=== PATIENT | female | born 1960 | race Caucasian/White ===

== ENCOUNTER → 2017-05-09 16:18 | Outpatient (CLI) | payer OTHER, SELFPAY ==
--- NOTE | 2017-05-09 16:22 | HPBI_ITS ---
MAMMOGRAPHY - BILATERAL SCREENING REASON FOR EXAM: Female, 56 years old. Routine annual screening examination. PERTINENT HISTORY: Grandmother with breast cancer. Remote left stereotactic breast biopsy. TECHNIQUE: Digital bilateral breast osmani (3D mammographic acquisition) in the CC and MLO projections. 2-D mediolateral oblique (MLO) and craniocaudad (CC) views of both breasts were obtained. CAD: Full Field Digital Mammography with Computer Added Detection was performed. COMPARISON: Comparison is made with prior study dated March 15, 2016 and March 05, 2015. FINDINGS: Breast Composition: The breasts are heterogeneously dense, which may obscure small masses. There are no dominant masses or suspicious calcifications. Once again, 2 tissue markers are seen in the left breast in keeping with prior left breast biopsy. Stable bilateral benign-appearing axillary lymph nodes. No other significant abnormalities are identified. There has been no significant change since the prior study. HPBI/SCREENING MAMM (CAD), BILAT IMPRESSION: Stable bilateral screening mammogram. Yearly follow-up mammogram recommended. (A) ASSESSMENT CATEGORY: BIRADS Category 2: Benign. A letter regarding these results will be sent to the patient by the facility within 30 days. Approximately 10% of breast cancers are not detected by mammography. A normal mammogram should not delay biopsy of a clinically suspicious abnormality. [id number] Electronically Signed: Anders Brown MD at 9:16 EST Tel [phone], Service support ,
== END ==
PROVIDERS: Family Provider Nurse Practitioner; PCP Nurse Practitioner; Visit Provider Nurse Practitioner
DX: Z12.31 Encounter for screening mammogram for malignant neoplasm of breast (principal)
CPT/HCPCS: 77063; 77067

== ENCOUNTER → 2018-05-15 13:06 | Outpatient (CLI) | payer OTHER, SELFPAY ==
[2018-05-19 16:05] LABS: HPV Reflexed? NOT INDICATED
== END ==
PROVIDERS: Visit Provider Obstetrics & Gynecology
DX: Z12.4 Encounter for screening for malignant neoplasm of cervix (principal)
CPT/HCPCS: 88175; G0145

== ENCOUNTER → 2018-06-20 17:30 | Outpatient (CLI) | payer OTHER, SELFPAY ==
--- NOTE | 2018-06-20 17:08 | BI_ITS ---
MAMMOGRAPHY - BILATERAL SCREENING REASON FOR EXAM: Female, 57 years old. Routine annual screening examination. PERTINENT HISTORY: Grandmother with breast cancer. Remote left stereotactic breast biopsy and left ultrasound-guided breast biopsy. TECHNIQUE: Digital bilateral breast osmani (3D mammographic acquisition) in the CC and MLO projections. 2-D mediolateral oblique (MLO) and craniocaudad (CC) views of both breasts were obtained. CAD: Full Field Digital Mammography with Computer Added Detection was performed. COMPARISON: Comparison is made with prior examination dated May 09, 2017 and March 15, 2016. FINDINGS: Breast Composition: There are scattered areas of fibroglandular density. There are no dominant masses or suspicious calcifications. Once again, soft tissue clip markers are seen in the left breast in keeping with prior biopsies. Stable benign-appearing bilateral axillary lymph nodes. No other significant abnormalities are identified. There has been no significant change since the prior study. BI/SCREENING MAMM (CAD), BILAT IMPRESSION: Stable bilateral screening mammogram. Yearly follow-up mammogram recommended. (A) ASSESSMENT CATEGORY: BIRADS Category 2: Benign. A letter regarding these results will be sent to the patient by the facility within 30 days. Approximately 10% of breast cancers are not detected by mammography. A normal mammogram should not delay biopsy of a clinically suspicious abnormality. [id number] Electronically Signed: Anders Brown, at 9:01 EDT , Service support ,
== END ==
PROVIDERS: Family Provider Obstetrics & Gynecology; PCP Nurse Practitioner; Referring Provider Nurse Practitioner; Visit Provider Obstetrics & Gynecology
DX: Z12.31 Encounter for screening mammogram for malignant neoplasm of breast (principal)
CPT/HCPCS: 77063; 77067

== ENCOUNTER → 2018-12-09 | Outpatient (CLI) | payer OTHER, SELFPAY ==
[2018-12-09 11:28] LABS: Absolute Lymphocyte Count 2.31 X10^3/uL (0.83-4.51); Absolute Neutrophil Count 4.4 X10^3/uL (2.0-7.7); Basophil# 0.04 X10^3/uL; Basophil% 0.5 % (0-1); Eosinophil# 0.21 X10^3/uL; Eosinophils% 2.9 % (0-5); Hematocrit 41.5 % (37-47); Hemoglobin 13.6 g/dL (12.0-15.0); Lymphocyte # 2.31 X10^3/ul (4.0); Lymphocyte % 31.5 % (19-41); Mean Corp Hgb Conc 32.8 g/dL (32-36); Mean Corpuscular Hgb 30.8 pg (27.0-32.0); Mean Corpuscular Volume 93.9 fL (81-99); Mean Platelet Vol. 12.4 fl (6.2-12.0); Monocyte# 0.36 X10^3/uL; Monocyte% 4.9 % (0-10); NRBC Flagged by Analyzer 0 % (0-5); Neutrophil # 4.38 X10^3/uL (2.7-7.7); Neutrophil % 59.8 % (47-70); Platelet Count 221 K/mm3 (150-450); RBC Distribution Width CV 12.9 % (11.6-14.6); Red Blood Count 4.42 M/mm3 (4.2-5.4); White Blood Count 7.3 K/mm3 (4.4-11.0)
[2018-12-09 12:06] LABS: ALB/GLOB Ratio 0.9 RATIO (0.9-2.4); AST(SGOT) 11 U/L (15-37); Alanine Aminotransfer ALT/SGPT 17 U/L (13-56); Albumin, Serum 3.3 g/dL (3.2-5.0); Alkaline Phosphatase 63 U/L (45-117); Anion Gap 3 (5-15); BUN 22 mg/dL (7-18); BUN/Creat Ratio 29.3 RATIO (10-20); Calcium,Total 8.8 mg/dL (8.5-10.1); Chloride 110 mmol/L (98-107); Cholesterol 192 mg/dL (200); Creatinine, Serum 0.75 mg/dL (0.55-1.02); EST Glomerular Filtration Rate 85 mL/min (>60); Est Glom Filt Rate - Afr Amer 102 mL/min (>60); Globulin 3.8 g/dL (2.2-4.2); Glucose 98 mg/dL (74-106); High Density Lipoprotein 59 mg/dL; Potassium 3.8 mmol/L (3.5-5.1); Protein, Total 7.1 g/dL (6.4-8.2); Sodium Level 140 mmol/L (136-145); Triglycerides 204 mg/dL; Very Low Density Lipoprotein 41 mg/dL (5-40)
[2018-12-12 10:23] LABS: Vitamin D,25 Hydroxy 61.9 ng/mL (29.95-100.01)
== END | disposition home or self-care (01) ==
LOC: LAB 10:36
PROVIDERS: Family Provider Nurse Practitioner; PCP Nurse Practitioner; Referring Provider Nurse Practitioner; Visit Provider Nurse Practitioner
DX: E78.00 Pure hypercholesterolemia, unspecified (principal); E55.9 Vitamin D deficiency, unspecified
CPT/HCPCS: 36415; 80053; 80061; 82306; 84443; 85025

== ENCOUNTER → 2019-06-06 14:58 | Outpatient (CLI) | payer OTHER, SELFPAY ==
--- NOTE | 2019-06-06 15:04 | RAD_ITS ---
STUDY: X-RAY CHEST REASON FOR EXAM: Female, 58 years old. COUGH X YEARS, NO CURRENT COLD/FLU SYMPTOMS TECHNIQUE: PA and lateral views of the chest. COMPARISON: September 23, 2014. FINDINGS: The lungs are clear and expanded. There is no demonstrated pleural abnormality. Normal size heart. Normal mediastinum and leatha. Normal visualized pulmonary arteries. Normal visualized aortic arch and descending thoracic aorta. There is mild degenerative change of the thoracic spine. Normal visualized ribs, clavicles, and shoulders. There is gaseous distention of bowel in the left upper abdomen. RAD/Chest PA and Lateral IMPRESSION: No acute cardiopulmonary disease. Stable appearance. Electronically Signed: Justice Caldera MD at 16:07 EST , Service support ,
== END ==
PROVIDERS: PCP Nurse Practitioner; Referring Provider Nurse Practitioner; Visit Provider Nurse Practitioner
DX: R05 Cough (principal)
CPT/HCPCS: 71046

== ENCOUNTER → 2019-06-26 | Outpatient (CLI) | payer OTHER, SELFPAY ==
--- NOTE | 2019-06-26 16:00 | BI_ITS ---
MAMMOGRAPHY - BILATERAL SCREENING REASON FOR EXAM: Female, 58 years old. Routine annual screening examination. PERTINENT HISTORY: Grandmother with breast cancer. Remote left stereotactic breast biopsy and left ultrasound-guided breast biopsy. TECHNIQUE: Digital bilateral breast ilda (3D mammographic acquisition) in the CC and MLO projections. 2-D mediolateral oblique (MLO) and craniocaudad (CC) views of both breasts were obtained. CAD: Full Field Digital Mammography with Computer Added Detection was performed. COMPARISON: Comparison is made with prior examination June 20, 2018 and May 09, 2017. FINDINGS: Breast Composition: There are scattered areas of fibroglandular density. There are no dominant masses or suspicious calcifications. Once again, 2 tissue markers are seen in the slightly upper lateral aspect of the left breast incomplete with history of prior biopsies. Stable small bilateral axillary lymph nodes. No other significant abnormalities are identified. There has been no significant change since the prior study. BI/SCREEN MAMM (CAD) W/ILDA BILAT IMPRESSION: Stable bilateral screening mammogram. Yearly follow-up mammogram recommended. (A) ASSESSMENT CATEGORY: BIRADS Category 2: Benign. A letter regarding these results will be sent to the patient by the facility within 30 days. Approximately 10% of breast cancers are not detected by mammography. A normal mammogram should not delay biopsy of a clinically suspicious abnormality. [id number] Electronically Signed: Anders Brown, at 8:16 EDT , Service support ,
== END | disposition home or self-care (01) ==
PROVIDERS: PCP Nurse Practitioner
DX: Z12.31 Encounter for screening mammogram for malignant neoplasm of breast (principal)
CPT/HCPCS: 77063; 77067

== ENCOUNTER → 2019-08-29 11:19 | Outpatient (CLI) | payer OTHER, SELFPAY ==
--- NOTE | 2019-08-29 11:30 | RAD_ITS ---
STUDY: X-RAY - LEFT ANKLE REASON FOR EXAM: Female, 59 years old. PAIN IN LEFT ANKLE POSTERIORLY FOR ABOUT 2 WEEKS. NO KNOWN INJURY. TECHNIQUE: 3 view(s) of the ankle. COMPARISON: None. FINDINGS: Normal visualized distal tibia and fibula. Normal medial and lateral malleoli. Normal tibiotalar articulation and ankle mortise. Normal visualized talus and calcaneus. Calcific enthesopathy in the posterior calcaneal surface. Tiny posterior plantar calcaneal spur. The visualized subtalar, talonavicular, calcaneocuboid and tarsal articulations are normal. The soft tissue structures are unremarkable. RAD/Ankle min 3 Views IMPRESSION: No acute fracture or dislocation of the left ankle. Electronically Signed: Jordan Yang MD at 11:53 EDT , Service support ,
== END ==
PROVIDERS: PCP Nurse Practitioner; Referring Provider Nurse Practitioner; Visit Provider Nurse Practitioner
DX: M25.572 Pain in left ankle and joints of left foot (principal)
CPT/HCPCS: 73610

== ENCOUNTER → 2020-07-29 16:40 | Outpatient (CLI) | payer OTHER, SELFPAY ==
--- NOTE | 2020-07-29 16:05 | BI_ITS ---
MAMMOGRAPHY - BILATERAL SCREENING REASON FOR EXAM: Female, 59 years old. Routine annual screening examination. PERTINENT HISTORY: Sister with breast cancer. Grandmother with breast cancer. History of prior left stereotactic and left ultrasound-guided breast biopsies. TECHNIQUE: Digital bilateral breast ilda (3D mammographic acquisition) in the CC and MLO projections. 2-D mediolateral oblique (MLO) and craniocaudad (CC) views of both breasts were obtained. CAD: Full Field Digital Mammography with Computer Added Detection was performed. COMPARISON: Comparison is made with prior examination dated 06/26/2019 and 06/20/2018. FINDINGS: Breast Composition: The breasts are heterogeneously dense, which may obscure small masses. There are no dominant masses or suspicious calcifications. No other significant abnormalities are identified. There has been no significant change since the prior study. BI/SCRN MAMM (CAD)W/ILDA BILAT IMPRESSION: Stable bilateral screening mammogram. Yearly follow-up mammogram recommended. (A) ASSESSMENT CATEGORY: BIRADS Category 1: Negative. A letter regarding these results will be sent to the patient by the facility within 30 days. Approximately 10% of breast cancers are not detected by mammography. A normal mammogram should not delay biopsy of a clinically suspicious abnormality. [id number] Electronically Signed: Anders Brown MD at 8:08 EDT , Service support ,
== END ==
PROVIDERS: PCP Nurse Practitioner; Referring Provider Student in an Organized Health Care Education/Training Program; Visit Provider Student in an Organized Health Care Education/Training Program
DX: Z12.31 Encounter for screening mammogram for malignant neoplasm of breast (principal)
CPT/HCPCS: 77063; 77067

== ENCOUNTER 2021-06-23 14:12 | Outpatient (CLI) | payer OTHER, SELFPAY ==
[2021-06-23 16:32] LABS: Follicle Stimulating Hormone 59.6 mIU/mL; Luteinizing Hormone 30.8 mIU/mL
[2021-06-30 13:57] LABS: HPV APTIMA, High Risk Negative (Negative)
== END 2021-06-23 23:59 | disposition home or self-care (01) ==
LOC: WOBLAB 14:13
PROVIDERS: PCP Nurse Practitioner; Visit Provider Student in an Organized Health Care Education/Training Program
DX: Z12.4 Encounter for screening for malignant neoplasm of cervix (principal); Z78.0 Asymptomatic menopausal state
CPT/HCPCS: 36415; 83001; 83002; 87624; 88175; G0145

== ENCOUNTER 2021-07-13 16:29 | Outpatient (CLI) | payer OTHER, SELFPAY ==
--- NOTE | 2021-07-13 15:00 | EMB_PTH ---
PATIENT: CECE SNEED LOC: [facility]#:[id number] AGE/SX: 60/F ROOM: RE07/13/[address]: Dr. Beatriz Booker DO : 1960 BED: DIS: 07/13/2021 SPEC #: [id number] RECD: 07/13/21 17:25 STATUS: JAYCOB SONDRA #: [id number] URI: 07/13/21 15:[address]: Beatriz Booker DEPT: SURGICAL PATHOLOGY RECD BY: Nuvia Villalpando ENTERED: 07/14/21 08:10 SP TYPE: ENDOM BX/C RAMSEY DR: YAQUELIN Bowman Tissues: Endometrium, NOS Procedures: Surgery Specimen Level IV HEADER OPERATION: Endometrial biopsy PRE-OP DIAGNOSIS: N95.0 TISSUE SUBMITTED: Endometrial biopsy MICROSCOPIC DIAGNOSIS Endometrial biopsy: Strips of benign endometrial epithelium and superficial fragments of benign endometrial tissue. Fragments of benign ecto- and endocervical epithelium and mucous. SJ:mavis 07/15/2021 MICROSCOPIC DESCRIPTION Slides are reviewed. GROSS DESCRIPTION Received in fixative is one container labeled with the patient's name and designated endometrial biopsy. The specimen consists of multiple fragments of hemorrhagic mucoid tissue that in aggregate measure 1 x 0.5 x 0.1 cm. The specimen is totally submitted in one cassette. / SHALA:mavis 07/14/2021 TC:4 CPT: 33223
== END 2021-07-13 23:59 | disposition home or self-care (01) ==
LOC: LABSPEC 16:34
PROVIDERS: PCP Nurse Practitioner; Visit Provider Student in an Organized Health Care Education/Training Program
DX: N95.0 Postmenopausal bleeding (principal)
CPT/HCPCS: 88305

== ENCOUNTER 2021-07-21 13:42 | Outpatient (CLI) | payer OTHER, SELFPAY ==
--- NOTE | 2021-07-21 13:45 | BI_ITS ---
MAMMOGRAPHY - BILATERAL SCREENING REASON FOR EXAM: Female, 60 years old. Routine annual screening examination. PERTINENT HISTORY: Sister with breast cancer. Grandmother with breast cancer. History of prior left stereotactic breast biopsy. TECHNIQUE: Digital bilateral breast ilda (3D mammographic acquisition) in the CC and MLO projections. 2-D mediolateral oblique (MLO) and craniocaudad (CC) views of both breasts were obtained. CAD: Full Field Digital Mammography with Computer Added Detection was performed. COMPARISON: Comparison is made with prior study dated 07/29/2020 and 06/26/2019. FINDINGS: Breast Composition: The breasts are heterogeneously dense, which may obscure small masses. There are no dominant masses or suspicious calcifications. 2 tissue markers are seen in the central slightly lateral aspect of the left breast. Stable small benign-appearing bilateral axillary lymph nodes. No other significant abnormalities are identified. There has been no significant change since the prior study. BI/SCRN MAMM (CAD)W/ILDA BILAT IMPRESSION: Stable bilateral screening mammogram. Yearly follow-up mammogram recommended. (A) ASSESSMENT CATEGORY: BIRADS Category 2: Benign. A letter regarding these results will be sent to the patient by the facility within 30 days. Approximately 10% of breast cancers are not detected by mammography. A normal mammogram should not delay biopsy of a clinically suspicious abnormality. [id number] Electronically Signed: Anders Brown MD at 14:37 EDT ,
== END 2021-07-21 23:59 | disposition home or self-care (01) ==
LOC: OPBI 13:43
PROVIDERS: PCP Nurse Practitioner; Visit Provider Student in an Organized Health Care Education/Training Program
DX: Z12.31 Encounter for screening mammogram for malignant neoplasm of breast (principal); Z80.3 Family history of malignant neoplasm of breast
CPT/HCPCS: 77063; 77067

== ENCOUNTER → 2022-07-30 | Outpatient (CLI) | payer OTHER, SELFPAY ==
--- NOTE | 2022-07-30 14:49 | BI_ITS ---
MAMMOGRAPHY - BILATERAL SCREENING REASON FOR EXAM: Female, 61 years old. Routine annual screening examination. PERTINENT HISTORY: Sister with breast cancer. Grandmother with breast cancer. Prior left ultrasound-guided breast biopsy. TECHNIQUE: Digital bilateral breast ilda (3D mammographic acquisition) in the CC and MLO projections. 2-D mediolateral oblique (MLO) and craniocaudad (CC) views of both breasts were obtained. CAD: Full Field Digital Mammography with Computer Added Detection was performed. COMPARISON: Comparison is made with prior study July 21, 2021 and July 29, 2020. FINDINGS: Breast Composition: The breasts are heterogeneously dense, which may obscure small masses. There are no dominant masses or suspicious calcifications. Once again, 2 tissue markers are seen in the central slightly lateral aspect of the left breast stable small benign appearing bilateral axilla. No other significant abnormalities are identified. There has been no significant change since the prior study. BI/SCRN MAMM (CAD)W/ILDA BILAT IMPRESSION: Stable bilateral screening mammogram. Yearly follow-up mammogram recommended. (A) ASSESSMENT CATEGORY: BIRADS Category 2: Benign. A letter regarding these results will be sent to the patient by the facility within 30 days. Approximately 10% of breast cancers are not detected by mammography. A normal mammogram should not delay biopsy of a clinically suspicious abnormality. [id number] Electronically Signed: Anders Brown MD at 15:38 EDT ,
== END | disposition home or self-care (01) ==
LOC: OPBI 14:47
PROVIDERS: PCP Nurse Practitioner; Referring Provider Nurse Practitioner Family; Visit Provider Nurse Practitioner Family
DX: Z12.31 Encounter for screening mammogram for malignant neoplasm of breast (principal); Z80.3 Family history of malignant neoplasm of breast
CPT/HCPCS: 77063; 77067

== ENCOUNTER → 2023-09-13 | Outpatient (CLI) | payer OTHER, SELFPAY ==
--- NOTE | 2023-09-13 10:01 | BI_ITS ---
MAMMOGRAPHY - BILATERAL SCREENING REASON FOR EXAM: Female, 63 years old. Routine annual screening examination. PERTINENT HISTORY: Sister with breast cancer. Grandmother with breast cancer. Prior left stereotactic breast biopsy. TECHNIQUE: Digital bilateral breast ilda (3D mammographic acquisition) in the CC and MLO projections. 2-D mediolateral oblique (MLO) and craniocaudad (CC) views of both breasts were obtained. CAD: Full Field Digital Mammography with Computer Added Detection was performed. COMPARISON: Comparison is made with prior study July 30, 2022 and July 21, 2021. FINDINGS: Breast Composition: The breasts are heterogeneously dense, which may obscure small masses. There are no dominant masses or suspicious calcifications. 2 tissue markers are seen in the slightly central lateral aspect of the left breast. Stable benign appearing bilateral axillary lymph nodes. No other significant abnormalities are identified. There has been no significant change since the prior study. BI/SCRN MAMM (CAD)W/ILDA BILAT IMPRESSION: Stable bilateral screening mammogram. Yearly follow-up mammogram recommended. (A) ASSESSMENT CATEGORY: BIRADS Category 2: Benign. A letter regarding these results will be sent to the patient by the facility within 30 days. Approximately 10% of breast cancers are not detected by mammography. A normal mammogram should not delay biopsy of a clinically suspicious abnormality. [id number] Electronically Signed: nAders Brown MD at 11:17 EDT ,
--- NOTE | 2023-09-13 10:03 | BD_ITS ---
STUDY: DUAL ENERGY X-RAY ABSORPTIOMETRY / DXA REASON FOR EXAM: Female, 63 years old. [id number] TECHNIQUE: Bone Mineral Density (BMD) measurements of lumbar spine and bilateral hips were obtained. COMPARISON: None. FINDINGS: Lumbar Spine (L1-L4): g/cm2 (0.894) / T-score (-1.4) / Z-score (0.1) Findings are suggestive of osteopenia with a low fracture risk. Left Femur Total: g/cm2 (1.073) / T-score (1.1) / Z-score (2.1) Left Femoral Neck: g/cm2 (0.781) / T-score (-0.6) / Z-score (0.7) Right Femur Total: g/cm2 (1.020) / T-score (0.6) / Z-score (1.6) Right Femoral Neck: g/cm2 (0.795) / T-score (-0.5) / Z-score (0.8) BD/Dexa Bone Density Study IMPRESSION: The patient is considered osteopenic as outlined below according to World Alon Organization (WHO) criteria with a low fracture risk. Reference Information: The T-score is the number of standard deviations above or below the standard which is normal for young adults at their peak bone mineral density. The World Health Organization (WHO) interprets the T-scores as follows: Above -1 Normal bone density Between -1 and -2.5 Osteopenia Equal to / or below -2.5 Osteoporosis As a practical clinical guideline, osteopenia may be graded as follows: Mild -1 through -1.5 Moderate -1.6 through -2.0 Severe -2.1 through -2.4 The Z-score is the number of standard deviations above or below age-matched controls. A Z-score of less than -1.5 would be considered abnormal. References: 1. NIH Osteoporosis and Related Bone Diseases www osteo.org 2. International Society for Clinical Densitometry www iscd.org 3. National Osteoporosis Foundation www nof.org Electronically Signed: Anders Brown MD at 10:03 EDT ,
== END | disposition home or self-care (01) ==
LOC: OPBD 09:56
PROVIDERS: PCP Nurse Practitioner; Referring Provider Nurse Practitioner Family; Visit Provider Nurse Practitioner Family
DX: Z12.31 Encounter for screening mammogram for malignant neoplasm of breast (principal); Z78.0 Asymptomatic menopausal state
CPT/HCPCS: 77063; 77067; 77080

== ENCOUNTER → 2024-06-22 | Outpatient (CLI) | payer OTHER, SELFPAY ==
[2024-06-22 12:40] LABS: Absolute Lymphocyte Count 2.28 X10^3/uL (0.83-4.51); Absolute Neutrophil Count 3.7 X10^3/uL (2.0-7.7); Basophil# 0.05 X10^3/uL; Basophil% 0.8 % (0-1); Eosinophil# 0.12 X10^3/uL; Eosinophils% 1.8 % (0-5); Hematocrit 42.7 % (37-47); Hemoglobin 13.8 g/dL (12.0-15.0); Lymphocyte # 2.28 X10^3/ul (0.83-4.51); Lymphocyte % 34.5 % (19-41); Mean Corp Hgb Conc 32.3 g/dL (32-36); Mean Corpuscular Hgb 30.3 pg (27.0-32.0); Mean Corpuscular Volume 93.6 fL (81-99); Mean Platelet Vol. 12.6 fl (6.2-12.0); Monocyte% 6.1 % (0-10); NRBC Flagged by Analyzer 0 % (0-5); Neutrophil # 3.74 X10^3/uL (2.7-7.7); Neutrophil % 56.6 % (47-70); Platelet Count 221 K/mm3 (150-450); RBC Distribution Width CV 13.2 % (11.6-14.6); RBC Distribution Width SD 45.1 fl (35.1-43.9); Red Blood Count 4.56 M/mm3 (4.2-5.4); White Blood Count 6.6 K/mm3 (4.4-11.0)
[2024-06-22 13:51] LABS: ALB/GLOB Ratio 1.5 RATIO (0.9-2.4); AST(SGOT) 18 U/L (<=31); Alanine Aminotransfer ALT/SGPT 20 U/L (<=34); Albumin, Serum 4.3 g/dL (3.4-4.8); Alkaline Phosphatase 76 U/L (35-104); Anion Gap 14 (5-15); BUN 16 mg/dL (4-19); BUN/Creat Ratio 17.2 RATIO (10-20); Calcium,Total 9.9 mg/dL (7.6-11.0); Carbon Dioxide 20.3 mmol/L (21.0-32.0); Chloride 108 mmol/L (98-108); Creatinine, Serum 0.92 mg/dL (0.70-1.20); EST Glomerular Filtration Rate 71 (>60); Globulin 2.9 g/dL (2.2-4.2); Glucose 109 mg/dL (70-99); Protein, Total 7.2 g/dL (5.9-8.4); Sodium Level 142 mmol/L (133-145)
[2024-06-22 14:21] LABS: Cholesterol 140 mg/dL (<=200); High Density Lipoprotein 56 mg/dL; Low Density Lipoprotein Calc. 61 mg/dL; Triglycerides 118 mg/dL; Very Low Density Lipoprotein 24 mg/dL (5-40); cholesterol:hdl ratio screen 2.52
[2024-06-22 14:22] LABS: Vitamin D,25 Hydroxy 50.1 ng/mL (30-100)
[2024-06-22 14:27] LABS: Hemoglobin A1c 5.9 % (<=5.6)
== END | disposition home or self-care (01) ==
LOC: BIMLAB 09:22
PROVIDERS: PCP Internal Medicine; Referring Provider Internal Medicine; Visit Provider Internal Medicine
DX: R73.03 Prediabetes (principal); E78.2 Mixed hyperlipidemia; J45.909 Unspecified asthma, uncomplicated; G43.909 Migraine, unspecified, not intractable, without status migrainosus
CPT/HCPCS: 36415; 80053; 80061; 82306; 83036; 85025

== ENCOUNTER 2025-04-10 00:08 | Emergency (ER) | payer MEDICAID, SELFPAY ==
[2025-04-10 00:08] VITALS: BP 131/52; PULSE 64; RESP 16; TEMP 36.4; O2SAT 100; BMI 35.8
--- NOTE | 2025-04-10 00:20 | RAD_ITS ---
PROCEDURE: ELBOW MIN 3 VIEWS 04/10/2025 REASON FOR EXAM: PAIN, FALL TECHNIQUE: Procedure Code: RADEL Modality: DX Procedure: ELBOW MIN 3 VIEWS Laterality: Right. COMPARISON: None. FINDINGS: Acute nondisplaced fracture of the radial head/neck. Elbow joint effusion. Soft tissue edema and swelling. Normal radiocapitellar articulation. Normal ulnotrochlear articulation. Normal distal humerus and epicondyles. Normal proximal ulna and olecranon process. RAD/Elbow min 3 Views IMPRESSION: Acute nondisplaced fracture of the radial head/neck. Elbow joint effusion. Soft tissue edema and swelling. [facility]
--- NOTE | 2025-04-10 00:21 | EDS_ITS ---
HPI History of Present Illness Chief Complaint: Upper Extremity Injury Narrative Narrative: Patient is a 64-year-old female presenting to the emergency department after a fall. Patient states that she was outside and slipped on ice causing her to fall onto her right arm. She denies hitting her head or any loss of consciousness. She is not on any oral anticoagulation. States that her drivers Ed student helped her up. Denies any neck or back pain. Denies any hip pain. Denies any headache. Denies any chest pain, shortness of breath, abdominal pain, palpitations, lightheadedness or dizziness that caused her to fall. States it was purely slipping on the ice that caused her to fall. She took Advil around 8 PM this evening. The fall happened around 5 PM. [facility] Medical History JESUS (obstructive sleep apnea) Depression Chronic headaches Asthma Home Medications ?Medication ?Instructions ?Recorded ?Last Taken ?Type galcanezumab-gnlm 120 mg/mL 120 mg subcut QMONTH 01/19 Unknown History subcutaneous syringe (Emgality) ipratropium bromide 21 mcg (0.03 2 spray intranasal BI D 01/20/24 Unknown History %) nasal spray propranolol 20 mg tablet 20 mg PO BID 01/20/24 Unknow n History rosuvastatin 5 mg tablet (Crestor) 5 mg PO .every othe r day 01/20/24 Unknown Hi story zolmitriptan 5 mg tablet mg PO .prn 01/20/24 Unknown History ascorbate calcium (vitamin C) 500 500 mg PO QDAY 03/27 Unknown History mg tablet calcium , magnesium, zinc PO 03/27/24 Unknown History cholecalciferol (vitamin D3) 50 50 mcg PO QDAY 4 Unknown History mcg (2,000 unit) capsule cranberry 500 mg capsule 500 mg PO ONCE 03/27/24 Unkn own History multivitamin PO 03/27/24 Unknown History vitamin B complex 1 tab PO QDAY 03/27/24 Unkno wn History topiramate 100 mg tablet 100 mg PO BID #180 tabs 10/10 05/05 Unknown Rx budesonide-formoterol HFA 80 2 puff PO BID #30.6 ea Unknown Rx mcg-4.5 mcg/actuation aerosol inhaler escitalopram oxalate 20 mg tablet 20 mg PO DAILY #90 t abs 03/11/25 Unknown Rx famotidine 20 mg tablet (Pepcid) 20 mg PO QDAY PRN hea rtburn #90 03/11/25 Unknown Rx tabs Allergy/AdvReac Type Severity Reaction Status Date / Time No Known Allergies Allergy Verified 04/10/25 00:10 Family History Grandmother Cancer, Onset Age: 80 breast cancer Mother Cancer, Onset Age: 50 ovarian cancer Sister Cancer, Onset Age: 60 breast Sister Colon cancer, Onset Age: 20 Grandfather Cancer skin Father Cancer skin Aunt Cancer breast? type unknown Surgical History H/O breast biopsy Social History household members: none housing: house current occupational status: employed current occupation: [employer] Smoking Status: Never smoker alcohol intake: never substance use type: does not use what type of physical activity do you participate in: none seatbelt use: always do you feel safe at home: Yes ROS ROS ED ROS Narrative see HPI EXAM Physical Exam Narrative Exam Narrative: Vital signs: Reviewed General: Alert and orientedx3. No acute distress. Well-appearing, nontoxic HEENT: Head is normocephalic and atraumatic. No cephalhematoma, lacerations or abrasions to the head or face. Sinuses nontender, pupils equal round and reactive. Extraocular movements intact. Nares are patent. No septal hematoma. Oropharynx and throat exams normal. No oropharyngeal trauma. Neck: Supple without lymphadenopathy nontender. No midline cervical spinal tenderness to palpation. No step-offs or deformities. Cardiovascular: Regular rate and rhythm, no murmurs. No rubs or gallops. Normal S1 and S2 Respiratory: Clear to auscultation bilaterally. No wheezes, rales, rhonchi Chest: Chest wall is atraumatic and nontender to palpation with no crepitus, erythema or ecchymosis. Abdominal: Soft and nontender. Normal bowel sounds. No guarding or rebound. Nonsurgical abdomen Extremities: There is some very mild tenderness to palpation of the radial proximal portion of the forearm. There is no tenderness to palpation of the right clavicle, proximal, midshaft or distal humerus. There is no obvious deformity of the elbow. There is no erythema or ecchymosis of the elbow. There is no tenderness to palpation of the mid or distal forearm, wrist or hand. Radial pulses palpable and 2+. Sensation intact in the radial, median, ulnar and axillary distributions. Patient able to wiggle her fingers and range fully at the wrist. She is able to partially range at the shoulder however it causes pain in the elbow when ranging the shoulder and is therefore limited. Atraumatic left upper extremity and bilateral lower extremities. No midline thoracic or lumbar spinal tenderness to palpation. No step-offs or deformities. Skin: No rash or redness. Neurological: Cranial nerves II through XII are grossly intact. Normal strength and sensation. Normal cerebellar function The rest of the physical exam is unremarkable Const Vital Signs: 04/10/25 00:08 Temperature 97.6 F L Temperature Source Oral Pulse Rate 64 Respiratory Rate 16 Blood Pressure 131/52 H Blood Pressure Mean 78 Pulse Ox 100 Oxygen Delivery Method Room Air MDM MDM MDM Narrative Medical decision making narrative: Patient is a 64-year-old female presenting to the emergency department for right arm pain after a fall. Patient was seen and examined. Vitals are stable. Patient resting in bed comfortably in no acute distress. She was offered analgesic but declines. X-ray imaging of the elbow and humerus were obtained. X-rays were reviewed by myself and there is evidence of a nondisplaced radial head fracture. No other fracture noted on my review. Radiology read in agreement. On reexamination again she does not have tenderness to palpation of the wrist I am not concerned about a Beatriz Harinder Lesion. She will be placed in a sling. She was encouraged to have early range of motion after 2 to 5 days and given orthopedic follow-up for as soon as possible. She was educated on RICE therapy. Patient discharged from the Emergency Department. I do not feel that the patient's evaluation reveals any acute reason for admission at this time. I instructed them to either follow-up with their primary care physician or promptly return to the Emergency Department for reevaluation should symptoms worsen or new symptoms develop. I explained what symptoms would indicate the need to return to the emergency department. Shared decision making was used. The patient voiced understanding of the treatment plan and is agreeable with it. Clinical impression: Mechanical fall Closed fracture radial head History & Record Review Discussion w/independent historian: Patient Radiography X-Ray: Read by ED Physician and Fracture (Radial head fracture) Discharge Plan Triage Chief Complaint: Upper Extremity Injury ED Provider: Deb Miranda Dx/Rx/DC Orders Clinical Impression: Closed fracture of radial head, Fall Instructions: ED Radial Head Fracture, ED Fall Prevention, ED RICE Prescriptions: No Action vitamin B complex Tablet 1 tab PO QDAY ascorbate calcium (vitamin C) 500 mg tablet 500 mg PO QDAY Rx Instructions: unknown mg calcium , magnesium, zinc PO Rx Instructions: 600mg po qd cholecalciferol (vitamin D3) 50 mcg (2,000 unit) capsule 50 mcg PO QDAY cranberry 500 mg capsule 500 mg PO ONCE Rx Instructions: administer with meals multivitamin PO Rx Instructions: 50 plus Emgality Syringe 120 mg/mL syringe 120 mg subcut QMONTH rosuvastatin [Crestor] 5 mg tablet 5 mg PO .every other day ipratropium bromide 21 mcg (0.03 %) spray,non-aerosol 2 spray intranasal BID Rx Instructions: administer into each nostril propranolol 20 mg tablet 20 mg PO BID zolmitriptan 5 mg tablet PO .prn Rx Instructions: 1/2 tab topiramate 100 mg tablet 100 mg PO BID Qty: 180 0RF budesonide-formoterol 80-4.5 mcg/actuation HFA aerosol inhaler 2 puff PO BID Qty: 30.6 0RF escitalopram oxalate 20 mg tablet 20 mg PO DAILY Qty: 90 0RF famotidine [Pepcid] 20 mg tablet 20 mg PO QDAY PRN (Reason: heartburn) Qty: 90 0RF Primary Care Provider: Madina Green Referrals: Madina Green MD [Primary Care Provider, Internal Medicine] Jose M Rizvi DO [Med Staff - Active Staff, [facility]] - 1 Week Activity Restrictions/Additional Instructions: Wear the sling for at least 2-5 days and then work on early range of motion of your arm. Follow the RICE instructions for pain and swelling control. Call the orthopedic office below as soon as possible for follow-up. Your evaluation in the Emergency Department did not reveal any acute reason for admission. However, I want to emphasize that you may be early in the course of a disease process or illness even if it is not present. For this reason you should follow-up within 24 hours for reevaluation with either your primary care physician or if necessary back here in the Emergency Department. You should return to the Emergency Department immediately if your symptoms worsen or new symptoms develop. Print Language: Albanian Disposition Disposition: Home, Self Care
--- NOTE | 2025-04-10 00:30 | RAD_ITS ---
PROCEDURE: HUMERUS MIN 2 VIEWS 04/10/2025 REASON FOR EXAM: PAIN, FALL TECHNIQUE: Procedure Code: RADHUM Modality: DX Procedure: HUMERUS MIN 2 VIEWS COMPARISON: None. FINDINGS: Normal visualized humerus. There is no demonstrated fracture or osseous destructive process. There is no demonstrated soft tissue abnormality. RAD/Humerus min 2 Views IMPRESSION: No evidence for acute abnormality. Reading [facility]
--- OUTSIDE RECORDS SUMMARY | 2025-04-10 00:36 | XMS RPT_ITS | CCD ---
Author Organization [facility] ion Partnership [facility] Care Team Providers Care Bottom Turning Lathe Turner Name Role Phone Taylor Tenorio Attending Unavailable Fast, Karen A Referring Unavailable Taylor Tenorio Consulting Unavailable Taylor Tenorio Unavailable Karan Peralta Unavailable Gabriela Peralta Unavailable Simin Rossi Unavailable [phone] Quan Ritter Unavailable Fast, Karen A Unavailable LakiaAnnie Malinen Unavailable Jose Alfredo Cummings P Unavailable Zulay Borden Unavailable Unavailable Slarb, Jacque Unavailable Unavailable Unavailable Unavailable Lakiaalejandra Stovall Iesha Unavailable Shan Briceño Unavailable Unavailable Jonathan Manning Unavailable Maria Eugenia Kendrick Unavailable Unavailable Quan Carson Unavailable Robby Armando Unavailable Gabbie Begum Unavailable Unavailable Shan Briceño Unavailable Unavailable Ofe Seth Unavailable Unavailable Gabriela Peralta Unavailable Shan Pan Unavailable Unavailable Taylor Tenorio CNP Unavailable Karan Peralta Unavailable Gabriela Peralta DO Unavailable Simin Rossi Unavailable Dr. Jonathan Manning Unavailable Quan Carson Unavailable Riya LOJA, Quan Arias Unavailable Fast DO, Karen A Unavailable Iesha Saul Unavailable Zoila LOJA, Jose Alfredo Reno Unavailable Dr. Robby Armando Unavailable Maxim COMMERCIAL REAL ESTATE APPRAISER, Shan Unavailable Unavailable Carolyn COMMERCIAL REAL ESTATE APPRAISER, Jacque Unavailable Unavailable Rolo COMMERCIAL REAL ESTATE APPRAISER, Ofe Unavailable Unavailable Unavailable Unavailable Enrique HOUSE PRINCIPAL, Anne Marie Unavailable Enrique HOUSE PRINCIPAL, Anne Marie Unavailable Taylor Tenorio Unavailable Aria Yun MA Unavailable Unavailable Norma LOJA, Dr. Painter Attending Provider Norma LOJA, Dr. Painter Primary Care Provider Norma LOJA, Dr. Painter Referring Provider Madina Green Primary Care Unavailable Madina Green Attending Unavailable Madina Green Referring Unavailable Madina Green Primary Care Unavailable Madina Green Attending Unavailable Madina Green Referring Unavailable Coby RN NEUROSURGICAL, Taylor Primary Care Unavailable Anne Marie Nunez Attending Unavailable Anne Marie Nunez Referring Unavailable Madina Green Attending Unavailable Verónica Donnelly Attending Unavailable Medications Current Medications Medication Drug Class(es) Dates Sig (Normalized) Sig (Original) Budesonide-Formoter ol (2 sources) Corticosteroid, beta2-Adrenergic Agonist Start: 04-20-2024 Budesonide-Formote rol (Symbicort) 80-4.5 mcg/actuation HFA aerosol inhaler Active 2 NMA INHALATION TWICE A DAY 10.2 April 20, 2024 3:48pm Start: 03-27-2024 End: 04-20-2024 Budesonide-Formoterol (Symbi nieves) 80-4.5 mcg/actuation HFA aerosol inhaler Discontinued 2 NMA INHALATION TWICE A DAY 10.2 March 27, 2024 1:00am April 20, 2024 3:48pm calcium , magnesium, zinc (1 source) Start: 03-27-2024 take 600 mg by mouth once daily calcium , magnesium, zinc Active PO March 27, 2024 1:00am 600mg po qd calcium ascorbate 500 mg oral tablet (1 source) Start: 03-27-2024 take 1 tablet by mouth once daily cholecalciferol 0.05 mg oral capsule (20 sources) Vitamin D Start: 03-27-2024 take 1 capsule by mouth once daily Cholecalciferol (Vitamin D3) 50 mcg (2,000 unit) capsule Active 50 ug PO daily March 27, 2024 1:00am Start: 08-23-2016 take 1 capsule by mo [facility] once daily Vitamin D3 High Potency 1000 UNIT Oral Capsule 1 (one) Capsule daily for 0 days Quantity: 30 {Capsule} Refills: 0 Ordered: 23-Aug-2016 YvonneTaylor millan Start : 23-Aug-2016 Active Start: 02-23-2016 End: 08-23-2016 take 1 capsule by mouth once daily Vitamin D3 5000 UNIT Oral Capsule 1 (one) Capsule daily for 0 days Quantity: 30 {Capsule} Refills: 0 Ordered: 23-Aug-2016 Jacque Leon LPN Start : 23-Feb-2016 End : 23-Aug-2016 Discontinued Start: 10-09-2013 End: 04-01-2017 take 1 capsule by mouth three times daily Vitamin D3 1000 UNIT Oral Capsule 1 Capsule Capsule tid for 0 days Quantity: 30 {Capsule} Refills: 3 Ordered: 01-Apr-2017 Jacque Leon LPN Start : 09-Oct-2013 End : 01-Apr-2017 Inactive Cranberry (20 sources) Non-Standardized Food Allergenic Extract, Non-Standardized Plant Allergenic Extract Start: 03-27-2024 take 1 capsule by mouth once at mealtime Cranberry 500 mg capsule Active 500 mg PO ONCE March 27, 2024 1:00am administer with meals Cranberry 200 MG Oral Capsule (200 MG) Active escitalopram 20 mg oral tablet (20 sources) Serotonin Reuptake Inhibitor Start: 01-20-2024 Escitalopram Oxalate 20 mg tablet Active mg PO January 20, 2024 12:00am Start: 11-15-2022 Lexapro 20 mg oral tablet 1 tab Tablet qd for 90 days Quantity: 90 {Tablet} Refills: 3 Ordered: 15-Nov-2022 Anne Marie Nunez CNP Start : 15-Nov-2022 Active Comments: Mail order. Start: 01-25-2022 Lexapro 20 MG Oral Tablet 1 tab Tablet qd for 90 days Quantity: 90 {Tablet} Refills: 3 Ordered: 25-Jan-2022 Anne Marie Nunez CNP Start : 25-Jan-2022 Active Comments: Mail order. Start: 02-06-2021 Lexapro 20 MG Oral Tablet 1 tab Tablet qd for 90 days Quantity: 90 {Tablet} Refills: 3 Ordered: 06-Feb-2021 Taylor Tenorio Start : 06-Feb-2021 Active Comments: Mail order. Start: 03-03-2020 Lexapro 20 MG Oral Tablet 1 tab Tablet qd for 90 days Quantity: 90 {Tablet} Refills: 3 Ordered: 03-Mar-2020 Coby MADERA, Taylor Duarte CNP Start : 03-Mar-2020 Active Comments: Mail order. Start: 02-23-2020 Lexapro 20 MG Oral Tablet 1 tab Tablet qd for 90 days Quantity: 90 {Tablet} Refills: 3 Ordered: 23-Feb-2020 Coby MADERA, Taylor Duarte CNP Start : 23-Feb-2020 Active Comments: Mail order. Start: 12-21-2018 Lexapro 20 MG Oral Tablet 1 tab Tablet qd for 90 days Quantity: 90 {Tablet} Refills: 3 Ordered: 21-Dec-2018 Coby MADERA, Taylor Duarte CNP Start : 21-Dec-2018 Active Comments: Mail order. Start: 10-08-2017 Lexapro 20 MG Oral Tablet 1 tab Tablet qd for 90 days Quantity: 90 {Tablet} Refills: 3 Ordered: 04-Dec-2018 Coby MADERA, Taylor Duarte CNP Start : 04-Dec-2018 Active Comments: Mail order. Comment on above: Mail order. famotidine 20 mg oral tablet (15 sources) Histamine-2 Receptor Antagonist Start: 01-20-2024 take 1 tablet by mouth once daily Famotidine (Pepcid) 20 mg tablet Active 20 mg PO daily January 20, 2024 12:00am Start: 12-10-2022 take 1 tablet by bharti th twice daily as needed famotidine 20 mg oral tablet 1 (one) Tablet one tab bid prn indigestion for 0 days Quantity: 60 {Tablet} Refills: 3 Ordered: 10-Dec-2022 Amber Samuel MD Start : 10-Dec-2022 Active Start: 08-10-2022 take 1 tablet by bharti th twice daily as needed famotidine 20 mg oral tablet 1 (one) Tablet one tab bid prn indigestion for 0 days Quantity: 60 {Tablet} Refills: 3 Ordered: 10-Aug-2022 Enrique CASSY Anne Marie Start : 10-Aug-2022 Active Start: 04-09-2022 take 1 tablet by bharti th twice daily as needed famotidine 20 mg oral tablet 1 (one) Tablet one tab bid prn indigestion for 0 days Quantity: 60 {Tablet} Refills: 3 Ordered: 09-Apr-2022 Enrique Anne Marie MADERA Start : 09-Apr-2022 Active Start: 02-12-2022 take 1 tablet by bharti th twice daily as needed famotidine 20 mg oral tablet 1 (one) Tablet one tab bid prn indigestion for 0 days Quantity: 60 {Tablet} Refills: 0 Ordered: 10-Mar-2022 Enrique Anne Marie MADERA Start : 10-Mar-2022 Active Start: 12-21-2021 take 1 tablet by bharti th twice daily as needed Famotidine 20 MG Oral Tablet 1 (one) Tablet one tab bid prn indigestion for 0 days Quantity: 60 {Tablet} Refills: 0 Ordered: 21-Dec-2021 Minda Sharma DO Start : 21-Dec-2021 Active 1 ml galcanezumab-gnlm 120 m g/ml prefilled syringe (20 sources) Start: 01-20-2024 Galcanezumab-G nlm (Emgality Syringe) 120 mg/mL syringe Active 120 mg SC EVERY MONTH January 20, 2024 12:00am inject 1 mg by subcu taneous injection every month Emgality 120 MG/ML Subcutaneous Solution Auto-injector monthly (120 MG/ML) Active Comments: Rx by dr babcock Comment on above: Rx by dr babcock ipratropium bromide 0.021 mg/actuat metered dose nasal spray (1 source) Anticholinergic Start: 01-20-20 Ipratropium [place] 21 mcg (0.03 %) spray,non-aerosol Active 2 NMA INTRANASAL TWICE A DAY January 20, 2024 12:00am administer into each nostril Multivitamin preparation (1 source) Start: 03-27-20 multivitamin Active PO March 27, 2024 1:00am 50 plus pantoprazole 20 mg delayed release oral tablet (2 sources) Proton Pump Inhibitor Start: 01-20-20 take 1 tablet by mouth twice daily Pantoprazole (Protonix) 20 mg tablet,delayed release (DR/EC) Active 20 mg PO TWICE A DAY January 20, 2024 8:31am Start: 01-20-2024 End: 01-20-2024 take 1 tablet by mouth once daily Pantoprazole (Protonix) 20 mg tablet,delayed release (DR/EC) Discontinued 20 mg PO daily January 20, 2024 12:00am January 20, 2024 8:32am propranolol hydrochloride 20 mg oral tablet (20 sources) beta-Adrenergic Bettie Start: 01-20-2024 take 1 tablet by mouth twice daily Propranolol 20 mg tablet Active 20 mg PO TWICE A DAY January 20, 2024 12:00am Start: 03-12-2013 End: 06-06-2019 take 1 capsule by mouth every twenty-four hours, then take 1 capsule by mouth once daily Inderal LA 60 MG Oral Capsule Extended Release 24 Hour 1 Capsule ER 24HR Capsule ER 24HR qd for 0 days Quantity: 30 {Capsule_ER_24HR} Refills: 0 Ordered: 06-Jun-2019 Taylor Tenorio Start : 12-Mar-2013 End : 06-Jun-2019 Inactive rosuvastatin calcium 5 mg oral tablet (20 sources) HMG-CoA Reductase Inhibitor Start: 01-20-2024 take 1 tablet by mouth every other day Rosuvastatin (Crestor) 5 mg tablet Active 5 mg PO .every other day January 20, 2024 12:00am Start: 10-27-2022 rosuvastatin 5 mg oral tablet 1 (one) Tablet every other night for 0 days Quantity: 30 {Tablet} Refills: 7 Ordered: 27-Oct-2022 Anne Marie Nunez CNP Start : 27-Oct-2022 Active Start: 02-16-2022 Rosuvastatin C alcium 5 MG Oral Tablet 1 (one) Tablet every other night for 0 days Quantity: 30 {Tablet} Refills: 3 Ordered: 16-Feb-2022 Anne Marie Nunez CNP Start : 16-Feb-2022 Active Start: 06-07-2021 Rosuvastatin C alcium 5 MG Oral Tablet 1 (one) Tablet every other night for 0 days Quantity: 30 {Tablet} Refills: 3 Ordered: 07-Jun-2021 SlaJacque garcia LPN Start : 07-Jun-2021 Active Start: 01-02-2021 Rosuvastatin C alcium 5 MG Oral Tablet 1 (one) Tablet every other night for 0 days Quantity: 30 {Tablet} Refills: 3 Ordered: 02-Jan-2021 Coby CASSY Taylor Tenorio CASSY, Taylor Cedeño Start : 02-Jan-2021 Active topiramate 100 mg oral tablet (1 source) Start: 01-20-2024 Topiramate 100 mg tablet Active mg PO January 20, 2024 12:00am Vitamin B Complex tablet (1 source) Start: 03-27-2024 Vitamin B Comp golden tablet Active 1 {tbl} PO daily March 27, 2024 1:00am ZOLMitriptan 5 mg oral tablet (20 sources) Serotonin-1b and Serotonin-1d Receptor Agonist Start: 01-20-2024 End: 01-20-2024 Zolmitriptan 5 mg tablet Active mg PO .prn January 20, 2024 8:32am 1/2 tab Start: 10-28-2021 End: 11-27-2021 Zomig 5 MG Oral Tablet 1 Tab let prn for 30 days Quantity: 10 {Tablet} Refills: 0 Ordered: 28-Oct-2021 Anne Marie Nunez CNP Start : 28-Oct-2021 End : 27-Nov-2021 Inactive Start: 12-06-2018 End: 01-05-2019 Zomig 5 MG Oral Tablet 1 Tab let prn for 30 days Quantity: 10 {Tablet} Refills: 0 Ordered: 06-Dec-2018 Minda Sharma DO Start : 06-Dec-2018 End : 05-Jan-2019 Inactive Start: 03-12-2013 End: 04-11-2013 ZOMIG, 2.5MG (Oral Tablet) 1 Tablet prn for 30 days Quantity: 10 {Tablet} Refills: 0 Ordered: 12-Mar-2013 Gabbie Begum LPN Start : 12-Mar-2013 End : 11-Apr-2013 Inactive Completed/Discontinued Medications Medication Drug Class(es) Dates Sig (Normalized) Sig (Original) ascorbic acid 1000 mg oral tablet (20 sources) Vitamin C Vitamin C 1000 M G Oral Tablet (1000 MG) Active Beclomethasone Dipropionate (1 source) Corticosteroid Start: 01-20-2024 End: 03-27-2024 Beclomethasone Dipropionate 40 mcg/actuation HFA aerosol breath activated Discontinued 1 NMA INHALATION Q12H 10.6 January 20, 2024 12:00am March 27, 2024 11:48am administer with spacer Beclomethasone Dipropionate 40 mcg/actuation aerosol (2 sources) Start: 01-20-2024 End: 03-27-2024 Beclomethasone Dipropionate 40 mcg/actuation aerosol Discontinued ug INHALATION TWICE A DAY January 20, 2024 8:30am March 27, 2024 11:48am Start: 01-20-2024 End: 01-20-2024 Beclomethasone Dipropionate 40 mcg/actuation aerosol Discontinued ug INHALATION January 20, 2024 12:00am January 20, 2024 8:32am benzonatate 100 mg oral capsule (20 sources) Non-narcotic Antitussive Start: 08-05-2014 End: 09-23-2014 take 1 capsule by mouth three times daily as needed for cough TESSALON PERLES, 100MG (Oral Capsule) 1 (one) Capsule tid prn for cough for 0 days Quantity: 30 {Capsule} Refills: 0 Ordered: 23-Sep-2014 Saida Serrano Start : 05-Aug-2014 End : 23-Sep-2014 Discontinued bifidobacterium infantis 4 mg oral capsule (20 sources) Start: 07-02-2015 End: 02-23-2016 take 1 capsule by mouth once daily Align 4 MG Oral Capsule 1 (one) Capsule Capsule daily for 0 days Quantity: 30 {Capsule} Refills: 0 Ordered: 23-Feb-2016 Jacque Leon LPN Start : 02-Jul-2015 End : 23-Feb-2016 Discontinued Calcium Magnesium 500-100-500 Oral Liquid (20 sources) Calcium Magnesiu m 500-100-500 Oral Liquid (500-100-500) Inactive Calcium Magnesiu m 500-100-500 Oral Liquid (500-100-500) Active ciprofloxacin 500 mg oral tablet (20 sources) Quinolone Antimicrobial Start: 07-02-2015 End: 07-09-2015 take 1 tablet by mouth twice daily CIPROFLOXACIN HCL, 500MG (Oral Tablet) 1 (one) Tablet bid for 7 days Quantity: 14 {Tablet} Refills: 0 Ordered: 02-Jul-2015 Taylor Tenorio Start : 02-Jul-2015 End : 09-Jul-2015 Inactive citalopram 40 mg oral tablet (20 sources) Serotonin Reuptake Inhibitor End: 07-04-2006 take 1 tablet by mouth once daily CELEXA, 40MG (Oral Tablet) 1 qd for 0 days Refills: 0 Ordered: 04-Jul-2006 Saida Serrano End : 04-Jul-2006 Discontinued Daridorexant (Quviviq) 25 mg tablet (1 source) Start: 03-27-2024 End: 03-27-2024 take 1 tablet by mouth twice daily at bedtime Daridorexant (Quviviq) 25 mg tablet Discontinued 25 mg PO AT BEDTIME March 27, 2024 1:00am March 27, 2024 12:31pm 40 bid. docosahexaenoic acid 120 mg / eicosapentaenoic acid 180 mg oral capsule (20 sources) Fish Oil 1000 MG Oral Capsule (1000 MG) Inactive doxycycline hyclate 100 mg oral capsule (20 sources) Tetracycline-class Drug Start: 08-05-2014 End: 08-15-2014 take 1 capsule by mouth twice daily DOXYCYCLINE HYCLATE, 100MG (Oral Capsule) 1 (one) Capsule bid for 10 days Quantity: 20 {Capsule} Refills: 0 Ordered: 05-Aug-2014 Taylor Tenorio Start : 05-Aug-2014 End : 15-Aug-2014 Inactive Emgality 120 MG/ML Subcutaneous Solution Auto-injector (12 sources) inject 1 mg by subcutaneous injection every month Emgality 120 MG/ML Subcutaneous Solution Auto-injector monthly (120 MG/ML) Active Comments: Rx by dr babcock Comment on above: Rx by dr babcock fenofibrate 130 mg oral capsule (20 sources) Peroxisome Proliferator Receptor alpha Agonist Start: 10-10-2017 End: 12-04-2018 take 1 capsule by mouth once daily at mealtime Fenofibrate Micronized 130 MG Oral Capsule 1 Capsule daily with a meal for 90 days Quantity: 90 {Capsule} Refills: 3 Ordered: 04-Dec-2018 Taylor Tenorio Start : 10-Oct-2017 End : 04-Dec-2018 Inactive Comments: Mail order. Comment on above: Mail order. Fish Oils (9 sources) Fish Oil 1000 MG Oral Capsule (1000 MG) Inactive fluconazole 150 mg oral tablet (20 sources) Azole Antifungal Start: 04-03-2013 End: 04-06-2013 take 1 tablet by mouth once daily DIFLUCAN, 150MG (Oral Tablet) 1 Tablet qd for 3 days Quantity: 3 {Tablet} Refills: 0 Ordered: 22-Jun-2013 Karen Curry DO Start : 03-Apr-2013 End : 06-Apr-2013 Inactive 30 actuat fluticasone furoate 0.1 mg/actuat dry powder inhaler (20 sources) Corticosteroid take 100 ug by inhalation once daily in the morning Arnuity Ellipta 100 MCG/ACT Inhalation Aerosol Powder Breath Activated qAM (100 MCG/ACT) Active take 100 ug by inhal ation once daily in the morning Arnuity Ellipta 100 MCG/ACT Inhalation Aerosol Powder Breath Activated qAM (100 MCG/ACT) Active gabapentin 100 mg oral capsule (14 sources) Anti-epileptic Agent Start: 02-01-2022 take 1 capsule by mouth once daily in the evening Gabapentin 100 MG Oral Capsule 1 (one) Capsule one tab daily in the evening for 0 days Quantity: 30 {Capsule} Refills: 1 Ordered: 01-Feb-2022 Anne Marie Nunez CNP Start : 01-Feb-2022 Active Comments: ANETTE chavarria: KIRSTIN Start: 12-17-2021 take 1 capsule by [facility] once daily in the evening Gabapentin 100 MG Oral Capsule 1 (one) Capsule one tab daily in the evening for 0 days Quantity: 30 {Capsule} Refills: 0 Ordered: 17-Dec-2021 Anne Marie Nunez CNP Start : 17-Dec-2021 Active Comments: ANETTE chavarria: KIRSTIN Comment on above: ANETTE chavarria: RLS Magnesium (3 sources) magnesium Active meloxicam 7.5 mg oral tablet (20 sources) Nonsteroidal Anti-inflammatory Drug Start: 6 End: 6 take 1 tablet by mouth once daily at mealtime Meloxicam 7.5 MG Oral Tablet 1 (one) Tablet daily for 0 days Quantity: 30 {Tablet} Refills: 0 Ordered: 23-Feb-2016 Jacque Leon LPN Start : 24-Nov-2015 End : 23-Feb-2016 Discontinued Comments: with food Comment on above: with food MVI (20 sources) MVI Active omega-3 acid ethyl esters (fdc) 1000 mg oral capsule (9 sources) Fish Oil 1000 MG Oral Capsule (1000 MG) Inactive omeprazole 20 mg delayed release oral tablet (20 sources) Proton Pump Inhibitor Start: 2 take 1 tablet by mouth before mealtime Omeprazole 20 MG Oral Tablet Delayed Release 1 (one) Tablet before a meal for 0 days Quantity: 30 {Tablet} Refills: 3 Ordered: 28-Oct-2021 Anne Marie Nunez CNP Start : 28-Oct-2021 Active Start: 10-24-2019 End: 11-26-2019 take 1 tablet by mouth before mealtime Omeprazole 20 MG Oral Tablet Delayed Release 1 (one) Tablet before a meal for 0 days Quantity: 30 {Tablet} Refills: 3 Ordered: 26-Nov-2019 Taylor Tenorio CNP, CNP Rola Start : 24-Oct-2019 End : 26-Nov-2019 Inactive predniSONE 10 mg oral tablet (20 sources) Start: 08-05-2014 End: 09-23-2014 PREDNISONE, 10MG (Oral Tablet) 1 (one) Tablet 1bid x 3 days for 0 days Quantity: 6 {Tablet} Refills: 0 Ordered: 23-Sep-2014 Saida Serrano Start : 05-Aug-2014 End : 23-Sep-2014 Discontinued Comments: with food Comment on above: with food simethicone 125 mg chewable tablet (14 sources) Start: 12-22-2021 take 1 tablet by mouth three times daily as needed Simethicone 125 MG Oral Tablet Chewable 1 (one) Tablet one tab tid prn for 0 days Quantity: 90 {Tablet} Refills: 0 Ordered: 22-Dec-2021 Anne Marie Nunez CNP Start : 22-Dec-2021 Active verapamil hydrochloride 120 mg oral tablet (20 sources) Calcium Channel Bettie End: 01-02-2007 take 1 tablet by mouth once daily VERAPAMIL HCL, 120MG (Oral Tablet) 1 tab qd for 0 days Refills: 0 Ordered: 02-Jan-2007 Patricio DO, Karen A End : 02-Jan-2007 Inactive Vitamin B Complex Oral Tablet (20 sources) Vitamin B Comple x Oral Tablet Active Problems Active Problems Problem Classification Problem Date Documented Date Episodic/Chronic Administrative/social admission (20 sources) Stress at work; Translations: [Stress at work] 10-28-2021 Episodic Comment on above: losing her job, very tearful. accusations. she is in the process of everything. Anxiety disorders (1 source) Mixed anxiety and depressive disorder; Translations: [Anxiety disorder, unspecified] 03-27-2024 Chronic Asthma (2 sources) Asthma; Translations: [Unspecified asthma, uncomplicated] 01-20-2024 Chronic Chronic obstructive pulmonary disease and bronchiectasis (20 sources) Bronchitis; Translations: [Bronchitis] Resolved: 5 09-23-2014 Episodic Diabetes mellitus without complication (20 sources) Impaired fasting glycemia; Translations: [Impaired fasting glucose] Onset: 5 09-15-2020 Episodic Comment on above: Getting a1c in Nov Disorders of lipid metabolism (20 sources) Hypertriglyceridemia; Translations: [Hypercholesterolemia] 05-26-2018 Chronic Comment on above: was on fenofibrate i n past Repeat Nov 2020 Esophageal disorders (20 sources) Gastroesophageal reflux disease; Translations: [Acid reflux] 08-29-2019 Chronic Comment on above: uses rolaids Hand ou t given Headache; including migraine (20 sources) Migraine; Translations: [Migraine] 05-26-2018 Chronic Comment on above: controlled on topama x and inderal daily migrain will s ee Dr. Catalino Vega Headache; including migraine (20 sources) Headache; Translations: [Headache] Resolved: 9 05-26-2018 Episodic Comment on above: was getting botox, n ow not needing stable with headaches Immunizations and screening for infectious disease (20 sources) Tuberculosis screening status; Translations: [Screening examination for pulmonary tuberculosis] 06-02-2020 Episodic Influenza (13 sources) Influenza Malaise and fatigue (20 sources) Fatigue; Translations: [Fatigue] Resolved: 5 09-23-2014 Episodic Mood disorders (20 sources) Depression; Translations: [Depressive disorder] 05-26-2018 Chronic Comment on above: chronic stable-thom nue present regimen on lexapro chronic stable-thom nue present regimen, continue on lexapro -she is already in c ounseling.on lexapro, does not feel like she is more depressed but she is quite emotional regarding her employment termination and spouse and her are . Declines med adjustment. Denies anxiety. Mood disorders (20 sources) Mood disorders Mycoses (20 sources) Candidiasis of vulva and vagina; Translations: [Yeast infection involving the vagina and surrounding area] Resolved: 4 03-25-2014 Episodic Nutritional deficiencies (20 sources) Vitamin D deficiency; Translations: [Vitamin D deficiency] 05-26-2018 Chronic Comment on above: continue on 1000mg d aily we will check tsh an d vit d levels for the fatiguebeen very tired lately but lots of stress 1000mg daily Other and unspecified benign neoplasm (20 sources) Lipoma (clinical); Translations: [Lipoma] Resolved: 9 05-26-2018 Episodic Other circulatory disease (20 sources) Elevated blood-pressure reading without diagnosis of hypertension; Translations: [Elevated blood pressure (not hypertension)] Resolved: 9 05-26-2018 Episodic Comment on above: improved Other connective tissue disease (20 sources) Impingement syndrome of shoulder region; Translations: [Impingement syndrome of shoulder region, unspecified laterality] Resolved: 1 02-28-2015 Episodic Comment on above: improved- encourage keep do exercises Other connective tissue disease (20 sources) Supraspinatus tear; Translations: [Supraspinatus tendon tear] Resolved: 9 05-26-2018 Episodic Other eye disorders (20 sources) Excessive tear production; Translations: [Excessive tear production of both lacrimal glands] 05-26-2018 Episodic Comment on above: try saline drops and if not better see eye doctor and check tear ducts Other gastrointestinal disorders (20 sources) Abdominal bloating; Translations: [Postprandial abdominal bloating] 11-25-2021 Episodic Comment on above: try prn OTC simethic one and prn pepcidworse after eating, not necessarily certain food groups but tries to limit dairy. Not hungry a lot, high stress in her life. Other hereditary and degenerative nervous system conditions (20 sources) Restless legs; Translations: [RLS (restless legs syndrome)] 10-28-2021 Chronic Comment on above: -check for anemia, f asting ferritin-encouraged regular exercise, abstinence from caffeine and alcohol, try leg massage-compression stockings-good sleep hygiene - zolpidem? ?gabapentin?-has tried magnesium-been on topamax for migraines for years, has been controlled-been on lexapro for years as well. -check for anemia, f asting ferritin-encouraged regular exercise, abstinence from caffeine and alcohol, try leg massage-compression stockings-good sleep hygiene - zolpidem? ?gabapentin? have her f/u within 3 months and go from there, can call to get in sooner if does not improve with conservative measures.high stress, losing job, symptoms exacerbated-has tried magnesium-been on topamax for migraines for years, has been controlled-been on lexapro for years as well. 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 now rls. Other non-traumatic joint disorders (20 sources) Shoulder joint pain; Translations: [Pain in joint involving shoulder region] Resolved: 7 08-23-2016 Episodic Comment on above: over use left should er vs arthritis vs other Other non-traumatic joint disorders (20 sources) Ankle pain; Translations: [Ankle pain, left] Resolved: 1 10-02-2019 Episodic Comment on above: ? tendonitis rest ic e elevate ? tendonitis rest ic e elevate, has inserts and arch support, bace with walking Other nutritional; endocrine; and metabolic disorders (20 sources) Body mass index 30+ - obesity; Translations: [BMI 32.0-32.9,adult] Resolved: 2 04-01-2017 Chronic Other skin disorders (20 sources) Other skin changes; Translations: [Disorder of skin] Resolved: 9 05-26-2018 Episodic Other skin disorders (20 sources) Mass of neck; Translations: [Lump in neck] Resolved: 9 05-26-2018 Episodic Comment on above: ? lipoma vs other wi ll watch Residual codes; unclassified (3 sources) Obstructive sleep apnea syndrome; Translations: [Obstructive sleep apnea (adult) (pediatric)] Chronic Residual codes; unclassified (20 sources) Sleep disorder; Translations: [Sleep disorder] 05-26-2018 Episodic Comment on above: chronic stable-thom nue present regimen chronic stable-thom nue present regimen, Sleep study pending by Yamileth in Nov chronic stable-thom nue present regimen, Had Sleep study on Cpap without headaches Residual codes; unclassified (20 sources) Family history of malignant neoplasm of gastrointestinal tract; Translations: [FAMILY HISTORY OF MALIGNANT NEOPLASM OF GASTROINTESTINAL TRACT (Renamed from Family history of cancer of digestive system)] 05-26-2018 Episodic Comment on above: had colosnocopy 2012 - in 2017- Dr Peralta Residual codes; unclassified (20 sources) Non-smoker; Translations: [Nonsmoker] 09-15-2020 Episodic Residual codes; unclassified (1 source) Medication refused; Translations: [Immunization not carried out because of patient refusal] 03-27-2024 Episodic Syncope (20 sources) Syncope and collapse; Translations: [Vasovagal symptom] Resolved: 9 05-26-2018 Episodic Tuberculosis (19 sources) Tuberculosis Unclassified (20 sources) Hyperglyceridemia Unclassified (20 sources) fatigue- likely secondary to to meds - but will check labs Resolved: 5 09-23-2014 Unclassified (20 sources) Unclassified (20 sources) Screening status; Translations: [Encounter for screening for malignant neoplasm of colon (Renamed from Special screening for malignant neoplasms, colon)] 04-12-2017 Comment on above: will check for date and provider that last did colonospcy was done in 2017 Unclassified (20 sources) Patient encounter status; Translations: [Encounter for screening mammogram for breast cancer (Renamed from Encounter for screening mammogram for malignant neoplasm of breast)] 05-26-2018 Unclassified (20 sources) Shoulder Impingment Syndrome (726.2) Unclassified (20 sources) Elevated Blood Pressure(796.2) Unclassified (20 sources) Non-smoker; Translations: [Nonsmoker] 05-26-2018 Unclassified (20 sources) Abnormal mammogram (793.80) Unclassified (20 sources) screening Resolved: 03-25-2015 Unclassified (20 sources) Hypertriglycerides (272.1) Unclassified (20 sources) BMI 33.0-33.9,adult Unclassified (20 sources) Hypercholesteremia Unclassified (20 sources) BMI 34.0-34.9,adult Unclassified (20 sources) Elevated blood pressure (not hypertension) Unclassified (20 sources) Screening for colon cancer Unclassified (20 sources) Excessive tear production of both lacrimal glands Unclassified (20 sources) Pain in joint involving shoulder region Unclassified (20 sources) BMI 31.0-31.9,adult Unclassified (20 sources) BMI 35.0-35.9,adult Unclassified (20 sources) Ankle pain, left Unclassified (19 sources) BMI 37.0-37.9, adult Unclassified (16 sources) BMI 32.0-32.9,adult Unclassified (20 sources) BMI 36.0-36.9,adult Unclassified (14 sources) Acid reflux Unclassified (1 source) G47.33 - Obstructive sleep apnea (adult) (pediatric) Urinary tract infections (20 sources) Urinary tract infectious disease; Translations: [UTI (urinary tract infection)] 05-26-2018 Episodic Past or Other Problems Problem Classification Problem Date Documented Da te Episodic/Chronic Headache; including migraine (20 sources) Headache; including migraine Other gastrointestinal disorders (20 sources) Diarrhea; Translations: [Diarrhea] Resolved: 09-14-2010 09-14-2010 Episodic Other screening for suspected conditions (not mental disorders or infectious disease) (20 sources) Mammography abnormal; Translations: [Serum TSH level abnormal] Onset: 12-05-2023 Resolved: 09-23-2014 09-23-2014 Episodic Comment on above: will check for date and provider that last did colonospcy was done in [place] due 2018 Residual codes; unclassified (20 sources) Past history of procedure; Translations: [Colonoscopy] Resolved: 12-04-2018 06-06-2019 Episodic Comment on above: Nl 11-03-07, repeat 5 yrs. Unclassified (20 sources) Pregnancies (); Translations: [Pregnancies ()] 05-26-2018 Comment on above: 0. Unclassified (20 sources) Unspecified Diagnosis 05-26-2018 Unclassified (20 sources) Yeast infection involving the vagina and surrounding area (112.1) Unclassified (20 sources) Wheeze Unclassified (20 sources) Supraspinatus tendon tear Unclassified (20 sources) Lump in neck Unclassified (20 sources) Vasovagal symptom Unclassified (12 sources) Tuberculosis screening status; Translations: [Screening examination for pulmonary tuberculosis] 08-29-2019 Unclassified (19 sources) Abnormal serum thyroid stimulating hormone (TSH) level Unclassified (3 sources) RLS (restless legs syndrome) Results Test Name Value Interpretation Reference Range Facility Internal Medicine Office Vis ito 07-23-2024 Internal Medicine Office Visit [facility] [address] [place] [address] OFFICE VISIT Date of Service: 07/24/24 MR#: [id number] Acct: [id number] Name: CECE SNEED Rep #: [id number] : 1960 Provider: Dr. Madina ballard MD Age/Sex: 63/F Location: [facility] Status: Signed Intake Vital Signs 03/27/24 10:55 07/24/24 15:09 Height 5 ft 6 in 5 ft 6 in Weight: 228 lb BMI 36.8 BP 112/74 Blood Pressure Location Lt brachial Position Sitting Respiration 16 Pulse 60 Pulse Source Monitor Temp 97.3 F L Temp Source Temporal Pulse Oximetry (%) 97 Oxygen Delivery Method room air Intake Visit Reasons: 4 M FU Director Account Management Required: No Is patient in pain?: No Allergies No Known Allergies Allergy (Unverified 07/24/24 14:57) Medications ???Medication ???Instructions ???Recorded ???Confirmed ???Type escitalopram oxalate 20 mg tablet mg PO 01/20/24 07/24/24 History famotidine 20 mg tablet (Pepcid) 20 mg PO QDAY 01/20/24 07/24/24 Hi story galcanezumab-gnlm 120 mg/mL 120 mg subcut QMONTH 01/20/2407/10 History subcutaneous syringe (Emgality) ipratropium bromide 21 mcg (0.03 2 spray intranasal BID 01/20/24 History %) nasal spray propranolol 20 mg tablet 20 mg PO BID 01/20/24 07/24/24 His tory rosuvastatin 5 mg tablet (Crestor) 5 mg PO .every other day 4 07/24/24 History zolmitriptan 5 mg tablet mg PO .prn 01/20/24 07/24/24 Histo ry ascorbate calcium (vitamin C) 500 500 mg PO QDAY 03/27/24 07/24/24 History mg tablet calcium , magnesium, zinc PO 03/27/24 07/24/24 History cholecalciferol (vitamin D3) 50 50 mcg PO QDAY 03/27/24 07/24/24 H istory mcg (2,000 unit) capsule cranberry 500 mg capsule 500 mg PO ONCE 03/27/24 07/24/24 H istory multivitamin PO 03/27/24 07/24/24 History vitamin B complex 1 tab PO QDAY 03/27/24 07/24/24 Hi story budesonide-formoterol HFA 80 2 puff inhalation BID #10.2 grams 04/20/24 07/24/24 Rx mcg-4.5 mcg/actuation aerosol inhaler (Symbicort) topiramate 100 mg tablet 100 mg PO BID #180 tabs 07/24/24 0 07/24/24 Rx Nurse's Note: Needs topomax refilled. Wants to switch to breztri instead of symbicort because she can get it for free. [facility] History JESUS (obstructive sleep apnea) Depression Chronic headaches Asthma Surgical History H/O breast biopsy Family History Grandmother Cancer, Onset Age: 80 breast cancer Mother Cancer, Onset Age: 50 ovarian cancer Sister Cancer, Onset Age: 60 breast Sister Colon cancer, Onset Age: 20 Grandfather Cancer skin Father Cancer skin Aunt Cancer breast? type unknown Social History household members: none housing: house current occupational status: employed current occupation: [email or web address] Smoking Status: Never smoker alcohol intake: never substance use type: does not use what type of physical activity do you participate in: none seatbelt use: always do you feel safe at home: Yes Questionnaire PQH-9 BMS Over the last 2 weeks, how often have you been bothered by any of the following problems? 1. Little interest or pleasure in doing things: not at all 2. Feeling down, depressed, or hopeless: not at all 3. Trouble falling or staying asleep, or sleeping too much: several days 4. Feeling tired or having little energy: more than half the days 5. Poor appetite or overeating: not at all 6. Feeling bad about yourself - or that you are a failure or have let yourself and your family down: not at all 7. Trouble concentrating on things, such as reading the newspaper or watching television: not at all 8. Moving or speaking so slowly that other people could have noticed? - Or the opposite - being so fidgety or restless that you have been moving around a lot more than usual: not at all 9. Thoughts that you would be better off or of hurting yourself in some way: not at all Total score: 3 If you checked off any problems, how difficult have these problems made it for you to do your work, take care of things at home, or get along with other people?: not difficult at all Source: Developed by Drs. Quan Perry, ePg Segura, Melchor Lester and colleagues, with an educational kat from [employer]. KAREN-7 BMS KAREN-7 Feeling nervous, anxious, or on edge: 0 = Not at all Not being able to stop or control worryin = Not at all Worrying too much about different things: 0 = Not at all Trouble relaxin = Not at all Being so restless that it is hard to sit still: 0 = Not at all Becoming easily annoye (more content not included)... Normal [facility] Absolute neutrophil countOrd ered By: Madina Green on 06-22-2024 Neutrophils (Bld) [#/Vol] 3.7 10*3/uL 2.0-7.7 [facility] Anion gap in Serum or Plasma Ordered By: Madina Green on 06-22-2024 Anion gap [Moles/Vol] 14 mmol/L 5- [facility] BUN/creatinine ratioOrdered By: Madina Green on 06-22-2024 Urea nitrogen/Creatinine [Mass ratio] 17.2 mg/mg 10- [facility] Basophil percentageOrdered B y: Madina Green on 06-22-2024 Basophils/100 WBC (Bld) 0.8 % 0-1 [facility] Bilirubin, totalOrdered By: Madina Green on 06-22-2024 Bilirubin [Mass/Vol] 0.30 mg/dL 0.00-1.30 [facility] CBC W/Diff, Automatedon 06-09 Absolute Lymph 2.28 X10 3/uL Normal 0.83-4.51 [facility] Comment on above: Performed By: #### L 501.9985, L506.1001, L500.4050, L100.0100, L500.4100 #### [facility] [address] [place], [address] Absolute Neut 3.7 X10 3/uL Normal 2.0-7.7 [facility] Comment on above: Performed By: #### L 501.9985, L506.1001, L500.4050, L100.0100, L500.4100 #### [facility] [address] [place], [address] Basophils/100 WBC (Bld) 0.8 % Normal 0-1 [facility] Comment on above: Performed By: #### L 501.9985, L506.1001, L500.4050, L100.0100, L500.4100 #### [facility] [address] [place], [address] Eosinophils/100 WBC (Bld) 1.8 % Normal 0-5 [facility] Comment on above: Performed By: #### L 501.9985, L506.1001, L500.4050, L100.0100, L500.4100 #### [facility] [address] [place], [address] Erythrocyte distribution width (RBC) [Ratio] 13.2 % Normal 11.6-14.6 [facility] Comment on above: Performed By: #### L 501.9985, L506.1001, L500.4050, L100.0100, L500.4100 #### [facility] [address] [place], [address] Hematocrit (Bld) [Volume fraction] 42.7 % Normal 37-47 [facility] Comment on above: Performed By: #### L 501.9985, L506.1001, L500.4050, L100.0100, L500.4100 #### [facility] [address] [place], [address] Hemoglobin (Bld) [Mass/Vol] 13.8 g/dL Normal 12.0-15.0 [facility] Comment on above: Performed By: #### L 501.9985, L506.1001, L500.4050, L100.0100, L500.4100 #### [facility] [address] [place], [address] IG% 0.200 Normal 0.0-0.9 [facility] Comment on above: Result Comment: IG% - Immature Granulocytes (promyelocytes, myelocytes and metamyelocytes) > 1% indicates that a LEFT SHIFT is Present. Performed By: #### L 501.9985, L506.1001, L500.4050, L100.0100, L500.4100 #### [facility] [address] [place], [address] Lymphocytes/100 WBC (Bld) 34.5 % Normal 19-41 [facility] Comment on above: Performed By: #### L 501.9985, L506.1001, L500.4050, L100.0100, L500.4100 #### [facility] [address] [place], [address] MCH (RBC) [Entitic mass] 30.3 pg Normal 27.0-32.0 [facility] Comment on above: Performed By: #### L 501.9985, L506.1001, L500.4050, L100.0100, L500.4100 #### [facility] [address], [address] MCHC (RBC) [Mass/Vol] 32.3 g/dL Normal 32-36 [facility] Comment on above: Performed By: #### L 501.9985, L506.1001, L500.4050, L100.0100, L500.4100 #### [facility] [address] [place], [address] MCV (RBC) [Entitic vol] 93.6 fL Normal 81-99 [facility] Comment on above: Performed By: #### L 501.9985, L506.1001, L500.4050, L100.0100, L500.4100 #### [facility] [address] [place], [address] Monocytes/100 WBC (Bld) 6.1 % Normal 0-10 [facility] Comment on above: Performed By: #### L 501.9985, L506.1001, L500.4050, L100.0100, L500.4100 #### [facility] [address] [place], [address] Neutrophils/100 WBC (Bld) 56.6 % Normal 47-70 [facility] Comment on above: Performed By: #### L 501.9985, L506.1001, L500.4050, L100.0100, L500.4100 #### [facility] [address] [place], [address] Nucleated RBC (Bld) [#/Vol] 0 10*3/uL Normal 0-5 [facility] Comment on above: Performed By: #### L 501.9985, L506.1001, L500.4050, L100.0100, L500.4100 #### [facility] [address] [place], [address] Platelet mean volume (Bld) [Entitic vol] 12.6 fL High 6.2-12.0 [facility] Comment on above: Performed By: #### L 501.9985, L506.1001, L500.4050, L100.0100, L500.4100 #### [facility] [address] [place], [address] Platelets (Bld) [#/Vol] 221 10*3/uL Normal 150-450 [facility] Comment on above: Performed By: #### L 501.9985, L506.1001, L500.4050, L100.0100, L500.4100 #### [facility] [address] [place], [address] RBC (Bld) [#/Vol] 4.56 10*6/uL Normal 4.2-5.4 [facility] Comment on above: Performed By: #### L 501.9985, L506.1001, L500.4050, L100.0100, L500.4100 #### [facility] [address] [place], [address] RDW SD 45.1 fl High 35.1-43.9 [facility] Comment on above: Performed By: #### L 501.9985, L506.1001, L500.4050, L100.0100, L500.4100 #### [facility] [address] [place], [address] WBC (Bld) [#/Vol] 6.6 10*3/uL Normal 4.4-11.0 [facility] Comment on above: Performed By: #### L 501.9985, L506.1001, L500.4050, L100.0100, L500.4100 #### [facility] [address] [place], [address] Calculated very low density lipoprotein (VLDL) cholesterol measurementOrdered By: Madina Green on 06-22-2024 VLDL Cholesterol 24 mg/dL 5-40 [facility] Carbon dioxide, total [Moles /volume] in Central venous bloodOrdered By: Madina Green on 06-22-2024 CO2 [Moles/Vol] 20.3 mmol/L Low 21.0-32.0 [facility] Chloride assayOrdered By: Al ycmich Green on 06-22-2024 Chloride [Moles/Vol] 108 mmol/L 98-108 [facility] Comprehensive Metabolic Prof ilon 06-22-2024 Albumin [Mass/Vol] 4.3 g/dL Normal 3.4-4.8 [facility] Comment on above: Performed By: #### L 501.9985, L506.1001, L500.4050, L100.0100, L500.4100 #### [facility] [address] [place], [address] Albumin/Globulin [Mass ratio] 1.5 {ratio} Normal 0.9-2.4 [facility] Comment on above: Performed By: #### L 501.9985, L506.1001, L500.4050, L100.0100, L500.4100 #### [facility] [address] [place], [address] ALK PHOS 76 U/L Normal 35-104 [facility] Comment on above: Performed By: #### L 501.9985, L506.1001, L500.4050, L100.0100, L500.4100 #### [facility] [address] [place], [address] ALT [Catalytic activity/Vol] 20 U/L Normal <=34 [facility] Comment on above: Performed By: #### L 501.9985, L506.1001, L500.4050, L100.0100, L500.4100 #### [facility] [address] [place], [address] AST [Catalytic activity/Vol] 18 U/L Normal <=31 [facility] Comment on above: Performed By: #### L 501.9985, L506.1001, L500.4050, L100.0100, L500.4100 #### [facility] [address] [place], [address] Bilirubin [Mass/Vol] 0.30 mg/dL Normal 0.00-1.30 [facility] Comment on above: Performed By: #### L 501.9985, L506.1001, L500.4050, L100.0100, L500.4100 #### [facility] [address] [place], [address] BUN/CRE 17.2 RATIO Normal 10-20 [facility] Comment on above: Performed By: #### L 501.9985, L506.1001, L500.4050, L100.0100, L500.4100 #### [facility] [address] [place], [address] Calcium [Mass/Vol] 9.9 mg/dL Normal 7.6-11.0 [facility] Comment on above: Performed By: #### L 501.9985, L506.1001, L500.4050, L100.0100, L500.4100 #### [facility] [address] [place], [address] Chloride [Moles/Vol] 108 mmol/L Normal 98-108 [facility] Comment on above: Performed By: #### L 501.9985, L506.1001, L500.4050, L100.0100, L500.4100 #### [facility] [address] [place], [address] CO2 [Moles/Vol] 20.3 mmol/L Low 21.0-32.0 [facility] Comment on above: Performed By: #### L 501.9985, L506.1001, L500.4050, L100.0100, L500.4100 #### [facility] [address] [place], [address] Creatinine [Mass/Vol] 0.92 mg/dL Normal 0.70-1.20 [facility] Comment on above: Performed By: #### L 501.9985, L506.1001, L500.4050, L100.0100, L500.4100 #### [facility] [address] [place], [address] GAP 14 Normal 5-15 [facility] Comment on above: Performed By: #### L 501.9985, L506.1001, L500.4050, L100.0100, L500.4100 #### [facility] [address] [place], [address] GFR/1.73 sq M.predicted among non-blacks MDRD (S/P/Bld) [Vol rate/Area] 71 mL/min/{1.73_m2} Normal >60 [facility] Comment on above: Result Comment: mL/m in/1.73m2 CKD-EPI Creatinine Equation (2020) Performed By: #### L 501.9985, L506.1001, L500.4050, L100.0100, L500.4100 #### [facility] [address] [place], [address] Globulin (S) [Mass/Vol] 2.9 g/dL Normal 2.2-4.2 [facility] Comment on above: Performed By: #### L 501.9985, L506.1001, L500.4050, L100.0100, L500.4100 #### [facility] [address] [place], [address] Glucose [Mass/Vol] 109 mg/dL High 70-99 [facility] Comment on above: Performed By: #### L 501.9985, L506.1001, L500.4050, L100.0100, L500.4100 #### [facility] [address] [place], [address] Potassium [Moles/Vol] 4.0 mmol/L Normal 3.3-5.1 [facility] Comment on above: Performed By: #### L 501.9985, L506.1001, L500.4050, L100.0100, L500.4100 #### [facility] [address] [place], [address] Sodium [Moles/Vol] 142 mmol/L Normal 133-145 [facility] Comment on above: Performed By: #### L 501.9985, L506.1001, L500.4050, L100.0100, L500.4100 #### [facility] [address] [place], [address] T PROT 7.2 g/dL Normal 5.9-8.4 [facility] Comment on above: Performed By: #### L 501.9985, L506.1001, L500.4050, L100.0100, L500.4100 #### [facility] [address] [place], [address] Urea nitrogen [Mass/Vol] 16 mg/dL Normal 4-19 [facility] Comment on above: Performed By: #### L 501.9985, L506.1001, L500.4050, L100.0100, L500.4100 #### [facility] [address] [place], [address] Eosinophil percentageOrdered By: Madina Green on 06-22-2024 Eosinophils/100 WBC (Bld) 1.8 % 0-5 [facility] Erythrocyte distribution wid th ratioOrdered By: Madina Green on 06-22-2024 Erythrocyte distribution width (RBC) [Ratio] 13.2 % 11.6-14.6 [facility] Erythrocyte distribution wid th standard deviationOrdered By: Madina Green on 06-22-2024 Erythrocyte distribution width (RBC) [Entitic vol] 45.1 fL High 35.1-43.9 [facility] GFR/1.73 sq M.predicted baldomero g non-blacks MDRD (S/P/Bld) [Vol rate/Area]Ordered By: Madina Green on 06-22-2024 Estimated GFR (MDRD) Non-Af Amer 71 >60 [facility] Comment on above: mL/min/1.73m2 CKD-EP I Creatinine Equation (2020) Hematocrit Auto (Bld) [Volum e fraction]Ordered By: Madina Green on 06-22-2024 Hematocrit (Bld) [Volume fraction] 42.7 % 37-47 [facility] Hemoglobin A1con 06-22-2024 HbA1c (Bld) [Mass fraction] 5.9 % Normal <=5.6 [facility] Comment on above: Performed By: #### L 501.9985, L506.1001, L500.4050, L100.0100, L500.4100 #### [facility] [address] [place], [address] Hemoglobin A1c percentageOrd ered By: Madina Green on 06-22-2024 HbA1c (Bld) [Mass fraction] 5.9 % >5.7 [facility] Hemoglobin measurementOrdere d By: Madina Green on 06-22-2024 Hemoglobin (Bld) [Mass/Vol] 13.8 g/dL 12.0-15.0 [facility] Immature granulocytes/100 WB C Auto (Bld)Ordered By: Madina Green on 06-22-2024 Immature granulocytes/100 WBC (Bld) 0.200 % 0.0-0.9 [facility] Comment on above: IG% - Immature Granu locytes (promyelocytes, myelocytes and metamyelocytes) > 1% indicates that a LEFT SHIFT is Present. L506.1001on 06-22-2024 Vitamin D 25-OH 50.1 ng/mL Normal 30-100 [facility] Comment on above: Result Comment: Marielos min D Status Deficiency: <20 ng/mL (50nmol/L) Insufficiency: 20-30 ng/mL (50-75 nmol/L) Sufficiency: 30-100 ng/mL (75-250 nmol/L) Toxicity: >100 ng/mL (>250 nmol/L) Performed By: #### L 501.9985, L506.1001, L500.4050, L100.0100, L500.4100 #### [facility] [address] [place], [address] LDL calc ser/plasOrdered By: Madina Green on 06-22-2024 LDL Cholesterol, Calculated 61 mg/dL [facility] Comment on above: Rkflwejsud=194-848 m g/dL & Higher Oshu=739 mg/dL or greater Laboratory - Chemistry and C hemistry - challengeOrdered By: Madina Green on 06-22-2024 AST [Catalytic activity/Vol] 18 U/L <32 [facility] Lipid Profileon 06-22-2024 CHOL:HDL 2.52 Normal [facility] Comment on above: Performed By: #### L 501.9985, L506.1001, L500.4050, L100.0100, L500.4100 #### [facility] [address] [place], [address] Cholesterol [Mass/Vol] 140 mg/dL Normal <=200 [facility] Comment on above: Result Comment: Chol esterol level, Desirable <200 mg/dL Borderline high cholesterol 200-239 mg/dL High cholesterol >=240 mg/dL Recommendations of the NCEP Adult Treatment Panel for the following risk-cutoff thresholds for the [place] population. Performed By: #### L 501.9985, L506.1001, L500.4050, L100.0100, L500.4100 #### [facility] [address] [place], [address] Cholesterol in HDL [Mass/Vol] 56 mg/dL Normal [facility] Comment on above: Result Comment: [place] onal Cholesterol Education Program (NCEP) guidelines: <40 mg/dL: Low HDL-cholesterol (major risk factor for CHD) >= 60 mg/dL: High HDL-cholesterol (negative risk factor for CHD) HDL-cholesterol is affected by a number of factors, e.g. smoking, exercise, hormones, sex and age. Performed By: #### L 501.9985, L506.1001, L500.4050, L100.0100, L500.4100 #### [facility] [address] [place], [address] Cholesterol in LDL [Mass/Vol] 61 mg/dL Normal [facility] Comment on above: Result Comment: Bord weaqwm=102-869 mg/dL Higher Wwni=889 mg/dL or greater Performed By: #### L 501.9985, L506.1001, L500.4050, L100.0100, L500.4100 #### [facility] [address] [place], [address] Cholesterol in VLDL [Mass/Vol] 24 mg/dL Normal 5-40 [facility] Comment on above: Performed By: #### L 501.9985, L506.1001, L500.4050, L100.0100, L500.4100 #### [facility] [address] [place], [place], [address] Triglyceride [Mass/Vol] 118 mg/dL Normal [facility] Comment on above: Result Comment: The drugs N-Acetylcysteine and Metamizole may falsely depress this assay. Normal range: <150 mg/dL Borderline High: 150-199 mg/dL High: 200-499 mg/dL Very High: >500 mg/dL Performed By: #### L 501.9985, L506.1001, L500.4050, L100.0100, L500.4100 #### [facility] [address] [place], [place], [address] Lymphocytes Auto (Unsp spec) [#/Vol]Ordered By: Madina Green on 06-22-2024 Lymphocytes (Bld) [#/Vol] 2.28 10*3/uL 0.83-4.51 [facility] Lymphocytes/100 WBC Auto (Un sp spec)Ordered By: Madina Green on 06-22-2024 Lymphocytes/100 WBC (Bld) 34.5 % 19-41 [facility] MCV (mean corpuscular volume ) determinationOrdered By: Madina Green on 06-22-2024 MCV (RBC) [Entitic vol] 93.6 fL 81-99 [facility] Mean corpuscular hemoglobin (MCH) determinationOrdered By: Madina Green on 06-22-2024 MCH (RBC) [Entitic mass] 30.3 pg 27.0-32.0 [facility] Mean corpuscular hemoglobin concentration (MCHC) determinationOrdered By: Madina Green on 06-22-2024 MCHC (RBC) [Mass/Vol] 32.3 g/dL 32-36 [facility] Mean platelet volume determi nationOrdered By: Madina Green on 06-22-2024 Platelet mean volume (Bld) [Entitic vol] 12.6 fL High 6.2-12.0 [facility] Monocyte percentageOrdered B y: Madina Green on 06-22-2024 Monocytes/100 WBC (Bld) 6.1 % 0-10 [facility] Neutrophil percentageOrdered By: Madina Green on 06-22-2024 Neutrophils/100 WBC (Bld) 56.6 % 47-70 [facility] Nucleated red blood cell per centageOrdered By: Madina Green on 06-22-2024 Nucleated RBC/100 WBC (Bld) [Ratio] 0 % 0-5 [facility] Platelet countOrdered By: Blake Green on 06-22-2024 Platelets (Bld) [#/Vol] 221 10*3/uL 150-450 [facility] Potassium (Unsp spec) [Mass/ Vol]Ordered By: Madina Green on 06-22-2024 Potassium [Moles/Vol] 4.0 mmol/L 3.3-5.1 [facility] RBC Auto (Bld) [#/Vol]Ordere d By: Madina Green on 06-22-2024 RBC (Bld) [#/Vol] 4.56 10*6/uL 4.2-5.4 [facility] Screening total cholesterol/ high density lipoprotein (HDL) cholesterol ratioOrdered By: Madina Green on 06-22-2024 Cholesterol.total/Tiana sterol in HDL [Mass ratio] 2.52 {ratio} [facility] Serum creatinine measurement (mass/volume)Ordered By: Madian Green on 06-22-2024 Creatinine [Mass/Vol] 0.92 mg/dL 0.70-1.20 [facility] Serum globulin measurementOr dered By: Madina Green on 06-22-2024 Globulin (S) [Mass/Vol] 2.9 g/dL 2.2-4.2 [facility] Serum glucose measurement (m ass/volume)Ordered By: Madina Green on 06-22-2024 Glucose [Mass/Vol] 109 mg/dL High 70-99 [facility] Serum or plasma alanine ma otransferase (ALT) measurementOrdered By: Madina Green on 06-22-2024 ALT [Catalytic activity/Vol] 20 U/L <35 [facility] Serum or plasma albumin lena urement (mass/volume)Ordered By: Madina Green on 06-22-2024 Albumin [Mass/Vol] 4.3 g/dL 3.4-4.8 [facility] Serum or plasma albumin/glob ulin mass ratioOrdered By: Madina Green on 06-22-2024 Albumin/Globulin [Mass ratio] 1.5 {ratio} 0.9-2.4 [facility] Serum or plasma alkaline katya sphatase measurementOrdered By: Madina Green on 06-22-2024 ALP [Catalytic activity/Vol] 76 U/L 35-104 [facility] Serum or plasma calcium lena urement (mass/volume)Ordered By: Madina Green on 06-22-2024 Calcium [Mass/Vol] 9.9 mg/dL 7.6-11.0 [facility] Serum or plasma cholesterol in HDL measurement (mass/volume)Ordered By: Madina Green on 06-22-2024 Cholesterol in HDL [Mass/Vol] 56 mg/dL >40 [facility] Comment on above: National Cholesterol Education Program (NCEP) guidelines:<40 mg/dL: Low HDL-cholesterol (major risk factor for CHD)>= 60 mg/dL: High HDL-cholesterol (negative risk factor for CHD)HDL-cholesterol is affected by a number of factors, e.g. smoking, exercise, hormones, sex and age. Serum or plasma cholesterol measurement (mass/volume)Ordered By: Madina Green on 06-22-2024 Cholesterol [Mass/Vol] 140 mg/dL <201 [facility] Comment on above: Cholesterol level, D esirable <200 mg/dLBorderline high cholesterol 200-239 mg/dLHigh cholesterol >=240 mg/dLRecommendations of the NCEP Adult Treatment Panel for the following risk-cutoff thresholds for the [place] population. Serum or plasma urea nitroge n measurement (mass/volume)Ordered By: Madina Green on 06-22-2024 Urea nitrogen [Mass/Vol] 16 mg/dL 4-19 [facility] Sodium levelOrdered By: Kenia Green on 06-22-2024 Sodium [Moles/Vol] 142 mmol/L 133-145 [facility] Total proteinOrdered By: Lukas Green on 06-22-2024 Protein [Mass/Vol] 7.2 g/dL 5.9-8.4 [facility] Triglycerides measurementOrd ered By: Madina Green on 06-22-2024 Triglyceride [Mass/Vol] 118 mg/dL <199 [facility] Comment on above: The drugs N-Acetylcy steine and Metamizole may falsely depress this assay. Normal range: <150 mg/dLBorderline High: 150-199 mg/dLHigh: 200-499 mg/dLVery High: >500 mg/dL Vitamin D, 25-hydroxyOrdered By: Madina Green on 06-22-2024 Vitamin D 25-Hydroxy 50.1 ng/mL 30-100 [facility] Comment on above: Vitamin D StatusDefi ciency: <20 ng/mL (50nmol/L)Insufficiency: 20-30 ng/mL (50-75 nmol/L)Sufficiency: 30-100 ng/mL (75-250 nmol/L)Toxicity: >100 ng/mL (>250 nmol/L) White blood cell (WBC) count Ordered By: Madina Green on 06-22-2024 WBC (Bld) [#/Vol] 6.6 10*3/uL 4.4-11.0 [facility] Internal Medicine Office Vis bernard 03-26-2024 Internal Medicine Office Visit [facility] [address] [place] [address] [place] [address] OFFICE VISIT Date of Service: 03/27/24 MR#: [id number] Acct: [id number] Name: CECE SNEED Rep #: [id number] : 1960 Provider: Dr. Madina ballard MD Age/Sex: 63/F Location: [facility] Status: Signed Intake Vital Signs 01/20/24 08:36 03/27/24 10:55 Height 5 ft 4 in 5 ft 6 in Weight: 226 lb 4 oz BMI 36.5 BP 124/70 H Blood Pressure Location Lt brachial Position Sitting Respiration 16 Pulse 57 L Pulse Source Monitor Temp 97.1 F L Temp Source Temporal Pulse Oximetry (%) 99 Oxygen Delivery Method room air Intake Visit Reasons: EST NEW PT - PPWK SENT Chief Complaint: est care Director Account Management Required: No Accompanied by: Self Is patient in pain?: No Allergies No Known Allergies Allergy (Unverified 03/27/24 10:42) Medications ???Medication ???Instructions ???Recorded ???Confirmed ???Type escitalopram oxalate 20 mg tablet mg PO 01/20/24 03/27/24 History famotidine 20 mg tablet (Pepcid) 20 mg PO QDAY 01/20/24 03/27/24 History galcanezumab-gnlm 120 mg/mL 120 mg subcut QMONTH 01/20/24 03/27/24 History subcutaneous syringe (Emgality) ipratropium bromide 21 mcg (0.03 2 spray intranasal BID 01/20/24 03/27/24 History %) nasal spray pantoprazole 20 mg tablet,delayed 20 mg PO BID 01/20/24 03/27/24 History release (Protonix) propranolol 20 mg tablet 20 mg PO BID 01/20/24 03/27/24 History rosuvastatin 5 mg tablet (Crestor) 5 mg PO .every other day 01/20/24 03/27/24 History topiramate 100 mg tablet mg PO 01/20/24 03/27/24 History zolmitriptan 5 mg tablet mg PO .prn 01/20/24 03/27/24 History ascorbate calcium (vitamin C) 500 500 mg PO QDAY 03/27/24 03/27/24 History mg tablet budesonide-formoterol HFA 80 2 puff inhalation BID #10.2 grams 03/27/24 03/27/24 Rx mcg-4.5 mcg/actuation aerosol inhaler (Symbicort) calcium , magnesium, zinc PO 03/27/24 History cholecalciferol (vitamin D3) 50 50 mcg PO QDAY 03/27/24 03/27/24 History mcg (2,000 unit) capsule cranberry 500 mg capsule 500 mg PO ONCE 03/27/24 03/27/24 History multivitamin PO 03/27/24 History vitamin B complex 1 tab PO QDAY 03/27/24 03/27/24 History PFSH Medical History JESUS (obstructive sleep apnea) Depression Chronic headaches Asthma Surgical History H/O breast biopsy Family History Grandmother Cancer, Onset Age: 80 breast cancer Mother Cancer, Onset Age: 50 ovarian cancer Sister Cancer, Onset Age: 60 breast Sister Colon cancer, Onset Age: 20 Grandfather Cancer skin Father Cancer skin Aunt Cancer breast? type unknown Social History (Updated 03/27/24 @ 11:[address] Madina Green MD) household members: none housing: house current occupational status: employed current occupation: [email or web address] Smoking Status: Never smoker alcohol intake: never substance use type: does not use what type of physical activity do you participate in: none seatbelt use: always do you feel safe at home: Yes HPI HPI Chief Complaint: est care Details: ECCE SNEED, is a 63 F who presents to the office today to establish care. She was seeing Anne Marie Nunez NP, and last saw them about a year ago. She is due for some routine blood work. She is up to date on her screening. She doesn't want any immunizations. She doesn't smoke and doesn't need any refills. She reports she is eating healthy but isn't staying active. The patient has a history of asthma. She was diagnosed a couple of years ago. She was following with Dr. Carson but lost her insurance. She saw him within the year. She takes her inhaler as prescribed and rinses her mouth out after use. She reports that she doesn't do well with the powder as it is causing her a sore throat and thrush. She inquired about alternative treatment options. Prior to the Qvar, she used arnuity and had the same problem. She questions whether an aerosolized inhaler would have less side effects for her. She denies any recent flare ups. The patient has a history of JESUS. She wears her CPAP every night and benefits from its use, however, she is interested in seeing about an inspire device instead. She has a history of migraines. She is taking her medication as prescribed and reports that they are pretty well controlled. She reports she doesn't get migraines very often at all. She follows with neurology and sees them once a month. Her GERD symptoms are overall controlled. She takes both pepcid and protonix daily. She has never done an EGD before. She has a history of depression and anxiety. She reports that she does well with it. She denies a (more content not included)... Normal [facility] Internal Medicine Office Vis bernard 01-20-2024 Internal Medicine Office Visit [facility] [address] [place] [address] [place] [address] OFFICE VISIT Date of Service: 01/20/24 MR#: [id number] Acct: [id number] Name: CECE SNEED Rep #: [id number] : 1960 Provider: YAQUELIN chavez Age/Sex: 63/F Location: [facility] Status: Signed Intake Vital Signs 01/20/24 08:36 Height 5 ft 4 in Weight: 223 lb BMI 38.2 BP 124/80 H Blood Pressure Location Lt brachial Position Sitting Respiration 16 Pulse 57 L Pulse Source Monitor Temp 97.5 F L Temp Source Temporal Pulse Oximetry (%) 99 Oxygen Delivery Method room air Intake Visit Reasons: ACUTE - NEEDS INHALER Chief Complaint: inhaler needed Director Account Management Required: No Accompanied by: Self Is patient in pain?: No Allergies No Known Allergies Allergy (Unverified 01/20/24 08:24) Medications ???Medication ???Instructions ???Recorded ???Confirmed ???Type beclomethasone dipropionate 40 1 inh inhalation Q12H #10.6 grams 01/20/24 01/20/24 Rx mcg/actuation HFA breath activated aerosol beclomethasone dipropionate 40 mcg inhalation BID 01/20/24 01/20/24 History mcg/actuation aerosol inhaler escitalopram oxalate 20 mg tablet mg PO 01/20/24 01/20/24 History famotidine 20 mg tablet (Pepcid) 20 mg PO QDAY 01/20/24 01/20/24 History galcanezumab-gnlm 120 mg/mL 120 mg subcut QMONTH 01/20/24 01/20/24 History subcutaneous syringe (Emgality) ipratropium bromide 21 mcg (0.03 2 spray intranasal BID 01/20/24 01/20/24 History %) nasal spray pantoprazole 20 mg tablet,delayed 20 mg PO BID 01/20/24 01/20/24 History release (Protonix) propranolol 20 mg tablet 20 mg PO BID 01/20/24 01/20/24 History rosuvastatin 5 mg tablet (Crestor) 5 mg PO .every other day 01/20/24 01/20/24 History topiramate 100 mg tablet mg PO 01/20/24 01/20/24 History zolmitriptan 5 mg tablet mg PO .prn 01/20/24 01/20/24 History PFSH Medical History (Updated 01/20/24 @ 09:12 by YAQUELIN Wong) Chronic headaches Asthma Family History (Updated 01/20/24 @ 08:35 by Lisseth Benson MA) Grandmother Cancer, Onset Age: 80 breast cancer Mother Cancer, Onset Age: 50 ovarian cancer Sister Cancer, Onset Age: 60 breast Sister Colon cancer, Onset Age: 20 Grandfather Cancer skin Father Cancer skin Aunt Cancer type unknown Social History (Updated 01/20/24 @ 08:36 by Lisseth Benson MA) household members: none housing: house current occupational status: employed current occupation: selling insurance Smoking Status: Never smoker alcohol intake: never substance use type: does not use what type of physical activity do you participate in: walking frequency: 1-2 times per week seatbelt use: always do you feel safe at home: Yes HPI HPI Chief Complaint: inhaler needed Details: CECE SNEED, is a 63 F who presents to the office today for an acute visit as a new patient for a refill of QVAR inhaler. Patient reports her insurance changed and she is seeking a new provider. She has an appt to establish with Dr. Green in Mar 2024. She declines influenza vaccine today. She reports a history of asthma, diagnosed a few years ago. She previously followed with nuisance wildlife specialist Dr. Carson. She reports her asthma symptoms include a hoarse cough. She additionally has a history of obstructive sleep apnea treated with a CPAP. She reports 100% compliance with CPAP. She does not know her CPAP settings. She states her sleep study was performed a few years ago. She denies any problems with her current CPAP settings. Regarding asthma, patient denies any previous hospitalizations or ER visits due to asthma exacerbations. She states she has completed a PFT in the past. She additionally has a history of allergies and GERD. She reports her cough is worse after eating, she manages GERD symptoms with Protonix 20 mg twice daily and Pepcid. She reports GERD symptoms are well-controlled otherwise. She utilizes cxot-alo-eeggrfk corticosteroid nasal spray and ipratropium nasal spray for allergies. She reports recently her maintenance inhaler was changed to Qvar from a previous inhaler that was causing recurrent oral thrush. She states since changing to Qvar she has not experienced thrush and her symptoms are managed well. Qvar dosing is 40 mcg, 1 inhalation twice a day. She states it manages her cough and asthma symptoms. She denies nighttime awakenings, shortness of breath, wheezing, or chest tightness. She does not utilize a rescue inhaler and declines prescription today. She denies additional needs or refills today. ROS Const Constitutional: No body ache, chills, excessive sweating, fatigue, fever(s), frequent falls, headache(s), snoring, weakness or change in appetite Eyes Eyes: No blurry vision, change in vision, eye pain or Light sensitivity ENT ENT: No ab (more content not included)... Normal [facility] Dexa Bone Density Studyon Dexa Bone Density Study [facility] Imaging Services [address] [place] [address] [id number] Dexa Bone Density Study MR#: [id number] Acct: [id number] Name: CECE SNEED Rep #: [id number] : 1960 F 63 From: Anders boss MD PCP: YAQUELIN Bowman Status: REG [facility] Study: Dexa Bone Density Study Date of Exam: 09/13/23 Exam# [id number] Ordering Dr: Anne Marie NunezC [id number] STUDY: DUAL ENERGY X-RAY ABSORPTIOMETRY / DXA REASON FOR EXAM: Female, 63 years old. [id number] TECHNIQUE: Bone Mineral Density (BMD) measurements of lumbar spine and bilateral hips were obtained. COMPARISON: None. FINDINGS: Lumbar Spine (L1-L4): g/cm2 (0.894) / T-score (-1.4) / Z-score (0.1) Findings are suggestive of osteopenia with a low fracture risk. Left Femur Total: g/cm2 (1.073) / T-score (1.1) / Z-score (2.1) Left Femoral Neck: g/cm2 (0.781) / T-score (-0.6) / Z-score (0.7) Right Femur Total: g/cm2 (1.020) / T-score (0.6) / Z-score (1.6) Right Femoral Neck: g/cm2 (0.795) / T-score (-0.5) / Z-score (0.8) BD/Dexa Bone Density Study IMPRESSION: The patient is considered osteopenic as outlined below according to World Alon Organization (WHO) criteria with a low fracture risk. Reference Information: The T-score is the number of standard deviations above or below the standard which is normal for young adults at their peak bone mineral density. The World Health Organization (WHO) interprets the T-scores as follows: Above -1 Normal bone density Between -1 and -2.5 Osteopenia Equal to / or below -2.5 Osteoporosis As a practical clinical guideline, osteopenia may be graded as follows: Mild -1 through -1.5 Moderate -1.6 through -2.0 Severe -2.1 through -2.4 The Z-score is the number of standard deviations above or below age-matched controls. A Z-score of less than -1.5 would be considered abnormal. References: 1. NIH Osteoporosis and Related Bone Diseases www osteo.org 2. International Society for Clinical Densitometry www iscd.org 3. National Osteoporosis Foundation www nof.org Electronically Signed: Anders Brown MD at 10:03 EDT , CC: YAQUELIN Nunez; YAQUELIN Tenorio Advice Line Rn: Signed Normal [facility] SCRN MAMM (CAD)W/ILDA BILATo n 09-13-2023 SCRN MAMM (CAD)W/ILDA BILAT [facility] Imaging Services [address] [place] [address] SCRN MAMM (CAD)W/ILDA BILAT MR#: [id number] Acct: [id number] Name: CECE SNEED Rep #: [id number] : 1960 F 63 From: Anders boss MD PCP: YAQUELIN Bowman Status: REG CLI Study: SCRN MAMM (CAD)W/ILDA BILAT Date of Exam: 08/02 Exam# [id number] Ordering Dr: Anne Marie Nunez [id number] MAMMOGRAPHY - BILATERAL SCREENING REASON FOR EXAM: Female, 63 years old. Routine annual screening examination. PERTINENT HISTORY: Sister with breast cancer. Grandmother with breast cancer. Prior left stereotactic breast biopsy. TECHNIQUE: Digital bilateral breast ilda (3D mammographic acquisition) in the CC and MLO projections. 2-D mediolateral oblique (MLO) and craniocaudad (CC) views of both breasts were obtained. CAD: Full Field Digital Mammography with Computer Added Detection was performed. COMPARISON: Comparison is made with prior study July 30, 2022 and July 21, 2021. FINDINGS: Breast Composition: The breasts are heterogeneously dense, which may obscure small masses. There are no dominant masses or suspicious calcifications. 2 tissue markers are seen in the slightly central lateral aspect of the left breast. Stable benign appearing bilateral axillary lymph nodes. No other significant abnormalities are identified. There has been no significant change since the prior study. BI/SCRN MAMM (CAD)W/ILDA BILAT IMPRESSION: Stable bilateral screening mammogram. Yearly follow-up mammogram recommended. (A) ASSESSMENT CATEGORY: BIRADS Category 2: Benign. A letter regarding these results will be sent to the patient by the facility within 30 days. Approximately 10% of breast cancers are not detected by mammography. A normal mammogram should not delay biopsy of a clinically suspicious abnormality. [id number] Electronically Signed: Anders Brown MD at 11:17 EDT Reading Location ID and State: [address] [place] [address] , Service support , CC: YAQUELIN Nunez; YAQUELIN Tenorio Advice Line Rn: Signed Normal [facility] CALCIFEDIOL ([id number])Ordered B y: Qa Lead on 10-28-2021 25-hydroxyvitamin D [Mass/Vol] 62.9 ng/mL Normal 30.0-100.0 [facility]; [facility] Work Phone: Comment on above: Vitamin D deficiency has been defined by the [place] of[place] and an Endocrine Society practice guideline as alevel of serum 25-OH vitamin D less than 20 ng/mL (1,2).The Endocrine Society went on to further define vitamin Dinsufficiency as a level between 21 and 29 ng/mL (2).1. IOM ([place] [employer]). 2010. Dietary reference intakes for calcium and D. [place]: The National Academies Press.2. Diana MF, Simone [place], Rylee BARRAZA, et al. Evaluation, treatment, and prevention of vitamin D deficiency: an Endocrine Society clinical practice guideline. JCEM. 2010; 96(7):1911-30. PATIENT WAS FASTINGP ERFORMED BY: [facility] [facility] [id number] CBC with auto diff ([id number])Or dered By: Qa Lead on 10-28-2021 Basophils (Bld) [#/Vol] 0.0 10*3/uL Normal 0.0-0.2 [facility]; [facility] Work Phone: Comment on above: PATIENT WAS FASTINGP ERFORMED BY: [facility] [id number] [address]uin [place] [id number] Basophils/100 WBC (Bld) 0 % Normal [facility]; [facility] Work Phone: Comment on above: PATIENT WAS FASTINGP ERFORMED BY: [facility] [id number] [facility] [id number] Eosinophils (Bld) [#/Vol] 0.1 10*3/uL Normal 0.0-0.4 [facility]; [facility] Work Phone: Comment on above: PATIENT WAS FASTINGP ERFORMED BY: [facility] [id number] [facility] [id number] Eosinophils/100 WBC (Bld) 2 % Normal [facility]; [facility] Work Phone: Comment on above: PATIENT WAS FASTINGP ERFORMED BY: [facility] [id number] [facility] [id number] Erythrocyte distribution width (RBC) [Ratio] 13.3 % Normal 11.7-15.4 [facility]; [facility] Work Phone: Comment on above: PATIENT WAS FASTINGP ERFORMED BY: [facility] [id number] [facility] [id number] Hematocrit (Bld) [Volume fraction] 43.3 % Normal 34.0-46.6 [facility]; [facility] Work Phone: Comment on above: PATIENT WAS FASTINGP ERFORMED BY: [facility] [id number] [facility] [id number] Hemoglobin (Bld) [Mass/Vol] 14.2 g/dL Normal 11.1-15.9 [facility]; [facility] Work Phone: Comment on above: PATIENT WAS FASTINGP ERFORMED BY: [facility] Ckjytm7703 [address] RoadDublin [place] [id number] Immature granulocytes (Bld) [#/Vol] 0.0 10*3/uL Normal 0.0-0.1 [facility]; [facility] Work Phone: Comment on above: PATIENT WAS FASTINGP ERFORMED BY: [facility] Wiauhz6758 [address] Roadblin [place] [id number] Immature granulocytes/100 WBC (Bld) 0 % Normal [facility]; [facility] Work Phone: Comment on above: PATIENT WAS FASTINGP ERFORMED BY: [facility]coSaint Michael's Medical CenterHrnlnd7987 [address] [facility] [id number] Lymphocytes (Bld) [#/Vol] 2.4 10*3/uL Normal 0.7-3.1 [facility]; [facility] Work Phone: Comment on above: PATIENT WAS FASTINGP ERFORMED BY: [facility] [facility] [id number] Lymphocytes/100 WBC (Bld) 35 % Normal [facility]; [facility] Work Phone: Comment on above: PATIENT WAS FASTINGP ERFORMED BY: LabCox Walnut LawnOrlqhq3457 [address] [facility] [id number] MCH (RBC) [Entitic mass] 30.1 pg Normal 26.6-33.0 [facility]; [facility] Work Phone: Comment on above: PATIENT WAS FASTINGP ERFORMED BY: [facility] Aibtsq[address] [facility]in [place] [id number] MCHC (RBC) [Mass/Vol] 32.8 g/dL Normal 31.5-35.7 [facility] prehensive Internal Medicine; [facility] Work Phone: Comment on above: PATIENT WAS FASTINGP ERFORMED BY: [facility] Iqmtyu3472 [address] RoadDublin [place] [id number] MCV (RBC) [Entitic vol] 92 fL Normal 79-97 C omprehensive [facility]; [facility] Work Phone: Comment on above: PATIENT WAS FASTINGP ERFORMED BY: CB [facility] Xklbtf4185 [address] RoadDublin [place] [id number] Monocytes (Bld) [#/Vol] 0.4 10*3/uL Normal 0.1-0.9 [facility]; [facility] Work Phone: Comment on above: PATIENT WAS FASTINGP ERFORMED BY: CB [facility] Ijgdao44[address] RoadDublin [place] [id number] Monocytes/100 WBC (Bld) 5 % Normal C [facility]; [facility] Work Phone: Comment on above: PATIENT WAS FASTINGP ERFORMED BY: CB [facility] Czxizh5298 [address] RoadDublin [place] [id number] Neutrophils (Bld) [#/Vol] 3.9 10*3/uL Normal 1.4-7.0 [facility]; [facility] Work Phone: Comment on above: PATIENT WAS FASTINGP ERFORMED BY: JOHN [facility] Yyfsdn0653 [address] RoadDublin [place] [id number] Neutrophils/100 WBC (Bld) 58 % Normal [facility]; [facility] Work Phone: Comment on above: PATIENT WAS FASTINGP ERFORMED BY: JOHN [facility] Ovzyqp0310 [address] RoadDublin [place] [id number] Platelets (Bld) [#/Vol] 193 10*3/uL Normal 150-450 [facility]; [facility] Work Phone: Comment on above: PATIENT WAS FASTINGP ERFORMED BY: CB [facility] Lcxmdv1164 [address] RoadDublin [place] [id number] RBC (Bld) [#/Vol] 4.72 10*6/uL Normal 3.77-5.28 [facility] ehensive Internal Medicine; [facility] Work Phone: Comment on above: PATIENT WAS FASTINGP ERFORMED BY: CB [facility] Jxfklx7035 [address] RoadDublin [place] [id number] WBC (Bld) [#/Vol] 6.8 10*3/uL Normal 3.4-10.8 [facility]; [facility] Work Phone: Comment on above: PATIENT WAS FASTINGP ERFORMED BY: CB [facility] Koodhz7383 [address] RoadDublin [place] [id number] FERRITIN ([id number])Ordered By: Qa Lead on 10-28-2021 Ferritin [Mass/Vol] 102 ng/mL Normal 15-150 [facility]; [facility] Work Phone: Comment on above: fasting; PATIENT WAS FASTINGPERFORMED BY: CB [facility] Mlvtop5187 [address] RoadDublin [place] [id number] IRON & TOTAL IRON BINDING CA PACITY ([id number])Ordered By: Qa Lead on 10-28-2021 Iron [Mass/Vol] 89 ug/dL Normal 27-159 [facility] Internal Medicine; [facility] Work Phone: Comment on above: PATIENT WAS FASTINGP ERFORMED BY: CB [facility] Jhevbc1891 [address] RoadDublin [place] [id number] Iron binding capacity [Mass/Vol] 349 ug/dL Normal 250-450 [facility]; [facility] Work Phone: Comment on above: PATIENT WAS FASTINGP ERFORMED BY: CB [facility] Lfsmdy3837 [address] RoadDublin [place] [id number] Iron binding capacity.unsaturated [Mass/Vol] 260 ug/dL Normal 131-425 [facility]; [facility] Work Phone: Comment on above: PATIENT WAS FASTINGP ERFORMED BY: CB [facility] Rbujtu0046 [address] RoadDublin [place] [id number] Iron saturation [Mass fraction] 26 % Normal 15-55 [facility]; [facility] Work Phone: Comment on above: PATIENT WAS FASTINGP ERFORMED BY: CB [facility] Qhbtne9754 [address] RoadDublin [place] [id number] LIPID PANEL ([id number])Ordered B y: Qa Lead on 10-28-2021 Cholesterol [Mass/Vol] 171 mg/dL Normal 100-199 Co mprehensive [facility]; [facility] Work Phone: Comment on above: fasting; PATIENT WAS FASTINGPERFORMED BY: JOHN [facility] Igvoog[address] [facility]in [place] [id number] Cholesterol in HDL [Mass/Vol] 55 mg/dL Normal [facility]; [facility] Work Phone: Comment on above: fasting; PATIENT WAS FASTINGPERFORMED BY: CB [facility] Rtiqul[address] [facility] [id number] Triglyceride [Mass/Vol] 146 mg/dL Normal 0-149 C [facility]ensive [facility]; [facility] Work Phone: Comment on above: fasting; PATIENT WAS FASTINGPERFORMED BY: JOHN [facility] Cvmmti[address] [facility] [id number] LIPID PANEL (08089) 25 mg/dL Normal 5-40 [facility]erens[facility]; [facility] Work Phone: Comment on above: fasting; PATIENT WAS FASTINGPERFORMED BY: CB [facility] Hnqoze3936 [address] RoadFormerly [facility] Centerin [place] [id number] LIPID PANEL (25682) 91 mg/dL Normal 0-99 [facility] Centerensive [facility]; [facility] Work Phone: Comment on above: fasting; PATIENT WAS FASTINGPERFORMED BY: CB [facility] Cxoypg[address] [facility]in [place] [id number] LIPID PANEL (61875) 1.7 {ratio} Normal 0.0-3.2 [facility]; [facility] Work Phone: Comment on above: LDL/HDL Ratio Men Wo men 1/2 Avg.Risk 1.0 1.5 Avg.Risk 3.6 3.2 2X Avg.Risk 6.2 5.0 3X Avg.Risk 8.0 6.1 fasting; PATIENT WAS FASTINGPERFORMED BY: CB [facility] Jfgpdh[address] [facility]in [place] [id number] Cervical or vagninal specime n microscopic examination by cytology stain (reported ason 06-23-2021 Cytology report Cyto stain Doc (Cvx/Vag) Comment [facility] Work Phone: Comment on above: The Pap smear is a s creening test designed to aid in thedetection of premalignant and malignant conditions of theuterine cervix. It is not a diagnostic procedure andshould not be used as the sole means of detecting cervicalcancer. Both false-positive and false-negative reports dooccur. Detection in cervical specim en of any of human papilloma virus (HPV) 16, 18, 31, 33,on 06-23-2021 HPV 16+18+31+33+35+39+45+51 +52+56+58+59+66+68 DNA Probe+sig amp Ql (Cvx) Negative Negative [facility] Work Phone: Comment on above: This nucleic acid am plification test detects fourteen high-risk HPV types (16,18,31,33,35,39,45,51,52,56,58,59,66,68)without differentiation.Performed at: - [facility] [id number] Director: Lilia Chiang MD, Phone: [phone] at: = - [facility] [id number] Director: Lilia Chiang MD, Phone: [phone] Laboratory - Cytologyon 06-09 Candle Molder Machine Cyto stain Nom (Cvx/Vag) [ID] Comment [facility] Work Phone: Comment on above: Marysol Martin rvisory Social Security Assessor (ASCP) Laboratory - Miscellaneous t estson 06-23-2021 Service comment (Unsp spec) [Interp] Comment [facility] Work Phone: Comment on above: This liquid based Th inPrep(R) pap test was screened withthe use of an image guided system. Service comment (Unsp spec) [Interp] . [facility] Work Phone: No Panel Informationon 06-23 Follicle Stimulating Hormone 59.6 mIU/mL [facility] Work Phone: Comment on above: NORMAL REFERENCE RAN GES FEMALE FOLLICULAR 2.3 - 12.6 mIU/mL MID-CYCLE PEAK 5.2 - 17.5 mIU/mL LUTEAL 1.7 - 12.9 mIU/mL POST-MENOPAUSAL ON MHT 5.9 - 72.8 mIU/mL NOT ON MHT 12.7 - 132.2 mlU/mL MALE 0.7 - 10.8 mIU/mL Luteinizing Hormone 30.8 mIU/mL [facility] Work Phone: Comment on above: NORMAL REFERENCE RAN GES FEMALE FOLLICULAR 1.9 - 26.2 mIU/mL MID-CYCLE PEAK 22.8 - 76.1 mIU/mL LUTEAL 0.6 - 16.6 mIU/mL POST-MENOPAUSAL ON MHT 1.1 - 52.4 mIU/mL NOT ON MHT 8.6 - 61.8 mIU/mL MALE 1.2 - 10.6 mIU/mL Pathology report final diagnosis Narrative Comment [facility] Work Phone: Comment on above: NEGATIVE FOR INTRAEP ITHELIAL LESION OR MALIGNANCY. HGB A1C ([id number])Ordered By: S ystem Computer Assembler on 03-09-2021 HbA1c (Bld) [Mass fraction] 6.0 % Abnormal 4.8-5.6 [facility]; [facility] Work Phone: Comment on above: . Prediabetes: 5.7 - 6.4 Diabetes: >6.4 Glycemic control for adults with diabetes: <7.0 Mar 09 2021; PATIENT WAS FASTINGPERFORMED BY: JOHN [employer]6370 KlickExAdventHealth Manchester [id number] LIPID PANEL ([id number])Ordered B y: Qa Lead on 03-09-2021 Cholesterol [Mass/Vol] 194 mg/dL Normal 100-199 Co mprehensive [facility]; [facility] Work Phone: Comment on above: Mar 09 2021; PATIENT WAS FASTINGPERFORMED BY: zPerfectGift6370 [employer] [place] [id number] Cholesterol in HDL [Mass/Vol] 54 mg/dL Normal [facility]; [facility] Work Phone: Comment on above: Mar 09 2021; PATIENT WAS FASTINGPERFORMED BY: JOHN [facility] Sywebe5566 [address] RoadDublin [place] [id number] Triglyceride [Mass/Vol] 185 mg/dL Abnormal 0-149 C [facility]ensive [facility]; [facility] Work Phone: Comment on above: Mar 09 2021; PATIENT WAS FASTINGPERFORMED BY: CB [facility] Trbupf0581 [address] RoadDublin [place] [id number] LIPID PANEL (97137) 32 mg/dL Normal 5-40 [facility]erensive [facility]; [facility] Work Phone: Comment on above: Mar 09 2021; PATIENT WAS FASTINGPERFORMED BY: CB [facility] Lzjuot0708 [address] Roadblin [place] [id number] LIPID PANEL ([id number]) 108 mg/dL Abnormal 0-99 [facility] Internal Medicine; [facility] Work Phone: Comment on above: Mar 09 2021; PATIENT WAS FASTINGPERFORMED BY: JOHN [facility] Yepysl[address] [facility] [id number] LIPID PANEL (90695) 2.0 {ratio} Normal 0.0-3.2 [facility]ensive [facility]; [facility] Work Phone: Comment on above: LDL/HDL Ratio Men Wo men 1/2 Avg.Risk 1.0 1.5 Avg.Risk 3.6 3.2 2X Avg.Risk 6.2 5.0 3X Avg.Risk 8.0 6.1 Mar 09 2021; PATIENT WAS FASTINGPERFORMED BY: JOHN [facility] Jtdcpy5[address] [facility] [id number] Metabolic Panel, Comprehensi ve (02446)Ordered By: Qa Lead on 03-09-2021 Albumin [Mass/Vol] 4.4 g/dL Normal 3.8-4.9 [facility] Internal Medicine; [facility] Work Phone: Comment on above: Mar 09 2021; PATIENT WAS FASTINGPERFORMED BY: CB [facility] Hgsaei[address] [facility] CenterDuin [place] [id number] Albumin/Globulin [Mass ratio] 2.0 {ratio} Normal 1.2-2.2 [facility]; [facility] Work Phone: Comment on above: Mar 09 2021; PATIENT WAS FASTINGPERFORMED BY: CB [facility] Fbwpvf5254 [address] RoadDublin [place] [id number] ALP [Catalytic activity/Vol] 75 U/L Normal 44-121 [facility]; [facility] Work Phone: Comment on above: Please note refere nce interval change Mar 09 2021; PATIENT WAS FASTINGPERFORMED BY: CB [facility] Iytqtz0770 [address] RoadDublin [place] [id number] ALT [Catalytic activity/Vol] 20 U/L Normal 0-32 [facility]; [facility] Work Phone: Comment on above: Mar 09 2021; PATIENT WAS FASTINGPERFORMED BY: CB [facility] Xenosw4099 [address] RoadDublin [place] [id number] AST [Catalytic activity/Vol] 18 U/L Normal 0-40 [facility]; [facility] Work Phone: Comment on above: Mar 09 2021; PATIENT WAS FASTINGPERFORMED BY: [facility] Ezvxxi5747 [address] RoadDublin [place] [id number] Bilirubin [Mass/Vol] 0.4 mg/dL Normal 0.0-1.2 Comp rehensive Internal Medicine; [facility] Work Phone: Comment on above: Mar 09 2021; PATIENT WAS FASTINGPERFORMED BY: [facility] Acwiox2376 [address] RoadDublin [place] [id number] Calcium [Mass/Vol] 9.6 mg/dL Normal 8.7-10.2 [facility] Internal [facility]; [facility] Work Phone: Comment on above: Mar 09 2021; PATIENT WAS FASTINGPERFORMED BY: CB [facility] Vekios8179 [address] RoadDublin [place] [id number] Chloride [Moles/Vol] 108 mmol/L Abnormal 96-106 Comp rehensive Internal Medicine; [facility] Work Phone: Comment on above: Mar 09 2021; PATIENT WAS FASTINGPERFORMED BY: CB [facility] Xbvocu29[address] [place] [id number] CO2 [Moles/Vol] 20 mmol/L Normal 20-29 [facility] Internal Medicine; [facility] Work Phone: Comment on above: Mar 09 2021; PATIENT WAS FASTINGPERFORMED BY: JOHN Recinos6370 [address] LakeAffinity Health Partners [id number] Creatinine [Mass/Vol] 0.83 mg/dL Normal 0.57-1.00 Com prehensive Internal Medicine; [facility] Work Phone: Comment on above: Mar 09 2021; PATIENT WAS FASTINGPERFORMED BY: JOHN Recinos6370 [facility]rellSt[facility] [id number] GFR/1.73 sq M.predicted among blacks CKD-EPI (S/P/Bld) [Vol rate/Area] 90 mL/min/1.73 Normal [facility]; [facility] Work Phone: Comment on above: In accordance with recommendations from the NKF-ASN Task force, [facility] is [facility] its eGFR calculation to the 2020 CKD-EPI creatinine equation that estimates kidney function without a race variable. Mar 09 2021; PATIENT WAS FASTINGPERFORMED BY: JOHN Recinos6370 [facility]rellSt. [facility] [id number] GFR/1.73 sq M.predicted among non-blacks CKD-EPI (S/P/Bld) [Vol rate/Area] 78 mL/min/1.73 Normal [facility]; [facility] Work Phone: Comment on above: Mar 09 2021; PATIENT WAS FASTINGPERFORMED BY: JOHN Anguiano Ohcwzb14[address] [facility]in [place] [id number] Globulin (S) [Mass/Vol] 2.2 g/dL Normal 1.5-4.5 C omprehensive Internal Medicine; [facility] Work Phone: Comment on above: Mar 09 2021; PATIENT WAS FASTINGPERFORMED BY: Elena Tylin6370 [facility] [id number] Glucose [Mass/Vol] 99 mg/dL Normal 65-99 [facility] Internal Medicine; [facility] Work Phone: Comment on above: Mar 09 2021; PATIENT WAS FASTINGPERFORMED BY: JOHN [facility] Soizwr[address] [facility] [id number] Potassium [Moles/Vol] 4.1 mmol/L Normal 3.5-5.2 [facility] Internal Medicine; [facility] Work Phone: Comment on above: Mar 09 2021; PATIENT WAS FASTINGPERFORMED BY: CB [facility] Tnujag7[address] [facility] [id number] Protein [Mass/Vol] 6.6 g/dL Normal 6.0-8.5 [facility] Internal Medicine; [facility] Work Phone: Comment on above: Mar 09 2021; PATIENT WAS FASTINGPERFORMED BY: [facility] Mxxekw23[address] [facility] [id number] Sodium [Moles/Vol] 142 mmol/L Normal 134-144 [facility] Internal Medicine; [facility] Work Phone: Comment on above: Mar 09 2021; PATIENT WAS FASTINGPERFORMED BY: [facility] Uphyjb8293 [facility] [id number] Urea nitrogen [Mass/Vol] 17 mg/dL Normal 6-24 [facility]; [facility] Work Phone: Comment on above: Mar 09 2021; PATIENT WAS FASTINGPERFORMED BY: CB [facility] Rzyosl8774 [facility] [id number] Urea nitrogen/Creatinine [Mass ratio] 20 mg/mg Normal 9-23 [facility]; [facility] Work Phone: Comment on above: Mar 09 2021; PATIENT WAS FASTINGPERFORMED BY: CB [facility] Tsgmom5752 [facility] [id number] HGB A1C ([id number])Ordered By: S ystem Computer Assembler on 11-10-2020 HbA1c (Bld) [Mass fraction] 5.9 % Abnormal 4.8-5.6 [facility]; [facility] Work Phone: Comment on above: . Prediabetes: 5.7 - 6.4 Diabetes: >6.4 Glycemic control for adults with diabetes: <7.0 PATIENT WAS FASTINGP ERFORMED BY: JOHN LabColuke Plnzlg8895 [address] RoadDublin [place] [id number] LIPID PANEL ([id number])Ordered B y: Qa Lead on 11-10-2020 Cholesterol [Mass/Vol] 254 mg/dL Abnormal 100-199 [address] [facility]ensive [facility]; [facility] Work Phone: Comment on above: PATIENT WAS FASTINGP ERFORMED BY: JOHN [facility] Shrfhn4202 [address] RoadDublin [place] [id number] Cholesterol in HDL [Mass/Vol] 55 mg/dL Normal [facility]; [facility] Work Phone: Comment on above: PATIENT WAS FASTINGP ERFORMED BY: JOHN [facility] Vkhjld1790 [address] RoadDublin [place] [id number] Triglyceride [Mass/Vol] 226 mg/dL Abnormal 0-149 C ompkettering health hamiltonensive Internal Medicine; [facility] Work Phone: Comment on above: PATIENT WAS FASTINGP ERFORMED BY: JOHN [facility] Jpcfvi8120 [address] RoadDublin [place] [id number] LIPID PANEL ([id number]) 41 mg/dL Abnormal 5-40 Compr ensive Internal Medicine; [facility] Work Phone: Comment on above: PATIENT WAS FASTINGP ERFORMED BY: CB [facility] Vbiekt3717 [address] RoadDublin [place] [id number] LIPID PANEL (84340) 158 mg/dL Abnormal 0-99 Compr ensive Internal Medicine; [facility] Work Phone: Comment on above: PATIENT WAS FASTINGP ERFORMED BY: JOHN [facility] Ntabxk3120 [address] RoadDublin [place] [id number] LIPID PANEL (58419) 2.9 {ratio} Normal 0.0-3.2 Comp [facility]ensive [facility]; [facility] Work Phone: Comment on above: LDL/HDL Ratio Men Wo men 1/2 Avg.Risk 1.0 1.5 Avg.Risk 3.6 3.2 2X Avg.Risk 6.2 5.0 3X Avg.Risk 8.0 6.1 PATIENT WAS FASTINGP ERFORMED BY: LisaAscension Borgess Hospital6370 [facility] [id number] CBC & PLATELETS (AUTO) ([id number])Ordered By: Qa Lead on 09-11-2020 Erythrocyte distribution width (RBC) [Ratio] 13.0 % Normal 11.7-15.4 [facility]; [facility] Work Phone: Comment on above: PATIENT WAS FASTINGP ERFORMED BY: [place] 4990870 [facility] [id number] Hematocrit (Bld) [Volume fraction] 36.9 % Normal 34.0-46.6 [facility]; [facility] Work Phone: Comment on above: PATIENT WAS FASTINGP ERFORMED BY: [address] [id number] Hemoglobin (Bld) [Mass/Vol] 12.5 g/dL Normal 11.1-15.9 [facility] Internal Medicine; [facility] Work Phone: Comment on above: PATIENT WAS FASTINGP ERFORMED BY: [facility]6370 [facility] [id number] MCH (RBC) [Entitic mass] 30.7 pg Normal 26.6-33.0 [facility] Internal Medicine; [facility] Work Phone: Comment on above: PATIENT WAS FASTINGP ERFORMED BY: [place] 4990870 [facility] [id number] MCHC (RBC) [Mass/Vol] 33.9 g/dL Normal 31.5-35.7 [facility] Internal [facility]; [facility] Work Phone: Comment on above: PATIENT WAS FASTINGP ERFORMED BY: [place] 4990870 [facility] [id number] MCV (RBC) [Entitic vol] 91 fL Normal 79-97 C omprehensive Internal Medicine; [facility] Work Phone: Comment on above: PATIENT WAS FASTINGP ERFORMED BY: JOHN [facility] Kknici6084 [address] RoadDublin [place] [id number] Platelets (Bld) [#/Vol] 247 10*3/uL Normal 150-450 [facility]; [facility] Work Phone: Comment on above: PATIENT WAS FASTINGP ERFORMED BY: CB [facility] Oztygq1535 [address] RoadDublin [place] [id number] RBC (Bld) [#/Vol] 4.07 10*6/uL Normal 3.77-5.28 Compr ensive Internal Medicine; [facility] Work Phone: Comment on above: PATIENT WAS FASTINGP ERFORMED BY: JOHN LabColuke TyRwmxec6203 [address] RoadDublin [place] [id number] WBC (Bld) [#/Vol] 5.9 10*3/uL Normal 3.4-10.8 Compre [facility] Internal Medicine; [facility] Work Phone: Comment on above: PATIENT WAS FASTINGP ERFORMED BY: JOHN [facility] Hdpyno5751 [address] RoadDublin [place] [id number] LIPID PANEL ([id number])Ordered B y: Qa Lead on 09-11-2020 Cholesterol [Mass/Vol] 245 mg/dL Abnormal 100-199 [address] [facility]ensive [facility]; [facility] Work Phone: Comment on above: PATIENT WAS FASTINGP ERFORMED BY: JOHN [facility] Xdblea6327 [address] RoadDublin [place] [id number] Cholesterol in HDL [Mass/Vol] 51 mg/dL Normal [facility]; [facility] Work Phone: Comment on above: PATIENT WAS FASTINGP ERFORMED BY: JOHN [facility] Pzfiqr9045 [address] RoadDublin [place] [id number] Triglyceride [Mass/Vol] 258 mg/dL Abnormal 0-149 C omprehensive Internal Medicine; [facility] Work Phone: Comment on above: PATIENT WAS FASTINGP ERFORMED BY: JOHN [facility] Cjlzlz6656 [address] RoadDublin [place] [id number] LIPID PANEL ([id number]) 47 mg/dL Abnormal 5-40 [facility]erens[facility]; [facility] Work Phone: Comment on above: PATIENT WAS FASTINGP ERFORMED BY: JOHN LabColuke TyEekzxh[address] [facility] [id number] LIPID PANEL ([id number]) 147 mg/dL Abnormal 0-99 [facility]erens[facility]; [facility] Work Phone: Comment on above: PATIENT WAS FASTINGP ERFORMED BY: JOHN [facility] Tnlasx[address] [facility] [id number] LIPID PANEL (19825) 2.9 {ratio} Normal 0.0-3.2 [facility]; [facility] Work Phone: Comment on above: LDL/HDL Ratio Men Wo men 1/2 Avg.Risk 1.0 1.5 Avg.Risk 3.6 3.2 2X Avg.Risk 6.2 5.0 3X Avg.Risk 8.0 6.1 PATIENT WAS FASTINGP ERFORMED BY: JOHN [facility] Krycrl4186 [facility] [id number] Metabolic Panel, Comprehensi ve ([id number])Ordered By: Qa Lead on 09-11-2020 Albumin [Mass/Vol] 4.0 g/dL Normal 3.8-4.9 [facility] Internal Medicine; [facility] Work Phone: Comment on above: PATIENT WAS FASTINGP ERFORMED BY: JOHN [facility] Lxracc3334 [facility] [id number] Albumin/Globulin [Mass ratio] 1.5 {ratio} Normal 1.2-2.2 [facility]; [facility] Work Phone: Comment on above: PATIENT WAS FASTINGP ERFORMED BY: JOHN [facility] Efkles[address] [facility] [id number] ALP [Catalytic activity/Vol] 76 U/L Normal 48-121 [facility]; [facility] Work Phone: Comment on above: PATIENT WAS FASTINGP ERFORMED BY: JOHN [facility] Ooqawq47[address] RoadDublin [place] [id number] ALT [Catalytic activity/Vol] 13 U/L Normal 0-32 [facility]; [facility] Work Phone: Comment on above: PATIENT WAS FASTINGP ERFORMED BY: JOHN LabColuke Awdeiv8598 [address] RoadDublin [place] [id number] AST [Catalytic activity/Vol] 14 U/L Normal 0-40 [facility]; [facility] Work Phone: Comment on above: PATIENT WAS FASTINGP ERFORMED BY: CB [facility] Bspdyf1856 [address] RoadDublin [place] [id number] Bilirubin [Mass/Vol] mg/dL Normal 0.0-1.2 Comp rehensive Internal Medicine; [facility] Work Phone: Comment on above: PATIENT WAS FASTINGP ERFORMED BY: [facility] Hcjrgy7[address] RoadDublin [place] [id number] Calcium [Mass/Vol] 9.1 mg/dL Normal 8.7-10.2 [facility] Internal Medicine; [facility] Work Phone: Comment on above: PATIENT WAS FASTINGP ERFORMED BY: [facility] Zxzhyb20[address] RoadDublin [place] [id number] Chloride [Moles/Vol] 108 mmol/L Abnormal 96-106 Comp rehensive Internal Medicine; [facility] Work Phone: Comment on above: PATIENT WAS FASTINGP ERFORMED BY: [facility] Azvayy1532 [address] RoadDublin [place] [id number] CO2 [Moles/Vol] 20 mmol/L Normal 20-29 [facility] Internal Medicine; [facility] Work Phone: Comment on above: PATIENT WAS FASTINGP ERFORMED BY: [facility] Cfsdzl7795 [address] RoadDublin [place] [id number] Creatinine [Mass/Vol] 0.79 mg/dL Normal 0.57-1.00 [facility]; [facility] Work Phone: Comment on above: PATIENT WAS FASTINGP ERFORMED BY: [facility] Beufvg232[address] RoadDublin [place] [id number] GFR/1.73 sq M.predicted among blacks CKD-EPI (S/P/Bld) [Vol rate/Area] 95 mL/min/1.73 Normal [facility]; [facility] Work Phone: Comment on above: [facility] currently reports eGFR in compliance with the current recommendations of the National Kidney Foundation. [facility] will update reporting as new guidelines are published from the NKF-ASN Task force. PATIENT WAS FASTINGP ERFORMED BY: [facility] [facility] [id number] GFR/1.73 sq M.predicted among non-blacks CKD-EPI (S/P/Bld) [Vol rate/Area] 83 mL/min/1.73 Normal [facility]; [facility] Work Phone: Comment on above: PATIENT WAS FASTINGP ERFORMED BY: [facility] [facility] [id number] Globulin (S) [Mass/Vol] 2.6 g/dL Normal 1.5-4.5 C omprehensive Internal Medicine; [facility] Work Phone: Comment on above: PATIENT WAS FASTINGP ERFORMED BY: [facility] [facility] [id number] Glucose [Mass/Vol] 103 mg/dL Abnormal 65-99 [facility] hens[facility]; [facility] Work Phone: Comment on above: PATIENT WAS FASTINGP ERFORMED BY: [facility] [facility] [id number] Potassium [Moles/Vol] 4.2 mmol/L Normal 3.5-5.2 [facility] prehensive Internal Medicine; [facility] Work Phone: Comment on above: PATIENT WAS FASTINGP ERFORMED BY: [facility] [facility] [id number] Protein [Mass/Vol] 6.6 g/dL Normal 6.0-8.5 [facility]; [facility] Work Phone: Comment on above: PATIENT WAS FASTINGP ERFORMED BY: CB [facility] Dnrufn4320 [address] RoadDublin [place] [id number] Sodium [Moles/Vol] 142 mmol/L Normal 134-144 [facility] Internal Medicine; [facility] Internal Medicine Work Phone: Comment on above: PATIENT WAS FASTINGP ERFORMED BY: CB [facility] Dlnbfm8718 [address] RoadDublin [place] [id number] Urea nitrogen [Mass/Vol] 21 mg/dL Normal 6-24 [facility] Internal Medicine; [facility] Internal Medicine Work Phone: Comment on above: PATIENT WAS FASTINGP ERFORMED BY: CB [facility] Dhvdzg7854 [address] RoadDublin [place] [id number] Urea nitrogen/Creatinine [Mass ratio] 27 mg/mg Abnormal 9- [facility]; [facility] Internal Medicine Work Phone: Comment on above: PATIENT WAS FASTINGP ERFORMED BY: [facility] Djvgwj6538 [address] RoadDublin [place] [id number] TSH ([id number])Ordered By: [employer] m Computer Assembler on 09-11-2020 TSH Qn 0.788 {uIU/mL} Normal 0.450-4.500 [facility] Internal Medicine; [facility] Internal Medicine Work Phone: Comment on above: PATIENT WAS FASTINGP ERFORMED BY: [facility] Mqpsnf7925 [address] RoadDublin [place] [id number] T3, FREE (TRIDOTHYRONINE) (8 2293)Ordered By: Qa Lead on 10-02-2019 Free T3 [Mass/Vol] 2.5 pg/mL Normal 2.0-4.4 [facility] Internal Medicine Work Phone: Comment on above: PATIENT NOT FASTINGP ERFORMED BY: CB [facility] Qceghj3989 [address] RoadDublin [place] [id number] T4, FREE (THYROXINE) ([id number]) Ordered By: Qa Lead on 10-02-2019 Free T4 [Mass/Vol] 1.03 ng/dL Normal 0.82-1.77 [facility] Internal Medicine Work Phone: Comment on above: PATIENT NOT FASTINGP ERFORMED BY: JOHN [facility] Yqmeat6[address] RoadDublin [place] [id number] TSH ([id number])Ordered By: [employer] m Computer Assembler on 10-02-2019 TSH Qn 1.010 {uIU/mL} Normal 0.450-4.500 Comprehen sive Internal Medicine Work Phone: Comment on above: PATIENT NOT FASTINGP ERFORMED BY: CB [facility] Myspjl0460 [address] RoadDublin [place] [id number] URIC ACID BLOOD (90661)Order ed By: Qa Lead on 09-18-2019 Urate [Mass/Vol] 4.5 mg/dL Normal 2.5-7.1 Comprehe [facility] Internal Medicine Work Phone: Comment on above: Therapeutic target f or gout patients: <6.0 PATIENT NOT FASTINGP ERFORMED BY: CB [facility] Gifxvy4[address] RoadDublin [place] [id number] CBC & PLATELETS (AUTO) ([id number] 7)Ordered By: Qa Lead on 08-29-2019 Erythrocyte distribution width (RBC) [Ratio] 13.1 % Normal 11.7-15.4 [facility] Work Phone: Comment on above: PATIENT NOT FASTINGP ERFORMED BY: CB [facility] Ijqily20[address] RoadDublin [place] [id number] Hematocrit (Bld) [Volume fraction] 40.0 % Normal 34.0-46.6 [facility] Work Phone: Comment on above: PATIENT NOT FASTINGP ERFORMED BY: CB [facility] Henqwv7343 [address] RoadDublin [place] [id number] Hemoglobin (Bld) [Mass/Vol] 13.0 g/dL Normal 11.1-15.9 [facility] Work Phone: Comment on above: PATIENT NOT FASTINGP ERFORMED BY: CB [facility] Mwbppx8585 [address] RoadDublin [place] [id number] MCH (RBC) [Entitic mass] 30.0 pg Normal 26.6-33.0 [facility] Work Phone: Comment on above: PATIENT NOT FASTINGP ERFORMED BY: CB [facility] Vdinck3307 [address] RoadDublin [place] [id number] MCHC (RBC) [Mass/Vol] 32.5 g/dL Normal 31.5-35.7 [facility] Work Phone: Comment on above: PATIENT NOT FASTINGP ERFORMED BY: CB [facility] Kmtcfj2312 [address] RoadDublin [place] [id number] MCV (RBC) [Entitic vol] 92 fL Normal 79-97 [facility]ensive [facility] Work Phone: Comment on above: PATIENT NOT FASTINGP ERFORMED BY: CB [facility] Hdznxy54[address] RoadDublin [place] [id number] Platelets (Bld) [#/Vol] 222 {x10E3/uL} Normal 150-450 [facility] Work Phone: Comment on above: PATIENT NOT FASTINGP ERFORMED BY: CB [facility] Yaglmt0785 [address] RoadDublin [place] [id number] Platelets (Bld) [#/Vol] 222 10*3/uL Normal 150-450 [facility]; [facility] Work Phone: Comment on above: PATIENT NOT FASTINGP ERFORMED BY: CB [facility] Ftnuaj01[address] RoadDublin [place] [id number] RBC (Bld) [#/Vol] 4.33 {x10E6/uL} Normal 3.77-5.28 [facility] Work Phone: Comment on above: PATIENT NOT FASTINGP ERFORMED BY: CB [facility] Lnlwtu1371 [address] RoadDublin [place] [id number] RBC (Bld) [#/Vol] 4.33 10*6/uL Normal 3.77-5.28 [facility] Internal Medicine; [facility] Work Phone: Comment on above: PATIENT NOT FASTINGP ERFORMED BY: CB [facility] Enaabn[address] RoadDublin [place] [id number] WBC (Bld) [#/Vol] 5.7 {x10E3/uL} Normal 3.4-10.8 [facility] Internal Medicine Work Phone: Comment on above: PATIENT NOT FASTINGP ERFORMED BY: CB [facility] Fbwaqn7[address] RoadDublin [place] [id number] WBC (Bld) [#/Vol] 5.7 10*3/uL Normal 3.4-10.8 [facility] Internal Medicine; [facility] Internal Medicine Work Phone: Comment on above: PATIENT NOT FASTINGP ERFORMED BY: CB [facility] Wambdm99[address] RoadDublin [place] [id number] HGB A1C (57445)Ordered By: S ystem Computer Assembler on 08-29-2019 HbA1c (Bld) [Mass fraction] 5.5 % Normal 4.8-5.6 [facility] Internal Medicine Work Phone: Comment on above: . Prediabetes: 5.7 - 6.4 Diabetes: >6.4 Glycemic control for adults with diabetes: <7.0 PATIENT NOT FASTINGP ERFORMED BY: CB [facility] Iczmin61[address]Dublin [place] [id number] METABOLIC PANEL, COMPREHENSI VE (65800)Ordered By: Qa Lead on 08-29-2019 Albumin [Mass/Vol] 4.5 g/dL Normal 3.8-4.9 [facility] Internal Medicine Work Phone: Comment on above: PATIENT NOT FASTINGP ERFORMED BY: CB [facility] Nfbkid6136 [address]Dublin [place] [id number] Albumin/Globulin [Mass ratio] 1.8 {ratio} Normal 1.2-2.2 [facility] Internal Medicine Work Phone: Comment on above: PATIENT NOT FASTINGP ERFORMED BY: CB [facility] Qymzdz6100 [address] RoadDublin [place] [id number] ALP [Catalytic activity/Vol] 60 [iU]/L Normal 39-117 [facility] Work Phone: Comment on above: PATIENT NOT FASTINGP ERFORMED BY: CB [facility] Zictbj5390 [address] RoadDublin [place] [id number] ALP [Catalytic activity/Vol] 60 U/L Normal 39-117 [facility]; [facility] Work Phone: Comment on above: PATIENT NOT FASTINGP ERFORMED BY: JOHN LabBrianne Voyxby6[address] RoadDublin [place] [id number] ALT [Catalytic activity/Vol] 22 [iU]/L Normal 0-32 [facility] Work Phone: Comment on above: PATIENT NOT FASTINGP ERFORMED BY: CB [facility] Aiwpeu[address]Dublin [place] [id number] ALT [Catalytic activity/Vol] 22 U/L Normal 0-32 [facility]; [facility] Work Phone: Comment on above: PATIENT NOT FASTINGP ERFORMED BY: JOHN LabBrianne TyGmfewc4722 [address] RoadDublin [place] [id number] AST [Catalytic activity/Vol] 21 [iU]/L Normal 0-40 [facility] Work Phone: Comment on above: PATIENT NOT FASTINGP ERFORMED BY: JOHN LabBrianne TyHsiwrc2818 [address] RoadDublin [place] [id number] AST [Catalytic activity/Vol] 21 U/L Normal 0-40 [facility]; [facility] Work Phone: Comment on above: PATIENT NOT FASTINGP ERFORMED BY: JOHN Tylin6[address] RoadDublin [place] [id number] Bilirubin [Mass/Vol] 0.4 mg/dL Normal 0.0-1.2 Comp rehensive Internal Medicine Work Phone: Comment on above: PATIENT NOT FASTINGP ERFORMED BY: JOHN [facility] Eyufio58[address] RoadDublin [place] [id number] Calcium [Mass/Vol] 9.5 mg/dL Normal 8.7-10.2 [facility] Internal Medicine Work Phone: Comment on above: PATIENT NOT FASTINGP ERFORMED BY: JOHN [facility] Jiooom2207 [address] RoadDublin [place] [id number] Chloride [Moles/Vol] 108 mmol/L Abnormal 96-106 Comp [facility]ensive [facility] Work Phone: Comment on above: PATIENT NOT FASTINGP ERFORMED BY: CB [facility] Izsoix4556 [address] RoadDublin [place] [id number] CO2 [Moles/Vol] 20 mmol/L Normal 20-29 Comprehen [facility] Internal Medicine Work Phone: Comment on above: PATIENT NOT FASTINGP ERFORMED BY: CB [facility] Ogyqee4045 [address] RoadDublin [place] [id number] Creatinine [Mass/Vol] 0.85 mg/dL Normal 0.57-1.00 [facility] Work Phone: Comment on above: PATIENT NOT FASTINGP ERFORMED BY: CB [facility] Cuujll15[address] RoadDublin [place] [id number] GFR/1.73 sq M predicted among blacks CKD-EPI (S/P/Bld) [Vol rate/Area] 88 mL/min/1.73 Normal [facility] Work Phone: Comment on above: PATIENT NOT FASTINGP ERFORMED BY: CB [facility] Kvxcmf4118 [address] RoadDublin [place] [id number] GFR/1.73 sq M predicted among non-blacks CKD-EPI (S/P/Bld) [Vol rate/Area] 76 mL/min/1.73 Normal [facility] Work Phone: Comment on above: PATIENT NOT FASTINGP ERFORMED BY: CB [facility] Cnwdfz5231 [address] RoadDublin [place] [id number] Globulin (S) [Mass/Vol] 2.5 g/dL Normal 1.5-4.5 [facility] Work Phone: Comment on above: PATIENT NOT FASTINGP ERFORMED BY: CB [facility] Kkhbdg5592 [address] RoadDublin [place] [id number] Glucose [Mass/Vol] 91 mg/dL Normal 65-99 [facility] Internal Medicine Work Phone: Comment on above: PATIENT NOT FASTINGP ERFORMED BY: CB [facility] Uuiiue9560 [address] RoadDublin [place] [id number] Potassium [Moles/Vol] 4.3 mmol/L Normal 3.5-5.2 [facility] Internal Medicine Work Phone: Comment on above: PATIENT NOT FASTINGP ERFORMED BY: JOHN LabBrianne Odlksn0785 [address] RoadDublin [place] [id number] Protein [Mass/Vol] 7.0 g/dL Normal 6.0-8.5 [facility] Internal Medicine Work Phone: Comment on above: PATIENT NOT FASTINGP ERFORMED BY: CB [facility] Eoxpvl4667 [address] RoadDublin [place] [id number] Sodium [Moles/Vol] 145 mmol/L Abnormal 134-144 [facility] Internal Medicine Work Phone: Comment on above: PATIENT NOT FASTINGP ERFORMED BY: JOHN [facility] Gwxqqw2577 [address] RoadDublin [place] [id number] Urea nitrogen [Mass/Vol] 25 mg/dL Abnormal 6-24 [facility] Internal Medicine Work Phone: Comment on above: PATIENT NOT FASTINGP ERFORMED BY: JOHN [facility] Hfetee7235 [address] RoadDublin [place] [id number] Urea nitrogen/Creatinine [Mass ratio] 29 mg/mg Abnormal 9- [facility] Work Phone: Comment on above: PATIENT NOT FASTINGP ERFORMED BY: JOHN LabRjluke Ddsdoh0544 [address]Dublin [place] [id number] TSH (THYROID STIMULATING HOR RADHA) (28822)Ordered By: Qa Lead on 08-29-2019 TSH Qn 0.745 {uIU/mL} Normal 0.450-4.500 [facility] Internal Medicine Work Phone: Comment on above: PATIENT NOT FASTINGP ERFORMED BY: CB [facility] Bjclrd2637 [address] RoadDublin [place] [id number] VITAMIN B-12 (CYANOCOBALAMIN ) (37875)Ordered By: Qa Lead on 08-29-2019 Cobalamin (Vitamin B12) [Mass/Vol] 466 pg/mL Normal 232-1245 [facility] Internal Medicine Work Phone: Comment on above: PATIENT NOT FASTINGP ERFORMED BY: CB [facility] Qkldhh6747 [address] RoadDublin [place] [id number] Lipid Panel (63949)Ordered B y: Qa Lead on 10-04-2017 Cholesterol in HDL mass conc 61 mg/dL Normal [facility] Work Phone: Comment on above: PATIENT WAS FASTINGP ERFORMED BY: CB [facility] Yushln5096 [address] RoadDublin [place] [id number]; OV 7/2 Cholesterol in LDL mass conc 100 mg/dL Abnormal 0-99 [facility] Work Phone: Comment on above: PATIENT WAS FASTINGP ERFORMED BY: CB [facility] Jqdpwa7979 [address] RoadDublin [place] [id number]; OV 7/2 Cholesterol in LDL/Cholesterol in HDL mass ratio 1.6 {ratio} Normal 0.0-3.2 [facility] Work Phone: Comment on above: LDL/HDL Ratio Men Wo men 1/2 Avg.Risk 1.0 1.5 Avg.Risk 3.6 3.2 2X Avg.Risk 6.2 5.0 3X Avg.Risk 8.0 6.1 PATIENT WAS FASTINGP ERFORMED BY: CB [facility] Noipgu8603 [address] RoadDublin [place] [id number]; OV 7/2 Cholesterol in VLDL mass conc 32 mg/dL Normal 5-40 [facility] Work Phone: Comment on above: PATIENT WAS FASTINGP ERFORMED BY: CB [facility] Czvpcz7830 [address] RoadDublin [place] [id number]; OV 7/2 Cholesterol mass conc 193 mg/dL Normal 100-199 Com prehensive Internal Medicine Work Phone: Comment on above: PATIENT WAS FASTINGP ERFORMED BY: CB [facility] Jdlino7960 [address] RoadDublin [place] [id number]; OV 7/2 Triglyceride mass conc 162 mg/dL Abnormal 0-149 Co [facility] springsehensive Internal Medicine Work Phone: Comment on above: PATIENT WAS FASTINGP ERFORMED BY: CB [facility] Upbnsy[address]Dublin [place] [id number]; OV 7/2 Metabolic Panel, Comprehensi ve (35206)Ordered By: Qa Lead on 10-04-2017 Albumin mass conc 4.5 g/dL Normal 3.5-5.5 Compreh [facility] Internal Medicine Work Phone: Comment on above: PATIENT WAS FASTINGP ERFORMED BY: [facility] Uxyphb7403 [address] RoadDublin [place] [id number] Information: [id number] Albumin/Globulin mass ratio 1.9 {ratio} Normal 1.2-2.2 [facility] Work Phone: Comment on above: PATIENT WAS FASTINGP ERFORMED BY: CB [facility] Pyosnj0440 [address] RoadDublin [place] [id number] Information: [id number] ALP [Catalytic activity/Vol] 43 U/L Normal 39-117 [facility]; [facility] Work Phone: Comment on above: PATIENT WAS FASTINGP ERFORMED BY: [facility] Jypdtj9336 [address] RoadDublin [place] [id number] Information: [id number] ALP enzyme act/vol 43 [iU]/L Normal 39-117 [facility] Internal Medicine Work Phone: Comment on above: PATIENT WAS FASTINGP ERFORMED BY: [facility] Nowdmo1193 [address] Roadblin [place] [id number] Information: [id number] ALT [Catalytic activity/Vol] 10 U/L Normal 0-32 [facility]; [facility] Work Phone: Comment on above: PATIENT WAS FASTINGP ERFORMED BY: CB [facility] Fklfvz2752 [address] RoadDublin [place] [id number] Information: [id number],G08640 ALT enzyme act/vol 10 [iU]/L Normal 0-32 [facility] Internal Medicine Work Phone: Comment on above: PATIENT WAS FASTINGP ERFORMED BY: [facility] Idvngs6715 [address] RoadDublin [place] [id number] Information: 577486,[id number] AST [Catalytic activity/Vol] 15 U/L Normal 0-40 [facility]; [facility] Work Phone: Comment on above: PATIENT WAS FASTINGP ERFORMED BY: JOHN LabColuke RecinosFyqfhn0653 [facility] [id number] Information: [id number] AST enzyme act/vol 15 [iU]/L Normal 0-40 Compre [facility] Internal Medicine Work Phone: Comment on above: PATIENT WAS FASTINGP ERFORMED BY: JOHN [facility] Avzwin9556 [facility] [id number] Information: [id number] Bilirubin mass conc 0.4 mg/dL Normal 0.0-1.2 Compr ensive Internal Medicine Work Phone: Comment on above: PATIENT WAS FASTINGP ERFORMED BY: LabCoSaint [facility]'s Medical CenterCunpfn8225 [facility] [id number] Information: [id number],[id number] Calcium mass conc 9.9 mg/dL Normal 8.7-10.2 Compreh page hospitalive Internal Medicine Work Phone: Comment on above: PATIENT WAS FASTINGP ERFORMED BY: JOHN [facility] Diuhzr2802 [facility] [id number] Information: 618137,[id number] Chloride molar conc 106 mmol/L Normal 96-106 Compr ensive Internal Medicine Work Phone: Comment on above: PATIENT WAS FASTINGP ERFORMED BY: [facility] Ljfesl3729 [facility] [id number] Information: 618783,[id number] CO2 molar conc 20 mmol/L Normal 20-29 Comprehens jose Internal Medicine Work Phone: Comment on above: Please note refere nce interval change PATIENT WAS FASTINGP ERFORMED BY: JOHN [facility] Vsftib0090 [facility] [id number] Information: [id number],[id number] Creatinine mass conc 1.02 mg/dL Abnormal 0.57-1.00 Comp [facility] Work Phone: Comment on above: PATIENT WAS FASTINGP ERFORMED BY: [facility] Nubkuh[address] [facility]bl[place] [id number] Information: [id number] GFR/1.73 sq M predicted among blacks CKD-EPI vol rate/area (S/P/Bld) 72 mL/min/1.73 Normal Comprehe [facility] Internal Medicine Work Phone: Comment on above: PATIENT WAS FASTINGP ERFORMED BY: [facility] Lcvlyc[address] [facility] [id number] Information: [id number] GFR/1.73 sq M predicted among non-blacks CKD-EPI vol rate/area (S/P/Bld) 62 mL/min/1.73 Normal [facility] Work Phone: Comment on above: PATIENT WAS FASTINGP ERFORMED BY: [facility] Fvevkz6750 [facility] [id number] Information: [id number],K02655 Globulin mass conc (S) 2.4 g/dL Normal 1.5-4.5 [facility] Internal [facility] Work Phone: Comment on above: PATIENT WAS FASTINGP ERFORMED BY: [facility] Hzrdzv0975 [facility] [id number] Information: [id number],[id number] Glucose mass conc 91 mg/dL Normal 65-99 Compreh ensive Internal Medicine Work Phone: Comment on above: PATIENT WAS FASTINGP ERFORMED BY: [facility] Blnfdy[address] [facility]in [place] [id number] Information: [id number] Potassium molar conc 3.9 mmol/L Normal 3.5-5.2 Comp [facility] Work Phone: Comment on above: PATIENT WAS FASTINGP ERFORMED BY: [facility] Bwknfb4003 [facility] [id number] Information: [id number],[id number] Protein mass conc 6.9 g/dL Normal 6.0-8.5 Compreh ensive Internal Medicine Work Phone: Comment on above: PATIENT WAS FASTINGP ERFORMED BY: JOHN [facility] Hminmy8795 [address] Roadblin [place] [id number] Information: [id number] Sodium molar conc 140 mmol/L Normal 134-144 Compreh ensive Internal Medicine Work Phone: Comment on above: PATIENT WAS FASTINGP ERFORMED BY: CB [facility] Zrbpby8948 [address] Roadblin [place] [id number] Information: [id number],[id number] Urea nitrogen mass conc 18 mg/dL Normal 6-24 C omprehensive Internal Medicine Work Phone: Comment on above: PATIENT WAS FASTINGP ERFORMED BY: JOHN [facility] Cbwlvs9437 [address] RoadDublin [place] [id number] Information: [id number],[id number] Urea nitrogen/Creatinine mass ratio 18 mg/mg Normal 9-23 [facility] Work Phone: Comment on above: PATIENT WAS FASTINGP ERFORMED BY: CB [facility] Uckzuw3[address] RoadFormerly [facility]ance[facility] Centerin [place] [id number] Information: 355121,[id number] CALCIFEDIOL (86523)Ordered B y: Qa Lead on 04-01-2017 25-Hydroxyvitamin D2+25-Hydroxyvitamin D3 mass conc 48.8 ng/mL Normal 30.0-100.0 [facility] Work Phone: Comment on above: Vitamin D deficiency has been defined by the [place] of[place]icine and an Endocrine Society practice guideline as alevel of serum 25-OH vitamin D less than 20 ng/mL (1,2).The Endocrine Society went on to further define vitamin Dinsufficiency as a level between 21 and 29 ng/mL (2).1. IOM ([place] of [employer]). 2010. Dietary reference intakes for calcium and D. [place]: The National Academies Press.2. Diana MF, Simone [place], Rylee BARRAZA, et al. Evaluation, treatment, and prevention of vitamin D deficiency: an Endocrine Society clinical practice guideline. JCEM. 2011 Oct; 96(7):1911-30. PATIENT WAS FASTINGP ERFORMED BY: JOHN [facility] Zijhcx[address] [facility]bl[facility] [place] [id number] CBC, Platelets & Auto Diff ( [id number])Ordered By: Qa Lead on 04-01-2017 Basophils #/vol (Bld) 0.0 {x10E3/uL} Normal 0.0-0.2 [facility] Work Phone: Comment on above: PATIENT WAS FASTINGP ERFORMED BY: LabCo Bxusbo0165 [address] [facility] [id number] Basophils (Bld) [#/Vol] 0.0 10*3/uL Normal 0.0-0.2 [facility]; [facility] Work Phone: Comment on above: PATIENT WAS FASTINGP ERFORMED BY: [facility] Yzphcs0756 [facility] [id number] Basophils/100 WBC (Bld) 0 % Normal C omprehensive Internal Medicine Work Phone: Comment on above: PATIENT WAS FASTINGP ERFORMED BY: LabAsc[facility] Borgess Hospital6370 [address] [facility] [id number] Eosinophils #/vol (Bld) 0.2 {x10E3/uL} Normal 0.0-0.4 [facility] Work Phone: Comment on above: PATIENT WAS FASTINGP ERFORMED BY: LabAsc[facility] Borgess Hospital6[address] [facility] [id number] Eosinophils (Bld) [#/Vol] 0.2 10*3/uL Normal 0.0-0.4 [facility]; [facility] Work Phone: Comment on above: PATIENT WAS FASTINGP ERFORMED BY: LabCoSaint Michael's Medical CenterIzvrlx6700 [address] [facility] [id number] Eosinophils/100 WBC (Bld) 3 % Normal [facility] Work Phone: Comment on above: PATIENT WAS FASTINGP ERFORMED BY: [facility]Harry [facility]. [facility] Etdbvh9142 [address] [facility] [id number] Erythrocyte distribution width Ratio (RBC) 13.3 % Normal 12.3-15.4 [facility] Work Phone: Comment on above: PATIENT WAS FASTINGP ERFORMED BY: JOHN Recinos6370 [facility] [id number] Hematocrit Volume Fraction (Bld) 42.3 % Normal 34.0-46.6 [facility] Work Phone: Comment on above: PATIENT WAS FASTINGP ERFORMED BY: LabCo Ajtcjd8264 [facility] [id number] Hemoglobin mass conc (Bld) 13.9 g/dL Normal 11.1-15.9 [facility] Work Phone: Comment on above: PATIENT WAS FASTINGP ERFORMED BY: LisaHarry S. [facility] Puwxnn0456 [facility] [id number] Immature granulocytes #/vol (Bld) 0.0 {x10E3/uL} Normal 0.0-0.1 [facility] Work Phone: Comment on above: PATIENT WAS FASTINGP ERFORMED BY: LabHarry [facility]. [facility] Knffgu4259 [facility] [id number] Immature granulocytes (Bld) [#/Vol] 0.0 10*3/uL Normal 0.0-0.1 [facility]; [facility] Work Phone: Comment on above: PATIENT WAS FASTINGP ERFORMED BY: LabHarry [facility]. [facility] Bqnlpd3360 [facility] [id number] Immature granulocytes/100 WBC (Bld) 0 % Normal [facility] Work Phone: Comment on above: PATIENT WAS FASTINGP ERFORMED BY: [facility] Xtrqzb4296 [address] [facility]in [place] [id number] Lymphocytes #/vol (Bld) 2.4 {x10E3/uL} Normal 0.7-3.1 [facility] Work Phone: Comment on above: PATIENT WAS FASTINGP ERFORMED BY: [facility] Tobuyw5597 [address] [facility] [id number] Lymphocytes (Bld) [#/Vol] 2.4 10*3/uL Normal 0.7-3.1 [facility]; [facility] Work Phone: Comment on above: PATIENT WAS FASTINGP ERFORMED BY: JOHN [facility] Ylltci2850 [address] [facility]in [place] [id number] Lymphocytes/100 WBC (Bld) 31 % Normal [facility] Work Phone: Comment on above: PATIENT WAS FASTINGP ERFORMED BY: JOHN [facility] Srkprg3168 [address] [facility] [id number] MCH Entitic mass (RBC) 31.4 pg Normal 26.6-33.0 [facility] Work Phone: Comment on above: PATIENT WAS FASTINGP ERFORMED BY: JOHN [facility] Gumrlc3592 [address] [facility] [id number] MCHC mass conc (RBC) 32.9 g/dL Normal 31.5-35.7 [facility] Internal Medicine Work Phone: Comment on above: PATIENT WAS FASTINGP ERFORMED BY: JOHN [facility] Eyijqg7850 [facility] [id number] MCV Entitic volume (RBC) 96 fL Normal 79-97 [facility] Work Phone: Comment on above: PATIENT WAS FASTINGP ERFORMED BY: JOHN [facility] Pnhdhw2898 [facility] [id number] Monocytes #/vol (Bld) 0.5 {x10E3/uL} Normal 0.1-0.9 [facility] Work Phone: Comment on above: PATIENT WAS FASTINGP ERFORMED BY: [facility] Uiqjge9699 [address] [facility]in [place] [id number] Monocytes (Bld) [#/Vol] 0.5 10*3/uL Normal 0.1-0.9 [facility]; [facility] Work Phone: Comment on above: PATIENT WAS FASTINGP ERFORMED BY: [facility] Ztxxrg8768 [address] [facility] [id number] Monocytes/100 WBC (Bld) 6 % Normal C ompkettering health hamiltonensive Internal Medicine Work Phone: Comment on above: PATIENT WAS FASTINGP ERFORMED BY: CB [facility] Iwotsx5805 [address] RoadDublin [place] [id number] Neutrophils #/vol (Bld) 4.6 {x10E3/uL} Normal 1.4-7.0 [facility] Work Phone: Comment on above: PATIENT WAS FASTINGP ERFORMED BY: CB [facility] Zndpfx2254 [address] RoadDublin [place] [id number] Neutrophils (Bld) [#/Vol] 4.6 10*3/uL Normal 1.4-7.0 [facility]; [facility] Work Phone: Comment on above: PATIENT WAS FASTINGP ERFORMED BY: JOHN [facility] Efcmxj6429 [address] RoadDublin [place] [id number] Neutrophils/100 WBC (Bld) 60 % Normal [facility] Work Phone: Comment on above: PATIENT WAS FASTINGP ERFORMED BY: CB [facility] Eucfvy4778 [address] RoadDublin [place] [id number] Platelets #/vol (Bld) 244 {x10E3/uL} Normal 150-379 [facility] Work Phone: Comment on above: PATIENT WAS FASTINGP ERFORMED BY: CB [facility] Pfkbnk1850 [address] RoadDublin [place] [id number] Platelets (Bld) [#/Vol] 244 10*3/uL Normal 150-379 [facility]; [facility] Work Phone: Comment on above: PATIENT WAS FASTINGP ERFORMED BY: CB [facility] Grdysm6548 [address] RoadDublin [place] [id number] RBC #/vol (Bld) 4.43 {x10E6/uL} Normal 3.77-5.28 [facility] Internal Medicine Work Phone: Comment on above: PATIENT WAS FASTINGP ERFORMED BY: CB [facility] Bljnzo2446 [address] RoadDublin [place] [id number] RBC (Bld) [#/Vol] 4.43 10*6/uL Normal 3.77-5.28 [facility]erens[facility]; [facility] Work Phone: Comment on above: PATIENT WAS FASTINGP ERFORMED BY: JOHN [facility] Swpsqu0778 [address] RoadDublin [place] [id number] WBC #/vol (Bld) 7.8 {x10E3/uL} Normal 3.4-10.8 [facility] Internal Medicine Work Phone: Comment on above: PATIENT WAS FASTINGP ERFORMED BY: CB [facility] Zafjgj1611 [address] RoadDublin [place] [id number] WBC (Bld) [#/Vol] 7.8 10*3/uL Normal 3.4-10.8 Comprpemiscot memorial [facility] systems [facility]; [facility] Work Phone: Comment on above: PATIENT WAS FASTINGP ERFORMED BY: JOHN [facility] Hpthfw6965 [address] [facility] CenterD[facility] [place] [id number] LIPID PANEL ([id number])Ordered B y: Qa Lead on 04-01-2017 Cholesterol in HDL mass conc 54 mg/dL Normal [facility] Work Phone: Comment on above: PATIENT WAS FASTINGP ERFORMED BY: JOHN [facility] Xdwdqi3040 [address] [facility]bl[facility] [place] [id number] Cholesterol in LDL mass conc 116 mg/dL Abnormal 0-99 [facility] Work Phone: Comment on above: PATIENT WAS FASTINGP ERFORMED BY: JOHN [facility] Xjmzsj5091 [address] [facility]in [place] [id number] Cholesterol in LDL/Cholesterol in HDL mass ratio 2.1 {ratio_units} Normal 0.0-3.2 [facility] Work Phone: Comment on above: LDL/HDL Ratio Men Wo men 1/2 Avg.Risk 1.0 1.5 Avg.Risk 3.6 3.2 2X Avg.Risk 6.2 5.0 3X Avg.Risk 8.0 6.1 PATIENT WAS FASTINGP ERFORMED BY: JOHN [facility] Bcrmya9402 [address] [facility] CenterD[facility] [place] [id number] Cholesterol in VLDL mass conc 54 mg/dL Abnormal 5-40 [facility] Work Phone: Comment on above: PATIENT WAS FASTINGP ERFORMED BY: JOHN LabColuke TyNuqdre7715 [address] RoadDublin [place] [id number] Cholesterol mass conc 224 mg/dL Abnormal 100-199 Com prehensive Internal Medicine Work Phone: Comment on above: PATIENT WAS FASTINGP ERFORMED BY: JOHN [facility] Dhrayh4461 [address] RoadDublin [place] [id number] Triglyceride mass conc 270 mg/dL Abnormal 0-149 Co mprehensive Internal Medicine Work Phone: Comment on above: PATIENT WAS FASTINGP ERFORMED BY: JOHN LabColuke TyTikpvn7202 [address] RoadDublin [place] [id number] Metabolic Panel, Comprehensi ve ([id number])Ordered By: Qa Lead on 04-01-2017 Albumin mass conc 4.2 g/dL Normal 3.5-5.5 Compreh ensive Internal Medicine Work Phone: Comment on above: PATIENT WAS FASTINGP ERFORMED BY: JOHN LabColuke TyCamvyf9800 [address] RoadDublin [place] [id number] Albumin/Globulin mass ratio 1.5 {ratio} Normal 1.2-2.2 [facility] Work Phone: Comment on above: PATIENT WAS FASTINGP ERFORMED BY: JOHN [facility] Ywemcf6436 [address] RoadDublin [place] [id number] ALP [Catalytic activity/Vol] 60 U/L Normal 39-117 [facility]; [facility] Work Phone: Comment on above: PATIENT WAS FASTINGP ERFORMED BY: JOHN [facility] Hcjowr2657 [address] RoadDublin [place] [id number] ALP enzyme act/vol 60 [iU]/L Normal 39-117 Compre [facility] Internal [facility] Work Phone: Comment on above: PATIENT WAS FASTINGP ERFORMED BY: JOHN [facility] Xblnnn1030 [address] RoadDublin [place] [id number] ALT [Catalytic activity/Vol] 15 U/L Normal 0-32 [facility]; [facility] Work Phone: Comment on above: PATIENT WAS FASTINGP ERFORMED BY: JOHN [facility] Xdlglw5272 [address] RoadDublin [place] [id number] ALT enzyme act/vol 15 [iU]/L Normal 0-32 [facility] Internal Medicine Work Phone: Comment on above: PATIENT WAS FASTINGP ERFORMED BY: CB [facility] Ibrndf5384 [address] RoadDublin [place] [id number] AST [Catalytic activity/Vol] 14 U/L Normal 0-40 [facility]; [facility] Internal Medicine Work Phone: Comment on above: PATIENT WAS FASTINGP ERFORMED BY: JOHN [facility] Vmwsnb4327 [address] RoadDublin [place] [id number] AST enzyme act/vol 14 [iU]/L Normal 0-40 [facility] Internal Medicine Work Phone: Comment on above: PATIENT WAS FASTINGP ERFORMED BY: JOHN [facility] Kuzwdr9864 [address] RoadDublin [place] [id number] Bilirubin mass conc 0.3 mg/dL Normal 0.0-1.2 Compr [facility] Internal Medicine Work Phone: Comment on above: PATIENT WAS FASTINGP ERFORMED BY: JOHN [facility] Qjihku0092 [address] RoadDublin [place] [id number] Calcium mass conc 9.3 mg/dL Normal 8.7-10.2 Compreh page hospitalive Internal Medicine Work Phone: Comment on above: PATIENT WAS FASTINGP ERFORMED BY: CB [facility] Owbglu0619 [address] RoadDublin [place] [id number] Chloride molar conc 104 mmol/L Normal 96-106 Compr ensive Internal Medicine Work Phone: Comment on above: PATIENT WAS FASTINGP ERFORMED BY: CB [facility] Bdjxob0567 [address] RoadDublin [place] [id number] CO2 molar conc 21 mmol/L Normal 18-29 Comprehens jose Internal Medicine Work Phone: Comment on above: PATIENT WAS FASTINGP ERFORMED BY: CB [facility] Inignl0165 [address] RoadDublin [place] [id number] Creatinine mass conc 0.84 mg/dL Normal 0.57-1.00 Comp rehensive Internal Medicine Work Phone: Comment on above: PATIENT WAS FASTINGP ERFORMED BY: JOHN LisaBrianne TyPouxhm4828 [facility] [id number] GFR/1.73 sq M predicted among blacks CKD-EPI vol rate/area (S/P/Bld) 91 mL/min/1.73 Normal Comprehe nsive Internal Medicine Work Phone: Comment on above: PATIENT WAS FASTINGP ERFORMED BY: JOHN Tylin6370 [facility] [id number] GFR/1.73 sq M predicted among non-blacks CKD-EPI vol rate/area (S/P/Bld) 79 mL/min/1.73 Normal [facility] Work Phone: Comment on above: PATIENT WAS FASTINGP ERFORMED BY: JOHN Tylin6370 [facility] [id number] Globulin mass conc (S) 2.8 g/dL Normal 1.5-4.5 Co mprehensive [facility] Medicine Work Phone: Comment on above: PATIENT WAS FASTINGP ERFORMED BY: JOHN Tylin6370 [facility] [id number] Glucose mass conc 92 mg/dL Normal 65-99 Compreh ensive Internal Medicine Work Phone: Comment on above: PATIENT WAS FASTINGP ERFORMED BY: OJHN Tylin6370 [facility] [id number] Potassium molar conc 4.2 mmol/L Normal 3.5-5.2 Comp rehensive Internal Medicine Work Phone: Comment on above: PATIENT WAS FASTINGP ERFORMED BY: JOHN LabBrianne TyZrxdru2673 [facility] [id number] Protein mass conc 7.0 g/dL Normal 6.0-8.5 Compreh ensive Internal Medicine Work Phone: Comment on above: PATIENT WAS FASTINGP ERFORMED BY: JOHN LisaBrianne TyCpokni0766 [facility] [id number] Sodium molar conc 142 mmol/L Normal 134-144 Compreh ensive Internal Medicine Work Phone: Comment on above: PATIENT WAS FASTINGP ERFORMED BY: JOHN LisaBrianne TyCybgrv7077 [facility] [id number] Urea nitrogen mass conc 15 mg/dL Normal 6-24 C omprehensive Internal Medicine Work Phone: Comment on above: PATIENT WAS FASTINGP ERFORMED BY: JOHN [facility] Xutuyj1923 [facility] [id number] Urea nitrogen/Creatinine mass ratio 18 mg/mg Normal 9-23 [facility] Work Phone: Comment on above: PATIENT WAS FASTINGP ERFORMED BY: JOHN [facility]alluke Kylwqd2488 [facility] [id number] TSH ([id number])Ordered By: Maricruz m Computer Assembler on 04-01-2017 Thyrotropin Qn 1.350 {uIU/mL} Normal 0.450-4.500 Compr ensive Internal Medicine Work Phone: Comment on above: PATIENT WAS FASTINGP ERFORMED BY: JOHN [facility] CenterBrianne TyPbiecu5054 [facility] [id number] LIPID PANEL ([id number])Ordered B y: Qa Lead on 10-20-2016 Cholesterol in HDL mass conc 56 mg/dL Normal [facility] Work Phone: Comment on above: Week of October 25; PAT IENT WAS FASTINGPERFORMED BY: JOHN LabBrianne TyFesloq1121 [facility] [id number] Cholesterol in LDL mass conc 73 mg/dL Normal 0-99 [facility] Work Phone: Comment on above: Week of October 25; PAT IENT WAS FASTINGPERFORMED BY: JOHN [facility] Aihpip0541 [facility] [id number] Cholesterol in LDL/Cholesterol in HDL mass ratio 1.3 {ratio_units} Normal 0.0-3.2 [facility] Work Phone: Comment on above: LDL/HDL Ratio Men Wo men 1/2 Avg.Risk 1.0 1.5 Avg.Risk 3.6 3.2 2X Avg.Risk 6.2 5.0 3X Avg.Risk 8.0 6.1 Week of October 25; PAT IENT WAS FASTINGPERFORMED BY: CB [facility] Lzevur2023 [address]Dublin [place] [id number] Cholesterol in VLDL mass conc 39 mg/dL Normal 5-40 [facility] Work Phone: Comment on above: October 25; PAT IENT WAS FASTINGPERFORMED BY: CB [facility] Yxshgm1819 [address] RoadDublin [place] [id number] Cholesterol mass conc 168 mg/dL Normal 100-199 Com prehensive Internal Medicine Work Phone: Comment on above: October 25; PAT IENT WAS FASTINGPERFORMED BY: CB [facility] Srfbvi1317 [address] RoadDublin [place] [id number] Triglyceride mass conc 193 mg/dL Abnormal 0-149 Co [facility] springsehensive Internal Medicine Work Phone: Comment on above: October 25; PAT IENT WAS FASTINGPERFORMED BY: CB [facility] Ngzlwg4447 [address]Dublin [place] [id number] LIPID PANEL ([id number])Ordered B y: Qa Lead on 08-23-2016 Cholesterol in HDL mass conc 54 mg/dL Normal [facility] Work Phone: Comment on above: today; PATIENT WAS F ASTINGPERFORMED BY: CB [facility] Lwyzwh8469 [address] RoadDublin [place] [id number] Cholesterol in LDL mass conc 122 mg/dL Abnormal 0-99 [facility] Work Phone: Comment on above: today; PATIENT WAS F ASTINGPERFORMED BY: CB [facility] Vdycea5135 [address] RoadDublin [place] [id number] Cholesterol in LDL/Cholesterol in HDL mass ratio 2.3 {ratio_units} Normal 0.0-3.2 [facility] Work Phone: Comment on above: LDL/HDL Ratio Men Wo men 1/2 Avg.Risk 1.0 1.5 Avg.Risk 3.6 3.2 2X Avg.Risk 6.2 5.0 3X Avg.Risk 8.0 6.1 today; PATIENT WAS F ASTINGPERFORMED BY: JOHN LabColuke TyHyxgob6799 [facility] [id number] Cholesterol in VLDL mass conc 54 mg/dL Abnormal 5-40 [facility] Work Phone: Comment on above: today; PATIENT WAS F ASTINGPERFORMED BY: JOHN [facility] Viktph7694 [facility] [id number] Cholesterol mass conc 230 mg/dL Abnormal 100-199 Com prehensive Internal Medicine Work Phone: Comment on above: today; PATIENT WAS F ASTINGPERFORMED BY: JOHN [facility] Ujpijj5029 [facility] [id number] Triglyceride mass conc 268 mg/dL Abnormal 0-149 Co mprehensive Internal Medicine Work Phone: Comment on above: today; PATIENT WAS F ASTINGPERFORMED BY: JOHN LabHarry [facility]. [facility] Wdljir7087 [facility] [id number] CBC W/AUTO DIFF WBC ([id number])O rdered By: Qa Lead on 02-12-2016 Basophils #/vol (Bld) 0.0 {x10E3/uL} Normal 0.0-0.2 [facility] Work Phone: Comment on above: PATIENT WAS FASTINGP ERFORMED BY: JOHN LabCoSaint Michael's Medical CenterHgpvfs5038 [facility] [id number] Basophils (Bld) [#/Vol] 0.0 10*3/uL Normal 0.0-0.2 [facility]; [facility] Work Phone: Comment on above: PATIENT WAS FASTINGP ERFORMED BY: JOHN [facility] Qscmby0607 [facility] [id number] Basophils/100 WBC (Bld) 0 % Normal C omprehensive Internal Medicine Work Phone: Comment on above: PATIENT WAS FASTINGP ERFORMED BY: JOHN [facility] Seovfz4930 [address] [facility] [id number] Eosinophils #/vol (Bld) 0.2 {x10E3/uL} Normal 0.0-0.4 [facility] Work Phone: Comment on above: PATIENT WAS FASTINGP ERFORMED BY: [facility] Urxkxj1566 [address]Dublin [place] [id number] Eosinophils (Bld) [#/Vol] 0.2 10*3/uL Normal 0.0-0.4 [facility]; [facility] Work Phone: Comment on above: PATIENT WAS FASTINGP ERFORMED BY: [facility] Aeloji0429 [address] Roadblin [place] [id number] Eosinophils/100 WBC (Bld) 3 % Normal [facility] Work Phone: Comment on above: PATIENT WAS FASTINGP ERFORMED BY: [facility] Eyospx9554 [address] [facility]in [place] [id number] Erythrocyte distribution width Ratio (RBC) 13.3 % Normal 12.3-15.4 [facility] Work Phone: Comment on above: PATIENT WAS FASTINGP ERFORMED BY: [facility] Onuuxv9017 [address] [facility]in [place] [id number] Hematocrit Volume Fraction (Bld) 42.0 % Normal 34.0-46.6 [facility] Work Phone: Comment on above: PATIENT WAS FASTINGP ERFORMED BY: [facility] Qwnemd9471 [address] [facility]in [place] [id number] Hemoglobin mass conc (Bld) 14.0 g/dL Normal 11.1-15.9 [facility] Work Phone: Comment on above: PATIENT WAS FASTINGP ERFORMED BY: [facility] Eindcp2861 [address]bl[address] [place] [id number] Immature granulocytes #/vol (Bld) 0.0 {x10E3/uL} Normal 0.0-0.1 [facility] Work Phone: Comment on above: PATIENT WAS FASTINGP ERFORMED BY: [facility] Obdenh6830 [address] RoadDublin [place] [id number] Immature granulocytes (Bld) [#/Vol] 0.0 10*3/uL Normal 0.0-0.1 [facility]; [facility] Work Phone: Comment on above: PATIENT WAS FASTINGP ERFORMED BY: JOHN [facility] Cskeav8184 [facility] [id number] Immature granulocytes/100 WBC (Bld) 0 % Normal [facility] Work Phone: Comment on above: PATIENT WAS FASTINGP ERFORMED BY: LabCoSaint Michael's Medical CenterWxjkgj2244 [address] [facility] [id number] Lymphocytes #/vol (Bld) 2.1 {x10E3/uL} Normal 0.7-3.1 [facility] Work Phone: Comment on above: PATIENT WAS FASTINGP ERFORMED BY: LabAscension Borgess Hospital6370 [facility] [id number] Lymphocytes (Bld) [#/Vol] 2.1 10*3/uL Normal 0.7-3.1 [facility]; [facility] Internal Medicine Work Phone: Comment on above: PATIENT WAS FASTINGP ERFORMED BY: LabAscension Borgess Hospital6370 [facility] [id number] Lymphocytes/100 WBC (Bld) 32 % Normal [facility] Work Phone: Comment on above: PATIENT WAS FASTINGP ERFORMED BY: LabAscension Borgess Hospital6370 [facility] [id number] MCH Entitic mass (RBC) 31.6 pg Normal 26.6-33.0 [facility] Work Phone: Comment on above: PATIENT WAS FASTINGP ERFORMED BY: LabAscension Borgess Hospital6370 [facility] [id number] MCHC mass conc (RBC) 33.3 g/dL Normal 31.5-35.7 [facility] Internal Medicine Work Phone: Comment on above: PATIENT WAS FASTINGP ERFORMED BY: LabAscension Borgess Hospital6370 [facility] [id number] MCV Entitic volume (RBC) 95 fL Normal 79-97 [facility] Work Phone: Comment on above: PATIENT WAS FASTINGP ERFORMED BY: CB [facility] Wnxzhf4023 [address]Dublin [place] [id number] Monocytes #/vol (Bld) 0.4 {x10E3/uL} Normal 0.1-0.9 [facility] Work Phone: Comment on above: PATIENT WAS FASTINGP ERFORMED BY: CB [facility] Ngfxzp1556 [address]Dublin [place] [id number] Monocytes (Bld) [#/Vol] 0.4 10*3/uL Normal 0.1-0.9 [facility]; [facility] Work Phone: Comment on above: PATIENT WAS FASTINGP ERFORMED BY: JOHN [facility] Uqoaot2131 [address]Dublin [place] [id number] Monocytes/100 WBC (Bld) 6 % Normal C omprehensive Internal Medicine Work Phone: Comment on above: PATIENT WAS FASTINGP ERFORMED BY: CB [facility] Sfvcbe7913 [address]Dublin [place] [id number] Neutrophils #/vol (Bld) 3.9 {x10E3/uL} Normal 1.4-7.0 [facility] Work Phone: Comment on above: PATIENT WAS FASTINGP ERFORMED BY: CB [facility] Syytax1866 [address] [place] [id number] Neutrophils (Bld) [#/Vol] 3.9 10*3/uL Normal 1.4-7.0 [facility]; [facility] Work Phone: Comment on above: PATIENT WAS FASTINGP ERFORMED BY: CB [facility] Kjuvmj9892 [address]Dublin [place] [id number] Neutrophils/100 WBC (Bld) 59 % Normal [facility] Work Phone: Comment on above: PATIENT WAS FASTINGP ERFORMED BY: CB [facility] Hsssbp7244 [address]Dublin [place] [id number] Platelets #/vol (Bld) 219 {x10E3/uL} Normal 150-379 [facility] Work Phone: Comment on above: PATIENT WAS FASTINGP ERFORMED BY: JOHN LabColuke RecinosYyttai3823 [address] [facility] [place] [id number] Platelets (Bld) [#/Vol] 219 10*3/uL Normal 150-379 [facility]; [facility] Work Phone: Comment on above: PATIENT WAS FASTINGP ERFORMED BY: CB [facility] Hkvnug1702 [address] [facility]bl[facility] [place] [id number] RBC #/vol (Bld) 4.43 {x10E6/uL} Normal 3.77-5.28 Comp [facility] Internal Medicine Work Phone: Comment on above: PATIENT WAS FASTINGP ERFORMED BY: JOHN Recinos6370 [address] [facility]bl[facility] [place] [id number] RBC (Bld) [#/Vol] 4.43 10*6/uL Normal 3.77-5.28 Compr [facility] Internal Medicine; [facility] Work Phone: Comment on above: PATIENT WAS FASTINGP ERFORMED BY: JOHN [facility] Fswvvh1432 [address] [facility] CenterD[facility] [place] [id number] WBC #/vol (Bld) 6.7 {x10E3/uL} Normal 3.4-10.8 Compr [facility] Internal Medicine Work Phone: Comment on above: PATIENT WAS FASTINGP ERFORMED BY: CB [facility] Rfusbs9973 [address] [facility] [place] [id number] WBC (Bld) [#/Vol] 6.7 10*3/uL Normal 3.4-10.8 [facility]; [facility] Work Phone: Comment on above: PATIENT WAS FASTINGP ERFORMED BY: CB [facility] Aimnwd8261 [address] [facility] CenterDublin [place] [id number] LIPID PANEL ([id number])Ordered B y: Qa Lead on 02-12-2016 Cholesterol in HDL mass conc 38 mg/dL Abnormal [facility] Work Phone: Comment on above: According to ATP-III Guidelines, HDL-C >59 mg/dL is considered anegative risk factor for CHD. PATIENT WAS FASTINGP ERFORMED BY: JOHN LabBrianne TyRvumxy3694 [address] DaegisFormerly [facility] Centerin [place] [id number] Cholesterol in LDL mass conc 77 mg/dL Normal 0-99 [facility] Work Phone: Comment on above: PATIENT WAS FASTINGP ERFORMED BY: JOHN LabBrianne TyCdtifa3164 [address] [facility]isDorothea Dix [facility] [id number] Cholesterol in LDL/Cholesterol in HDL mass ratio 2.0 {ratio_units} Normal 0.0-3.2 [facility] Work Phone: Comment on above: LDL/HDL Ratio Men Wo men 1/2 Avg.Risk 1.0 1.5 Avg.Risk 3.6 3.2 2X Avg.Risk 6.2 5.0 3X Avg.Risk 8.0 6.1 PATIENT WAS FASTINGP ERFORMED BY: JOHN Tylin6370 [address] [facility] [id number] Cholesterol in VLDL mass conc 72 mg/dL Abnormal 5-40 [facility] Work Phone: Comment on above: PATIENT WAS FASTINGP ERFORMED BY: JOHN Tylin6[address] [facility] [id number] Cholesterol mass conc 187 mg/dL Normal 100-199 Com prehensive Internal Medicine Work Phone: Comment on above: PATIENT WAS FASTINGP ERFORMED BY: JOHN Tylin6370 [facility] [id number] Triglyceride mass conc 361 mg/dL Abnormal 0-149 [facility] Internal Medicine Work Phone: Comment on above: PATIENT WAS FASTINGP ERFORMED BY: JOHN LabColuke Dprdkk9096 [address] [facility]in [place] [id number] METABOLIC PANEL, COMPREHENSI VE (64203)Ordered By: Qa Lead on 02-12-2016 Albumin mass conc 4.1 g/dL Normal 3.5-5.5 Compreh ensive Internal Medicine Work Phone: Comment on above: PATIENT WAS FASTINGP ERFORMED BY: JOHN LabBrianne TyPoeifn9669 [facility] [id number] Albumin/Globulin mass ratio 1.9 {ratio} Normal 1.1-2.5 [facility] Internal Medicine Work Phone: Comment on above: PATIENT WAS FASTINGP ERFORMED BY: CB [facility] Dppybf2654 Murrell RoadDublin [place] [id number] ALP [Catalytic activity/Vol] 49 U/L Normal 39-117 [facility] Internal Medicine; [facility] Internal Medicine Work Phone: Comment on above: PATIENT WAS FASTINGP ERFORMED BY: CB [facility] Ckweir7905 [address]rell RoadDublin [place] [id number] ALP enzyme act/vol 49 [iU]/L Normal 39-117 [facility] Internal Medicine Work Phone: Comment on above: PATIENT WAS FASTINGP ERFORMED BY: [facility] Tjquch7403 [address] RoadDublin [place] [id number] ALT [Catalytic activity/Vol] 8 U/L Normal 0-32 [facility] Internal Medicine; [facility] Internal Medicine Work Phone: Comment on above: PATIENT WAS FASTINGP ERFORMED BY: [facility] Fdscwk5222 [address] RoadDublin [place] [id number] ALT enzyme act/vol 8 [iU]/L Normal 0-32 [facility] Internal Medicine Work Phone: Comment on above: PATIENT WAS FASTINGP ERFORMED BY: [facility] Wqucsk5993 [address] RoadDublin [place] [id number] AST [Catalytic activity/Vol] 11 U/L Normal 0-40 [facility] Internal Medicine; [facility] Internal Medicine Work Phone: Comment on above: PATIENT WAS FASTINGP ERFORMED BY: [facility] Dlaaus3501 [address] RoadDublin [place] [id number] AST enzyme act/vol 11 [iU]/L Normal 0-40 [facility] Internal Medicine Work Phone: Comment on above: PATIENT WAS FASTINGP ERFORMED BY: [facility] Usyspi0892 [address] RoadDublin [place] [id number] Bilirubin mass conc 0.3 mg/dL Normal 0.0-1.2 Compr ehensive Internal Medicine Work Phone: Comment on above: PATIENT WAS FASTINGP ERFORMED BY: JOHN [facility] Pupbsj1283 [address] RoadDublin [place] [id number] Calcium mass conc 9.0 mg/dL Normal 8.7-10.2 Compreh ensive Internal Medicine Work Phone: Comment on above: PATIENT WAS FASTINGP ERFORMED BY: CB [facility] Anijwr5714 [address] RoadDublin [place] [id number] Chloride molar conc 105 mmol/L Normal 97-106 Compr ensive Internal Medicine Work Phone: Comment on above: PATIENT WAS FASTINGP ERFORMED BY: JOHN [facility] Laerto2818 [address] RoadDublin [place] [id number] CO2 molar conc 21 mmol/L Normal 18-29 Comprehens jose Internal Medicine Work Phone: Comment on above: PATIENT WAS FASTINGP ERFORMED BY: JOHN [facility] Crqppi4373 [address] RoadFormerly [facility] Centerin [place] [id number] Creatinine mass conc 0.79 mg/dL Normal 0.57-1.00 Comp [facility]ensive [facility] Work Phone: Comment on above: PATIENT WAS FASTINGP ERFORMED BY: CB [facility] Lcraqk2182 [address] RoadFormerly [facility] Centerin [place] [id number] GFR/1.73 sq M predicted among blacks CKD-EPI vol rate/area (S/P/Bld) 99 mL/min/1.73 Normal Comprehe nsive Internal Medicine Work Phone: Comment on above: PATIENT WAS FASTINGP ERFORMED BY: CB [facility] Yqrlwk5726 [address] RoadFormerly [facility] Centerin [place] [id number] GFR/1.73 sq M predicted among non-blacks CKD-EPI vol rate/area (S/P/Bld) 86 mL/min/1.73 Normal [facility] Work Phone: Comment on above: PATIENT WAS FASTINGP ERFORMED BY: CB [facility] Pnbbtv2526 [address] RoadDublin [place] [id number] Globulin mass conc (S) 2.2 g/dL Normal 1.5-4.5 Co mprehensive Internal Medicine Work Phone: Comment on above: PATIENT WAS FASTINGP ERFORMED BY: JOHN Tylin[address] [employer] [id number] Glucose mass conc 92 mg/dL Normal 65-99 Compreh ensive Internal Medicine Work Phone: Comment on above: PATIENT WAS FASTINGP ERFORMED BY: JOHN Tylin6370 [address] Roadblin [place] [id number] Potassium molar conc 4.2 mmol/L Normal 3.5-5.2 Comp rehensive Internal Medicine Work Phone: Comment on above: PATIENT WAS FASTINGP ERFORMED BY: JOHN Tylin6370 [address] Daegisbl[place] [id number] Protein mass conc 6.3 g/dL Normal 6.0-8.5 Compreh ensive Internal Medicine Work Phone: Comment on above: PATIENT WAS FASTINGP ERFORMED BY: JOHN Tylin6370 [address] DaegisFormerly [facility] Centerin [place] [id number] Sodium molar conc 142 mmol/L Normal 136-144 Compreh ensive Internal Medicine Work Phone: Comment on above: PATIENT WAS FASTINGP ERFORMED BY: JOHN LabBrianne TyRuiold1298 [address] DaegisDublin [place] [id number] Urea nitrogen mass conc 19 mg/dL Normal 6-24 C omprehensive Internal Medicine Work Phone: Comment on above: PATIENT WAS FASTINGP ERFORMED BY: JOHN LabBrianne TySczcsj1287 [address] DaegisDublin [place] [id number] Urea nitrogen/Creatinine mass ratio 24 mg/mg Abnormal 9-23 [facility] Medicine Work Phone: Comment on above: PATIENT WAS FASTINGP ERFORMED BY: JOHN LabBrianne TyKxidft1482 [address] [facility]bl[facility] [place] [id number] Vitamin D Hydroxy (68167)Ord ered By: Qa Lead on 02-12-2016 25-Hydroxyvitamin D2+25-Hydroxyvitamin D3 mass conc 37.2 ng/mL Normal 30.0-100.0 [facility] Medicine Work Phone: Comment on above: Vitamin D deficiency has been defined by the [place] of[place]icine and an Endocrine Society practice guideline as alevel of serum 25-OH vitamin D less than 20 ng/mL (1,2).The Endocrine Society went on to further define vitamin Dinsufficiency as a level between 21 and 29 ng/mL (2).1. IOM ([place] of Medicine). 2010. Dietary reference intakes for calcium and D. [place]: The National Academies Press.2. Diana MF, Simone KURTZ, Rylee BARRAZA, et al. Evaluation, treatment, and prevention of vitamin D deficiency: an Endocrine Society clinical practice guideline. JCEM. 2010; 96(7):1911-30. PATIENT WAS FASTINGP ERFORMED BY: Askem70 [address] RoadHosted Systemsblin [place] [id number] URINE FIDE CULTURE-IDENTIFICA TN (14359)Ordered By: Qa Lead on 07-02-2015 Bacteria identified Cx Nom (U) Final report Abnormal [facility] Medicine Work Phone: Comment on above: PATIENT NOT FASTINGP ERFORMED BY: [employer] [facility] Uotorr5027 [address] RoadDublin [place] [id number] Information: [id number] Bacteria identified Cx Nom (U) Escherichia coli Abnormal [facility] Work Phone: Comment on above: Greater than 100,000 colony forming units per mL PATIENT NOT FASTINGP ERFORMED BY: Personallyrp Vtzurx2984 [address] DaegisDublin [place] [id number] Information: [id number] Other Antibiotic [facility] prehensive Internal Medicine Work Phone: Comment on above: S = Susceptible; I = Intermediate; R = Resistant P = Positive; N = Negative MICS are expressed in micrograms per mL Antibiotic RSLT#1 RSLT#2 RSLT#3 RSLT#4Amoxicillin/Clavulanic Acid SAmpicillin SCefepime SCeftriaxone SCefuroxime SCephalothin ICiprofloxacin SErtapenem SGentamicin SImipenem SLevofloxacin SNitrofurantoin SPiperacillin STetracycline STobramycin STrimethoprim/Sulfa S PATIENT NOT FASTINGP ERFORMED BY: CB [facility] Vndsds8146 MurrellSt. [facility] [id number] Information: [id number] Urinalysis, Office (13988)Or dered By: Rosetta Vázquez on 07-02-2015 Bilirubin Ql (U) Negative Normal Comprehe nsive Internal Medicine Work Phone: Bilirubin Ql (U) Negative Normal Comprehe nsive Internal Medicine; [facility] Work Phone: Glucose Test strip (U) [Mass/Vol] Negative Normal [facility]; [facility] Work Phone: Glucose Test strip mass conc (U) Negative Normal [facility] Work Phone: Hemoglobin Ql (U) Hemolyzed Trace Normal Co mprehensive Internal Medicine Work Phone: Ketones Ql (U) Negative Normal Comprehens jose Internal Medicine Work Phone: Ketones Ql (U) Negative Normal Comprehens jose Internal Medicine; [facility] Work Phone: Leukocyte esterase Test strip Ql (U) Moderate Normal [facility] Work Phone: Nitrite Ql (U) Negative Normal Comprehens jose Internal Medicine Work Phone: Nitrite Ql (U) Negative Normal Comprehens jose Internal Medicine; [facility] Work Phone: pH (U) 7 [pH] Normal [facility] Work Phone: Protein Ql (U) Negative Normal Comprehens jose Internal Medicine Work Phone: Protein Ql (U) Negative Normal Comprehens jose Internal Medicine; [facility] Work Phone: Specific gravity Relative Density (U) 1.020 1 Normal Comprehensi ve Internal Medicine Work Phone: Urobilinogen mass/time (24H U) Normal Normal [facility] Work Phone: PAP I-G w/rfx hrHPVOrdered B y: Qa Lead on 04-28-2015 PAP I-G w/rfx hrHPV Comment Normal Compr ehensive Internal Medicine Work Phone: Comment on above: NEGATIVE FOR INTRAEP ITHELIAL LESION AND MALIGNANCY. CYTOLOGY INFORMATION :- CLINICAL INFORMATION:- DATE LMP/MENOPAUSE: 04/22/14 LMP- COLLECTION VIAL: Thin Prep Vial- TILER SOURCE: CERVICAL/ENDOCERVICAL- COLLECTION TECHNIQUE: BRUSH/SPATULASpecimen Comment: [id number] Comment: No. of containers..01 CYTYC Thin Prep VialLabCorp (refer to report for specific site)refer to report for address and phone number Satisfactory for patricio luation. Endocervical and/or squamous metaplasticcells (endocervical component) are present. This liquid based Th inPrep(R) pap test was screened withthe use of an image guided system. The Pap smear is a s creening test designed to aid in thedetection of premalignant and malignant conditions of theuterine cervix. It is not a diagnostic procedure andshould not be used as the sole means of detecting cervicalcancer. Both false-positive and false-negative reports dooccur. The HPV DNA reflex c khadijah were not met with this specimenresult therefore, no HPV testing was performed.Performed at: [address] [id number] Director: Lilia Chiang MD, Phone: [phone] Dianna Black, Cyto technologist (ASCP) PAP I-G w/rfx hrHPV . Normal Compr [facility] Internal Medicine Work Phone: Comment on above: CYTOLOGY INFORMATION :- CLINICAL INFORMATION:- DATE LMP/MENOPAUSE: 04/22/14 LMP- COLLECTION VIAL: Thin Prep Vial- TILER SOURCE: CERVICAL/ENDOCERVICAL- COLLECTION TECHNIQUE: BRUSH/SPATULASpecimen Comment: [id number] Comment: No. of containers..01 CYTYC Thin Prep VialLabCorp (refer to report for specific site)refer to report for address and phone number CBC W/AUTO DIFF WBC (13139)O rdered By: Qa Lead on 04-07-2015 Basophils #/vol (Bld) 0.0 {x10E3/uL} Normal 0.0-0.2 [facility] Work Phone: Comment on above: PATIENT WAS FASTINGP ERFORMED BY: JOHN GonzalezAscension Borgess Hospital6370 [facility] [id number] Information: [id number] Basophils (Bld) [#/Vol] 0.0 10*3/uL Normal 0.0-0.2 [facility]; [facility] Work Phone: Comment on above: PATIENT WAS FASTINGP ERFORMED BY: [address] [id number] Information: [id number] Basophils/100 WBC (Bld) 0 % Normal C omprehensive Internal Medicine Work Phone: Comment on above: PATIENT WAS FASTINGP ERFORMED BY: JOHN Anguiano Witsve[address] [id number] Information: [id number] Eosinophils #/vol (Bld) 0.1 {x10E3/uL} Normal 0.0-0.4 [facility] Work Phone: Comment on above: PATIENT WAS FASTINGP ERFORMED BY: Lisa[address] [id number] Information: [id number] Eosinophils (Bld) [#/Vol] 0.1 10*3/uL Normal 0.0-0.4 [facility]; [facility] Work Phone: Comment on above: PATIENT WAS FASTINGP ERFORMED BY: [address] [id number] Information: [id number] Eosinophils/100 WBC (Bld) 2 % Normal [facility] Work Phone: Comment on above: PATIENT WAS FASTINGP ERFORMED BY: Lisa[address] [id number] Information: [id number] Erythrocyte distribution width Ratio (RBC) 12.9 % Normal 12.3-15.4 [facility] Medicine Work Phone: Comment on above: PATIENT WAS FASTINGP ERFORMED BY: [facility]6370 [facility] [id number] Information: [id number] Hematocrit Volume Fraction (Bld) 39.1 % Normal 34.0-46.6 [facility] Medicine Work Phone: Comment on above: PATIENT WAS FASTINGP ERFORMED BY: [address] [id number] Information: [id number] Hemoglobin mass conc (Bld) 13.6 g/dL Normal 11.1-15.9 [facility] Work Phone: Comment on above: PATIENT WAS FASTINGP ERFORMED BY: [address] [id number] Information: [id number] Immature granulocytes #/vol (Bld) 0.0 {x10E3/uL} Normal 0.0-0.1 [facility] Work Phone: Comment on above: PATIENT WAS FASTINGP ERFORMED BY: [address] [id number] Information: [id number] Immature granulocytes (Bld) [#/Vol] 0.0 10*3/uL Normal 0.0-0.1 [facility]; [facility] Work Phone: Comment on above: PATIENT WAS FASTINGP ERFORMED BY: [address] [id number] Information: [id number] Immature granulocytes/100 WBC (Bld) 0 % Normal [facility] Work Phone: Comment on above: PATIENT WAS FASTINGP ERFORMED BY: [address] [id number] Information: [id number] Lymphocytes #/vol (Bld) 2.4 {x10E3/uL} Normal 0.7-3.1 [facility] Work Phone: Comment on above: PATIENT WAS FASTINGP ERFORMED BY: JOHN [facility]6370 [facility] [id number] Information: [id number] Lymphocytes (Bld) [#/Vol] 2.4 10*3/uL Normal 0.7-3.1 [facility] Internal Medicine; [facility] Internal Medicine Work Phone: Comment on above: PATIENT WAS FASTINGP ERFORMED BY: JOHN [address] [id number] Information: [id number] Lymphocytes/100 WBC (Bld) 33 % Normal [facility] Internal Medicine Work Phone: Comment on above: PATIENT WAS FASTINGP ERFORMED BY: JOHN Ty[address] [id number] Information: [id number] MCH Entitic mass (RBC) 32.0 pg Normal 26.6-33.0 [facility] Internal Medicine Work Phone: Comment on above: PATIENT WAS FASTINGP ERFORMED BY: JOHN GonzalezHarry S. [facility] Lticub58[address] [id number] Information: [id number] MCHC mass conc (RBC) 34.8 g/dL Normal 31.5-35.7 [facility] Internal Medicine Work Phone: Comment on above: PATIENT WAS FASTINGP ERFORMED BY: JOHN GonzalezHarry S. [facility] Wbdqap0977 [facility] [id number] Information: [id number] MCV Entitic volume (RBC) 92 fL Normal 79-97 [facility] Internal Medicine Work Phone: Comment on above: PATIENT WAS FASTINGP ERFORMED BY: JOHN [address] [id number] Information: [id number] Monocytes #/vol (Bld) 0.5 {x10E3/uL} Normal 0.1-0.9 [facility] Internal Medicine Work Phone: Comment on above: PATIENT WAS FASTINGP ERFORMED BY: JOHN [facility] Rmebew5575 [facility] [id number] Information: [id number] Monocytes (Bld) [#/Vol] 0.5 10*3/uL Normal 0.1-0.9 [facility]; [facility] Work Phone: Comment on above: PATIENT WAS FASTINGP ERFORMED BY: JOHN LisaBrianne TyKrygdl9015 [facility] [id number] Information: [id number] Monocytes/100 WBC (Bld) 6 % Normal C omprehensive Internal Medicine Work Phone: Comment on above: PATIENT WAS FASTINGP ERFORMED BY: JOHN LisaBrianne TyIvnnfe9[address] [id number] Information: [id number] Neutrophils #/vol (Bld) 4.4 {x10E3/uL} Normal 1.4-7.0 [facility] Work Phone: Comment on above: PATIENT WAS FASTINGP ERFORMED BY: JOHN Tylin6370 [facility] [id number] Information: [id number] Neutrophils (Bld) [#/Vol] 4.4 10*3/uL Normal 1.4-7.0 [facility]; [facility] Work Phone: Comment on above: PATIENT WAS FASTINGP ERFORMED BY: JOHN Tylin6370 [facility] [id number] Information: [id number] Neutrophils/100 WBC (Bld) 59 % Normal [facility] Work Phone: Comment on above: PATIENT WAS FASTINGP ERFORMED BY: JOHN Luisaluke TyLeodmf3348 [facility] [id number] Information: [id number] Platelets #/vol (Bld) 256 {x10E3/uL} Normal 150-379 [facility] Work Phone: Comment on above: PATIENT WAS FASTINGP ERFORMED BY: JOHN Anguiano Vqkegt9422 [facility] [id number] Information: [id number] Platelets (Bld) [#/Vol] 256 10*3/uL Normal 150-379 [facility]; [facility] Work Phone: Comment on above: PATIENT WAS FASTINGP ERFORMED BY: JOHN Anguiano Uvjona0752 [facility] [id number] Information: [id number] RBC #/vol (Bld) 4.25 {x10E6/uL} Normal 3.77-5.28 Comp [facility] Work Phone: Comment on above: PATIENT WAS FASTINGP ERFORMED BY: JOHN Elena Recinos6370 [facility] [id number] Information: [id number] RBC (Bld) [#/Vol] 4.25 10*6/uL Normal 3.77-5.28 Compr ensive Internal Medicine; [facility] Work Phone: Comment on above: PATIENT WAS FASTINGP ERFORMED BY: JOHN LisaHarry S. [facility] Mutjaj9021 [facility] [id number] Information: [id number] WBC #/vol (Bld) 7.5 {x10E3/uL} Normal 3.4-10.8 [facility] Internal Medicine Work Phone: Comment on above: PATIENT WAS FASTINGP ERFORMED BY: [facility] Azzyxq7036 [facility] [id number] Information: [id number] WBC (Bld) [#/Vol] 7.5 10*3/uL Normal 3.4-10.8 Compre [facility] Internal Medicine; [facility] Work Phone: Comment on above: PATIENT WAS FASTINGP ERFORMED BY: JOHN GonzalezHarry S. [facility] Suomea3467 [facility] [id number] Information: [id number] LIPID PANEL (00709)Ordered B y: Qa Lead on 04-07-2015 Cholesterol in HDL mass conc 64 mg/dL Normal [facility] Work Phone: Comment on above: According to ATP-III Guidelines, HDL-C >59 mg/dL is considered anegative risk factor for CHD. PATIENT WAS FASTINGP ERFORMED BY: JOHN eRelyx Fghfav0508 [address] DaegisDorothea Dix Hospital [id number] Cholesterol in LDL mass conc 122 mg/dL Abnormal 0-99 [facility] Work Phone: Comment on above: PATIENT WAS FASTINGP ERFORMED BY: JOHN Algal ScientificAscension Borgess Hospital6370 [facility] [id number] Cholesterol in LDL/Cholesterol in HDL mass ratio 1.9 {ratio_units} Normal 0.0-3.2 [facility] Work Phone: Comment on above: LDL/HDL Ratio Men Wo men 1/2 Avg.Risk 1.0 1.5 Avg.Risk 3.6 3.2 2X Avg.Risk 6.2 5.0 3X Avg.Risk 8.0 6.1 PATIENT WAS FASTINGP ERFORMED BY: JOHN eRelyxSaint Michael's Medical CenterSgwunx6782 [facility] [id number] Cholesterol in VLDL mass conc 25 mg/dL Normal 5-40 [facility] Work Phone: Comment on above: PATIENT WAS FASTINGP ERFORMED BY: JOHN Algal ScientificHarry S. Truman [facility]' Hospital Wxqlao7252 [facility] [id number] Cholesterol mass conc 211 mg/dL Abnormal 100-199 Com prehensive Internal Medicine Work Phone: Comment on above: PATIENT WAS FASTINGP ERFORMED BY: eRelyxSaint Michael's Medical CenterKefmdc0020 [facility] [id number] Triglyceride mass conc 127 mg/dL Normal 0-149 Co mprehensive Internal Medicine Work Phone: Comment on above: PATIENT WAS FASTINGP ERFORMED BY: LabAscension Borgess Hospital6370 [facility] [id number] METABOLIC PANEL, COMPREHENSI VE (70814)Ordered By: Qa Lead on 04-07-2015 Albumin mass conc 4.3 g/dL Normal 3.5-5.5 Compreh ensive Internal Medicine Work Phone: Comment on above: PATIENT WAS FASTINGP ERFORMED BY: JOHN Tylin6[address] Roadbl[address] [place] [id number] Albumin/Globulin mass ratio 1.8 {ratio} Normal 1.1-2.5 [facility] Work Phone: Comment on above: PATIENT WAS FASTINGP ERFORMED BY: JOHN yTlin6370 [address] Roadblin [place] [id number] ALP [Catalytic activity/Vol] 53 U/L Normal 39-117 [facility]; [facility] Internal Medicine Work Phone: Comment on above: PATIENT WAS FASTINGP ERFORMED BY: JOHN Tylin6[address] Roadblin [place] [id number] ALP enzyme act/vol 53 [iU]/L Normal 39-117 [facility] Internal Medicine Work Phone: Comment on above: PATIENT WAS FASTINGP ERFORMED BY: JOHN Tylin[address] [facility] [id number] ALT [Catalytic activity/Vol] 12 U/L Normal 0-32 [facility]; [facility] Internal Medicine Work Phone: Comment on above: PATIENT WAS FASTINGP ERFORMED BY: JOHN Tylin[address] [facility]in [place] [id number] ALT enzyme act/vol 12 [iU]/L Normal 0-32 [facility] Internal Medicine Work Phone: Comment on above: PATIENT WAS FASTINGP ERFORMED BY: JOHN Tylin[address] [facility]in [place] [id number] AST [Catalytic activity/Vol] 14 U/L Normal 0-40 [facility]; [facility] Internal Medicine Work Phone: Comment on above: PATIENT WAS FASTINGP ERFORMED BY: JOHN LisaBrianne TyXwfdwt[address] [facility] [place] [id number] AST enzyme act/vol 14 [iU]/L Normal 0-40 [facility] Internal Medicine Work Phone: Comment on above: PATIENT WAS FASTINGP ERFORMED BY: CB [facility] Kejroo[address]Dublin [place] [id number] Bilirubin mass conc 0.5 mg/dL Normal 0.0-1.2 Compr ehensive Internal Medicine Work Phone: Comment on above: PATIENT WAS FASTINGP ERFORMED BY: JOHN [facility] Fwange6864 [address] RoadDublin [place] [id number] Calcium mass conc 9.7 mg/dL Normal 8.7-10.2 Compreh ensive Internal Medicine Work Phone: Comment on above: PATIENT WAS FASTINGP ERFORMED BY: JOHN [facility] Tndmnb4475 [address] RoadDublin [place] [id number] Chloride molar conc 103 mmol/L Normal 97-108 Compr ehensive Internal Medicine Work Phone: Comment on above: PATIENT WAS FASTINGP ERFORMED BY: JOHN [facility] Njxmyt5658 [address] RoadDublin [place] [id number] CO2 molar conc 20 mmol/L Normal 18-29 Comprehens jose Internal Medicine Work Phone: Comment on above: PATIENT WAS FASTINGP ERFORMED BY: JOHN [facility] Igimzz9899 [address] RoadDublin [place] [id number] Creatinine mass conc 0.75 mg/dL Normal 0.57-1.00 Comp rehensive Internal Medicine Work Phone: Comment on above: PATIENT WAS FASTINGP ERFORMED BY: JOHN [facility] Irwafr6[address] RoadDublin [place] [id number] GFR/1.73 sq M predicted among blacks CKD-EPI vol rate/area (S/P/Bld) 106 mL/min/1.73 Normal Comprehe nsive Internal Medicine Work Phone: Comment on above: PATIENT WAS FASTINGP ERFORMED BY: JOHN [facility] Exbpfk09[address]Dublin [place] [id number] GFR/1.73 sq M predicted among non-blacks CKD-EPI vol rate/area (S/P/Bld) 92 mL/min/1.73 Normal [facility] Work Phone: Comment on above: PATIENT WAS FASTINGP ERFORMED BY: JOHN [facility] Dnhyhb3062 [address] RoadDublin [place] [id number] Globulin mass conc (S) 2.4 g/dL Normal 1.5-4.5 [facility] Work Phone: Comment on above: PATIENT WAS FASTINGP ERFORMED BY: JOHN [facility] Yjzqja3363 [address] RoadDublin [place] [id number] Glucose mass conc 80 mg/dL Normal 65-99 Compreh ensive Internal Medicine Work Phone: Comment on above: PATIENT WAS FASTINGP ERFORMED BY: JOHN [facility] Varfvh9457 [address] RoadDublin [place] [id number] Potassium molar conc 4.0 mmol/L Normal 3.5-5.2 Comp rehensive Internal Medicine Work Phone: Comment on above: PATIENT WAS FASTINGP ERFORMED BY: JOHN [facility] Kqtmkh7818 [address] RoadDublin [place] [id number] Protein mass conc 6.7 g/dL Normal 6.0-8.5 Compreh ensive Internal Medicine Work Phone: Comment on above: PATIENT WAS FASTINGP ERFORMED BY: JOHN [facility] Wdbqik7426 [address] RoadDublin [place] [id number] Sodium molar conc 139 mmol/L Normal 134-144 Compreh ensive Internal Medicine Work Phone: Comment on above: PATIENT WAS FASTINGP ERFORMED BY: JOHN [facility] Syaeah77[address]Dublin [place] [id number] Urea nitrogen mass conc 17 mg/dL Normal 6-24 C omprehensive Internal Medicine Work Phone: Comment on above: PATIENT WAS FASTINGP ERFORMED BY: CB [facility] Zmwyti35[address]Dublin [place] [id number] Urea nitrogen/Creatinine mass ratio 23 mg/mg Normal 9-23 [facility] Work Phone: Comment on above: PATIENT WAS FASTINGP ERFORMED BY: JOHN [facility] Vbmfna7864 [address] RoadDublin [place] [id number] VITAMIN B-12 (CYANOCOBALAMIN ) (79648)Ordered By: Qa Lead on 04-07-2015 Cobalamin (Vitamin B12) mass conc 572 pg/mL Normal 211-946 [facility] Work Phone: Comment on above: PATIENT WAS FASTINGP ERFORMED BY: JOHN Algal ScientificColuke RecinosAkkgqa5615 [facility] [id number] Vitamin D Hydroxy (14633)Ord ered By: Qa Lead on 04-07-2015 25-Hydroxyvitamin D2+25-Hydroxyvitamin D3 mass conc 33.5 ng/mL Normal 30.0-100.0 [facility] Work Phone: Comment on above: Vitamin D deficiency has been defined by the [place] of[place]icine and an Endocrine Society practice guideline as alevel of serum 25-OH vitamin D less than 20 ng/mL (1,2).The Endocrine Society went on to further define vitamin Dinsufficiency as a level between 21 and 29 ng/mL (2).1. IOM ([place] of Medicine). 2010. Dietary reference intakes for calcium and D. [place]: The National Academies Press.2. Diana MF, Simone KURTZ, Rylee BARRAZA, et al. Evaluation, treatment, and prevention of vitamin D deficiency: an Endocrine Society clinical practice guideline. JCEM. 2010; 96(7):1911-30. PATIENT WAS FASTINGP ERFORMED BY: JOHN eRelyx Pghzji1111 [facility] [id number] LIPID PANEL (08585)Ordered B y: Qa Lead on 04-09-2014 Cholesterol in HDL mass conc 61 mg/dL Normal [facility] Medicine Work Phone: Comment on above: According to ATP-III Guidelines, HDL-C >59 mg/dL is considered anegative risk factor for CHD. PATIENT WAS FASTINGP ERFORMED BY: JOHN [facility] Vrpxll1114 [facility] [id number] Information: [id number] Cholesterol in LDL mass conc 104 mg/dL Abnormal 0-99 [facility] Work Phone: Comment on above: PATIENT WAS FASTINGP ERFORMED BY: JOHN [facility] Wlqczi1688 [facility] [id number] Information: [id number] Cholesterol in LDL/Cholesterol in HDL mass ratio 1.7 {ratio_units} Normal 0.0-3.2 [facility] Work Phone: Comment on above: LDL/HDL Ratio Men Wo men 1/2 Avg.Risk 1.0 1.5 Avg.Risk 3.6 3.2 2X Avg.Risk 6.2 5.0 3X Avg.Risk 8.0 6.1 PATIENT WAS FASTINGP ERFORMED BY: CB [facility] Cewqgy7498 [address] RoadDublin [place] [id number] Information: [id number] Cholesterol in VLDL mass conc 23 mg/dL Normal 5-40 [facility] Medicine Work Phone: Comment on above: PATIENT WAS FASTINGP ERFORMED BY: CB [facility] Loglgo5325 [address] RoadDublin [place] [id number] Information: [id number] Cholesterol mass conc 188 mg/dL Normal 100-199 [facility] prehensive Internal Medicine Work Phone: Comment on above: PATIENT WAS FASTINGP ERFORMED BY: CB [facility] Vbdqum7598 [address] RoadDublin [place] [id number] Information: [id number] Triglyceride mass conc 115 mg/dL Normal 0-149 Co [facility] Internal Medicine Work Phone: Comment on above: PATIENT WAS FASTINGP ERFORMED BY: CB [facility] Hxcnrv9966 [address] RoadDublin [place] [id number] Information: [id number] Vitamin D Hydroxy (98391)Ord ered By: Qa Lead on 04-09-2014 25-Hydroxyvitamin D2+25-Hydroxyvitamin D3 mass conc 43.7 ng/mL Normal 30.0-100.0 [facility] Internal Medicine Work Phone: Comment on above: Vitamin D deficiency has been defined by the [place] of[place]icine and an Endocrine Society practice guideline as alevel of serum 25-OH vitamin D less than 20 ng/mL (1,2).The Endocrine Society went on to further define vitamin Dinsufficiency as a level between 21 and 29 ng/mL (2).1. IOM ([place]). 2010. Dietary reference intakes for calcium and D. [place]: The National Academies Press.2. Diana LARA, Simone KURTZ, Rylee BARRAZA, et al. Evaluation, treatment, and prevention of vitamin D deficiency: an Endocrine Society clinical practice guideline. JCEM. 2010; 96(7):1911-30. PATIENT WAS FASTINGP ERFORMED BY: SimplistAffinity Health Partners [id number] Vitamin D Hydroxy (42544)Ord ered By: Qa Lead on 10-04-2013 25-Hydroxyvitamin D2+25-Hydroxyvitamin D3 mass conc 18.1 ng/mL Abnormal 30.0-100.0 [facility] Work Phone: Comment on above: Vitamin D deficiency has been defined by the [place] of[place] and an Endocrine Society practice guideline as alevel of serum 25-OH vitamin D less than 20 ng/mL (1,2).The Endocrine Society went on to further define vitamin Dinsufficiency as a level between 21 and 29 ng/mL (2).1. IOM ([place]). 2010. Dietary reference intakes for calcium and D. [place]: The National Academies Press.2. Diana LARA, Simone KURTZ, Rylee BARRAZA, et al. Evaluation, treatment, and prevention of vitamin D deficiency: an Endocrine Society clinical practice guideline. JCEM. 2010; 96(7):1911-30. PATIENT NOT FASTINGP ERFORMED BY: SimplistAffinity Health Partners [id number] Information: [id number] CBC WITH MANUAL DIFF (68004) Ordered By: Qa Lead on 04-02-2013 Basophils #/vol (Bld) 0.0 {x10E3/uL} Normal 0.0-0.2 [facility] Work Phone: Comment on above: PATIENT WAS FASTINGP ERFORMED BY: Askem70 AscletisAffinity Health Partners [id number] Information: [id number] Basophils (Bld) [#/Vol] 0.0 10*3/uL Normal 0.0-0.2 [facility]; [facility] Work Phone: Comment on above: PATIENT WAS FASTINGP ERFORMED BY: JOHN Tylin6370 [facility] [id number] Information: [id number] Basophils/100 WBC (Bld) 0 % Normal 0-3 C omprehensive Internal Medicine Work Phone: Comment on above: PATIENT WAS FASTINGP ERFORMED BY: JOHN Anguiano Uahmuc9[address] [id number] Information: [id number] Eosinophils #/vol (Bld) 0.1 {x10E3/uL} Normal 0.0-0.4 [facility] Work Phone: Comment on above: PATIENT WAS FASTINGP ERFORMED BY: [address] [id number] Information: [id number] Eosinophils (Bld) [#/Vol] 0.1 10*3/uL Normal 0.0-0.4 [facility]; [facility] Work Phone: Comment on above: PATIENT WAS FASTINGP ERFORMED BY: JOHN [address] [id number] Information: [id number] Eosinophils/100 WBC (Bld) 1 % Normal 0-5 [facility] Work Phone: Comment on above: PATIENT WAS FASTINGP ERFORMED BY: [address] [id number] Information: [id number] Erythrocyte distribution width Ratio (RBC) 13.5 % Normal 12.3-15.4 [facility] Work Phone: Comment on above: PATIENT WAS FASTINGP ERFORMED BY: [place] 4990870 [facility] [id number] Information: [id number] Hematocrit Volume Fraction (Bld) 40.1 % Normal 34.0-46.6 [facility] Work Phone: Comment on above: PATIENT WAS FASTINGP ERFORMED BY: [place] 4990870 [facility] [id number] Information: 548471,[id number] Hemoglobin mass conc (Bld) 13.1 g/dL Normal 11.1-15.9 [facility] Work Phone: Comment on above: PATIENT WAS FASTINGP ERFORMED BY: [address] [id number] Information: [id number] Immature granulocytes #/vol (Bld) 0.0 {x10E3/uL} Normal 0.0-0.1 [facility] Work Phone: Comment on above: PATIENT WAS FASTINGP ERFORMED BY: [address] [id number] Information: [id number] Immature granulocytes (Bld) [#/Vol] 0.0 10*3/uL Normal 0.0-0.1 [facility]; [facility] Work Phone: Comment on above: PATIENT WAS FASTINGP ERFORMED BY: [address] [id number] Information: [id number] Immature granulocytes/100 WBC (Bld) 0 % Normal 0-2 [facility] Work Phone: Comment on above: PATIENT WAS FASTINGP ERFORMED BY: [address] [id number] Information: 506656,[id number] Lymphocytes #/vol (Bld) 2.4 {x10E3/uL} Normal 0.7-3.1 [facility] Work Phone: Comment on above: PATIENT WAS FASTINGP ERFORMED BY: [address] [id number] Information: [id number] Lymphocytes (Bld) [#/Vol] 2.4 10*3/uL Normal 0.7-3.1 [facility]; [facility] Internal Medicine Work Phone: Comment on above: PATIENT WAS FASTINGP ERFORMED BY: [address] [id number] Information: [id number],[id number] Lymphocytes/100 WBC (Bld) 33 % Normal 14-46 [facility] Internal Medicine Work Phone: Comment on above: PATIENT WAS FASTINGP ERFORMED BY: [address] [id number] Information: [id number],[id number] MCH Entitic mass (RBC) 30.3 pg Normal 26.6-33.0 [facility] Internal Medicine Work Phone: Comment on above: PATIENT WAS FASTINGP ERFORMED BY: [address] [id number] Information: [id number] MCHC mass conc (RBC) 32.7 g/dL Normal 31.5-35.7 [facility] Internal Medicine Work Phone: Comment on above: PATIENT WAS FASTINGP ERFORMED BY: [address] [id number] Information: [id number] MCV Entitic volume (RBC) 93 fL Normal 79-97 [facility] Internal Medicine Work Phone: Comment on above: PATIENT WAS FASTINGP ERFORMED BY: [address] [id number] Information: [id number] Monocytes #/vol (Bld) 0.5 {x10E3/uL} Normal 0.1-0.9 [facility] Internal Medicine Work Phone: Comment on above: PATIENT WAS FASTINGP ERFORMED BY: [address] [id number] Information: [id number] Monocytes (Bld) [#/Vol] 0.5 10*3/uL Normal 0.1-0.9 [facility]; [facility] Work Phone: Comment on above: PATIENT WAS FASTINGP ERFORMED BY: JOHN Chopra [facility] [id number] Information: [id number],[id number] Monocytes/100 WBC (Bld) 6 % Normal 4-12 C omprehensive Internal Medicine Work Phone: Comment on above: PATIENT WAS FASTINGP ERFORMED BY: JOHN Recinos6370 [facility] [id number] Information: [id number] Neutrophils #/vol (Bld) 4.3 {x10E3/uL} Normal 1.4-7.0 [facility] Work Phone: Comment on above: PATIENT WAS FASTINGP ERFORMED BY: JOHN Ty[address] [id number] Information: [id number] Neutrophils (Bld) [#/Vol] 4.3 10*3/uL Normal 1.4-7.0 [facility]; [facility] Work Phone: Comment on above: PATIENT WAS FASTINGP ERFORMED BY: JOHN Recinos6370 [facility] [id number] Information: 232476,[id number] Neutrophils/100 WBC (Bld) 60 % Normal 40-74 [facility] Work Phone: Comment on above: PATIENT WAS FASTINGP ERFORMED BY: JOHN Anguiano Rvqocc5549 [facility] [id number] Information: [id number],[id number] Platelets #/vol (Bld) 262 {x10E3/uL} Normal 155-379 [facility] Work Phone: Comment on above: PATIENT WAS FASTINGP ERFORMED BY: JOHN Anguiano Nzxtku6914 [facility] [id number] Information: [id number] Platelets (Bld) [#/Vol] 262 10*3/uL Normal 155-379 [facility]; [facility] Work Phone: Comment on above: PATIENT WAS FASTINGP ERFORMED BY: JOHN Chopra [facility] [id number] Information: [id number] RBC #/vol (Bld) 4.33 {x10E6/uL} Normal 3.77-5.28 Comp [facility] Work Phone: Comment on above: PATIENT WAS FASTINGP ERFORMED BY: [address] [id number] Information: [id number] RBC (Bld) [#/Vol] 4.33 10*6/uL Normal 3.77-5.28 Compr ensive Internal Medicine; [facility] Work Phone: Comment on above: PATIENT WAS FASTINGP ERFORMED BY: LisaHarry [facility]. [facility] Chwzpe6609 [facility] [id number] Information: [id number] WBC #/vol (Bld) 7.3 {x10E3/uL} Normal 3.4-10.8 [facility] Internal Medicine Work Phone: Comment on above: PATIENT WAS FASTINGP ERFORMED BY: JOHN Anguiano Awpqna7170 [facility] [id number] Information: [id number] WBC (Bld) [#/Vol] 7.3 10*3/uL Normal 3.4-10.8 Compre [facility] Internal Medicine; [facility] Work Phone: Comment on above: PATIENT WAS FASTINGP ERFORMED BY: [facility]6370 [facility] [id number] Information: 204992,[id number] LIPID PANEL (71824)Ordered B y: Qa Lead on 04-02-2013 Cholesterol in HDL mass conc 61 mg/dL Normal [facility] Work Phone: Comment on above: According to ATP-III Guidelines, HDL-C >59 mg/dL is considered anegative risk factor for CHD. PATIENT WAS FASTINGP ERFORMED BY: JOHN LabBrianne TyGyqczk8166 [address] RoadDublin [place] [id number] Cholesterol in LDL mass conc 128 mg/dL Abnormal 0-99 [facility] Work Phone: Comment on above: PATIENT WAS FASTINGP ERFORMED BY: JOHN Tylin6[address]Dublin [place] [id number] Cholesterol in LDL/Cholesterol in HDL mass ratio 2.1 {ratio_units} Normal 0.0-3.2 [facility] Work Phone: Comment on above: PATIENT WAS FASTINGP ERFORMED BY: JOHN Tylin6[address]Dublin [place] [id number] Cholesterol in VLDL mass conc 27 mg/dL Normal 5-40 [facility] Work Phone: Comment on above: PATIENT WAS FASTINGP ERFORMED BY: JOHN Tylin[address] [facility]in [place] [id number] Cholesterol mass conc 216 mg/dL Abnormal 100-199 [facility] prehensive Internal Medicine Work Phone: Comment on above: PATIENT WAS FASTINGP ERFORMED BY: JOHN Tylin6[address]Dublin [place] [id number] Triglyceride mass conc 133 mg/dL Normal 0-149 [facility] Internal [facility] Work Phone: Comment on above: PATIENT WAS FASTINGP ERFORMED BY: JOHN Tylin[address] [facility]in [place] [id number] METABOLIC PANEL, COMPREHENSI VE (44039)Ordered By: Qa Lead on 04-02-2013 Albumin mass conc 4.1 g/dL Normal 3.5-5.5 Compreh ensive Internal Medicine Work Phone: Comment on above: PATIENT WAS FASTINGP ERFORMED BY: JOHN Tylin[address] [facility] [place] [id number] Albumin/Globulin mass ratio 1.7 {ratio} Normal 1.1-2.5 [facility] Work Phone: Comment on above: PATIENT WAS FASTINGP ERFORMED BY: CB [facility] Swzgnj2897 [address] RoadDublin [place] [id number] ALP [Catalytic activity/Vol] 61 U/L Normal 39-117 [facility]; [facility] Internal Medicine Work Phone: Comment on above: PATIENT WAS FASTINGP ERFORMED BY: CB [facility] Npfcrf5293 [address] RoadDublin [place] [id number] ALP enzyme act/vol 61 [iU]/L Normal 39-117 [facility] Internal Medicine Work Phone: Comment on above: PATIENT WAS FASTINGP ERFORMED BY: CB [facility] Cwquuo1611 [address]Dublin [place] [id number] ALT [Catalytic activity/Vol] 16 U/L Normal 0-32 [facility] Internal Medicine; [facility] Internal Medicine Work Phone: Comment on above: PATIENT WAS FASTINGP ERFORMED BY: [facility] Xafjuh2568 [address] RoadDublin [place] [id number] ALT enzyme act/vol 16 [iU]/L Normal 0-32 [facility] Internal Medicine Work Phone: Comment on above: PATIENT WAS FASTINGP ERFORMED BY: [facility] Ggelya1139 [address] RoadDublin [place] [id number] AST [Catalytic activity/Vol] 18 U/L Normal 0-40 [facility] Internal Medicine; [facility] Internal Medicine Work Phone: Comment on above: PATIENT WAS FASTINGP ERFORMED BY: [facility] Etxorq2857 [address] RoadDublin [place] [id number] AST enzyme act/vol 18 [iU]/L Normal 0-40 [facility] Internal Medicine Work Phone: Comment on above: PATIENT WAS FASTINGP ERFORMED BY: CB [facility] Imsnuw3910 [address]Dublin [place] [id number] Bilirubin mass conc 0.4 mg/dL Normal 0.0-1.2 [facility] Internal Medicine Work Phone: Comment on above: PATIENT WAS FASTINGP ERFORMED BY: CB [facility] Eydrej9524 [address] RoadDublin [place] [id number] Calcium mass conc 8.9 mg/dL Normal 8.7-10.2 Compreh ensive Internal Medicine Work Phone: Comment on above: PATIENT WAS FASTINGP ERFORMED BY: JOHN [facility] Cpfofu2815 [address] RoadDublin [place] [id number] Chloride molar conc 108 mmol/L Normal 97-108 Compr ehensive Internal Medicine Work Phone: Comment on above: PATIENT WAS FASTINGP ERFORMED BY: JOHN [facility] Serpxb0014 [address] RoadDublin [place] [id number] CO2 molar conc 19 mmol/L Normal 19-28 Comprehens jose Internal Medicine Work Phone: Comment on above: PATIENT WAS FASTINGP ERFORMED BY: JONH [facility] Wlwqsp9377 [address] Roadblin [place] [id number] Creatinine mass conc 0.76 mg/dL Normal 0.57-1.00 Comp rehensive Internal Medicine Work Phone: Comment on above: PATIENT WAS FASTINGP ERFORMED BY: JOHN [facility] Vloiiz44[address] RoadFormerly [facility] Centerin [place] [id number] GFR/1.73 sq M predicted among blacks CKD-EPI vol rate/area (S/P/Bld) 106 mL/min/1.73 Normal Comprehe nsive Internal Medicine Work Phone: Comment on above: PATIENT WAS FASTINGP ERFORMED BY: JOHN [facility] Agdfrh6174 [address] Roadblin [place] [id number] GFR/1.73 sq M predicted among non-blacks CKD-EPI vol rate/area (S/P/Bld) 92 mL/min/1.73 Normal [facility] Work Phone: Comment on above: PATIENT WAS FASTINGP ERFORMED BY: CB [facility] Laphnc8046 [address] RoadDublin [place] [id number] Globulin mass conc (S) 2.4 g/dL Normal 1.5-4.5 Co mprehensive Internal Medicine Work Phone: Comment on above: PATIENT WAS FASTINGP ERFORMED BY: CB [facility] Bwparc5481 [address] Roadblin [place] [id number] Glucose mass conc 90 mg/dL Normal 65-99 Compreh ensive Internal Medicine Work Phone: Comment on above: PATIENT WAS FASTINGP ERFORMED BY: JOHN Recinos6370 [facility] [id number] Potassium molar conc 4.0 mmol/L Normal 3.5-5.2 Comp rehensive Internal Medicine Work Phone: Comment on above: PATIENT WAS FASTINGP ERFORMED BY: JOHN Anguiano Bmpgzt0631 [facility] [id number] Protein mass conc 6.5 g/dL Normal 6.0-8.5 Compreh ensive Internal Medicine Work Phone: Comment on above: PATIENT WAS FASTINGP ERFORMED BY: JOHN Elena Tylin6370 [facility] [id number] Sodium molar conc 142 mmol/L Normal 134-144 Compreh ensive Internal Medicine Work Phone: Comment on above: PATIENT WAS FASTINGP ERFORMED BY: JOHN Luisa Ngnxas4915 [facility] [id number] Urea nitrogen mass conc 13 mg/dL Normal 6-24 C omprehensive Internal Medicine Work Phone: Comment on above: PATIENT WAS FASTINGP ERFORMED BY: JOHN Elena Tylin6370 [facility] [id number] Urea nitrogen/Creatinine mass ratio 17 mg/mg Normal 9-23 [facility] Work Phone: Comment on above: PATIENT WAS FASTINGP ERFORMED BY: JOHN Luisa Wavena4444 [facility] [id number] Microscopic ExaminationOrder ed By: Qa Lead on 04-02-2013 Bacteria LM.HPF #/area (Urine sed) Few Normal [facility] Work Phone: Comment on above: PATIENT WAS FASTINGP ERFORMED BY: JOHN LuisaHelen V[place] 9376370 [facility] [id number] Epithelial cells LM.HPF #/area (Urine sed) /[HPF] Abnormal 0 - 10 [facility] Work Phone: Comment on above: PATIENT WAS FASTINGP ERFORMED BY: JOHN [facility] Gtcrnn2285 [address] RoadDublin [place] [id number] Mucus Ql (Urine sed) Present Normal Comp rehensive Internal Medicine Work Phone: Comment on above: PATIENT WAS FASTINGP ERFORMED BY: JOHN [facility] Wurnbf3724 [address] RoadDublin [place] [id number] RBC LM.HPF #/area (Urine sed) 0-3 Normal 0 - 3 [facility] Work Phone: Comment on above: PATIENT WAS FASTINGP ERFORMED BY: JOHN [facility] Upajid8220 [address] RoadDublin [place] [id number] WBC LM.HPF #/area (Urine sed) 0-5 Normal 0 - 5 [facility] Work Phone: Comment on above: PATIENT WAS FASTINGP ERFORMED BY: JOHN [facility] Rvgyrm6312 [address] RoadDublin [place] [id number] Yeast LM.HPF #/area (Urine sed) Present Abnormal [facility] Work Phone: Comment on above: PATIENT WAS FASTINGP ERFORMED BY: [facility] Ykwiyz8410 [address] RoadDublin [place] [id number] TSH ([id number])Ordered By: Syste m Computer Assembler on 04-02-2013 Thyrotropin Qn 1.150 {uIU/mL} Normal 0.450-4.500 Compr ehensive Internal Medicine Work Phone: Comment on above: PATIENT WAS FASTINGP ERFORMED BY: [facility] Szlehs8810 [address]Dublin [place] [id number] URINALYSIS, W/ MICRO ([id number]) Ordered By: Qa Lead on 04-02-2013 Appearance Nom (U) Clear Normal Compre hensive Internal Medicine Work Phone: Comment on above: PATIENT WAS FASTINGP ERFORMED BY: CB [facility] [id number] [address] RoadDublin [place] [id number] Bilirubin Ql (U) Negative Normal Comprehe nsive Internal Medicine Work Phone: Comment on above: PATIENT WAS FASTINGP ERFORMED BY: [facility] [id number] [address] RoadDublin [place] [id number] Bilirubin Ql (U) Negative Normal Comprehe nsive [facility] Medicine; [facility] Work Phone: Comment on above: PATIENT WAS FASTINGP ERFORMED BY: JOHN Tylin6[address]Dublin [place] [id number] Color Nom (U) Yellow Normal Comprehensi ve Internal Medicine Work Phone: Comment on above: PATIENT WAS FASTINGP ERFORMED BY: JOHN Tylin6[address]Dublin [place] [id number] Glucose Ql (U) Negative Normal Comprehens jose Internal Medicine Work Phone: Comment on above: PATIENT WAS FASTINGP ERFORMED BY: JOHN Recinos[address]Dublin [place] [id number] Glucose Ql (U) Negative Normal Comprehens jose [facility] Medicine; [facility] Work Phone: Comment on above: PATIENT WAS FASTINGP ERFORMED BY: JOHN Tylin6[address]Duin [place] [id number] Hemoglobin Ql (U) Negative Normal Compreh ensive Internal Medicine Work Phone: Comment on above: PATIENT WAS FASTINGP ERFORMED BY: JOHN Recinos[address]Dublin [place] [id number] Hemoglobin Ql (U) Negative Normal Compreh ensive Internal Medicine; [facility] Work Phone: Comment on above: PATIENT WAS FASTINGP ERFORMED BY: JOHN Recinos[address] [place] [id number] Ketones Ql (U) Negative Normal Comprehens jose [facility] Medicine Work Phone: Comment on above: PATIENT WAS FASTINGP ERFORMED BY: JOHN Tylin[address]Dublin [place] [id number] Ketones Ql (U) Negative Normal Comprehens jose [facility] Medicine; [facility] Work Phone: Comment on above: PATIENT WAS FASTINGP ERFORMED BY: JOHN Tylin[address]Dublin [place] [id number] Leukocyte esterase Test strip Ql (U) Negative Normal [facility] Work Phone: Comment on above: PATIENT WAS FASTINGP ERFORMED BY: JOHN Recinos[address] [place] [id number] Leukocyte esterase Test strip Ql (U) Negative Normal [facility]; [facility] Work Phone: Comment on above: PATIENT WAS FASTINGP ERFORMED BY: JOHN Dudley[address] [facility] [place] [id number] Microscopic observation LM Nom (Urine sed) MICRON Normal [facility] Work Phone: Comment on above: Microscopic follows if indicated. PATIENT WAS FASTINGP ERFORMED BY: JOHN Recinos[address] [facility] [id number] Microscopic observation LM Nom (Urine sed) See below: Normal [facility] Work Phone: Comment on above: PATIENT WAS FASTINGP ERFORMED BY: JOHN Recinos[address] [facility] [id number] Nitrite Ql (U) Negative Normal Comprehens jose Internal Medicine Work Phone: Comment on above: PATIENT WAS FASTINGP ERFORMED BY: JOHN Recinos[address] [facility] [id number] Nitrite Ql (U) Negative Normal Comprehens jose Internal Medicine; [facility] Work Phone: Comment on above: PATIENT WAS FASTINGP ERFORMED BY: JOHN Recinos6[address] [facility] [id number] pH (U) 6.0 [pH] Normal 5.0-7.5 [facility] Work Phone: Comment on above: PATIENT WAS FASTINGP ERFORMED BY: JOHN Recinos[address] [facility] [place] [id number] Protein Ql (U) Trace Normal Comprehens jose Internal Medicine Work Phone: Comment on above: PATIENT WAS FASTINGP ERFORMED BY: JOHN Recinos[address] [facility] [id number] Specific gravity Relative Density (U) 1.019 1 Normal 1.005-1.030 Comprehensi Internal Medicine Work Phone: Comment on above: PATIENT WAS FASTINGP ERFORMED BY: [facility] [id number] [address]Dublin [place] [id number] Urobilinogen (U) [Mass/Vol] 0.2 mg/dL Normal 0.0-1.9 [facility]; [facility] Work Phone: Comment on above: PATIENT WAS FASTINGP ERFORMED BY: CB [facility] [id number] [address] RoadDublin [place] [id number] Urobilinogen Test strip mass conc (U) 0.2 mg/dL Normal 0.0-1.9 [facility] Internal Medicine Work Phone: Comment on above: PATIENT WAS FASTINGP ERFORMED BY: CB [facility] [id number] RoadDublin [place] [id number] VITAMIN B-12 (CYANOCOBALAMIN ) ([id number])Ordered By: Qa Lead on 04-02-2013 Cobalamin (Vitamin B12) mass conc 552 pg/mL Normal 211-946 [facility] Internal Medicine Work Phone: Comment on above: PATIENT WAS FASTINGP ERFORMED BY: CB [facility] [id number] [address] RoadDublin [place] [id number] Vitamin D Hydroxy (01257)Ord ered By: Qa Lead on 04-02-2013 25-Hydroxyvitamin D2+25-Hydroxyvitamin D3 mass conc 14.5 ng/mL Abnormal 30.0-100.0 [facility] Internal Medicine Work Phone: Comment on above: Vitamin D deficiency has been defined by the [place] of[place] and an Endocrine Society practice guideline as alevel of serum 25-OH vitamin D less than 20 ng/mL (1,2).The Endocrine Society went on to further define vitamin Dinsufficiency as a level between 21 and 29 ng/mL (2).1. IOM ([place] of [employer]). 2010. Dietary reference intakes for calcium and D. [place]: The National Academies Press.2. Diana MF, Simone KURTZ, Rylee BARRAZA, et al. Evaluation, treatment, and prevention of vitamin D deficiency: an Endocrine Society clinical practice guideline. JCEM. 2010; 96(7):1911-30. PATIENT WAS FASTINGP ERFORMED BY: [facility] [address]sh[address] [place] [id number] BREAST UNILATERALOrdered By: Qa Lead on 03-31-2011 BREAST UNILATERAL See Note Normal Compreh ensive Internal Medicine Work Phone: Comment on above: PROCEDURE: ULTRASOUN D BREAST(S) - LEFT REASON FOR EXAM: Female, 50 years old. TECHNIQUE: Axial and longitudinal images of the LEFT breast wereperformed with a high resolution ultrasound transducer. COMPARISON: Comparison mammogram studies are 03/31/2011 and 03/01/2011nd 02/25/2010FINDINGS: LEFT BREAST:There is a solid hypoechoic mass in the left breast at the 3 o'clock, 2cmfrom the nipple position measuring 9 x 10 x 8 mm. This appears tocorrespond to one of the masslike densities seen on the mammogram. Posterior Enhancement: No.Posterior Shadowing: None.Margins: Indistinct but smooth.Echogenicity: Hypoechoic. The other density was not seen during real-time sonography or on thegrayscale images submitted for review. This area therefore presumably issolid. It probably represents a ridge of glandular tissue however shortterm 6 month follow up mammogram should be performed to documentstability. IMPRESSION:The solid mass in left breast should be biopsied in order to completelyexclude a malignancy. A radiopaque marker should then be deployed at thepost biopsy site and a repeat mammogram should be performed to documentthat this does correlate with a mass seen on the mammogram. ASSESSMENT CATEGORY:BIRADS Category 4: Suspicious Abnormality - Biopsy Should Be Considered. N.B. : The above information has been verbally conveyed by Usha Echavarria D.O. to Joselo Sharma, covering physician, on 04/01/2011 13:53:05 (ET). To consult with a radiologist regarding this report, please call our [id number] line @ Dictated on 03/31/11 1323 by Seb Echavarria DOcribed on 04/01/11 1359 by ITS IMPORTSign by Usha Echavarria DO on 04/01/11 1400 Sign by: Usha Echavarria DO MAMMOGRAPHY - UNILAT ERAL DIAGNOSTIC: LEFT BREAST REASON FOR EXAM: Female, 50 years old. Abnormal screening mammogram.Masslike density left breast and focal density left breast. PERTINENT HISTORY: Non-contributory. TECHNIQUE: Digital examination. Spot compression Mediolateral oblique(MLO) and spot compression craniocaudad (CC) views of the breast wereobtained. Mediolateral view of the left breast was also performed. CAD:CAD was not performed on this study. COMPARISON: Comparison mammogram studies are dated 03/09/2011 and02/25/2010. FINDINGS:The densities seen on the mammogram study date 03/09 do persist ontheML view and do not disperse on the spot compression view. Further workupwith ultrasound is indicated. IMPRESSION:Further ultrasonographic evaluation recommended, as described above. (I) ASSESSMENT CATEGORY:BIRADS Category 0: Need additional imaging evaluation and/or priormammograms for comparison. A letter regarding these results will be sentto the patient by the facility within 30 days. Approximately 10% of breast cancers are not detected by mammography. Anormal mammogram should not delay biopsy of a clinically suspiciousabnormality. To consult with a radiologist regarding this report, please call our [id number] line @ Dictated on 03/31/11 1314 by Analisa Echavarria DOnscribed on 04/01/11 1148 by ITS IMPORTSign by Usha Echavarria DO on 04/01/11 1149 Sign by: Usha Echavarria DO CBCD,SMEAR DIFFOrdered By: Socorro ystem Computer Assembler on 09-18-2010 Band form neutrophils/100 WBC (Bld) 4 % Normal 0-5 [facility] Work Phone: Basophils/100 WBC (Bld) 1 % Normal 0-1 C omprehensive Internal Medicine Work Phone: Eosinophils/100 WBC (Bld) 4 % Normal 0-5 [facility] Work Phone: Erythrocyte distribution width Ratio (RBC) 12.5 % Normal 11.6-14.6 [facility] Internal Medicine Work Phone: Hematocrit Volume Fraction (Bld) 39.1 % Normal 37-47 [facility] Internal Medicine Work Phone: Hemoglobin mass conc (Bld) 13.0 g/dL Normal 12.0-16.0 [facility] Internal Medicine Work Phone: Lymphocytes/100 WBC (Bld) 36 % Normal 19-41 [facility] Internal Medicine Work Phone: MCH Entitic mass (RBC) 31.7 pg Normal 27.0-32.0 [facility] Work Phone: MCHC mass conc (RBC) 33.2 g/dL Normal 32-36 [facility] Internal Medicine Work Phone: MCV Entitic volume (RBC) 95.5 fL Normal 81-99 [facility] Internal Medicine Work Phone: Monocytes/100 WBC (Bld) 3 % Normal 0-10 C o[facility]rehensive Internal Medicine Work Phone: Neutrophils #/vol (Bld) 3.7 3/uL Normal 2.0-7.7 [facility] Work Phone: Platelets #/vol (Bld) 204 10*3/uL Normal 150-450 [facility] Internal Medicine Work Phone: Platelets #/vol (Bld) SeeNote Normal Com prehensive Internal Medicine Work Phone: Comment on above: Result: ADEQUATE RBC #/vol (Bld) 4.10 {M/mm3} Abnormal 4.2-5.4 Compreh ensive Internal Medicine Work Phone: WBC #/vol (Bld) 6.4 10*3/uL Normal 4.4-11.0 Comprehe nsive Internal Medicine Work Phone: CBCD,SMEAR DIFF SeeNote Normal Comprehen [facility] Internal Medicine Work Phone: Comment on above: Result: NORM C+C CBCD,SMEAR DIFF GIANT Normal Comprehen [facility] Internal Medicine Work Phone: Comment on above: rare CBCD,SMEAR DIFF 52 % Normal 47-70 [facility] Internal Medicine Work Phone: CBCD,SMEAR DIFF 100 1 Normal [facility] Internal Medicine Work Phone: COMP METABOLICOrdered By: Garrett stem Computer Assembler on 09-18-2010 Albumin mass conc 4.0 g/dL Normal 3.4-5.0 [facility] Internal Medicine Work Phone: Albumin/Globulin mass ratio 1.4 {RATIO} Normal 0.9-2.4 [facility] Internal Medicine Work Phone: ALP enzyme act/vol 50 U/L Normal 50-136 [facility] Internal Medicine Work Phone: ALT enzyme act/vol 23 U/L Normal 12-78 [facility] Internal Medicine Work Phone: Anion gap molar conc 11 mmol/L Normal 5-15 [facility] Internal Medicine Work Phone: AST enzyme act/vol 10 U/L Abnormal 15-37 [facility] Internal Medicine Work Phone: Bilirubin mass conc 0.50 mg/dL Normal 0.00-1.00 [facility] Internal Medicine Work Phone: Calcium mass conc 9.3 mg/dL Normal 8.5-10.1 [facility] Internal Medicine Work Phone: Chloride molar conc 108 mmol/L Abnormal 98-107 [facility] Internal Medicine Work Phone: CO2 molar conc 23.0 mmol/L Normal 21.0-32.0 [facility] Internal Medicine Work Phone: Creatinine mass conc 0.9 mg/dL Normal 0.6-1.0 [facility] Internal Medicine Work Phone: GFR/1.73 sq M predicted among blacks MDRD vol rate/area (S/P/Bld) 86 mL/min/{1.73_m2} [facility] Work Phone: GFR/1.73 sq M.predicted MDRD vol rate/area 71 mL/min/{1.73_m2} Normal Comprehen sive Internal Medicine Work Phone: Globulin mass conc (S) 2.9 g/dL Normal 2.7-4.2 Co mprehensive Internal Medicine Work Phone: Glucose mass conc 90 mg/dL Normal 70-110 Compreh ensive Internal Medicine Work Phone: Potassium molar conc 3.8 mmol/L Normal 3.5-5.1 Comp rehensive Internal Medicine Work Phone: Protein mass conc 6.9 g/dL Normal 6.4-8.2 Compreh ensive Internal Medicine Work Phone: Sodium molar conc 142 mmol/L Normal 136-145 Compreh ensive Internal Medicine Work Phone: Urea nitrogen mass conc 12 mg/dL Normal 7-18 [facility] Work Phone: Urea nitrogen/Creatinine mass ratio 13.3 {RATIO} Normal 10-20 [facility] Work Phone: LIPIDOrdered By: System Rea yvonne on 09-18-2010 Cholesterol in HDL mass conc 60 mg/dL Normal [facility] Work Phone: Comment on above: Reference Range HDL <40 mg/dL Low HDL Cholesterol HDL >or= 60 mg/dL High HDL Cholesterol Cholesterol in LDL mass conc 105 mg/dL Normal 0-130 [facility] Work Phone: Cholesterol in VLDL mass conc 33 mg/dL Normal 5-40 [facility] Work Phone: Cholesterol mass conc 198 mg/dL Normal Com prehensive Internal Medicine Work Phone: Comment on above: <200 mg/dL Desirable 200-240 mg/dL Borderline >240 mg/dL High Risk Triglyceride mass conc 166 mg/dL Normal Co mprehensive Internal Medicine Work Phone: Comment on above: Serum Triglycerides Reference Interval Normal <150 mg/dL Borderline high 150 - 199 mg/dL High 200 - 499 mg/dL Very High > or = 500 mg/dL TSHOrdered By: System [employer] r on 09-18-2010 Thyrotropin Qn 0.86 {uIU/mL} Normal 0.358-3.74 Compreh ensive Internal Medicine Work Phone: CBCD,SMEAR DIFFOrdered By: Socorro woodruffte Computer Assembler on 04-08-2009 Band form neutrophils/100 WBC (Bld) 2 % Normal 0-5 [facility] Work Phone: Eosinophils/100 WBC (Bld) 2 % Normal 0-5 [facility] Work Phone: Erythrocyte distribution width Ratio (RBC) 12.4 % Normal 11.6-14.6 [facility] Work Phone: Hematocrit Volume Fraction (Bld) 38.4 % Normal 37-47 [facility] Work Phone: Hemoglobin mass conc (Bld) 13.0 g/dL Normal 12.0-16.0 [facility] Work Phone: Lymphocytes/100 WBC (Bld) 30 % Normal 19-41 [facility] Work Phone: MCH Entitic mass (RBC) 31.3 pg Normal 27.0-32.0 Co mprehensive Internal Medicine Work Phone: MCHC mass conc (RBC) 33.9 g/dL Normal 32-36 Comp rehensive Internal Medicine Work Phone: MCV Entitic volume (RBC) 92.4 fL Normal 81-99 [facility] Work Phone: Monocytes/100 WBC (Bld) 2 % Normal 0-10 [facility] Work Phone: Platelets #/vol (Bld) 196 10*3/uL Normal 150-450 Co mprehensive Internal Medicine Work Phone: Platelets #/vol (Bld) SeeNote Normal Com prehensive Internal Medicine Work Phone: Comment on above: Result: ADEQUATE RBC #/vol (Bld) 4.16 {M/mm3} Abnormal 4.2-5.4 Compreh ensive Internal Medicine Work Phone: WBC #/vol (Bld) 6.1 10*3/uL Normal 4.4-11.0 Comprehe nsive Internal Medicine Work Phone: CBCD,SMEAR DIFF 100 1 Normal [facility] Internal Medicine Work Phone: CBCD,SMEAR DIFF 64 % Normal 47-70 [facility] Internal Medicine Work Phone: COMP METABOLICOrdered By: Garrett stem Computer Assembler on 04-08-2009 Albumin mass conc 3.7 g/dL Normal 3.4-5.0 [facility] Internal Medicine Work Phone: Albumin/Globulin mass ratio 1.1 {RATIO} Normal 0.9-2.4 [facility] Internal Medicine Work Phone: ALP enzyme act/vol 53 U/L Normal 50-136 [facility] Internal Medicine Work Phone: ALT enzyme act/vol 16 U/L Normal 12-78 [facility] Internal Medicine Work Phone: Anion gap molar conc 7 mmol/L Normal 5-15 [facility] Internal Medicine Work Phone: AST enzyme act/vol 7 U/L Abnormal 15-37 [facility] Internal Medicine Work Phone: Bilirubin mass conc 0.60 mg/dL Normal 0.00-1.00 [facility] Internal Medicine Work Phone: Calcium mass conc 8.8 mg/dL Normal 8.5-10.1 [facility] Internal Medicine Work Phone: Chloride molar conc 111 mmol/L Abnormal 98-107 [facility] Internal Medicine Work Phone: CO2 molar conc 23.0 mmol/L Normal 21.0-32.0 [facility] Internal Medicine Work Phone: Creatinine mass conc 0.7 mg/dL Normal 0.6-1.0 [facility] Internal Medicine Work Phone: GFR/1.73 sq M predicted among blacks MDRD vol rate/area (S/P/Bld) 116 mL/min/{1.73_m2} Normal Compreh [facility] Internal Medicine Work Phone: GFR/1.73 sq M.predicted MDRD vol rate/area 96 mL/min/{1.73_m2} Normal Comprehen sive Internal Medicine Work Phone: Globulin mass conc (S) 3.4 g/dL Normal 2.7-4.2 Co m[facility] Internal Medicine Work Phone: Glucose mass conc 92 mg/dL Normal 70-110 Compreh ensive Internal Medicine Work Phone: Potassium molar conc 3.5 mmol/L Normal 3.5-5.1 Comp rehensive Internal Medicine Work Phone: Protein mass conc 7.1 g/dL Normal 6.4-8.2 Compreh ensive Internal Medicine Work Phone: Sodium molar conc 141 mmol/L Normal 136-145 Compreh ensive Internal Medicine Work Phone: Urea nitrogen mass conc 19 mg/dL Abnormal 7-18 [facility] Work Phone: Urea nitrogen/Creatinine mass ratio 27.1 {RATIO} Abnormal 10-20 [facility] Work Phone: COMPLETE UAOrdered By: Maricruz mcgill Computer Assembler on 04-08-2009 Bacteria LM.HPF #/area (Urine sed) 0 SEEN Normal [facility] Work Phone: Clarity Nom (U) CLEAR Normal Comprehen sive Internal Medicine Work Phone: Color Nom (U) YELLOW Normal Comprehensi ve Internal Medicine Work Phone: Glucose mass conc SeeNote Normal Compreh ensive Internal Medicine Work Phone: Comment on above: Result: NEGATIVE Protein mass conc SeeNote Normal Compreh ensive Internal Medicine Work Phone: Comment on above: Result: NEGATIVE RBC #/vol (U) SeeNote Normal 0-5 Comprehensi ve Internal Medicine Work Phone: Comment on above: Result: 0-5 SEEN WBC #/vol (Bld) 0 SEEN Normal 0-5 Comprehen sive Internal Medicine Work Phone: COMPLETE UA 0 SEEN Normal [facility] Work Phone: COMPLETE UA SeeNote Normal [facility] Work Phone: Comment on above: Result: NEGATIVE Result: NORM C+C Result: 0-5 SEEN COMPLETE UA RARE Normal [facility] Work Phone: COMPLETE UA 1.025 1 Normal 1.002-1.030 Comprehensiv e Internal Medicine Work Phone: COMPLETE UA 0.2 EU/dl Normal 0.2 - 1.0 [facility] Work Phone: COMPLETE UA 6.0 1 Normal 5.0-8.0 [facility] Work Phone: LIPIDOrdered By: System Rea yvonne on 04-08-2009 Cholesterol in HDL mass conc 52 mg/dL Normal [facility] Work Phone: Comment on above: Reference RangeHDL < 40 mg/dL Low HDL CholesterolHDL >or= 60 mg/dL High HDL Cholesterol Cholesterol in LDL mass conc 76 mg/dL Normal 0-130 [facility] Work Phone: Cholesterol in VLDL mass conc 29 mg/dL Normal 5-40 [facility] Work Phone: Cholesterol mass conc 157 mg/dL Normal Com prehensive Internal Medicine Work Phone: Comment on above: <200 mg/dL Desirable 200-240 mg/dL Borderline>240 mg/dL High Risk Triglyceride mass conc 144 mg/dL Normal Co [facility] Internal Medicine Work Phone: Comment on above: Serum Triglycerides Reference IntervalNormal <150 mg/dLBorderline high 150 - 199 mg/dLHigh 200 - 499 mg/dLVery High > or = 500 mg/dL TSHOrdered By: System Manage r on 04-08-2009 Thyrotropin Qn 0.82 {uIU/mL} Normal 0.358-3.74 Compreh ensive Internal Medicine Work Phone: ANDROSTEN [id number] By: Sy stem Computer Assembler on 10-10-2006 ANDROSTEN 4705 110 ng/dL Normal 47-268 Comprehens jose Internal Medicine Work Phone: DHEA SULF [id number] By: [employer] stem Computer Assembler on 10-10-2006 DHEA SULF 4697 165 ug/dL Normal 32-240 Comprehens jose Internal Medicine Work Phone: Comment on above: Performed At: [address]Dublin, [place] [id number] At: [address] [id number] FSH 4309Ordered By: Casey mtz on 10-10-2006 FSH 4309 6.3 m[iU]/mL Normal Comprehensiv e Internal Medicine Work Phone: Comment on above: . Male Female 5th da y <0.2 - 4.6 <0.2 - 4.6 2 mo- 3 yrs. 0.2 - 2.7 1.4 - 9.2 4- 6 yrs. 0.2 - 2.7 0.4 - 6.6 7- 9 yrs. 0.2 - 2.7 0.4 - 5.0 10-11 yrs. 0.4 - 5.0 Not Estab 12-13 yrs. 0.4 - 6.6 Not Estab 14-15 yrs. 0.7 - 13.2 Not Estab >15 yrs. 1.4 - 18.1 See Below Female Follicular 2.5 - 10.2 Midcycle 3.4 - 33.4 Luteal 1.5 - 9.1 <0.2 Postmenopausal 23.0 - 116.3 KOrdered By: Qa Lead on 10-10-2006 Potassium molar conc 3.9 mmol/L Normal 3.5-5.1 Comp rehensive Internal Medicine Work Phone: LUTEIN HOR [id number] By: Socorro woodrufftem Computer Assembler on 10-10-2006 LUTEIN HOR 4283 7.8 m[iU]/mL Normal 0.0-76.3 Compreh ensive Internal Medicine Work Phone: Comment on above: Male Female 0- 1 yr. 0.5 - 1.9 0.0 - 0.5 2- 5 yrs. 0.0 - 0.5 0.0 - 0.5 6- 10 yrs. 0.0 - 0.5 0.0 - 0.5 11- 19 yrs. 0.5 - 5.3 0.5 - 9.0 20- 69 yrs. 1.5 - 9.3 0.0 - 76.3 70-100 yrs. 3.1 - 34.6 5.0 - 52.3 Female Follicular 1.9 - 12.5 Midcycle 8.7 - 76.3 Luteal 0.5 - 16.9 0.0 - 1.5 Postmenopausal 15.9 - 54.0 Contraceptives 0.7 - 5.6 TESTOST [id number] By: Socorro [employer] Computer Assembler on 10-10-2006 TESTOST [id number] 46 ng/dL Normal 14-76 [facility] Internal Medicine Work Phone: TESTOST [id number] 1.14 ng/dL Abnormal 0.10-0.85 [facility] Internal Medicine Work Phone: TESTOST [id number] 2.47 % Normal 0.50-2.80 [facility] Internal Medicine Work Phone: CBCD,SMEAR DIFFOrdered By: Socorro [employer] Computer Assembler on 07-05-2006 Eosinophils/100 WBC (Bld) 2 % Normal 0-5 [facility] Internal Medicine Work Phone: Erythrocyte distribution width Ratio (RBC) 13.0 % Normal 11.6-14.6 [facility] Internal Medicine Work Phone: Hematocrit Volume Fraction (Bld) 39.2 % Normal 37-47 [facility] Internal Medicine Work Phone: Hemoglobin mass conc (Bld) 13.5 g/dL Normal 12.0-16.0 [facility] Internal Medicine Work Phone: Lymphocytes/100 WBC (Bld) 41 % Normal 19-41 [facility] Internal Medicine Work Phone: MCH Entitic mass (RBC) 31.4 pg Normal 27.0-32.0 [facility] Internal Medicine Work Phone: MCHC mass conc (RBC) 34.3 g/dL Normal 32-36 Comp rehensive Internal Medicine Work Phone: MCV Entitic volume (RBC) 91.5 fL Normal 81-99 [facility] Work Phone: Monocytes/100 WBC (Bld) 6 % Normal 0-10 [facility] Internal Medicine Work Phone: Platelets #/vol (Bld) SeeNote Normal Com prehensive Internal Medicine Work Phone: Comment on above: Result: ADEQUATE Platelets #/vol (Bld) 240 10*3/uL Normal 150-450 [facility] Internal Medicine Work Phone: RBC #/vol (Bld) 4.29 {M/mm3} Normal 4.2-5.[address] [facility] Internal Medicine Work Phone: WBC #/vol (Bld) 5.2 10*3/uL Normal 4.4-11.0 Comprehe [facility] Internal Medicine Work Phone: CBCD,SMEAR DIFF 100 1 [facility] Work Phone: CBCD,SMEAR DIFF 51 % Normal 47-70 [facility] Work Phone: COMP METABOLICOrdered By: Garrett stem Computer Assembler on 07-05-2006 Albumin mass conc 3.7 g/dL Normal 3.4-5.[address] [facility] [facility] Internal Medicine Work Phone: Albumin/Globulin mass ratio 1.1 {RATIO} Normal 0.9-2.4 [facility] Internal Medicine Work Phone: ALP enzyme act/vol 58 U/L Normal 50-136 [facility] Internal Medicine Work Phone: ALT enzyme act/vol 29 [iU]/L Abnormal 30-65 [facility] Internal Medicine Work Phone: Anion gap molar conc 11 mmol/L Normal 5-15 [facility] Internal Medicine Work Phone: AST enzyme act/vol 11 U/L Abnormal 15-37 [facility] Work Phone: Bilirubin mass conc 0.61 mg/dL Normal 0.00-1.00 Compr [facility] Internal Medicine Work Phone: Calcium mass conc 8.5 mg/dL Normal 8.5-10.[address] [facility] Internal Medicine Work Phone: Chloride molar conc 107 mmol/L Normal 98-107 [facility] Internal Medicine Work Phone: CO2 molar conc 23.2 mmol/L Normal 22.0-29.0 [facility] Work Phone: Creatinine mass conc 0.8 mg/dL Normal 0.6-1.0 Comp rehensive Internal Medicine Work Phone: Globulin mass conc (S) 3.3 g/dL Normal 2.3-3.5 [facility] Internal Medicine Work Phone: Glucose mass conc 91 mg/dL Normal 70-110 Compre[facility] ensive Internal Medicine Work Phone: Potassium molar conc 3.4 mmol/L Abnormal 3.5-5.1 Comp rehensive Internal Medicine Work Phone: Protein mass conc 7.0 g/dL Normal 6.4-8.2 Compreh ensive Internal Medicine Work Phone: Sodium molar conc 141 mmol/L Normal 136-145 Compre[facility] ensive Internal Medicine Work Phone: Urea nitrogen mass conc 14 mg/dL Normal 7-18 [facility] Internal Medicine Work Phone: Urea nitrogen/Creatinine mass ratio 17.5 {RATIO} Normal 10-20 [facility] Work Phone: LIPIDOrdered By: System Rea russell on 07-05-2006 Cholesterol in HDL mass conc 47 mg/dL Normal [facility] Work Phone: Comment on above: Reference Range HDL <40 mg/dL Low HDL Cholesterol HDL >or= 60 mg/dL High HDL Cholesterol Cholesterol in LDL mass conc 108 mg/dL Normal 0-130 [facility] Work Phone: Cholesterol in VLDL mass conc 15 mg/dL Normal 5-40 [facility] Work Phone: Cholesterol mass conc 170 mg/dL Normal Com prehensive Internal Medicine Work Phone: Comment on above: <200 mg/dL Desirable 200-240 mg/dL Borderline >240 mg/dL High Risk Triglyceride mass conc 74 mg/dL Normal [facility] Internal Medicine Work Phone: Comment on above: Serum Triglycerides Reference Interval Normal <150 mg/dL Borderline high 150 - 199 mg/dL High 200 - 499 mg/dL Very High > or = 500 mg/dL ROUTINE UAOrdered By: Qa Lead on 07-05-2006 Clarity Nom (U) CLEAR Normal Comprehen sive Internal Medicine Work Phone: Color Nom (U) YELLOW Normal Comprehensi ve Internal Medicine Work Phone: Glucose mass conc SeeNote Normal Compreh ensive Internal Medicine Work Phone: Comment on above: Result: NEGATIVE Protein mass conc SeeNote Normal Compreh ensive Internal Medicine Work Phone: Comment on above: Result: NEGATIVE ROUTINE UA 0.2 EU/dl Normal 0.2 - 1.0 [facility] Work Phone: ROUTINE UA SeeNote Normal [facility] Work Phone: Comment on above: Result: NEGATIVE Result: NORM C&C ROUTINE UA 1+ Abnormal [facility] Work Phone: ROUTINE UA 5.5 1 Normal 5.0-8.0 [facility] Work Phone: ROUTINE UA <=1.005 Normal 1.002-1.030 [facility] Work Phone: TSHOrdered By: System Manage r on 07-05-2006 Thyrotropin Qn 0.52 {uIU/mL} Normal 0.34-4.82 Compreh ensive Internal Medicine Work Phone: Vital Signs Date Time Vital Sign Value Performing Clinician Facility 03-27-2024 10:55-0500 Body height 167.[address] Madina Green MD Work Phone: [facility] 03-27-2024 10:55-0500 Body mass index (BMI) [Ratio] 36.5 kg/m2 Dr. Madina Green MD Work Phone: [facility] 03-27-2024 10:55-0500 Body temperature 97.1 [degF] Dr. Madina Green MD Work Phone: [facility] 03-27-2024 10:55-0500 Body weight 102.[address] Madina Green MD Work Phone: [facility] 03-27-2024 10:55-0500 Diastolic blood pressure 70 mm[Hg] Dr. Madina Green MD Work Phone: [facility] 03-27-2024 10:55-0500 Heart rate 57 /min Dr. Madina Green MD Work Phone: [facility] 03-27-2024 10:55-0500 Respiratory rate 16 /min Dr. Madina Green MD Work Phone: [facility] 03-27-2024 10:55-0500 SaO2% (BldA) [Mass fraction] 99 % Dr. Madina Green MD Work Phone: [facility] 03-27-2024 10:55-0500 Systolic blood pressure 124 mm[Hg] Dr. Madina Green MD Work Phone: [facility] 11-25-2021 08:28-0400 Body height 161.93 cm Aria Yun MA [facility]; [facility] Work Phone: 11-25-2021 08:28-0400 Body mass index (BMI) [Ratio] 36.33 kg/m2 Aria Yun MA [facility]; [facility] Work Phone: 11-25-2021 08:28-0400 Body surface area Derived from formula 1.99 m2 Aria Yun MA [facility]; [facility] Work Phone: 11-25-2021 08:28-0400 Body temperature 91.9 [degF] Aria Yun MA [facility]; [facility] Work Phone: 11-25-2021 08:28-0400 Body weight 95.26 kg Aria Yun MA [facility]; [facility] Work Phone: 11-25-2021 08:28-0400 Diastolic blood pressure 80 mm[Hg] Aria Yun MA [facility]; [facility] Work Phone: Comment on above: Patient Position: Sitting; Cuff Location : Left Arm; Cuff Size: Standard 11-25-2021 08:28-0400 Heart rate 56 /min Aria Court MA [facility]; [facility] Work Phone: Comment on above: Pattern: Regular 11-25-2021 08:28-0400 SaO2% (BldA) [Mass fraction] 96 % Aria Yun MA [facility]; [facility] Work Phone: Comment on above: Room air 11-25-2021 08:28-0400 Systolic blood pressure 102 mm[Hg] Aria Yun MA [facility]; [facility] Work Phone: Comment on above: Patient Position: Sitting; Cuff Location : Left Arm; Cuff Size: Standard 10-28-2021 11:01-0400 Body height 161.93 cm Jacque Slarb ALONDRA [facility]; [facility] Work Phone: 10-28-2021 11:01-0400 Body mass index (BMI) [Ratio] 36.33 kg/m2 Jacque Vijayrb [employer] [facility]; [facility] Work Phone: 10-28-2021 11:01-0400 Body surface area Derived from formula 1.99 m2 Jacque Slarb [employer] [facility]; [facility] Work Phone: 10-28-2021 11:01-0400 Body weight 95.26 kg Jacque Vijayrb [employer] [facility]; [facility] Work Phone: 10-28-2021 11:01-0400 Diastolic blood pressure 82 mm[Hg] Jacque Linaresrb [employer] [facility]; [facility] Work Phone: Comment on above: Patient Position: Sitting; Cuff Location : Left Arm; Cuff Size: Standard 10-28-2021 11:01-0400 Heart rate 57 /min Jacque Slarb [employer] [facility]; [facility] Work Phone: Comment on above: Pattern: Regular 10-28-2021 11:01-0400 Respiratory rate 16 /min Jacque Slarb [employer] [facility]; [facility] Work Phone: Comment on above: Pattern: Unlabored 10-28-2021 11:01-0400 SaO2% (BldA) [Mass fraction] 95 % Jacque Leon [employer] [facility]; [facility] Work Phone: Comment on above: Room air 10-28-2021 11:01-0400 Systolic blood pressure 118 mm[Hg] Jacque Leon [employer] [facility]; [facility] Work Phone: Comment on above: Patient Position: Sitting; Cuff Location : Left Arm; Cuff Size: Standard 12-08-2020 11:53-0400 Body height 161.93 cm Jacque Leon [employer] [facility]; [facility] Work Phone: Comment on above: pt did not report 12-08-2020 11:53-0400 Body mass index (BMI) [Ratio] 36.16 kg/m2 Jacque Linaresrb [employer] [facility]; [facility] Work Phone: Comment on above: pt did not report 12-08-2020 11:53-0400 Body surface area Derived from formula 1.99 m2 Jacque Linaresrb [employer] [facility]; [facility] Work Phone: Comment on above: pt did not report 12-08-2020 11:53-0400 Body weight 94.83 kg Jacque Linaresrb [employer] [facility]; [facility] Work Phone: Comment on above: pt did not report 09-15-2020 09:04-0400 Body height 161.93 cm Shan Pan [facility]; [facility] Work Phone: 09-15-2020 09:04-0400 Body mass index (BMI) [Ratio] 36.68 kg/m2 Shan Pan [facility]; [facility] Work Phone: 09-15-2020 09:04-0400 Body mass index (BMI) [Ratio] 36.16 kg/m2 Shan Pan [facility]; [facility] Work Phone: 09-15-2020 09:04-0400 Body surface area Derived from formula 2 m2 Shan Pan [facility]; [facility] Work Phone: 09-15-2020 09:04-0400 Body surface area Derived from formula 1.99 m2 Shan Pan LPN [facility]; [facility] Work Phone: 09-15-2020 09:04-0400 Body temperature 97.9 [degF] Shan Pan LPN [facility]; [facility] Work Phone: Comment on above: Method: Infrared 09-15-2020 09:04-0400 Body weight 96.19 kg Shan Pan LPN [facility]; [facility] Work Phone: 09-15-2020 09:04-0400 Body weight 94.83 kg Shan Pan LPN [facility]; [facility] Work Phone: 09-15-2020 09:04-0400 Diastolic blood pressure 78 mm[Hg] Shan Pan LPN [facility]; [facility] Work Phone: Comment on above: Patient Position: Sitting; Cuff Location : Left Arm; Cuff Size: Standard 09-15-2020 09:04-0400 Heart rate 92 /min Shan Pan LPN [facility]; [facility] Work Phone: Comment on above: Pattern: Regular 09-15-2020 09:04-0400 Respiratory rate 16 /min Shan Pan LPN [facility]; [facility] Work Phone: Comment on above: Pattern: Unlabored 09-15-2020 09:04-0400 SaO2% (BldA) [Mass fraction] 97 % Shan Pan LPN [facility]; [facility] Work Phone: Comment on above: Room air 09-15-2020 09:04-0400 Systolic blood pressure 126 mm[Hg] Shan Pan LPN [facility]; [facility] Work Phone: Comment on above: Patient Position: Sitting; Cuff Location : Left Arm; Cuff Size: Standard 06-02-2020 14:06-0500 BMI (Body Mass Index) 36.68 kg/m2 Shan Pan LPN [facility] Medicine; [facility] Work Phone: 06-02-2020 14:06-0500 Body Temperature 97.3 [degF] Shan Pan LPN [facility]; [facility] Work Phone: Comment on above: Method: Infrared 06-02-2020 14:06-0500 Body weight 96.19 kg Shan Pan LPN [facility]; [facility] Work Phone: 06-02-2020 14:06-0500 BP Diastolic 70 mm[Hg] Shan Pan LPN [facility]; [facility] Work Phone: Comment on above: Patient Position: Sitting; Cuff Location : Left Arm; Cuff Size: Standard 06-02-2020 14:06-0500 BP Systolic 126 mm[Hg] Shan Pan LPN [facility]; [facility] Work Phone: Comment on above: Patient Position: Sitting; Cuff Location : Left Arm; Cuff Size: Standard 06-02-2020 14:06-0500 BSA (Body Surface Area) 2 m2 Shan Pan LPN [facility]; [facility] Work Phone: 06-02-2020 14:06-0500 Height 161.93 cm Shan Pan LPN [facility]; [facility] Work Phone: 06-02-2020 14:06-0500 Pulse (Heart Rate) 82 /min Shan Pan LPN [facility]; [facility] Work Phone: Comment on above: Pattern: Regular 06-02-2020 14:06-0500 Pulse Oximetry 98 % Taylor Tenorio [facility]; [facility] Work Phone: Comment on above: Room air 06-02-2020 14:06-0500 Respiratory Rate 16 /min Shan Pan LPN [facility]; [facility] Work Phone: Comment on above: Pattern: Unlabored 06-02-2020 14:06-0500 SaO2% (BldA) [Mass fraction] 98 % Shan Pan LPN [facility]; [facility] Work Phone: Comment on above: Room air 11-26-2019 10:39-0400 BMI (Body Mass Index) 35.55 kg/m2 Taylor Tenorio Comprehens jose Internal Medicine Work Phone: 11-26-2019 10:39-0400 BMI (Body Mass Index) 32.52 kg/m2 Shan Pan LPN Comprehen sive Internal Medicine Work Phone: 11-26-2019 10:39-0400 Body Temperature 97.2 [degF] Shan Pan LPN [facility] Work Phone: Comment on above: Method: Infrared 11-26-2019 10:39-0400 Body weight 93.21 kg Taylor Tenorio [facility] Internal Medicine Work Phone: 11-26-2019 10:39-0400 Body weight 85.28 kg Shan Pan LPN [facility] Internal Medicine Work Phone: 11-26-2019 10:39-0400 BP Diastolic 68 mm[Hg] Shan Pan LPN [facility] Work Phone: Comment on above: Patient Position: Sitting; Cuff Location : Left Arm; Cuff Size: Standard 11-26-2019 10:39-0400 BP Systolic 102 mm[Hg] Shan Pan LPN [facility] Work Phone: Comment on above: Patient Position: Sitting; Cuff Location : Left Arm; Cuff Size: Standard 11-26-2019 10:39-0400 BSA (Body Surface Area) 1.97 m2 Taylor Tenorio [facility] Internal Medicine Work Phone: 11-26-2019 10:39-0400 BSA (Body Surface Area) 1.9 m2 Shan Pan LPN [facility] Work Phone: 11-26-2019 10:39-0400 Height 161.93 cm Shan Pan LPN [facility] Work Phone: 11-26-2019 10:39-0400 Pulse (Heart Rate) 62 /min Shan Pan LPN [facility] Work Phone: Comment on above: Pattern: Regular 11-26-2019 10:39-0400 Pulse Oximetry 97 % [facility] Work Phone: Comment on above: Room air 11-26-2019 10:39-0400 Respiratory Rate 16 /min Shan Pan ALONDRA [facility] Work Phone: Comment on above: Pattern: Unlabored 11-26-2019 10:39-0400 SaO2% (BldA) [Mass fraction] 97 % Shan Pan ALONDRA [facility]; [facility] Work Phone: Comment on above: Room air 08-29-2019 10:23-0400 BMI (Body Mass Index) 35.55 kg/m2 Karime Miranda ALONDRA Comprehe nsive Internal Medicine Work Phone: 08-29-2019 10:23-0400 Body Temperature 97.9 [degF] Karime Miranda ALONDRA [facility] Work Phone: Comment on above: Method: Temporal 08-29-2019 10:23-0400 Body weight 93.21 kg Karime Miranda ALONDRA [facility] Work Phone: 08-29-2019 10:23-0400 BP Diastolic 72 mm[Hg] Karimeericka Miranda ALONDRA [facility] Work Phone: Comment on above: Patient Position: Sitting; Cuff Location : Left Arm; Cuff Size: Standard 08-29-2019 10:23-0400 BP Systolic 102 mm[Hg] Karime Miranda [employer] [facility] Work Phone: Comment on above: Patient Position: Sitting; Cuff Location : Left Arm; Cuff Size: Standard 08-29-2019 10:23-0400 BSA (Body Surface Area) 1.97 m2 Karime Miranda ALONDRA [facility] Work Phone: 08-29-2019 10:23-0400 Height 161.93 cm Karime Miranda ALONDRA [facility] Work Phone: 08-29-2019 10:23-0400 Pulse (Heart Rate) 64 /min Karimeericka Miranda [employer] Comprehensi Internal Medicine Work Phone: Comment on above: Pattern: Regular 08-29-2019 10:23-0400 Pulse Oximetry 99 % Taylor Tenorio [facility] Work Phone: Comment on above: Room air 08-29-2019 10:23-0400 Respiratory Rate 16 /min Karime Ruth CANTU [facility] Work Phone: Comment on above: Pattern: Unlabored 08-29-2019 10:23-0400 SaO2% (BldA) [Mass fraction] 99 % Karime Ruth CANTU [facility]; [facility] Work Phone: Comment on above: Room air 06-06-2019 13:35-0500 BMI (Body Mass Index) 37.02 kg/m2 Shan Pan LPN Comprehen sive Internal Medicine Work Phone: 06-06-2019 13:35-0500 Body Temperature 97.4 [degF] Shan Pan LPN [facility] Internal Medicine Work Phone: Comment on above: Method: Temporal 06-06-2019 13:35-0500 Body weight 97.08 kg Shan Pan LPN [facility] Work Phone: 06-06-2019 13:35-0500 BP Diastolic 70 mm[Hg] Shan Pan LPN [facility] Internal Medicine Work Phone: Comment on above: Patient Position: Sitting; Cuff Location : Left Arm; Cuff Size: Standard 06-06-2019 13:35-0500 BP Systolic 120 mm[Hg] Shan Pan LPN [facility] Internal Medicine Work Phone: Comment on above: Patient Position: Sitting; Cuff Location : Left Arm; Cuff Size: Standard 06-06-2019 13:35-0500 BSA (Body Surface Area) 2.01 m2 Shan Pan LPN [facility] Work Phone: 06-06-2019 13:35-0500 Height 161.93 cm Shan Pan LPN [facility] Work Phone: 06-06-2019 13:35-0500 Pulse (Heart Rate) 107 /min Shan Pan LPN [facility] Work Phone: Comment on above: Pattern: Regular 06-06-2019 13:35-0500 Pulse Oximetry 98 % Taylor Tenorio [facility] Internal Medicine Work Phone: Comment on above: Room air 06-06-2019 13:35-0500 Respiratory Rate 16 /min Shan Pan LPN [facility] Work Phone: Comment on above: Pattern: Unlabored 06-06-2019 13:35-0500 SaO2% (BldA) [Mass fraction] 98 % Sahn Pan LPN [facility]; [facility] Work Phone: Comment on above: Room air 12-04-2018 08:24-0400 BMI (Body Mass Index) 33.82 kg/m2 Taylor Tenorio Compreh jose Internal Medicine Work Phone: 12-04-2018 08:24-0400 BMI (Body Mass Index) 35.47 kg/m2 Shan Pan LPN Compreh sive Internal Medicine Work Phone: 12-04-2018 08:24-0400 Body Temperature 97.3 [degF] Shan Pan LPN [facility] Internal Medicine Work Phone: Comment on above: Method: Temporal 12-04-2018 08:24-0400 Body weight 88.68 kg Taylor Coby [facility] Internal Medicine Work Phone: 12-04-2018 08:24-0400 Body weight 93.01 kg Shan Pan LPN [facility] Work Phone: 12-04-2018 08:24-0400 BP Diastolic 72 mm[Hg] Shan Pan LPN [facility] Internal Medicine Work Phone: Comment on above: Patient Position: Sitting; Cuff Location : Left Arm; Cuff Size: Standard 12-04-2018 08:24-0400 BP Systolic 106 mm[Hg] Shan Pan LPN [facility] Work Phone: Comment on above: Patient Position: Sitting; Cuff Location : Left Arm; Cuff Size: Standard 12-04-2018 08:24-0400 BSA (Body Surface Area) 1.93 m2 Taylor Coby [facility] Internal Medicine Work Phone: 12-04-2018 08:24-0400 BSA (Body Surface Area) 1.97 m2 Shan Pan LPN [facility] Internal Medicine Work Phone: 12-04-2018 08:24-0400 Height 161.93 cm Shan Pan LPN [facility] Work Phone: 12-04-2018 08:24-0400 Pulse (Heart Rate) 79 /min Shan Pan LPN [facility] Work Phone: Comment on above: Pattern: Regular 12-04-2018 08:24-0400 Pulse Oximetry 97 % Taylor Tenorio [facility] Work Phone: Comment on above: Room air 12-04-2018 08:24-0400 Respiratory Rate 16 /min Shan Pan LPN [facility] Work Phone: Comment on above: Pattern: Unlabored 12-04-2018 08:24-0400 SaO2% (BldA) [Mass fraction] 97 % Shan Pan LPN [facility]; [facility] Work Phone: Comment on above: Room air 05-26-2018 09:17-0500 BMI (Body Mass Index) 33.82 kg/m2 [facility] Work Phone: 05-26-2018 09:17-0500 Body Temperature 97.3 [degF] Zulay Michi [facility] Internal Medicine Work Phone: Comment on above: Method: Temporal 05-26-2018 09:17-0500 Body weight 88.68 kg Zulay Michi [facility] Internal Medicine Work Phone: 05-26-2018 09:17-0500 BP Diastolic 72 mm[Hg] Zulay Shirleylear [facility] Internal Medicine Work Phone: Comment on above: Patient Position: Sitting; Cuff Location : Left Arm; Cuff Size: Standard 05-26-2018 09:17-0500 BP Systolic 108 mm[Hg] Zulay Shirleylear [facility] Internal Medicine Work Phone: Comment on above: Patient Position: Sitting; Cuff Location : Left Arm; Cuff Size: Standard 05-26-2018 09:17-0500 BSA (Body Surface Area) 1.93 m2 Zulay Michi [facility] Internal Medicine Work Phone: 05-26-2018 09:17-0500 Height 161.93 cm Zulay Borden [facility] Internal Medicine Work Phone: 05-26-2018 09:17-0500 Pulse (Heart Rate) 65 /min Zulay Michi [facility] Internal Medicine Work Phone: Comment on above: Pattern: Regular 05-26-2018 09:17-0500 Pulse Oximetry 100 % Taylor Tenorio [facility] Internal Medicine Work Phone: Comment on above: Room air 05-26-2018 09:17-0500 Respiratory Rate 16 /min uZlay Shirleylear [facility] Internal Medicine Work Phone: Comment on above: Pattern: Unlabored 05-26-2018 09:17-0500 SaO2% (BldA) [Mass fraction] 100 % Zulay Borden [facility]; [facility] Work Phone: Comment on above: Room air 05-26-2018 09:17-0500 Weight 88.68 kg Taylor Tenorio [facility] Internal Medicine Work Phone: 10-10-2017 11:40-0400 BMI (Body Mass Index) 34.08 kg/m2 Gabbie Begum RN [facility] Internal Medicine Work Phone: 10-10-2017 11:40-0400 Body Temperature 97.6 [degF] Gabbie Begum RN [facility] Internal Medicine Work Phone: Comment on above: Method: Temporal 10-10-2017 11:40-0400 Body weight 89.36 kg Gabbie Begum RN [facility] Internal Medicine Work Phone: 10-10-2017 11:40-0400 BP Diastolic 78 mm[Hg] Gabbie Begum RN [facility] Work Phone: Comment on above: Patient Position: Sitting; Cuff Location : Left Arm; Cuff Size: Standard 10-10-2017 11:40-0400 BP Systolic 126 mm[Hg] Gabbie Begum RN [facility] Work Phone: Comment on above: Patient Position: Sitting; Cuff Location : Left Arm; Cuff Size: Standard 10-10-2017 11:40-0400 BSA (Body Surface Area) 1.94 m2 Gabbie Begum RN [facility] Work Phone: 10-10-2017 11:40-0400 Height 161.93 cm Gabbie Begum RN [facility] Work Phone: 10-10-2017 11:40-0400 Pulse (Heart Rate) 67 /min Gabbie Begum RN [facility] Work Phone: Comment on above: Pattern: Regular 10-10-2017 11:40-0400 Pulse Oximetry 97 % Taylor Tenorio [facility] Internal Medicine Work Phone: Comment on above: Room air 10-10-2017 11:40-0400 Respiratory Rate 16 /min Gabbie Begum RN [facility] Work Phone: Comment on above: Pattern: Unlabored 10-10-2017 11:40-0400 SaO2% (BldA) [Mass fraction] 97 % Gabbie Begum RN [facility]; [facility] Work Phone: Comment on above: Room air 10-10-2017 11:40-0400 Weight 89.36 kg Taylor Tenorio [facility] Internal Medicine Work Phone: 04-12-2017 13:50-0500 BMI (Body Mass Index) 33.73 kg/m2 Gabbie Begum RN [facility] Internal Medicine Work Phone: 04-12-2017 13:50-0500 Body Temperature 97.2 [degF] Gabbie Begum RN [facility] Internal Medicine Work Phone: Comment on above: Method: Temporal 04-12-2017 13:50-0500 Body weight 88.45 kg Gabbie Begum RN [facility] Work Phone: 04-12-2017 13:50-0500 BP Diastolic 80 mm[Hg] Gabbie Begum RN [facility] Work Phone: Comment on above: Patient Position: Sitting; Cuff Location : Left Arm; Cuff Size: Standard 04-12-2017 13:50-0500 BP Systolic 124 mm[Hg] Gabbie Begum RN [facility] Work Phone: Comment on above: Patient Position: Sitting; Cuff Location : Left Arm; Cuff Size: Standard 04-12-2017 13:50-0500 BSA (Body Surface Area) 1.93 m2 Gabbie Begum RN [facility] Work Phone: 04-12-2017 13:50-0500 Height 161.93 cm Gabbie Begum RN [facility] Work Phone: 04-12-2017 13:50-0500 Pulse (Heart Rate) 78 /min Gabbie Begum RN [facility] Work Phone: Comment on above: Pattern: Regular 04-12-2017 13:50-0500 Pulse Oximetry 96 % Taylor Tenorio [facility] Internal Medicine Work Phone: Comment on above: Room air 04-12-2017 13:50-0500 Respiratory Rate 16 /min Gabbie Begum RN [facility] Work Phone: Comment on above: Pattern: Unlabored 04-12-2017 13:50-0500 SaO2% (BldA) [Mass fraction] 96 % Gabbie Begum RN [facility]; [facility] Work Phone: Comment on above: Room air 04-12-2017 13:50-0500 Weight 88.45 kg Taylor Tenorio [facility] Internal Medicine Work Phone: 04-01-2017 09:32-0500 BMI (Body Mass Index) 33.73 kg/m2 Jacque Vijayrb [employer] [facility] Internal Medicine Work Phone: 04-01-2017 09:32-0500 Body Temperature 97.1 [degF] Jacque Slarb [employer] [facility] Internal Medicine Work Phone: 04-01-2017 09:32-0500 Body weight 88.45 kg Jacque Vijayrb [employer] [facility] Internal Medicine Work Phone: 04-01-2017 09:32-0500 BP Diastolic 76 mm[Hg] Jacque Slarb [employer] [facility] Internal Medicine Work Phone: Comment on above: Patient Position: Sitting; Cuff Location : Left Arm; Cuff Size: Standard 04-01-2017 09:32-0500 BP Systolic 118 mm[Hg] Jacque Vijayrb [employer] [facility] Internal Medicine Work Phone: Comment on above: Patient Position: Sitting; Cuff Location : Left Arm; Cuff Size: Standard 04-01-2017 09:32-0500 BSA (Body Surface Area) 1.93 m2 Jacque Leon LPN [facility] Internal Medicine Work Phone: 04-01-2017 09:32-0500 Height 161.93 cm Jacque Leon LPN [facility] Internal Medicine Work Phone: 04-01-2017 09:32-0500 Pulse (Heart Rate) 61 /min Jacque Leon LPN [facility] Work Phone: Comment on above: Pattern: Regular 04-01-2017 09:32-0500 Pulse Oximetry 98 % Taylor Tenorio [facility] Internal Medicine Work Phone: Comment on above: Room air 04-01-2017 09:32-0500 Respiratory Rate 17 /min Jacque Leon LPN [facility] Internal Medicine Work Phone: Comment on above: Pattern: Unlabored 04-01-2017 09:32-0500 SaO2% (BldA) [Mass fraction] 98 % Jacque Leon LPN [facility] Internal Medicine; [facility] Work Phone: Comment on above: Room air 04-01-2017 09:32-0500 Weight 88.45 kg Taylor Tenorio [facility] Internal Medicine Work Phone: 09-13-2016 15:31-0400 BMI (Body Mass Index) 33.04 kg/m2 Rosetta Vázquez [facility] Internal Medicine Work Phone: 09-13-2016 15:31-0400 Body Temperature 96.5 [degF] Rosetta Vázquez [facility] Internal Medicine Work Phone: Comment on above: Method: Temporal 09-13-2016 15:31-0400 Body weight 86.64 kg Rosetta Vázquez [facility] Internal Medicine Work Phone: 09-13-2016 15:31-0400 BP Diastolic 78 mm[Hg] Rosetta Vázquez [facility] Internal Medicine Work Phone: Comment on above: Patient Position: Sitting; Cuff Location : Left Arm; Cuff Size: Standard 09-13-2016 15:31-0400 BP Systolic 118 mm[Hg] Rosetta Vázquez [facility] Internal Medicine Work Phone: Comment on above: Patient Position: Sitting; Cuff Location : Left Arm; Cuff Size: Standard 09-13-2016 15:31-0400 BSA (Body Surface Area) 1.91 m2 Rosetta Vázquez [facility] Internal Medicine Work Phone: 09-13-2016 15:31-0400 Height 161.93 cm Rosetta Vázquez [facility] Internal Medicine Work Phone: 09-13-2016 15:31-0400 Pulse (Heart Rate) 64 /min Rosetta Vázquez [facility] Internal Medicine Work Phone: Comment on above: Pattern: Regular 09-13-2016 15:31-0400 Pulse Oximetry 98 % Taylor Tenorio [facility] Internal Medicine Work Phone: Comment on above: Room air 09-13-2016 15:31-0400 Respiratory Rate 16 /min Rosetta Vázquez [facility] Internal Medicine Work Phone: Comment on above: Pattern: Unlabored 09-13-2016 15:31-0400 SaO2% (BldA) [Mass fraction] 98 % Rosetta Vázquez [facility] Internal Medicine; [facility] Internal Medicine Work Phone: Comment on above: Room air 09-13-2016 15:31-0400 Weight 86.64 kg Taylor Tenorio [facility] Internal Medicine Work Phone: 08-23-2016 08:03-0400 BMI (Body Mass Index) 33.04 kg/m2 Jacque Leon [employer] [facility] Internal Medicine Work Phone: 08-23-2016 08:03-0400 Body Temperature 97.7 [degF] Jacque Leon LPN [facility] Internal Medicine Work Phone: 08-23-2016 08:03-0400 Body weight 86.64 kg Jacque Leon LPN [facility] Internal Medicine Work Phone: 08-23-2016 08:03-0400 BP Diastolic 82 mm[Hg] Jacque Leon [email or web address] Internal Medicine Work Phone: Comment on above: Patient Position: Sitting; Cuff Location : Left Arm; Cuff Size: Standard 08-23-2016 08:03-0400 BP Systolic 126 mm[Hg] Jacque Leon LPN [facility] Work Phone: Comment on above: Patient Position: Sitting; Cuff Location : Left Arm; Cuff Size: Standard 08-23-2016 08:03-0400 BSA (Body Surface Area) 1.91 m2 Jacque Leon LPN [facility] Work Phone: 08-23-2016 08:03-0400 Height 161.93 cm Jacque Leon [employer] [facility] Work Phone: 08-23-2016 08:03-0400 Pulse (Heart Rate) 54 /min Jacque Leon [employer] [facility] Work Phone: Comment on above: Pattern: Regular 08-23-2016 08:03-0400 Pulse Oximetry 98 % Tayolr Tenorio [facility] Internal Medicine Work Phone: Comment on above: Room air 08-23-2016 08:03-0400 Respiratory Rate 16 /min Jacque Leon [employer] [facility] Work Phone: Comment on above: Pattern: Unlabored 08-23-2016 08:03-0400 SaO2% (BldA) [Mass fraction] 98 % Jacque Leon [employer] [facility]; [facility] Work Phone: Comment on above: Room air 08-23-2016 08:03-0400 Weight 86.64 kg Taylor Tenorio [facility] Internal Medicine Work Phone: 02-23-2016 08:29-0500 BMI (Body Mass Index) 31.66 kg/m2 Jacque Linaresrb [employer] [facility] Work Phone: 02-23-2016 08:29-0500 Body Temperature 98.2 [degF] Jacque Leon [employer] [facility] Work Phone: 02-23-2016 08:29-0500 Body weight 83.01 kg Jacque Leon [employer] [facility] Work Phone: 02-23-2016 08:29-0500 BP Diastolic 82 mm[Hg] Jacque Vijayrb [employer] [facility] Work Phone: Comment on above: Patient Position: Sitting; Cuff Location : Left Arm; Cuff Size: Standard 02-23-2016 08:29-0500 BP Systolic 116 mm[Hg] Jacque Vijayrb [employer] [facility] Work Phone: Comment on above: Patient Position: Sitting; Cuff Location : Left Arm; Cuff Size: Standard 02-23-2016 08:29-0500 BSA (Body Surface Area) 1.88 m2 Jacque Vijayrb [employer] [facility] Work Phone: 02-23-2016 08:29-0500 Height 161.93 cm Jacque Vijayrb [employer] [facility] Work Phone: 02-23-2016 08:29-0500 Pulse (Heart Rate) 63 /min Jacque Vijayrb [employer] [facility] Work Phone: Comment on above: Pattern: Regular 02-23-2016 08:29-0500 Pulse Oximetry 98 % Taylor Tenorio [facility] Internal Medicine Work Phone: Comment on above: Room air 02-23-2016 08:29-0500 Respiratory Rate 16 /min Jacque Vijayrb [employer] [facility] Work Phone: Comment on above: Pattern: Unlabored 02-23-2016 08:29-0500 SaO2% (BldA) [Mass fraction] 98 % Jacque Slarb [employer] [facility]; [facility] Work Phone: Comment on above: Room air 02-23-2016 08:29-0500 Weight 83.01 kg Taylor Tenorio [facility] Internal Medicine Work Phone: 11-24-2015 09:03-0400 BMI (Body Mass Index) 33.04 kg/m2 Jacque Slarb [employer] [facility] Work Phone: Comment on above: pain 6/10 with movement 11-24-2015 09:03-0400 Body Temperature 97.6 [degF] Jacque Vijayrb [employer] [facility] Work Phone: Comment on above: pain 6/10 with movement 11-24-2015 09:03-0400 Body weight 86.64 kg Jacque Carolyn CANTU [facility] Work Phone: Comment on above: pain 6/10 with movement 11-24-2015 09:03-0400 BP Diastolic 78 mm[Hg] Jacque Vijayrb [employer] [facility] Work Phone: Comment on above: Patient Position: Sitting; Cuff Location : Left Arm; Cuff Size: Standard pain 6/10 with movem ent 11-24-2015 09:03-0400 BP Systolic 118 mm[Hg] Jacque Vijayrb [employer] [facility] Work Phone: Comment on above: Patient Position: Sitting; Cuff Location : Left Arm; Cuff Size: Standard pain 6/10 with movem ent 11-24-2015 09:03-0400 BSA (Body Surface Area) 1.91 m2 Jacque Vijayrb [employer] [facility] Work Phone: Comment on above: pain 6/10 with movement 11-24-2015 09:03-0400 Height 161.93 cm Jacque Carolyn CANTU [facility] Work Phone: Comment on above: pain 6/10 with movement 11-24-2015 09:03-0400 Pulse (Heart Rate) 59 /min Jacque Leon LPN [facility] Work Phone: Comment on above: Pattern: Regular pain 6/10 with move ent 11-24-2015 09:03-0400 Pulse Oximetry 96 % Taylor Tenorio [facility] Work Phone: Comment on above: Room air pain 6/10 with move ent 11-24-2015 09:03-0400 Respiratory Rate 16 /min Jacque Leon LPN [facility] Work Phone: Comment on above: Pattern: Unlabored pain 6/10 with movem ent 11-24-2015 09:03-0400 SaO2% (BldA) [Mass fraction] 96 % Jacque Leon LPN [facility]; [facility] Work Phone: Comment on above: Room air pain 6/10 with move ent 11-24-2015 09:03-0400 Weight 86.64 kg Taylor Tenorio [facility] Internal Medicine Work Phone: Comment on above: pain 6/10 with movement 11-07-2015 07:27-0400 BMI (Body Mass Index) 33.04 kg/m2 Gabbie Begum RN [facility] Internal Medicine Work Phone: 11-07-2015 07:27-0400 Body Temperature 97.2 [degF] Gabbie Begum RN [facility] Work Phone: Comment on above: Method: Temporal 11-07-2015 07:27-0400 Body weight 86.64 kg Gabbie Begum RN [facility] Work Phone: 11-07-2015 07:27-0400 BP Diastolic 70 mm[Hg] Gabbie Begum RN [facility] Work Phone: Comment on above: Patient Position: Sitting; Cuff Location : Left Arm; Cuff Size: Standard 11-07-2015 07:27-0400 BP Systolic 118 mm[Hg] Gabbie Begum RN [facility] Work Phone: Comment on above: Patient Position: Sitting; Cuff Location : Left Arm; Cuff Size: Standard 11-07-2015 07:27-0400 BSA (Body Surface Area) 1.91 m2 Gabbie Begum RN [facility] Work Phone: 11-07-2015 07:27-0400 Height 161.93 cm Gabbie Begum RN [facility] Work Phone: 11-07-2015 07:27-0400 Pulse Oximetry 98 % Taylor Tenorio [facility] Internal Medicine Work Phone: Comment on above: Room air 11-07-2015 07:27-0400 Respiratory Rate 16 /min Gabbie Begum RN [facility] Work Phone: Comment on above: Pattern: Unlabored 11-07-2015 07:27-0400 SaO2% (BldA) [Mass fraction] 98 % Gabbie Begum RN [facility]; [facility] Work Phone: Comment on above: Room air 11-07-2015 07:27-0400 Weight 86.64 kg Taylor Tenorio [facility] Internal Medicine Work Phone: 08-25-2015 16:49-0400 BMI (Body Mass Index) 32.87 kg/m2 Rosetta Vázquez [facility] Internal Medicine Work Phone: 08-25-2015 16:49-0400 Body Temperature 97.7 [degF] Rosetta Vázquez [facility] Internal Medicine Work Phone: Comment on above: Method: Temporal 08-25-2015 16:49-0400 Body weight 86.18 kg Rosetta Vázquez [facility] Internal Medicine Work Phone: 08-25-2015 16:49-0400 BP Diastolic 70 mm[Hg] Rosetta Vázquez [facility] Internal Medicine Work Phone: Comment on above: Patient Position: Sitting; Cuff Location : Left Arm; Cuff Size: Standard 08-25-2015 16:49-0400 BP Systolic 108 mm[Hg] Rosetta Vázquez [facility] Internal Medicine Work Phone: Comment on above: Patient Position: Sitting; Cuff Location : Left Arm; Cuff Size: Standard 08-25-2015 16:49-0400 BSA (Body Surface Area) 1.91 m2 Rosetta Vázquez [facility] Internal Medicine Work Phone: 08-25-2015 16:49-0400 Height 161.93 cm Rosetta Vázquez [facility] Internal Medicine Work Phone: 08-25-2015 16:49-0400 Pulse (Heart Rate) 80 /min Rosetta Vázquez [facility] Internal Medicine Work Phone: Comment on above: Pattern: Regular 08-25-2015 16:49-0400 Respiratory Rate 16 /min Rosetta Vázquez [facility] Internal Medicine Work Phone: Comment on above: Pattern: Unlabored 08-25-2015 16:49-0400 Weight 86.18 kg Taylor Tenorio [facility] Internal Medicine Work Phone: 07-02-2015 15:43-0400 BMI (Body Mass Index) 32.18 kg/m2 Jacque Slarb [employer] [facility] Work Phone: 07-02-2015 15:43-0400 Body Temperature 98 [degF] Jacque Slarb [employer] [facility] Work Phone: 07-02-2015 15:43-0400 Body weight 84.37 kg Jacque Linaresrb [employer] [facility] Work Phone: 07-02-2015 15:43-0400 BP Diastolic 62 mm[Hg] Jacque Slarb [employer] [facility] Work Phone: Comment on above: Patient Position: Sitting; Cuff Location : Left Arm; Cuff Size: Standard 07-02-2015 15:43-0400 BP Systolic 104 mm[Hg] Jacque Slarb [employer] [facility] Work Phone: Comment on above: Patient Position: Sitting; Cuff Location : Left Arm; Cuff Size: Standard 07-02-2015 15:43-0400 BSA (Body Surface Area) 1.89 m2 Jacque Slarb [employer] [facility] Work Phone: 07-02-2015 15:43-0400 Height 161.93 cm Jacque Slarb [employer] [facility] Work Phone: 07-02-2015 15:43-0400 Pulse (Heart Rate) 78 /min Jacque Vijayrb [employer] [facility] Work Phone: Comment on above: Pattern: Regular 07-02-2015 15:43-0400 Pulse Oximetry 99 % Taylor Tenorio [facility] Internal Medicine Work Phone: Comment on above: Room air 07-02-2015 15:43-0400 Respiratory Rate 18 /min Jacque Slarb [employer] [facility] Work Phone: Comment on above: Pattern: Unlabored 07-02-2015 15:43-0400 SaO2% (BldA) [Mass fraction] 99 % Jacque Vijayrb [employer] [facility]; [facility] Work Phone: Comment on above: Room air 07-02-2015 15:43-0400 [facility] 84.37 [facility] Work [facility]: 07-02-2015 15:40-0400 BMI (Body Mass Index) 32.18 kg/m2 Taylor Car jose Internal Medicine Work Phone: 07-02-2015 15:40-0400 Body weight 84.37 kg Taylor Tenorio [facility] Internal Medicine Work Phone: 07-02-2015 15:40-0400 BSA (Body Surface Area) 1.89 m2 Taylor Tenorio [facility] Internal Medicine Work Phone: 07-02-2015 15:40-0400 Height 161.93 cm Taylor Tenorio [facility] Internal Medicine Work Phone: 07-02-2015 15:40-0400 Weight 84.37 kg Taylor Tenorio [facility] Internal Medicine Work Phone: 03-25-2015 09:42-0500 BMI (Body Mass Index) 32.18 kg/m2 Saida Trianacamrynanupam [facility] Internal Medicine Work Phone: 03-25-2015 09:42-0500 Body Temperature 97.6 [degF] Saida Serrano [facility] Internal Medicine Work Phone: Comment on above: Method: Temporal 03-25-2015 09:42-0500 Body weight 84.37 kg Saida Trianatigist [facility] Internal Medicine Work Phone: 03-25-2015 09:42-0500 BP Diastolic 60 mm[Hg] Saida Trianatigist [facility] Internal Medicine Work Phone: Comment on above: Patient Position: Sitting; Cuff Location : Left Arm; Cuff Size: Standard 03-25-2015 09:42-0500 BP Systolic 110 mm[Hg] Saida Maggie [facility] Internal Medicine Work Phone: Comment on above: Patient Position: Sitting; Cuff Location : Left Arm; Cuff Size: Standard 03-25-2015 09:42-0500 BSA (Body Surface Area) 1.89 m2 Saida Maggie [facility] Internal Medicine Work Phone: 03-25-2015 09:42-0500 Height 161.93 cm Saida Maggie [facility] Internal Medicine Work Phone: 03-25-2015 09:42-0500 Pulse (Heart Rate) 68 /min Saida Serrano [facility] Work Phone: Comment on above: Pattern: Regular 03-25-2015 09:42-0500 Pulse Oximetry 98 % Taylor Tenorio [facility] Internal Medicine Work Phone: Comment on above: Room air 03-25-2015 09:42-0500 Respiratory Rate 16 /min Saida Trianatigist [facility] Internal Medicine Work Phone: Comment on above: Pattern: Unlabored 03-25-2015 09:42-0500 SaO2% (BldA) [Mass fraction] 98 % Saida Maggie [facility]; [facility] Work Phone: Comment on above: Room air 03-25-2015 09:42-0500 Weight 84.37 kg Taylor Tenorio [facility] Internal Medicine Work Phone: 09-23-2014 10:02-0400 BMI (Body Mass Index) 28.54 kg/m2 Saida Maggie [facility] Work Phone: 09-23-2014 10:02-0400 Body Temperature 98.9 [degF] Saida Maggie [facility] Internal Medicine Work Phone: Comment on above: Method: Oral 09-23-2014 10:02-0400 Body weight 74.84 kg Saida Serrano [facility] Internal Medicine Work Phone: 09-23-2014 10:02-0400 BP Diastolic 62 mm[Hg] Saida Maggie [facility] Internal Medicine Work Phone: Comment on above: Patient Position: Sitting; Cuff Location : Left Arm; Cuff Size: Standard 09-23-2014 10:02-0400 BP Systolic 94 mm[Hg] Saida Maggie [facility] Internal Medicine Work Phone: Comment on above: Patient Position: Sitting; Cuff Location : Left Arm; Cuff Size: Standard 09-23-2014 10:02-0400 BSA (Body Surface Area) 1.8 m2 Saida Serrano [facility] Internal Medicine Work Phone: 09-23-2014 10:02-0400 Height 161.93 cm Saida Serrano [facility] Internal Medicine Work Phone: 09-23-2014 10:02-0400 Pulse (Heart Rate) 54 /min Saida Serrano [facility] Work Phone: Comment on above: Pattern: Regular 09-23-2014 10:02-0400 Respiratory Rate 16 /min Saida Serrano [facility] Internal Medicine Work Phone: Comment on above: Pattern: Unlabored 09-23-2014 10:02-0400 Weight 74.84 kg Taylor Tenorio [facility] Internal Medicine Work Phone: 08-05-2014 16:56-0400 BMI (Body Mass Index) 28.03 kg/m2 Taylor Tenorio [facility] Internal Medicine Work Phone: 08-05-2014 16:56-0400 Body Temperature 98.5 [degF] Taylor Tenorio [facility] Internal Medicine Work Phone: Comment on above: Method: Oral 08-05-2014 16:56-0400 Body weight 73.48 kg Taylor Tenorio [facility] Internal Medicine Work Phone: 08-05-2014 16:56-0400 BP Diastolic 74 mm[Hg] Taylor Tenorio [facility] Internal Medicine Work Phone: Comment on above: Patient Position: Sitting; Cuff Location : Left Arm; Cuff Size: Standard 08-05-2014 16:56-0400 BP Systolic 124 mm[Hg] Taylor Tenorio [facility] Internal Medicine Work Phone: Comment on above: Patient Position: Sitting; Cuff Location : Left Arm; Cuff Size: Standard 08-05-2014 16:56-0400 BSA (Body Surface Area) 1.78 m2 Taylor Tenorio [facility] Internal Medicine Work Phone: 08-05-2014 16:56-0400 Height 161.93 cm Taylor Tenorio [facility] Internal Medicine Work Phone: 08-05-2014 16:56-0400 Pulse (Heart Rate) 62 /min Taylor Tenorio [facility] Internal Medicine Work Phone: Comment on above: Pattern: Regular 08-05-2014 16:56-0400 Pulse Oximetry 98 % Taylor Tenorio [facility] Medicine Work Phone: Comment on above: Room air 08-05-2014 16:56-0400 SaO2% (BldA) [Mass fraction] 98 % Taylor Tenorio [facility] Work Phone: [facility]; [facility] Work Phone: Comment on above: Room air 08-05-2014 16:56-0400 Weight 73.48 kg Taylor Tenorio [facility] Internal Medicine Work Phone: 03-25-2014 17:17-0500 BMI (Body Mass Index) 28.03 kg/m2 Saida Serrano [facility] Internal Medicine Work Phone: 03-25-2014 17:17-0500 Body Temperature 97.5 [degF] Saida Serrano [facility] Internal Medicine Work Phone: 03-25-2014 17:17-0500 Body weight 73.48 kg Saida Serrano [facility] Medicine Work Phone: 03-25-2014 17:17-0500 BP Diastolic 82 mm[Hg] [facility] Work Phone: Comment on above: Patient Position: Sitting; Cuff Location : Left Arm; Cuff Size: Large 03-25-2014 17:17-0500 BP Systolic 126 mm[Hg] Saida Serrano [facility] Internal Medicine Work Phone: Comment on above: Patient Position: Sitting; Cuff Location : Left Arm; Cuff Size: Large 03-25-2014 17:17-0500 BSA (Body Surface Area) 1.78 m2 Saida Serrano [facility] Medicine Work Phone: 03-25-2014 17:17-0500 Height 161.93 cm Saida Serrano [facility] Medicine Work Phone: 03-25-2014 17:17-0500 Pulse (Heart Rate) 70 /min Saida Maggie [facility] Work Phone: Comment on above: Pattern: Regular 03-25-2014 17:17-0500 Respiratory Rate 16 /min Saida Maggie [facility] Work Phone: Comment on above: Pattern: Unlabored 03-25-2014 17:17-0500 Weight 73.48 kg Taylor Tenorio [facility] Work Phone: 10-03-2013 15:06-0400 BMI (Body Mass Index) 32.52 kg/m2 Gabbie Begum RN [facility] Work Phone: 10-03-2013 15:06-0400 Body Temperature 96.1 [degF] Gabbie Begum RN [facility] Work Phone: Comment on above: Method: Temporal 10-03-2013 15:06-0400 Body weight 85.28 kg Gabbie Begum RN [facility] Work Phone: 10-03-2013 15:06-0400 BP Diastolic 74 mm[Hg] Gabbie L Kel RN [facility] Work Phone: Comment on above: Patient Position: Sitting; Cuff Location : Left Arm; Cuff Size: Standard 10-03-2013 15:06-0400 BP Systolic 120 mm[Hg] Gabbie L Kel RN [facility] Work Phone: Comment on above: Patient Position: Sitting; Cuff Location : Left Arm; Cuff Size: Standard 10-03-2013 15:06-0400 BSA (Body Surface Area) 1.9 m2 Gabbie Begum RN [facility] Work Phone: 10-03-2013 15:06-0400 Height 161.93 cm Gabbie Begum RN [facility] Work Phone: 10-03-2013 15:06-0400 Pulse (Heart Rate) 75 /min Gabbie Begum RN [facility] Work Phone: Comment on above: Pattern: Regular 10-03-2013 15:06-0400 Pulse Oximetry 98 % Taylor Tenorio [facility] Work Phone: Comment on above: Room air 10-03-2013 15:06-0400 Respiratory Rate 16 /min Gabbie Begum RN [facility] Work Phone: Comment on above: Pattern: Unlabored 10-03-2013 15:06-0400 SaO2% (BldA) [Mass fraction] 98 % Gabbie Ruelas [facility]; [facility] Work Phone: Comment on above: Room air 10-03-2013 15:06-0400 Weight 85.28 kg Taylor Tenorio [facility] Internal Medicine Work Phone: 03-12-2013 17:04-0500 BMI (Body Mass Index) 32.18 kg/m2 Saida Burris [facility] Internal Medicine Work Phone: 03-12-2013 17:04-0500 Body Temperature 98.2 [degF] Saida Ruelas Internal [facility] Work Phone: 03-12-2013 17:04-0500 Body weight 84.37 kg Saida Serrano [facility] Internal Medicine Work Phone: 03-12-2013 17:04-0500 BP Diastolic 76 mm[Hg] Saida Serrano [facility] Internal Medicine Work Phone: Comment on above: Patient Position: Sitting; Cuff Location : Left Arm; Cuff Size: Large 03-12-2013 17:04-0500 BP Systolic 110 mm[Hg] Saida Ruelas Internal [facility] Work Phone: Comment on above: Patient Position: Sitting; Cuff Location : Left Arm; Cuff Size: Large 03-12-2013 17:04-0500 BSA (Body Surface Area) 1.89 m2 Saida Ruelas Internal [facility] Work Phone: 03-12-2013 17:04-0500 Height 161.93 cm Saida Ruelas Internal Medicine Work Phone: 03-12-2013 17:04-0500 Pulse (Heart Rate) 64 /min Saida [facility] Work Phone: Comment on above: Pattern: Regular 03-12-2013 17:04-0500 Respiratory Rate 16 /min Saida Serrano [facility] Internal Medicine Work Phone: Comment on above: Pattern: Unlabored 03-12-2013 17:04-0500 Weight 84.37 kg Taylor Tenorio [facility] Internal Medicine Work Phone: 11-15-2011 11:47-0400 BMI (Body Mass Index) 27.98 kg/m2 Saida Trianacamrynanupam [facility] Work Phone: 11-15-2011 11:47-0400 Body Temperature 97.7 [degF] Saida Serrano [facility] Internal Medicine Work Phone: 11-15-2011 11:47-0400 Body weight 73.94 kg Saida Velardeanupam [facility] Internal Medicine Work Phone: 11-15-2011 11:47-0400 BP Diastolic 72 mm[Hg] Saida Serrano [facility] Internal Medicine Work Phone: Comment on above: Patient Position: Sitting; Cuff Location : Left Arm; Cuff Size: Large 11-15-2011 11:47-0400 BP Systolic 104 mm[Hg] Saida Serrano [facility] Internal Medicine Work Phone: Comment on above: Patient Position: Sitting; Cuff Location : Left Arm; Cuff Size: Large 11-15-2011 11:47-0400 BSA (Body Surface Area) 1.79 m2 Saida Velardeanupam [facility] Internal Medicine Work Phone: 11-15-2011 11:47-0400 Height 162.56 cm Saida Trianatigist [facility] Internal Medicine Work Phone: 11-15-2011 11:47-0400 Pulse (Heart Rate) 68 /min Saida [facility]rianatigist [facility] Work Phone: Comment on above: Pattern: Regular 11-15-2011 11:47-0400 Respiratory Rate 16 /min Saida Maggie [facility] Internal Medicine Work Phone: Comment on above: Pattern: Unlabored 11-15-2011 11:47-0400 Weight 73.94 kg Taylor Tenorio [facility] Internal Medicine Work Phone: 04-02-2011 07:18-0500 BMI (Body Mass Index) 30.5 kg/m2 Aniyah Allan RN [facility] Work Phone: 04-02-2011 07:18-0500 Body weight 79.98 kg Aniyah Allan RN [facility] Internal Medicine Work Phone: 04-02-2011 07:18-0500 BP Diastolic 64 mm[Hg] Aniyah Allan RN [facility] Work Phone: Comment on above: Patient Position: Sitting; Cuff Location : Left Arm; Cuff Size: Large 04-02-2011 07:18-0500 BP Systolic 120 mm[Hg] Aniyah Allan RN [facility] Work Phone: Comment on above: Patient Position: Sitting; Cuff Location : Left Arm; Cuff Size: Large 04-02-2011 07:18-0500 BSA (Body Surface Area) 1.85 m2 Aniyah Allan RN [facility] Work Phone: 04-02-2011 07:18-0500 Height 161.93 cm Aniyah Allan RN [facility] Work Phone: 04-02-2011 07:18-0500 Pulse (Heart Rate) 80 /min Aniyah Allan RN [facility] Work Phone: Comment on above: Pattern: Regular 04-02-2011 07:18-0500 Respiratory Rate 20 /min Aniyah Allan RN [facility] Internal Medicine Work Phone: Comment on above: Pattern: Unlabored 04-02-2011 07:18-0500 Weight 79.98 kg Taylor Tenorio [facility] Internal Medicine Work Phone: 09-14-2010 10:16-0400 BMI (Body Mass Index) 30.27 kg/m2 Saida Serrano [facility] Internal Medicine Work Phone: 09-14-2010 10:16-0400 Body Temperature 98.2 [degF] Saida Serrano [facility] Internal Medicine Work Phone: 09-14-2010 10:16-0400 Body weight 79.38 kg Saida Serrano [facility] Internal Medicine Work Phone: 09-14-2010 10:16-0400 BP Diastolic 70 mm[Hg] Saida Maggie [facility] Internal Medicine Work Phone: Comment on above: Patient Position: Sitting; Cuff Location : Left Arm; Cuff Size: Large 09-14-2010 10:16-0400 BP Systolic 104 mm[Hg] Saida Maggie [facility] Internal Medicine Work Phone: Comment on above: Patient Position: Sitting; Cuff Location : Left Arm; Cuff Size: Large 09-14-2010 10:16-0400 BSA (Body Surface Area) 1.84 m2 Saida Maggie [facility] Internal Medicine Work Phone: 09-14-2010 10:16-0400 Height 161.93 cm Saida Maggie [facility] Internal Medicine Work Phone: 09-14-2010 10:16-0400 Pulse (Heart Rate) 72 /min Saida Trianatigist [email or web address] Internal Medicine Work Phone: Comment on above: Pattern: Regular 09-14-2010 10:16-0400 Respiratory Rate 16 /min Saida Maggie [facility] Internal Medicine Work Phone: Comment on above: Pattern: Unlabored 09-14-2010 10:16-0400 Weight 79.38 kg Taylor Tenorio [facility] Internal Medicine Work Phone: 05-23-2009 07:24-0500 Body Temperature 98.1 [degF] Saida Maggie [facility] Internal Medicine Work Phone: 05-23-2009 07:24-0500 Body weight 75.3 kg Saida Maggie [facility] Internal Medicine Work Phone: 05-23-2009 07:24-0500 BP Diastolic 78 mm[Hg] Saida Maggie [facility] Internal Medicine Work Phone: Comment on above: Patient Position: Sitting; Cuff Location : Left Arm; Cuff Size: Large 05-23-2009 07:24-0500 BP Systolic 108 mm[Hg] Saida Maggie [facility] Internal Medicine Work Phone: Comment on above: Patient Position: Sitting; Cuff Location : Left Arm; Cuff Size: Large 05-23-2009 07:24-0500 Pulse (Heart Rate) 76 /min Saida Serrano [facility] [[email or web address] Internal Medicine Work Phone: Comment on above: Pattern: Regular 05-23-2009 07:24-0500 Respiratory Rate 16 /min Saida Maggie [facility] Internal Medicine Work Phone: Comment on above: Pattern: Unlabored 05-23-2009 07:24-0500 Weight 75.3 kg Taylor Tenorio [facility] Internal Medicine Work Phone: 04-01-2009 14:53-0500 BMI (Body Mass Index) 29.88 kg/m2 Saida Maggie [facility] Internal Medicine Work Phone: 04-01-2009 14:53-0500 Body Temperature 96.9 [degF] Saida Maggie [facility] Internal Medicine Work Phone: Comment on above: Method: Undefined 04-01-2009 14:53-0500 Body weight 77.11 kg Saida Maggie [facility] Internal Medicine Work Phone: 04-01-2009 14:53-0500 BP Diastolic 88 mm[Hg] Saida Maggie [facility] Internal Medicine Work Phone: Comment on above: Patient Position: Sitting; Cuff Location : Right Arm; Cuff Size: Standard 04-01-2009 14:53-0500 BP Systolic 110 mm[Hg] Saida Maggie [facility] Internal Medicine Work Phone: Comment on above: Patient Position: Sitting; Cuff Location : Right Arm; Cuff Size: Standard 04-01-2009 14:53-0500 BSA (Body Surface Area) 1.81 m2 Saida Maggie [facility] Internal Medicine Work Phone: 04-01-2009 14:53-0500 Head Circumference 0 cm Taylor Tenorio [facility] Internal Medicine Work Phone: 04-01-2009 14:53-0500 Head Occipital-frontal circumference 0 cm Saida Serrano [facility]; [facility] Work Phone: 04-01-2009 14:53-0500 Height 160.66 cm Saida Serrano [facility] Internal Medicine Work Phone: 04-01-2009 14:53-0500 Pulse (Heart Rate) 68 /min [facility] Work Phone: Comment on above: Pattern: Regular 04-01-2009 14:53-0500 Respiratory Rate 18 /min Saida Serrano [facility] Internal Medicine Work Phone: Comment on above: Pattern: Undefined 04-01-2009 14:53-0500 Weight 77.11 kg Taylor Tenorio [facility] Internal Medicine Work Phone: 01-02-2007 17:09-0400 BMI (Body Mass Index) 28.44 kg/m2 Saida Serrano [facility] Internal Medicine Work Phone: 01-02-2007 17:09-0400 Body Temperature 98.5 [degF] Saida Serrano [facility] Internal Medicine Work Phone: Comment on above: Method: Oral 01-02-2007 17:09-0400 Body weight 75.75 kg Saida Serrano [facility] Internal Medicine Work Phone: 01-02-2007 17:09-0400 BP Diastolic 70 mm[Hg] Saida Serrano [facility] Internal Medicine Work Phone: Comment on above: Patient Position: Sitting; Cuff Location : Left Arm; Cuff Size: Standard 01-02-2007 17:09-0400 BP Systolic 98 mm[Hg] Saida Serrano [facility] Internal Medicine Work Phone: Comment on above: Patient Position: Sitting; Cuff Location : Left Arm; Cuff Size: Standard 01-02-2007 17:09-0400 BSA (Body Surface Area) 1.82 m2 Saida Serrano [facility] Internal Medicine Work Phone: 01-02-2007 17:09-0400 Head Circumference 0 cm Taylor Tenorio [facility] Internal Medicine Work Phone: 01-02-2007 17:090400 Head Occipital-frontal circumference 0 cm Saida Serrano [facility]; [facility] Work Phone: 01-02-2007 17:0400 Height 163.19 cm Saida Serrano [facility] Internal Medicine Work Phone: 01-02-2007 17:09-0400 Pulse (Heart Rate) 80 /min Saida Serrano [facility] Work Phone: Comment on above: Pattern: Regular 01-02-2007 17:09-0400 Respiratory Rate 16 /min Saida Velardeanupam [facility] Internal Medicine Work Phone: Comment on above: Pattern: Unlabored 01-02-2007 17:09-0400 Weight 75.75 kg Taylor Tenorio [facility] Internal Medicine Work Phone: 07-04-2006 10:09-0400 BMI (Body Mass Index) 27.86 kg/m2 Saida Velardeanupam [facility] Internal Medicine Work Phone: 07-04-2006 10:090400 Body Temperature 98.2 [degF] Saida Trianatigist [facility] Internal Medicine Work Phone: Comment on above: Method: Oral 07-04-2006 10:090400 Body weight 74.19 kg Saida Velardeanupam [facility] Internal Medicine Work Phone: 07-04-2006 10:09-0400 BP Diastolic 64 mm[Hg] Saida Trianatigist [facility] Internal Medicine Work Phone: Comment on above: Patient Position: Sitting; Cuff Location : Left Arm; Cuff Size: Standard 07-04-2006 10:09-0400 BP Systolic 92 mm[Hg] Saida Velardeanupam [facility] Internal Medicine Work Phone: Comment on above: Patient Position: Sitting; Cuff Location : Left Arm; Cuff Size: Standard 07-04-2006 10:09-0400 BSA (Body Surface Area) 1.8 m2 Saida Trianatigist [facility] Internal Medicine Work Phone: 07-04-2006 10:09-0400 Head Circumference 0 cm Taylor Tenorio [facility] Internal Medicine Work Phone: 07-04-2006 10:09-0400 Head Occipital-frontal circumference 0 cm Saida Ruelas [facility]; [facility] Work Phone: 07-04-2006 10:09-0400 Height 163.19 cm Saida Serrano [facility] Internal Medicine Work Phone: 07-04-2006 10:09-0400 Pulse (Heart Rate) 80 /min Saida Serrano [facility] Work Phone: Comment on above: Pattern: Regular 07-04-2006 10:-0400 Respiratory Rate 16 /min Saida Serrano [facility] Internal Medicine Work Phone: Comment on above: Pattern: Unlabored 07-04-2006 10:0400 Weight 74.19 kg Taylor Tenorio [facility] Internal Medicine Work Phone: Encounters Encounter Date Encounter Type Care Provider Facility Start: 07-24-2024 End: 07-24-2024 ambulatory Madina Green Facility:[facility] Start: 06-22-2024 End: 06-22-[address] Madina Green MD Work Phone: [facility] Work Phone: Start: 06-22-2024 End: 06-22-[address] Madina Green MD -Laboratory, [place] Start: 06-22-2024 End: 06-22-2024 ambulatory Madina Green Facility:[facility] Start: 03-27-2024 End: 03-27-[address] Madina Green MD -[facility] Work Phone: Start: 03-27-2024 End: 03-27-2024 ambulatory Madina Green Facility:[facility] Start: 01-20-2024 End: 01-20-2024 ambulatory Verónica Donnelly Facility:[facility] Start: 09-13-2023 End: 09-13-2023 ambulatory Taylor Humbertofitz GRUBBS Facility:[facility] Start: 07-30-2022 End: 07-30-2022 ambulatory [facility] Work Phone: Start: 07-30-2022 End: 07-30-2022 Patient encounter procedure [facility] Start: 07-19-2022 End: 07-19-2022 Annotation/Addendum Anne Marie Nunez CNP Work Phone: [facility] Start: 11-25-2021 End: 12-07-2021 Office outpatient visit 15 minutes Anne Marie Nunez CNP Work Phone: [facility] Start: 10-28-2021 End: 11-04-2021 Office outpatient visit 25 minutes Anne Marie Nunez CNP Work Phone: [facility] Start: 10-28-2021 Review Anne Marie Nunez CNP Work Phone: [facility] Start: 07-21-2021 End: 07-21-2021 Patient encounter procedure [facility] Start: 07-13-2021 End: 07-13-2021 Patient encounter procedure [facility]-Laboratory, Specimen Start: 06-23-2021 End: 06-23-2021 Patient encounter procedure [facility], [place]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 Start: 03-10-2021 End: 03-10-2021 Lab Order Taylor Tenorio CNP Work Phone: [facility] Start: 12-08-2020 End: 12-08-2020 Office outpatient visit 15 minutes Taylor Tenorio CNP Work Phone: [facility] Start: 09-15-2020 End: 09-15-2020 Office outpatient visit 25 minutes Taylor Tenorio CNP Work Phone: [facility] Start: 09-15-2020 Review Taylor Tenorio CNP Work Phone: [facility] Start: 06-02-2020 End: 06-02-2020 Office outpatient visit 15 minutes Taylor Tenorio [facility] Start: 11-28-2019 End: 11-28-2019 Annotation/Addendum Taylor Tenorio [facility] Start: 11-26-2019 End: 11-26-2019 Office outpatient visit 25 minutes Taylor Ruelas [facility] Start: 11-26-2019 Review Taylor Russellmonty Joceline jose [facility] Start: 10-02-2019 End: 10-02-2019 Annotation/Addendum Taylor Ruelas [facility] Start: 09-18-2019 End: 09-18-2019 Lab Order Taylor Ruelas [facility] Start: 08-31-2019 End: 08-31-2019 Phone Encounter Taylor Ruelas [facility] Start: 08-29-2019 End: 08-29-2019 Annotation/Addendum Taylor Russellhannahfitz Ruelas [facility] Start: 08-29-2019 End: 08-29-2019 Office outpatient visit 15 minutes Taylor Ruelas [facility] Start: 06-06-2019 End: 06-06-2019 Office outpatient visit 25 minutes Taylor Ruelas [facility] Start: 01-02-2019 End: 01-02-2019 Patient encounter procedure Taylor Ruelas [facility] Start: 12-04-2018 End: 12-04-2018 Office outpatient visit 25 minutes Taylor Ruelas [facility] Start: 12-04-2018 Review Taylor Tenorio Joceline jose [facility] Start: 05-26-2018 End: 05-26-2018 Office outpatient visit 15 minutes Taylor Ruelas [facility] Start: 04-25-2018 Patient encounter procedure Taylor Ruelas [facility] Start: 10-10-2017 End: 10-10-2017 Office outpatient visit 25 minutes Taylor Ruelas [facility] Start: 04-12-2017 End: 04-21-2017 Phone Encounter Taylor Ruelas [facility] Start: 04-12-2017 End: 04-12-2017 Office outpatient visit 15 minutes Taylor Ruelas [facility] Start: 04-01-2017 End: 04-01-2017 Annotation/Addendum Taylor Ruelas [facility] Start: 04-01-2017 End: 04-01-2017 Office outpatient visit 25 minutes Taylor Ruelas [facility] Start: 09-13-2016 End: 09-13-2016 Office outpatient visit 15 minutes Taylor Ruelas [facility] Start: 08-23-2016 End: 08-23-2016 Office outpatient visit 15 minutes Taylor Ruelas [facility] Start: 03-01-2016 End: 03-01-2016 Annotation/Addendum Taylor Ruelas [facility] Start: 02-27-2016 End: 02-27-2016 Annotation/Addendum Taylor Ruelas [facility] Start: 02-23-2016 End: 02-23-2016 Office outpatient visit 25 minutes Taylor Ruelas [facility] Start: 11-24-2015 End: 11-24-2015 Patient encounter procedure Taylor Ruelas [facility] Start: 11-24-2015 End: 11-24-2015 Office outpatient visit 15 minutes Taylor Ruelas [facility] Start: 11-07-2015 End: 11-07-2015 Office outpatient visit 15 minutes Taylor Ruelas [facility] Start: 08-25-2015 End: 08-25-2015 Office outpatient visit 25 minutes Taylor Ruelas [facility] Start: 07-02-2015 End: 07-02-2015 Office outpatient visit 10 minutes Taylor Ruelas [facility] Start: 03-25-2015 End: 03-25-2015 Office outpatient visit 5 minutes Taylor Ruelas [facility] Start: 03-25-2015 End: 03-25-2015 Office outpatient visit 25 minutes Taylor Ruelas [facility] Start: 09-23-2014 End: 09-23-2014 Office outpatient visit 25 minutes Taylor Ruelas [facility] Start: 08-05-2014 End: 08-05-2014 Office outpatient visit 15 minutes Taylor Ruelas [facility] Start: 03-25-2014 End: 03-25-2014 Office outpatient visit 25 minutes Taylor Ruelas [facility] Start: 10-09-2013 End: 10-09-2013 Phone Encounter Taylor Ruelas [facility] Start: 10-03-2013 End: 10-03-2013 Patient encounter procedure Taylor Ruelas [facility] Start: 04-03-2013 End: 04-03-2013 Phone Encounter Taylor Ruelas [facility] Start: 03-12-2013 End: 03-12-2013 Patient encounter procedure Taylor Ruelas [facility] Start: 11-15-2011 End: 11-15-2011 Patient encounter procedure Taylor Ruelas [facility] Start: 04-02-2011 End: 04-02-2011 Patient encounter procedure Taylor Ruelas [facility] Start: 09-14-2010 End: 09-14-2010 Patient encounter procedure Taylor Ruelas [facility] Start: 05-23-2009 End: 05-23-2009 Patient encounter procedure Taylor Tenorio [facility] Start: 04-01-2009 End: 04-01-2009 Patient encounter procedure Taylor Tenorio [facility] Start: 11-13-2007 End: 11-13-2007 Historical Summary Taylor Tenorio [facility] Start: 01-02-2007 End: 01-02-2007 Patient encounter procedure Taylor Tenorio [facility] Start: 07-04-2006 End: 07-04-2006 Patient encounter procedure Taylor Tenorio [facility] Start: 12-19-2005 End: 12-19-2005 Patient encounter procedure Taylor Tenorio [facility] Procedures Date Procedure Procedure Detail Performing Clinician Start: 07-30-2022 Screening mammography Start: 07-30-2022 End: 07-30-2022 SCRN MAMM (CAD)W/ILDA BILAT Procedure Note: See Note; NOTES: [facility] Imaging Services [address] [place] [address] SCRN MAMM (CAD)W/ILDA BILAT MR#: [id number] Acct: [id number] Name: CECE SNEED Rep #: [id number] : [id number] F [id number] From: Anders boss MD PCP: YAQUELIN Bowman Status: [facility] Study: SCRN MAMM (CAD)W/ILDA BILAT Date of Exam: 07/11 05/03 Exam# [id number] Ordering Dr: Anne Marie Nunez RN NEUROSURGICAL- Yael MAMMOGRAPHY - BILATERAL SCREENING REASON FOR EXAM: Female, 61 years old. Routine annual screening examination. PERTINENT HISTORY: Sister with breast cancer. Grandmother with breast cancer. Prior left ultrasound-guided breast biopsy. TECHNIQUE: Digital bilateral breast ilda (3D mammographic acquisition) in the CC and MLO projections. 2-D mediolateral oblique (MLO) and craniocaudad (CC) views of both breasts were obtained. CAD: Full Field Digital Mammography with Computer Added Detection was performed. COMPARISON: Comparison is made with prior study July 21, 2021 and July 29, 2020. FINDINGS: Breast Composition: The breasts are heterogeneously dense, which may obscure small masses. There are no dominant masses or suspicious calcifications. Once again, 2 tissue markers are seen in the central slightly lateral aspect of the left breast stable small benign appearing bilateral axilla. No other significant abnormalities are identified. There has been no significant change since the prior study. BI/SCRN MAMM (CAD)W/ILDA BILAT IMPRESSION: Stable bilateral screening mammogram. Yearly follow-up mammogram recommended. (A) ASSESSMENT CATEGORY: BIRADS Category 2: Benign. A letter regarding these results will be sent to the patient by the facility within 30 days. Approximately 10% of breast cancers are not detected by mammography. A normal mammogram should not delay biopsy of a clinically suspicious abnormality. [id number] Electronically Signed: Anders Brown MD at 15:38 EDT Reading Location ID and State: [facility] / [place] , Service support , CC: Anne Marie Nunez NP; RN NEUROSURGICAL-C Taylor Tenorio Advice Line Rn: Signed Anne Marie Nunez [facility] Work Phone: Start: 07-21-2021 Screening mammography Start: 07-21-2021 End: 07-21-2021 SCRN MAMM (CAD)W/ILDA BILAT Comments: See Note; NOTES: [facility] Imaging Services [address] [place] [address] SCRN MAMM (CAD)W/ILDA BILAT MR#: [id number] Acct: [id number] Name: CECE SNEED Rep #: [id number] : [id number] F [id number] From: Anders boss MD PCP: Taylor Tenorio NP-Yael Status: [facility] Study: SCRN MAMM (CAD)W/ILDA BILAT Date of Exam: 07/10 06/02 Exam# [id number] Ordering Dr: Beatriz Booker DO MAMMOGRAPHY - BILATERAL SCREENING REASON FOR EXAM: Female, 60 years old. Routine annual screening examination. PERTINENT HISTORY: Sister with breast cancer. Grandmother with breast cancer. History of prior left stereotactic breast biopsy. TECHNIQUE: Digital bilateral breast ilda (3D mammographic acquisition) in the CC and MLO projections. 2-D mediolateral oblique (MLO) and craniocaudad (CC) views of both breasts were obtained. CAD: Full Field Digital Mammography with Computer Added Detection was performed. COMPARISON: Comparison is made with prior study dated 07/29/2020 and 06/26/2019. FINDINGS: Breast Composition: The breasts are heterogeneously dense, which may obscure small masses. There are no dominant masses or suspicious calcifications. 2 tissue markers are seen in the central slightly lateral aspect of the left breast. Stable small benign-appearing bilateral axillary lymph nodes. No other significant abnormalities are identified. There has been no significant change since the prior study. BI/SCRN MAMM (CAD)W/ILDA BILAT IMPRESSION: Stable bilateral screening mammogram. Yearly follow-up mammogram recommended. (A) ASSESSMENT CATEGORY: BIRADS Category 2: Benign. A letter regarding these results will be sent to the patient by the facility within 30 days. Approximately 10% of breast cancers are not detected by mammography. A normal mammogram should not delay biopsy of a clinically suspicious abnormality. [id number] Electronically Signed: Anders rBown MD at 14:37 EDT , CC: YAQUELIN Tenorio; Dr. Beatriz Booker DO Advice Line Rn: Shun Nunez CNP Work Phone: Start: 07-29-2020 End: 07-30-2020 SCRN MAMM (CAD)W/ILDA BILAT Comments: See Note; NOTES: [facility] Imaging Services [address] [place] [address] SCRN MAMM (CAD)W/ILDA BILAT MR#: [id number] Acct: [id number] Name: CECE SNEED Rep #: [id number] : 1960 F 59 From: Anders boss MD PCP: Taylor Tenorio, RN NEUROSURGICAL-C Status: REG CLI Study: SCRN MAMM (CAD)W/ILDA BILAT Date of Exam: 07/11 Exam# [id number] Ordering Dr: Beatriz Booker DO MAMMOGRAPHY - BILATERAL SCREENING REASON FOR EXAM: Female, 59 years old. Routine annual screening examination. PERTINENT HISTORY: Sister with breast cancer. Grandmother with breast cancer. History of prior left stereotactic and left ultrasound-guided breast biopsies. TECHNIQUE: Digital bilateral breast ilda (3D mammographic acquisition) in the CC and MLO projections. 2-D mediolateral oblique (MLO) and craniocaudad (CC) views of both breasts were obtained. CAD: Full Field Digital Mammography with Computer Added Detection was performed. COMPARISON: Comparison is made with prior examination dated 06/26/2019 and 06/20/2018. FINDINGS: Breast Composition: The breasts are heterogeneously dense, which may obscure small masses. There are no dominant masses or suspicious calcifications. No other significant abnormalities are identified. There has been no significant change since the prior study. BI/SCRN MAMM (CAD)W/ILDA BILAT IMPRESSION: Stable bilateral screening mammogram. Yearly follow-up mammogram recommended. (A) ASSESSMENT CATEGORY: BIRADS Category 1: Negative. A letter regarding these results will be sent to the patient by the facility within 30 days. Approximately 10% of breast cancers are not detected by mammography. A normal mammogram should not delay biopsy of a clinically suspicious abnormality. [id number] Electronically Signed: Anders Brown MD at 8:08 EDT , Service support , CC: YAQUELIN Tenorio; Dr. Beatriz Booker DO Advice Line Rn: Signed Taylor Tenorio [employer] Work Phone: Start: 08-29-2019 End: 08-29-2019 Ankle min 3 Views Comments: See Note; NOTES: [facility] Imaging Services [address] [facility] [place] [address] Ankle min 3 Views MR#: [id number] Acct: [id number] Name: CECE SNEED Rep #: [id number] : 1960 F 59 From: Jordan Yang MD PCP: YAQUELIN Bowman Status: REG CLI Study: Ankle min 3 Views Date of Exam: 08/29/19 Exam# [id number] Ordering Dr: Taylor Tenorio STUDY: X-RAY - LEFT ANKLE REASON FOR EXAM: Female, 59 years old. PAIN IN LEFT ANKLE POSTERIORLY FOR ABOUT 2 WEEKS. NO KNOWN INJURY. TECHNIQUE: 3 view(s) of the ankle. COMPARISON: None. FINDINGS: Normal visualized distal tibia and fibula. Normal medial and lateral malleoli. Normal tibiotalar articulation and ankle mortise. Normal visualized talus and calcaneus. Calcific enthesopathy in the posterior calcaneal surface. Tiny posterior plantar calcaneal spur. The visualized subtalar, talonavicular, calcaneocuboid and tarsal articulations are normal. The soft tissue structures are unremarkable. RAD/Ankle min 3 Views IMPRESSION: No acute fracture or dislocation of the left ankle. Electronically Signed: Jordan Yang MD at 11:53 EDT , Service support , CC: RN NEUROSURGICALGregory Tenorio Advice Line Rn: Signed Taylor Tenorio Work Phone: Start: 06-26-2019 End: 06-27-2019 SCREEN MAMM (CAD) W/ILDA BILAT Comments: See Note; NOTES: [facility] Imaging Services [address] [place] [address] SCREEN MAMM (CAD) W/ILDA BILAT MR#: [id number] Acct: [id number] Name: CECE SNEED Rep #: [id number] : 1960 F 58 From: Anders Brown MD PCP: YAQUELIN Bowman Status: REG CLI Study: SCREEN MAMM (CAD) W/ILDA BILAT Date of Exam: 06/26/19 Exam# [id number] Ordering Dr: CHETNA WILLARD MAMMOGRAPHY - BILATERAL SCREENING REASON FOR EXAM: Female, 58 years old. Routine annual screening examination. PERTINENT HISTORY: Grandmother with breast cancer. Remote left stereotactic breast biopsy and left ultrasound-guided breast biopsy. TECHNIQUE: Digital bilateral breast ilda (3D mammographic acquisition) in the CC and MLO projections. 2-D mediolateral oblique (MLO) and craniocaudad (CC) views of both breasts were obtained. CAD: Full Field Digital Mammography with Computer Added Detection was performed. COMPARISON: Comparison is made with prior examination June 20, 2018 and May 09, 2017. FINDINGS: Breast Composition: There are scattered areas of fibroglandular density. There are no dominant masses or suspicious calcifications. Once again, 2 tissue markers are seen in the slightly upper lateral aspect of the left breast incomplete with history of prior biopsies. Stable small bilateral axillary lymph nodes. No other significant abnormalities are identified. There has been no significant change since the prior study. BI/SCREEN MAMM (CAD) W/ILDA BILAT IMPRESSION: Stable bilateral screening mammogram. Yearly follow-up mammogram recommended. (A) ASSESSMENT CATEGORY: BIRADS Category 2: Benign. A letter regarding these results will be sent to the patient by the facility within 30 days. Approximately 10% of breast cancers are not detected by mammography. A normal mammogram should not delay biopsy of a clinically suspicious abnormality. [id number] Electronically Signed: Anders Kevin, at 8:16 EDT , Service support , CC: YAQUELIN Tenorio; CHETNA WILLARD Advice Line Rn: Signed Amber Samuel MD Work Phone: Start: 06-06-2019 End: 06-06-2019 Chest PA and Lateral Comments: See Note; NOTES: [facility] Imaging Services [address] [place] [address] Chest PA and Lateral MR#: [id number] Acct: [id number] Name: CECE SNEED Rep #: [id number] : 1960 F 58 From: Justice Caldera MD PCP: YAQUELIN Bowman Status: REG CLI Study: Chest PA and Lateral Date of Exam: 06/06/19 Exam# [id number] Ordering Dr: Taylor Tenorio STUDY: X-RAY CHEST REASON FOR EXAM: Female, 58 years old. COUGH X YEARS, NO CURRENT COLD/FLU SYMPTOMS TECHNIQUE: PA and lateral views of the chest. COMPARISON: September 23, 2014. FINDINGS: The lungs are clear and expanded. There is no demonstrated pleural abnormality. Normal size heart. Normal mediastinum and leatha. Normal visualized pulmonary arteries. Normal visualized aortic arch and descending thoracic aorta. There is mild degenerative change of the thoracic spine. Normal visualized ribs, clavicles, and shoulders. There is gaseous distention of bowel in the left upper abdomen. RAD/Chest PA and Lateral IMPRESSION: No acute cardiopulmonary disease. Stable appearance. Electronically Signed: Justice Caldera MD at 16:07 EST , Service support , CC: YAQUELIN Tenorio Advice Line Rn: Signed Taylor Tenorio Work Phone: Start: 06-20-2018 End: 06-21-2018 SCREENING MAMM (CAD), BILAT Comments: See Note; NOTES: [facility] Imaging Services [address] [place] [address] SCREENING MAMM (CAD), BILAT MR#: [id number] Acct: [id number] Name: CECE SNEED Rep #: [id number] : 1960 F 57 From: Anders Brown MD PCP: Taylor Tenoroi NP Status: REG CLI Study: SCREENING MAMM (CAD), BILAT Date of Exam: 06/20/18 Exam# [id number] Ordering Dr: Verónica Jackson MD MAMMOGRAPHY - BILATERAL SCREENING REASON FOR EXAM: Female, 57 years old. Routine annual screening examination. PERTINENT HISTORY: Grandmother with breast cancer. Remote left stereotactic breast biopsy and left ultrasound-guided breast biopsy. TECHNIQUE: Digital bilateral breast ilda (3D mammographic acquisition) in the CC and MLO projections. 2-D mediolateral oblique (MLO) and craniocaudad (CC) views of both breasts were obtained. CAD: Full Field Digital Mammography with Computer Added Detection was performed. COMPARISON: Comparison is made with prior examination dated May 09, 2017 and March 15, 2016. FINDINGS: Breast Composition: There are scattered areas of fibroglandular density. There are no dominant masses or suspicious calcifications. Once again, soft tissue clip markers are seen in the left breast in keeping with prior biopsies. Stable benign-appearing bilateral axillary lymph nodes. No other significant abnormalities are identified. There has been no significant change since the prior study. BI/SCREENING MAMM (CAD), BILAT IMPRESSION: Stable bilateral screening mammogram. Yearly follow-up mammogram recommended. (A) ASSESSMENT CATEGORY: BIRADS Category 2: Benign. A letter regarding these results will be sent to the patient by the facility within 30 days. Approximately 10% of breast cancers are not detected by mammography. A normal mammogram should not delay biopsy of a clinically suspicious abnormality. [id number] Electronically Signed: Anders Brown, at 9:01 EDT , Service support , CC: Taylor Tenorio NP; Verónica Jackson MD Advice Line Rn: Signed Taylor Tenorio Start: 05-09-2017 End: 05-10-2017 SCREENING MAMM (CAD), BILAT Comments: See Note; NOTES: [facility] Imaging Services [address] [place] [address] SCREENING MAMM (CAD), BILAT MR#: [id number] Acct: [id number] Name: CECE SNEED Rep #: [id number] : 1960 F 56 From: Anders Brown MD PCP: Taylor Tenorio NP Status: REG CLI Study: SCREENING MAMM (CAD), BILAT Date of Exam: 05/09/17 Exam# [id number] Ordering Dr: Ciesa, Taylor MAMMOGRAPHY - BILATERAL SCREENING REASON FOR EXAM: Female, 56 years old. Routine annual screening examination. PERTINENT HISTORY: Grandmother with breast cancer. Remote left stereotactic breast biopsy. TECHNIQUE: Digital bilateral breast ilda (3D mammographic acquisition) in the CC and MLO projections. 2-D mediolateral oblique (MLO) and craniocaudad (CC) views of both breasts were obtained. CAD: Full Field Digital Mammography with Computer Added Detection was performed. COMPARISON: Comparison is made with prior study dated March 15, 2016 and March 05, 2015. FINDINGS: Breast Composition: The breasts are heterogeneously dense, which may obscure small masses. There are no dominant masses or suspicious calcifications. Once again, 2 tissue markers are seen in the left breast in keeping with prior left breast biopsy. Stable bilateral benign-appearing axillary lymph nodes. No other significant abnormalities are identified. There has been no significant change since the prior study. HPBI/SCREENING MAMM (CAD), BILAT IMPRESSION: Stable bilateral screening mammogram. Yearly follow-up mammogram recommended. (A) ASSESSMENT CATEGORY: BIRADS Category 2: Benign. A letter regarding these results will be sent to the patient by the facility within 30 days. Approximately 10% of breast cancers are not detected by mammography. A normal mammogram should not delay biopsy of a clinically suspicious abnormality. [id number] Electronically Signed: Anders Brown MD at 9:16 EST Tel [phone], Service support , CC: Taylor Tenorio NP Advice Line Rn: Signed Taylor Tenorio Work Phone: Start: 05-24-2016 End: 05-24-2016 PT D/C Summary (1) Comments: See Note; NOTES: [facility] Physical Therapy [facility] [address] [place] [address] Fax REHABILITATION SERVICES DISCHARGE SUMMARY MR#: [id number] Acct: [id number] Name: CECE SNEED Rep #: [id number] : 1960 55 From: Raquel Booker PT Referring Dr.: Simin Rossi DO Status: REG RCR Insurance: [facility] HP - PT D/C Summary It has been my pleasure to treat CECE SNEED under orders from Simin Rossi DO, for the diagnosis of Left Frozen Shoulder for a total of 16 visit(s). Discharge Date: 05/24/16 Please see the following information for a summary of their discharge status. - Subjective Subjective: Patient feels like she is much improved. She sees her physician on Tuesday to be re- assessed. She states no difficulty with activity except reaching back but she has made accomodations with clothing for that. - Pain left shoulder Pain Intensity (Out of 10): 0 - Overall Improvement % Improvement: 95 - Objective Objective/Function: Posture: Patient with shoulder squared maintaining upright posture but become slouched position quickly. Palpation: Patient reports no tenderness to palpation over left shoulder;. Range of Motion: Cervical ROM WNL. Right shoulder range of motion-- flexion 170*, abduction 150*, extension 90*, IR 90*, ER 60*. Left shoulder range of motion-- flexion 160*, abduction 90*, extension 60*, IR 90*, ER 45*. PROM left shoulder flexion 170* abduction 130* and ER 50*. Strength: Right shoulder-- grossly 4+/5 strength except lower trap 4/5, middle trap 4/5, rhomboids 4/5. Left shoulder--grossly 4+/5 strength except rhomboids 4/5, middle trap 4/5, lower trap 4/5. Assessment: Patient has made good progress since initial evaluation in strength and ROM. She is tolerating therapeutic exercises well and reports no shoulder pain. She continues to be limited in motion, however, has HEP to help continue to increase motion and she is starting to use shoulder more. [ End ] - Goals Goal 1:: Patient will increase left shoulder ROM to match right shoulder for improved performance with functional activities Goal Progress: Progressing Goal 2:: Patient will increase bilateral upper extremity rhomboids, middle trap, and upper trap grossly 4/5 strength for improved posture and performance of functional activities. Goal Progress: Goal Met Goal 3:: Patient will increase left upper extremity strength to match right for improved strength and performance of functional activities Goal Progress: Goal Met Goal 4:: Patient will perform ADLs including overhead activities and reaching behind back without increase in shoulder pain Goal Progress: Goal Met Goal 5:: Patient will be independent with HEP Goal Progress: Goal Met - Plan Plan: Plan to discharge patient with HEP to continue to progress shoulder strength and shoulder range of motion - D/C Information Discharge Comments: Patient demonstrates improved motion and strength. She is performing all ADLs without increase in shoulder pain. She continues to be limited in shoulder motion, however, with continued use and performance of HEP motion continues to improve weekly. Plan to discharge patient with HEP to continue to increase shoulder range of motion and maintain and increase strength. She sees physician on Tuesday to determine further treatment options, however , she is happy with her current level of function. If there are questions or concerns regarding this patient's physical therapy, please feel free to call me at [phone]. Thank you for the referral of this patient. Sincerely, Raquel Booker, PT <Electronically signed by Raquel Booker PT> 05/24/16 1700 CC: Taylor Rossi DO JMM Signed Taylor Tenorio Start: 03-15-2016 End: 03-16-2016 Bilat Scrn Digital AND CAD Comments: See Note; NOTES: [facility] Imaging Services [address] [place] [address] Verdana 4d Bilat Scrn Digital AND CAD MR#: [id number] Acct: [id number] Name: CECE SNEED Rep #: [id number] : 1960 F 55 From: Anders Brown MD PCP: Taylor Tenorio Status: REG CLI Study: Bilat Scrn Digital AND CAD Date of Exam: 03/15/16 Exam# [id number] Ordering Dr: Taylor Tenorio MAMMOGRAPHY - BILATERAL SCREENING REASON FOR EXAM: Female, 55 years old. Routine annual screening examination. PERTINENT HISTORY: Grandmother with breast cancer. Prior left stereotactic biopsy. TECHNIQUE: Digital bilateral breast ilda (3D mammographic acquisition) in the CC and MLO projections. 2-D mediolateral oblique (MLO) and craniocaudad (CC) views of both breasts were obtained. CAD: Full Field Digital Mammography with Computer Added Detection was performed. COMPARISON: Comparison is made with prior examination dated March 05, 2015 and March 27, 2014. FINDINGS: Breast Composition: The breasts are heterogeneously dense, which may obscure small masses. There are no dominant masses or suspicious calcifications. 2 tissue markers are seen in the left breast in keeping with the history of prior biopsies. No other significant abnormalities are identified. There has been no significant change since the prior study. [facility]/Bil Scrn Digital AND CAD IMPRESSION: Stable bilateral screening mammogram. Yearly follow-up mammogram recommended. (A) ASSESSMENT CATEGORY: BIRADS Category 2: Benign. A letter regarding these results will be sent to the patient by the facility within 30 days. Approximately 10% of breast cancers are not detected by mammography. A normal mammogram should not delay biopsy of a clinically suspicious abnormality. [id number] Electronically Signed: Anders Brown MD at 8:12 EST Tel [phone], Service support [phone], CC: Taylor Tenorio Advice Line Rn: Signed Taylor Tenorio Work Phone: Start: 03-10-2016 End: 03-10-2016 Inital Evaluation (1) - PT Comments: See Note; NOTES: [facility] [address] [place] [address]. [address] [place] [address] Fax REHABILITATION SERVICES INITIAL EVALUATION MR#: [id number] Acct: [id number] Name: CECE SNEED Rep #: [id number] : 1960 55 From: Raquel Booker PT Referring Dr.: Simin Rossi DO Status: REG R Insurance: [facility] Patient's Visit Information CECE SNEED is a 55 year old F referred to Physical Therapy by Siimn Rossi DO with a diagnosis of Left Frozen Shoulder. Date of Evaluation: 03/10/16 Physical Therapist: Raquel Booker, PT - Visit Plan Frequency: 2x /Week Duration: 5 weeks Plan: Patient demonstrates limited left shoulder range of motion and minor deficit in left shoulder strength. Therapeutic exercises and activities to increase left shoulder range of motion and bilateral upper extremity strength. Therapeutic exercises for shoulder stabilization. Progress exercises based on patient tolerance and pain. Incorporate activities simulating ADLs including reaching overhead and washing hair. Modalities and Manual as needed for increased range of motion and decrease pain. - Subjective Subjective: Patient presents in therapy today with chief complaint of left shoulder pain. She states that she has a tear in her left shoulder. She received a steriod shot 03/02/16. Pain initially started 10 years ago and PT helped relieve symptoms, however, summer pain started again. She reports no mechanism of injury. She received physical therapy in november but reported nothing helped. Patient reports the pain is better with steriod injections but still cant move it. She reports having difficulty with ADLs including shampooing hair, picking up objects, dressing, reaching into pantry. 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 Patient reported numbness and tingling down bilaterally arms but not since steriod injection. - Pain left shoulder Pain Intensity (Out of 10): 0 Pain Intensity Range: 0, 2 - Objective Posture: Patient sitting upright; slightly rounded shoulders, leaning on left shoulder. Palpation: Patient reports no tenderness to palpation over left shoulder; no apparent swelling. Range of Motion: Cervical ROM WNL. Right shoulder range of motion-- flexion 155*, abduction 170*, extension 90*, IR 90*, ER 60*. Left shoulder range of motion-- flexion 90*, abduction 65* , extension 20*, IR 90*, ER 10*. PROM left shoulder flexion 110* and abduction 80*. Strength: Right shoulder-- grossly 4+/5 strength except lower trap 3+/5, middle trap 4-/5, rhomboids 4-/ 5. Left shoulder--grossly 4/5 strength except ER 4-/5, rhomboids 4-/5, middle trap 3-/5, lower trap 3-/5. - Special Tests L Shoulder Lift Off Test - Subscapular Tear: Positive L Shoulder Empty Can - SS: Negative L Shoulder Neer - Impingement: Negative L Shoulder Cavaz[place] Jay - Impingement: Negative - Goals Goal 1:: Patient will increase left shoulder ROM to match right shoulder for improved performance with functional activities Goal Time Frame: 6-8 Weeks Goal 2:: Patient will increase bilateral upper extremity rhomboids, middle trap, and upper trap grossly 4/5 strength for improved posture and performance of functional activities. Goal Time Frame: 6-8 Weeks Goal 3:: Patient will increase left upper extremity strength to match right for improved strength and performance of functional activities Goal Time Frame: 6-8 Weeks Goal 4:: Patient will perform ADLs including overhead activities and reaching behind back without increase in shoulder pain Goal Time Frame: 6-8 Weeks Goal 5:: Patient will be independent with HEP Goal Time Frame: 6-8 Weeks - Rehabilitation Potential Physical Therapy Diagnosis: Decreased Shoulder Range of Motion, Decreased Shoulder Strength Rehabilitation Potential: Good - Anticipated Interventions For the Purpose of:: To decrease pain, To increase ROM, To improve muscle performance and motor function, To improve ability to perform ADL's, To improve performance and independence with ADL 's, To decrease soft tissue restriction, To increase flexibility/ROM Therapeutic Exercise to Include: Strength training, Endurance training, Body mechanics, Postural training, Flexibilty training, Neuromotor development, Passive ROM, Active ROM For the Purpose of:: To decrease pain, To increase ROM, To improve muscle performance and motor function, To improve ability to perform ADL's, To improve performance and independence with ADL 's, To decrease soft tissue restriction, To increase flexibility/ROM, To improve endurance, To assume or resume ADL's Functional Training to Include: ADL Training For the Purpose of:: To improve ability to perform ADL's, To improve performance and independence with ADL's, To improve ability of physical actions for home/community/work/leisure Manual Therapy Techniques to Include: Massage, Mobilization, Passive ROM, Soft tissue mobilization For the Purpose of:: To decrease pain, To increase ROM Iontophoresis (with Dexamethozone, with Acetic acid): No For the Purpose of:: To decrease pain, To increase ROM Thank you for the opportunity to evaluate your patient. For Medicare and Medicare HMO plans, please review the plan of care and approve it. It will need to be FAXED BACK to us at [phone] for Medicare purposes. Please let me know if there are questions or concerns regarding this plan of care. Physician Signature: Date: <Electronically signed by Raquel Booker PT> 03/10/16 1810 CC: Taylor Rossi DO OLGA Signed For Medicare only, by signing this I certify the plan of care. _ Physicians Signature Date Taylor Tenorio Start: 03-01-2016 End: 03-01-2016 Upper Ext Joint Only(Routine) Comments: See Note; NOTES: [facility] Imaging Services [address] [place] [address] Verdana 4d Upper Ext Joint Only(Routine) MR#: [id number] Acct: [id number] Name: CECE SNEED Rep #: [id number] : 1960 F 55 From: Pete Smith MD PCP: Taylor Tenorio Status: REG CLI Study: Upper Ext Joint Only(Routine) Date of Exam: 03/01/16 Exam# [id number] Ordering Dr: Taylor Tenorio STUDY: MRI LEFT SHOULDER REASON FOR EXAM: Female, 55 years old. Left shoulder joint pain, limited r.o.m , n/t hand T fingers, no known injury TECHNIQUE: Standardized fat and water weighted pulse sequences were obtained in all 3 orthogonal planes. COMPARISON: X-rays of the left shoulder on November 07, 2015. FINDINGS: There is a small low-grade focal intrasubstance tear of the distal supraspinatus tendon (coronal T2 series 6 image 7) Normal infraspinatus tendon. Normal subscapularis tendon. Normal teres minor tendon. Normal supraspinatus muscle. Normal infraspinatus muscle. Normal subscapularis muscle. Normal teres minor muscle. Normal glenohumeral articulation. Normal humeral head and visualized proximal humerus. Normal biceps labral complex. Normal intracapsular long biceps tendon. Normal labrum. Normal capsulo- ligamentous complex. Normal rotator interval. There is mild arthrosis of the acromioclavicular articulation. There is a Type II morphology (curved), with a neutral orientation. There is minimal fluid distention of the subacromial bursa, consistent with mild subacromial-subdeltoid bursitis. Normal visualized coracohumeral and coracoacromial ligaments. Normal quadrilateral space. Normal axillary space. Normal deltoid muscle. Normal trapezius muscle. MRI/Upper Ext Joint Only(Routine) IMPRESSION: Small focal low-grade intrasubstance tear of the supraspinatus tendon Mild arthrosis of the acromioclavicular joint. Mild subacromial subdeltoid bursitis. Electronically Signed: Pete Smith MD, FACR at 15:42 EST , Service support [phone], CC: Taylor Tenorio Advice Line Rn: Signed Taylor Tenorio Work Phone: Start: 01-14-2016 End: 01-14-2016 PT D/C of Non Returning Pt (1) Comments: See Note; NOTES: [facility] [address] [place] [address]. [address] [place] [address] Fax REHABILITATION SERVICES DISCHARGE SUMMARY MR#: [id number] Acct: [id number] Name: CECE SNEED Rep #: [id number] : 1960 55 From: Joana Peña DPT Referring Dr.: Taylor Tenorio Status: REG RCR Insurance: [facility] - Discharge Summary (1) - Patient Information CECE SNEED was seen in my office for initial evaluation on 11/10/15. The following Plan of Care was established for this patient: Initial Frequency: 2-3x /Week Initial Duration: 3 Weeks - Anticipated Interventions Patient/Client Instruction: Educate patient on: Benefits of Fitness Program For the Purpose of:: To increase tolerance to activity/condition/position Therapeutic Exercise to Include: Strength training, Endurance training, Body mechanics, Postural training, Passive ROM, Active ROM, Scapular Strength/Stabilization For the Purpose of:: To improve muscle performance and motor function TENS: Yes Cryotherapy (ice pack, ice massage): Yes Thermo therapy (hot pack): Yes Ultrasound (thermal/non thermal): Yes For the Purpose of:: To decrease pain, To decrease swelling/inflammation This patient was last seen in our office . Pertinent comments regarding their Physical therapy will appear below: Patient has not attended physical therapy in over 4 weeks- PT feels at this time it is appropriate to d/c and pt to return to MD as needed. At this point I will be discontinuing this patient from physical therapy. I would be happy to see this patient again in the future if found appropriate by the physician. Thank you! Joana Peña <Electronically signed by Joana Peña DPT> 01/14/16 1040 CC: Taylor Tenorio ELR Signed Taylor Tenorio Start: 12-03-2015 End: 12-03-2015 Re-Evaluation - PT (1) Comments: See Note; NOTES: [facility] [address] [place] [address]. [address] [place] [address] Fax REEVALUATION / MEDICARE RECERTIFICATION [place] [facility] PHYSICAL THERAPY MR#: [id number] Acct: [id number] Name: CECE SNEED Rep #: [id number] : 1960 55 From: Joana Peña DPT Referring Dr.: Taylor Tenorio Status: REG RCR Insurance: [facility] Taylor Russellmonty, It has been my pleasure to treat CECE SNEED over the last 7 visits for Left Shoulder Pain. Please see the progress note below for an update on the physical therapy plan of care! Subjective: Patient reports the shoulder is some better. Feels PT is helping but it still aches- mostly when she is doing something (behind the back, reaching). Worst: 6/10 Best: 0/10. When not using it pain free. Instant relief if she does not use it. Does have an apt to go back and see the MD. Going to see Dr. Guerrero for a cyst on her neck. Feels the shoulder is 50% better. Objective/Function: Posture: FH, RS, increased kyphosis. Gait: no deviation. Palpation: tender along upper trap from the occiput with a lump on the cervical paraspinals about C2-C6 ( seeing Dr. Guerrero)and into the bicipital groove. ROM: WNL in all planes- pain at end range abduction and IR behind the back. Strength: 4+/5 throughout Plan Plan: Hold until sees MD Goals Goal 1:: Patient will be I with HEP and progression Goal Time Frame: 4-6 Weeks Goal Progress: Progressing Goal 2:: Patient will maintain proper posture t/o tx session to demo increased scap s/s. Goal Time Frame: 4-6 Weeks Goal Progress: Progressing Goal 3:: Patient will report 0/10 pain for 1 week with all ADL's. Goal Time Frame: 4-6 Weeks Goal Progress: Progressing Goal 4:: Patient will demo full AROM with 0/10 pain Goal Time Frame: 4-6 Weeks Goal Progress: Progressing Anticipated Interventions Patient/Client Instruction: Educate patient on: Benefits of Fitness Program Therapeutic Exercise to Include: Strength training, Endurance training, Body mechanics, Postural training, Passive ROM, Active ROM, Scapular Strength/Stabilization TENS: Yes Cryotherapy (ice pack, ice massage): Yes Thermo therapy (hot pack): Yes Ultrasound (thermal/non thermal): Yes Please do not hesitate to contact me at [phone] by phone or if you have questions or concerns regarding this new plan of care! Sincerely, Joana Peña <Electronically signed by Joana Peña DPT> 12/03/15 1648 CC: Taylor Tenorio ELR Signed For Medicare only, by signing this I certify the plan of care. _ Physicians Signature Date Taylor Tenorio Start: 11-10-2015 End: 11-10-2015 Inital Evaluation (1) - PT Comments: See Note; NOTES: [facility] [address] [place] [address]. [address] [place] [address] Fax REHABILITATION SERVICES INITIAL EVALUATION MR#: [id number] Acct: [id number] Name: CECE SNEED Rep #: [id number] : 1960 55 From: Joana Peña DPT Referring Dr.: Taylor Tenorio Status: REG R Insurance: [facility] Patient's Visit Information CECE SNEED is a 55 year old F referred to Physical Therapy by Taylor Tenorio with a diagnosis of Left Shoulder Pain. Date of Evaluation: 11/10/15 Physical Therapist: Joana Peña - Visit Plan Frequency: 2-3x /Week Duration: 3 Weeks - Subjective Subjective: Left shoulder pain for a couple of weeks- insidious onset. Has had left shoulder pain before- better with therapy. Exercise helped. Has not kept up on exercise. Patient is right handed. Pain is located in the anterior aspect of the shoulder with radiating pain to the elbow. Does have carpal tunnel pain in the hands at night for years with no change in the past few weeks. Sleep- wakes her up occasionally- when she rolls over onto the shoulder. Worst: 6/10 Agg: reaching behind her and picking up things, reaching. Best: 0/10 Eases: rest, stop doing the movement. Pain goes away immediatly. No N/T during the day but very bad at night. More dull and achy. 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 Teaches at [employer]. X-rays were negative with no MRI taken. No injection but gave her a medication but she didn't get it due to a miscommunication and it wasn't at the pharmacy. Controlled BARRAZA with medication no changes PMHX: Migraines. Meds:Zomig as needed, Inderol, Topomax, Botox injections, Lexipro. - Objective Posture: FH, RS, Increased kyphosis- corrects with VC's and tactile cues. Gait: no deviation noted. Palpation: tender along upper trap from the occiput to the tip of the acromion. tender in bicipital groove- no scapular tenderness. ROM: AROM: WNL pain at end range IR, flexion, and abduction. PROM: WNL. Strength: Scap: fair minus, Shoulder: flexion-4+/5 no pain, Abd: 4/5 with pain, IR: 4/5 with pain ER: 4/5 with pain, Extn: 4+/5 no pain. Elbow: 5/5 Oyster Culler: 40 bilateral x 3 trials. Special Test: Cavazos Jay +, Neer: +, Empty Can + - Goals Goal 1:: Patient will be I with HEP and progression Goal Time Frame: 4-6 Weeks Goal 2:: Patient will maintain proper posture t/o tx session to demo increased scap s/s. Goal Time Frame: 4-6 Weeks Goal 3:: Patient will report 0/10 pain for 1 week with all ADL's. Goal Time Frame: 4-6 Weeks Goal 4:: Patient will demo full AROM with 0/10 pain Goal Time Frame: 4-6 Weeks - Rehabilitation Potential Physical Therapy Diagnosis: Patient presents with hypomobility- she has decreased pain free ROM , poor strength and scapular stabilizatino leading to poor posture and increased impingment symptoms Rehabilitation Potential: Good - Anticipated Interventions Patient/Client Instruction: Educate patient on: Benefits of Fitness Program For the Purpose of:: To increase tolerance to activity/condition/position Therapeutic Exercise to Include: Strength training, Endurance training, Body mechanics, Postural training, Passive ROM, Active ROM, Scapular Strength/Stabilization For the Purpose of:: To improve muscle performance and motor function TENS: Yes Cryotherapy (ice pack, ice massage): Yes Thermo therapy (hot pack): Yes Ultrasound (thermal/non thermal): Yes For the Purpose of:: To decrease pain, To decrease swelling/inflammation Thank you for the opportunity to evaluate your patient. For Medicare and Medicare HMO plans, please review the plan of care and approve it. It will need to be FAXED BACK to us at [phone] for Medicare purposes. Please let me know if there are questions or concerns regarding this plan of care. Physician Signature: Date: <Electronically signed by Joana Peña DPMarilee> 11/10/15 1524 CC: Taylor Tenorio ELR Signed For Medicare only, by signing this I certify the plan of care. _ Physicians Signature Date Taylor Tenorio Start: 11-07-2015 End: 11-07-2015 Shoulder min 2 Views Comments: See Note; NOTES: [facility] [address] [place] [address] Verdana 4d Shoulder min 2 Views MR#: [id number] Acct: [id number] Name: CECE SNEED Rep #: [id number] : 1960 F 55 From: Pete Smith MD PCP: Taylor Tenorio Status: REG CLI Study: Shoulder min 2 Views Date of Exam: 11/07/15 Exam# [id number] Ordering Dr: Taylor Tenorio STUDY: X-RAY - LEFT SHOULDER REASON FOR EXAM: Female, 55 years old. Pain for 2 weeks. No trauma TECHNIQUE: 4 view(s) of the shoulder. COMPARISON: None. FINDINGS: Normal glenohumeral articulation. Normal acromioclavicular joint. Normal acromion. Normal humeral head and visualized proximal humerus. The soft tissue structures are unremarkable. Normal visualized pulmonary apex. RAD/Shoulder min 2 Views IMPRESSION: Normal x-ray examination of the shoulder. Electronically Signed: Pete Smith MD, FACR at 13:26 EDT , Service support [phone], CC: Taylor Tenorio Advice Line Rn: Signed Taylor Tenorio Work Phone: Start: 03-05-2015 End: 03-05-2015 Bilat Scrn Digital AND CAD Comments: See Note; NOTES: [facility] [address] [place] [address] Verdana 4d Bilat Scrn Digital AND CAD MR#: [id number] Acct: [id number] Name: CECE SNEED Rep #: [id number] : 1960 F 54 From: Anders Brown MD PCP: Karen Curry DO Status: [facility] Study: Bilat Scrn Digital AND CAD Date of Exam: 03/05/15 Exam# [id number] Ordering Dr: Verónica Jackson MD MAMMOGRAPHY - BILATERAL SCREENING REASON FOR EXAM: Female, 54 years old. Routine annual screening examination. PERTINENT HISTORY: Grandmother with breast cancer. TECHNIQUE: Digital examination. Mediolateral oblique (MLO) and craniocaudad (CC) views of both breasts were obtained. CAD: CAD was performed on this study. COMPARISON: Comparison is made with prior study dated March 27, 2014 and March 09, 2013. FINDINGS: Breast Composition: There are scattered areas of fibroglandular density. There are no dominant masses or suspicious calcifications. There is evidence of prior left stereotactic breast biopsies. No other significant abnormalities are identified. There has been no significant change since the prior study. IMPRESSION: Stable bilateral screening mammogram. Yearly follow-up recommended. (A) ASSESSMENT CATEGORY: BIRADS Category 2: Benign. A letter regarding these results will be sent to the patient by the facility within 30 days. Approximately 10% of breast cancers are not detected by mammography. A normal mammogram should not delay biopsy of a clinically suspicious abnormality. [id number] Electronically Signed: Anders Brown MD at 10:06 EST Tel [phone], Service support [phone], CC: Karen Curry DO; Verónica Jackson MD Advice Line Rn: Signed Karen Curry Work Phone: Start: 09-23-2014 End: 09-24-2014 Chest PA and Lateral Comments: See Note; NOTES: [facility] [address] [place] [address] Radiology Report MR#: [id number] Acct: [id number] Name: CECE SNEED Rep #: [id number] : 1960 F 54 From: Shmuel Miles DO PCP: Karen Curry DO Status: REG CLI Study: Chest PA and Lateral Date of Exam: 09/23/14 Exam# [id number] Ordering Dr: Karen Curry DO STUDY: X-RAY CHEST REASON FOR EXAM: Female, 54 years old. Cough TECHNIQUE: PA and lateral views of the chest. COMPARISON: None. FINDINGS: The lungs are clear and expanded. There is no demonstrated pleural abnormality. The left hemidiaphragm is slightly elevated. Normal size heart. Normal mediastinum and leatha. Normal visualized pulmonary arteries. Normal visualized aortic arch and descending thoracic aorta. Normal visualized thoracic spine. Normal visualized ribs, clavicles, and shoulders. There is gaseous distention of colon in the visualized upper abdomen. IMPRESSION: No acute process in the chest. Electronically Signed: Shmuel Miles DO at 2:37 EDT Tel , Service support [phone], RAD/Chest PA and Lateral IMPRESSION: No acute process in the chest. Electronically Signed: Shmuel Miles DO at 2:37 EDT Tel , Service support [phone], CC: Karen Curry DO Advice Line Rn: Signed Karen Byrnes [facility] Phone: Start: 09-23-2014 End: 09-23-2014 Spmtry w/vc expiratory freddie w/wo mxml vol vntj _ Karen Byrnes [employer] Phone: Comment on above: good effort and curv e normal Start: 03-27-2014 End: 03-28-2014 Biljt Scrselina Digital AND CAD Comments: See Note; NOTES: [facility] Services [address] [place] [address] Breast Imaging Report MR#: [id number] Acct: [id number] Name: CECE SNEED Rep #: [id number] : 1960 F 53 From: Anders Brown MD PCP: Karen Curry DO Status: REG CLI Study: Angel Gaines Digital AND CAD Date of Exam: 03/27/14 Exam# [id number] Ordering Dr: Verónica Jackson MD MAMMOGRAPHY - BILATERAL SCREENING REASON FOR EXAM: Female, 53 years old. Routine annual screening examination. PERTINENT HISTORY: Grandmother with breast cancer. History of prior left stereotactic biopsy. TECHNIQUE: Digital examination. Mediolateral oblique (MLO) and craniocaudad (CC) views of both breasts were obtained. CAD: CAD was performed on this study. COMPARISON: Comparison is made with prior study dated March 09, 2013 and September 24, 2011. FINDINGS: Breast Composition: The breasts are heterogeneously dense, which may obscure small masses. There are no dominant masses or suspicious calcifications. No other significant abnormalities are identified. There has been no significant change since the prior study. IMPRESSION: Stable bilateral screening mammogram. Yearly follow-up recommended. (A) ASSESSMENT CATEGORY: BIRADS Category 2: Benign. A letter regarding these results will be sent to the patient by the facility within 30 days. Approximately 10% of breast cancers are not detected by mammography. A normal mammogram should not delay biopsy of a clinically suspicious abnormality. Electronically Signed: Anders Brown MD at 7:28 EST Tel [phone], Service support [phone], CC: Karen Curry DO; Verónica Jackson MD Advice Line Rn: Signed Karen Curry Work Phone: Colonoscopy Colonoscopy Taylor Tenorio Comment on above: Nl 11-03-07, repeat 5 yrs. End: 12-04-2018 Colonoscopy Colonoscopy Taylor Tenorio Comment on above: Nl 11-03-07, repeat 5 yrs. Plan of Treatment Date Care Activity Detail Author Start: 03-27-2024 Patient referral [facility] Work Phone: Start: 12-07-2021 Provider Instruction s for Treatment Follow up in 3 months [facility] Work Phone: Start: 11-25-2021 Procedure Education Eprescribe d prescriptions (G8553) [facility]; [facility] Work Phone: Start: 11-04-2021 Patient Education Stress Manag ement: Brief Version *: stress management [facility]; [facility] Work Phone: Start: 11-04-2021 Provider Instruction s for Treatment Follow up in 4 weeks [facility]; [facility] Work Phone: Start: 10-28-2021 Procedure Education Eprescribe d prescriptions (G8553) [facility]; [facility] Work Phone: Start: 10-28-2021 Comprehensive metabo lic panel METABOLIC PANEL, COMPREHENSIVE (81586) [facility]; [facility] Work Phone: Start: 10-28-2021 25 hydroxy includes fractions if performed CALCIFEDIOL (65133) [facility]; [facility] Work Phone: Start: 10-28-2021 Lipid panel LIPID PANEL (03625) [facility]; [facility] Work Phone: Comment on above: fasting Start: 10-28-2021 Assay of iron IRON & TOTAL I JASMEET BINDING CAPACITY (02644) [facility]; [facility] Work Phone: Start: 10-28-2021 Blood count manual c ell count each CBC with auto diff (69569) [facility]; [facility] Work Phone: Start: 10-28-2021 Assay of ferritin FERRITIN (80448) [facility]; [facility] Work Phone: Comment on above: fasting Start: 03-10-2021 CBC, PLATELETS & MAN UAL DIFF (42432) CBC, PLATELETS & MANUAL DIFF (15611) [facility]; [facility] Work Phone: Start: 03-10-2021 Hemoglobin glycosyla hugo a1c HGB A1C (51341) [facility]; [facility] Work Phone: Start: 03-10-2021 Comprehensive metabo lic panel METABOLIC PANEL, COMPREHENSIVE (75996) [facility]; [facility] Work Phone: Start: 03-10-2021 Lipid panel LIPID PANEL (23825) [facility]; [facility] Work Phone: Start: 12-08-2020 Procedure Education Eprescribe d prescriptions (G8553) [facility]; [facility] Work Phone: Start: 12-08-2020 Provider Instruction s for Treatment Follow up in 2 months on Mar 16 front end developer javascript html css to make a virtual follow [facility]; [facility] Work Phone: Start: 11-11-2020 Lipid panel LIPID PANEL (43762) [facility]; [facility] Work Phone: Start: 11-11-2020 Hemoglobin glycosyla hugo a1c HGB A1C (18706) [facility]; [facility] Work Phone: Start: 09-15-2020 Procedure Education Eprescribe d prescriptions (G8553) [facility]; [facility] Work Phone: Start: 09-15-2020 Provider Instruction s for Treatment [facility]; [facility] Work Phone: Start: 09-10-2020 TSH Qn TSH (04597) [facility]; [facility] Work Phone: Start: 09-10-2020 Comprehensive metabo lic panel Metabolic Panel, Comprehensive (67130) [facility]; [facility] Work Phone: Start: 09-10-2020 Blood count complete automated CBC & PLATELETS (AUTO) (80230) [facility]; [facility] Work Phone: Start: 09-10-2020 Lipid panel LIPID PANEL (48758) [facility]; [facility] Work Phone: Start: 06-02-2020 Procedure Education Eprescribe d prescriptions (G8553) [facility]; [facility] Work Phone: Start: 06-02-2020 Provider Instruction s for Treatment [facility]; [facility] Work Phone: Start: 11-26-2019 Procedure Education Eprescribe d prescriptions (G8553) [facility] Work Phone: Start: 11-26-2019 Provider Instruction s for Treatment Follow up in 6 months [facility] Work Phone: Start: 08-29-2019 Procedure Education Eprescribe d prescriptions (G8553) [facility] Work Phone: Start: 08-29-2019 Provider Instruction s for Treatment Follow up in 3 months [facility] Work Phone: Start: 06-06-2019 Skin test tuberculos is intradermal PPD (38099) [facility] Work Phone: Start: 06-06-2019 Procedure Education Eprescribe d prescriptions (G8553) [facility] Work Phone: Start: 06-06-2019 Provider Instruction s for Treatment [facility] Work Phone: Start: 12-04-2018 Procedure Education Eprescribe d prescriptions (G8553) [facility] Work Phone: Start: 12-04-2018 Provider Instruction s for Treatment [facility] Work Phone: Start: 12-04-2018 25 hydroxy includes fractions if performed CALCIFEDIOL (21571) [facility] Work Phone: Start: 12-04-2018 Assay of thyroid stimulating hormone tsh TSH (41853) [facility]; [facility] Work Phone: Start: 12-04-2018 TSH Qn TSH (85700) [facility] Work Phone: Start: 12-04-2018 Blood count complete auto&auto difrntl wbc CBC, Platelets & Auto Diff (46800) [facility] Work Phone: Start: 12-04-2018 Comprehensive metabo lic panel Metabolic Panel, Comprehensive (97247) [facility] Work Phone: Start: 12-04-2018 Lipid panel LIPID PANEL (39387) [facility] Work Phone: Start: 11-13-2018 Comprehensive metabo lic panel METABOLIC PANEL, COMPREHENSIVE (03924) [facility]; [facility] Work Phone: Start: 11-13-2018 25 hydroxy includes fractions if performed CALCIFEDIOL (33485) [facility] Work Phone: Start: 11-13-2018 Blood count complete auto&auto difrntl wbc CBC, Platelets & Auto Diff (03095) [facility] Work Phone: Start: 11-13-2018 Comprehensive metabo lic panel METABOLIC PANEL, COMPREHENSIVE (41546) [facility] Work Phone: Start: 11-13-2018 Lipid panel LIPID PANEL (22450) [facility] Work Phone: Start: 05-26-2018 Procedure Education Eprescribe d prescriptions (G8553) [facility] Work Phone: Start: 05-26-2018 Provider Instruction s for Treatment [facility] Work Phone: Start: 10-10-2017 Procedure Education Eprescribe d prescriptions (G8553) [facility] Work Phone: Start: 10-10-2017 Provider Instruction s for Treatment Follow up in 6 months [facility] Work Phone: Start: 04-12-2017 Procedure Education Eprescribe d prescriptions (G8553) [facility] Work Phone: Start: 04-12-2017 Provider Instruction s for Treatment [facility] Work Phone: Start: 04-01-2017 Procedure Education Eprescribe d prescriptions (G8553) [facility] Work Phone: Start: 04-01-2017 Provider Instruction s for Treatment [facility] Work Phone: Start: 09-13-2016 Procedure Education Eprescribe d prescriptions (G8553) [facility] Work Phone: Start: 09-13-2016 Provider Instruction s for Treatment Reviewed Diagnostic Tests [facility] Work Phone: Start: 08-23-2016 Procedure Education Eprescribe d prescriptions (G8553) [facility] Work Phone: Start: 08-23-2016 Provider Instruction s for Treatment Follow up in 6 months [facility] Work Phone: Start: 08-23-2016 Lipid panel LIPID PANEL (22608) [facility] Work Phone: Comment on above: Feb 2017 Start: 08-23-2016 25 hydroxy includes fractions if performed CALCIFEDIOL (00747) [facility] Work Phone: Comment on above: Feb 2017 Start: 08-23-2016 Assay of thyroid stimulating hormone tsh TSH (73245) [facility]; [facility] Work Phone: Comment on above: Feb 2017 Start: 08-23-2016 Thyrotropin Qn TSH (47214) [facility] Work Phone: Comment on above: Feb 2017 Start: 08-23-2016 Blood count complete auto&auto difrntl wbc CBC, Platelets & Auto Diff (27712) [facility] Work Phone: Comment on above: Feb 2017 Start: 08-23-2016 Comprehensive metabo lic panel Metabolic Panel, Comprehensive (44953) [facility] Work Phone: Comment on above: Feb 2017 Start: 02-23-2016 Patient Education Triglycerides: t [facility] Work Phone: Start: 02-23-2016 Procedure Education Eprescribe d prescriptions (G8553) [facility] Work Phone: Start: 02-23-2016 Provider Instruction s for Treatment [facility] Work Phone: Start: 11-24-2015 Provider Instruction s for Treatment [facility] Work Phone: Start: 11-07-2015 Procedure Education Eprescribe d prescriptions (G8553) [facility] Work Phone: Start: 11-07-2015 Provider Instruction s for Treatment Follow up in 2 weeks [facility] Work Phone: Start: 08-25-2015 Patient Education Allergies: allergi es [facility] Work Phone: Start: 08-25-2015 Procedure Education Eprescribe d prescriptions (G8553) [facility] Work Phone: Start: 07-02-2015 Procedure Education Eprescribe d prescriptions (G8553) [facility] Work Phone: Start: 03-25-2015 Procedure Education Eprescribe d prescriptions (G8553) [facility] Work Phone: Start: 09-23-2014 Procedure Education Eprescribe d prescriptions (G8553) [facility] Work Phone: Start: 09-23-2014 25 hydroxy includes fractions if performed Vitamin D Hydroxy (23494) [facility] Work Phone: Start: 09-23-2014 Assay of thyroid stimulating hormone tsh TSH (91274) [facility]; [facility] Work Phone: Start: 09-23-2014 Thyrotropin Qn TSH (24682) [facility] Work Phone: Start: 09-23-2014 Blood count complete auto&auto difrntl wbc CBC W/AUTO DIFF WBC (89008) [facility] Work Phone: Start: 09-23-2014 Comprehensive metabo lic panel METABOLIC PANEL, COMPREHENSIVE (10564) [facility] Work Phone: Start: 08-05-2014 Provider Instruction s for Treatment Follow up if no improvement or if symptoms worsen [facility] Work Phone: Start: 03-25-2014 Procedure Education Eprescribe d prescriptions (G8553) [facility] Work Phone: Start: 10-09-2013 25 hydroxy includes fractions if performed CALCIFEDIOL (41016) [facility] Work Phone: Start: 10-03-2013 Procedure Education Eprescribe d prescriptions (G8553) [facility] Work Phone: Start: 04-03-2013 25 hydroxy includes fractions if performed CALCIFEDIOL (07823) [facility] Work Phone: Start: 03-12-2013 [facility] Work [facility]: Start: 11-15-2011 Patient Education Depression: Brief Version *: depression [facility] Work Phone: Start: 11-15-2011 Lipid panel LIPID PANEL (12595) [facility] Work Phone: Start: 11-15-2011 Blood count manual c ell count each CBC WITH MANUAL DIFF (70141) [facility] Work Phone: Start: 11-15-2011 Comprehensive metabo lic panel METABOLIC PANEL, COMPREHENSIVE (80184) [facility] Work Phone: Start: 11-15-2011 Assay of thyroid stimulating hormone tsh TSH (04149) [facility]; [facility] Work Phone: Start: 11-15-2011 Thyrotropin Qn T[facility] (33486) [facility] Work [facility]: Start: 09-14-2010 Assay of thyroid stimulating hormone tsh TSH (91506) [facility]; [facility] Work Phone: Start: 09-14-2010 Thyrotropin Qn TSH (59472) [facility] Work [facility]: Start: 09-14-2010 Lipid panel LIPID PANEL (47544) [facility] Work Phone: Start: 09-14-2010 Comprehensive metabo lic panel METABOLIC PANEL, COMPREHENSIVE (72465) [facility] Work Phone: Start: 09-14-2010 Blood count manual c ell count each CBC WITH MANUAL DIFF (75654) [facility] Work Phone: Start: 04-01-2009 Lipid panel LIPID PANEL (09994) [facility] Work Phone: Start: 04-01-2009 Assay of thyroid stimulating hormone tsh TSH (78160) [facility]; [facility] Work Phone: Start: 04-01-2009 Thyrotropin Qn TSH (72664) [facility] Work [facility]: Start: 04-01-2009 Urnls dip stick/tabl et reagent auto microscopy URINALYSIS, W/ MICRO (07548) [facility] Work Phone: Start: 04-01-2009 Blood count manual c ell count each CBC WITH MANUAL DIFF (56626) [facility] Work Phone: Start: 04-01-2009 Comprehensive metabo lic panel METABOLIC PANEL, COMPREHENSIVE (90210) [facility] Work Phone: Start: 07-04-2006 Provider Instruction s for Treatment FOLLOW UP IN 6 MONTHS [facility] Work Phone: Start: 07-04-2006 Lipid panel LIPID PANEL (89243) [facility] Work Phone: Comment on above: screen Start: 07-04-2006 Urnls dip stick/tabl et rgnt auto w/o microscopy URINALYSIS W/O MICRO (27068) [facility] Work Phone: Start: 07-04-2006 Assay of thyroid stimulating hormone tsh TSH (29773) [facility]; [facility] Work Phone: Start: 07-04-2006 Thyrotropin Qn TSH (67513) [facility] Work Phone: Start: 07-04-2006 Blood count manual c ell count each CBC WITH MANUAL DIFF (25097) [facility] Work Phone: Start: 07-04-2006 Comprehensive metabo lic panel METABOLIC PANEL, COMPREHENSIVE (89313) [facility] Work Phone: Patient referral [facility] Work Phone: [facility] Work Phone: [facility] Work Phone: [facility] Work Phone: [facility] Work Phone: [facility] Work Phone: [facility] Work Phone: [facility] Work Phone: [facility] Work Phone: [facility] Work Phone[facility] Work Phone: [facility] Work Phone: [facility] Work Phone: [facility] Work Phone: [facility] Work Phone: [facility]; [facility] Work Phone: Immunizations Immunization Date Immunization Notes Care Provider aHrinder sprague 04-01-2009 tetanus toxoid, redu mackenzie diphtheria toxoid, and acellular pertussis vaccine, adsorbed Taylor Tenorio [facility] Work Phone: Comment on above: Lot #: [id number] iration date: mount given: 0.5 mlRoute: IMSite given: right deltoidGiven by: Fitz Donaldson RN Payers Date Payer Category Payer Unknown [id number] 2023 Self-pay [id number] 2015 Unknown [id number] 2006 Unknown [id number] 1960 Unknown [id number] Unknown Unknown [id number] Unknown [id number] [id number] [id number] Unknown [id number] [id number] [id number] Unknown [id number] [id number] [id number] Unknown [id number] [id number] [id number] Unknown [id number] [id number] [id number] Social History Date Type Detail Facility Caffeine Use Never smoker [facility] Work Phone: Tobacco use: Never smoker. [facility] Work Phone: Tobacco use: Tobacco use: [facility]; [facility] Work Phone: Start: 1960 Sex Assigned At Female W [facility] Start: 03-27-2024 Tobacco smoking status NHIS Never smoked tobacco (finding) [facility] Start: 07-03-2024 Sex Female (finding) [facility] Clinical Notes 06-23-2021 to 03-27-2024 Note Date & Type Note Facility 03-27-2024 Evaluation note Diagnosis Onset Date Resolution Asthma acute March 27, 2024 10:42am Mixed hyperlipidemia acute Dece 2023 10:42am Obstructive sleep apnea acute D ec2023 10:42am Prediabetes acute March 10:42am RLS (restless legs syndrome) acute March 27 10:42am Immunization declined noneactive Dec emb2023 10:42am Establishing care with new doctor, encounter for noneactive March 27 10:42am Migraine noneactive March 27, 2024 10:42am Anxiety and depression noneactive De cember 2023 10:42am GERD (gastroesophageal reflux disease) noneactive March 27 10:42am Vitamin d deficiency noneactive 2023 10:42am [facility] Work Phone: [phone]) 532-207303-15-2022 NotePap Smear Specimen AdequacyMarch 2021 2:00pmCommentSatisfactory for evaluation. Endocervical and/or squamous metaplasticcells (endocervical component)are present.[facility] A#[id number] [facility] Work Phone: Comment on above:Satisfactory for evaluation. Endocervical and/or squamous metaplasticcells (endocervical component)are present.06-23-2021 NotePap Smear Specimen AdequacyMarch 2021 2:00pmComment Satisfactory for evaluation. Endocervical and/or squamous metaplasticcells (endocervical component)are present.[facility] A#[id number] [facility]als [facility] Work Phone: Comment on above:Satisfactory for evaluation. Endocervical and/or squamous metaplasticcells (endocervical component)are present.Evaluation noteNo assessment information availableWUniversity Hospitals [facility] Work Phone: Instructions* Name Dates Details Patient Instructions Indication:Nonsmoker Start:15-Sep-2020 Instruction Type:Provider Instructions for Treatment How to Access Health Informa tion Online using Patient Portal and [employer] Apps Indication:Nonsmoker Start:15-Sep-2020 Instruction Type:Patient Education Patient Instructions Indication:Nonsmoker Start:02-Jun-2020 Instruction Type:Provider Instructions for Treatment How to Access Health Informa tion Online using Patient Portal and [employer] Apps Indication:Nonsmoker Start:02-Jun-2020 Instruction Type:Patient Education How to access health informa tion online Indication:Nonsmoker Start:26-Nov-2019 Instruction Type:Patient Education How to access health informa tion online - Detail Indication:Nonsmoker Start:26-Nov-2019 Instruction Type:Patient Education Patient Instructions Indication:Nonsmoker Start:26-Nov-2019 Instruction Type:Provider Instructions for Treatment How to access health informa tion online Indication:Nonsmoker Start:29-Aug-2019 Instruction Type:Patient Education How to access health informa tion online - Detail Indication:Nonsmoker Start:29-Aug-2019 Instruction Type:Patient Education Patient Instructions Indication:Nonsmoker Start:29-Aug-2019 Instruction Type:Provider Instructions for Treatment How to access health informa tion online Indication:Nonsmoker Start:06-Jun-2019 Instruction Type:Patient Education How to access health informa tion online - Detail Indication:Nonsmoker Start:06-Jun-2019 Instruction Type:Patient Education Patient Instructions Indication:Nonsmoker Start:06-Jun-2019 Instruction Type:Provider Instructions for Treatment How to access health informa tion online Indication:Nonsmoker Start:04-Dec-2018 Instruction Type:Patient Education How to access health informa tion online - Detail Indication:Nonsmoker Start:04-Dec-2018 Instruction Type:Patient Education Patient Instructions Indication:Nonsmoker Start:04-Dec-2018 Instruction Type:Provider Instructions for Treatment How to access health informa tion online Indication:Nonsmoker Start:26-May-2018 Instruction Type:Patient Education How to access health informa tion online - Detail Indication:Nonsmoker Start:26-May-2018 Instruction Type:Patient Education Patient Instructions Indication:Nonsmoker Start:26-May-2018 Instruction Type:Provider Instructions for Treatment How to access health informa tion online Indication:BMI 34.0-34.9,adult Start:10-Oct-2017 Instruction Type:Patient Education How to access health informa tion online - Detail Indication:BMI 34.0-34.9,adult Start:10-Oct-2017 Instruction Type:Patient Education Patient Instructions Indication:BMI 34.0-34.9,adult Start:10-Oct-2017 Instruction Type:Provider Instructions for Treatment DISCONTINUED - LIPID PANEL ( [id number]) Indication:Hyperglyceridemia Start:12-Apr-2017 Instruction Type:Patient Education How to access health informa tion online Indication:Nonsmoker Start:12-Apr-2017 Instruction Type:Patient Education How to access health informa tion online - Detail Indication:Nonsmoker Start:12-Apr-2017 Instruction Type:Patient Education Patient Instructions Indication:Nonsmoker Start:12-Apr-2017 Instruction Type:Provider Instructions for Treatment How to access health informa tion online Indication:Depression, controlled Start:01-Apr-2017 Instruction Type:Patient Education How to access health informa tion online - Detail Indication:Depression, controlled Start:01-Apr-2017 Instruction Type:Patient Education Patient Instructions Indication:Depression, controlled Start:01-Apr-2017 Instruction Type:Provider Instructions for Treatment Patient Instructions Indication:Hypercholesteremia Start:13-Sep-2016 Instruction Type:Provider Instructions for Treatment How to access health informa tion online Indication:Hypercholesteremia Start:13-Sep-2016 Instruction Type:Patient Education How to access health informa tion online - Detail Indication:Hypercholesteremia Start:13-Sep-2016 Instruction Type:Patient Education Patient Instructions Indication:Hypercholesteremia Start:13-Sep-2016 Instruction Type:Provider Instructions for Treatment How to access health informa tion online Indication:Elevated blood pressure (not hypertension) Start:23-Aug-2016 Instruction Type:Patient Education How to access health informa tion online - Detail Indication:Elevated blood pressure (not hypertension) Start:23-Aug-2016 Instruction Type:Patient Education Patient Instructions Indication:Elevated blood pressure (not hypertension) Start:23-Aug-2016 Instruction Type:Provider Instructions for Treatment How to access health informa tion online Indication:Depression Start:23-Feb-2016 Instruction Type:Patient Education How to access health informa tion online - Detail Indication:Depression Start:23-Feb-2016 Instruction Type:Patient Education Patient Instructions Indication:Depression Start:23-Feb-2016 Instruction Type:Provider Instructions for Treatment How to access health informa tion online Indication:Lump in neck Start:07-Nov-2015 Instruction Type:Patient Education How to access health informa tion online - Detail Indication:Lump in neck Start:07-Nov-2015 Instruction Type:Patient Education Patient Instructions Indication:Lump in neck Start:07-Nov-2015 Instruction Type:Provider Instructions for Treatment How to access health informa tion online Indication:Hyperglyceridemia Start:25-Aug-2015 Instruction Type:Patient Education How to access health informa tion online - Detail Indication:Hyperglyceridemia Start:25-Aug-2015 Instruction Type:Patient Education Patient Instructions Indication:Hyperglyceridemia Start:25-Aug-2015 Instruction Type:Provider Instructions for Treatment How to access health informa tion online Indication:UTI (urinary tract infection) Start:02-Jul-2015 Instruction Type:Patient Education How to access health informa tion online - Detail Indication:UTI (urinary tract infection) Start:02-Jul-2015 Instruction Type:Patient Education Patient Instructions Indication:UTI (urinary tract infection) Start:02-Jul-2015 Instruction Type:Provider Instructions for Treatment How to access health informa tion online Indication:Paresthesia Start:25-Mar-2015 Instruction Type:Patient Education How to access health informa tion online - Detail Indication:Paresthesia Start:25-Mar-2015 Instruction Type:Patient Education Patient Instructions Indication:Paresthesia Start:25-Mar-2015 Instruction Type:Provider Instructions for Treatment Patient Instructions Indication:Depression Start:23-Sep-2014 Instruction Type:Provider Instructions for Treatment Patient Instructions Indication:Depression Start:25-Mar-2014 Instruction Type:Provider Instructions for Treatment Patient Instructions Indication:Hyperglyceridemia Start:03-Oct-2013 Instruction Type:Provider Instructions for Treatment Patient Instructions Indication:Depression Start:12-Mar-2013 Instruction Type:Provider Instructions for Treatment [facility]; [facility] Work Phone: Instructions* Name Dates Details Patient Instructions Indication:BMI 36.0-36.9,adult Start:15-Sep-2020 Instruction Type:Provider Instructions for Treatment How to Access Health Informa tion Online using Patient Portal and [employer] Indication:Nonsmoker Start:15-Sep-2020 Instruction Type:Patient Education Patient Instructions Indication:Nonsmoker Start:02-Jun-2020 Instruction Type:Provider Instructions for Treatment How to Access Health Informa tion Online using Patient Portal and [employer] Indication:Nonsmoker Start:02-Jun-2020 Instruction Type:Patient Education How to access health informa tion online Indication:Nonsmoker Start:26-Nov-2019 Instruction Type:Patient Education How to access health informa tion online - Detail Indication:Nonsmoker Start:26-Nov-2019 Instruction Type:Patient Education Patient Instructions Indication:Nonsmoker Start:26-Nov-2019 Instruction Type:Provider Instructions for Treatment How to access health informa tion online Indication:Nonsmoker Start:29-Aug-2019 Instruction Type:Patient Education How to access health informa tion online - Detail Indication:Nonsmoker Start:29-Aug-2019 Instruction Type:Patient Education Patient Instructions Indication:Nonsmoker Start:29-Aug-2019 Instruction Type:Provider Instructions for Treatment How to access health informa tion online Indication:Nonsmoker Start:06-Jun-2019 Instruction Type:Patient Education How to access health informa tion online - Detail Indication:Nonsmoker Start:06-Jun-2019 Instruction Type:Patient Education Patient Instructions Indication:Nonsmoker Start:06-Jun-2019 Instruction Type:Provider Instructions for Treatment How to access health informa tion online Indication:Nonsmoker Start:04-Dec-2018 Instruction Type:Patient Education How to access health informa tion online - Detail Indication:Nonsmoker Start:04-Dec-2018 Instruction Type:Patient Education Patient Instructions Indication:Nonsmoker Start:04-Dec-2018 Instruction Type:Provider Instructions for Treatment How to access health informa tion online Indication:Nonsmoker Start:26-May-2018 Instruction Type:Patient Education How to access health informa tion online - Detail Indication:Nonsmoker Start:26-May-2018 Instruction Type:Patient Education Patient Instructions Indication:Nonsmoker Start:26-May-2018 Instruction Type:Provider Instructions for Treatment How to access health informa tion online Indication:BMI 34.0-34.9,adult Start:10-Oct-2017 Instruction Type:Patient Education How to access health informa tion online - Detail Indication:BMI 34.0-34.9,adult Start:10-Oct-2017 Instruction Type:Patient Education Patient Instructions Indication:BMI 34.0-34.9,adult Start:10-Oct-2017 Instruction Type:Provider Instructions for Treatment DISCONTINUED - LIPID PANEL ( [id number]) Indication:Hyperglyceridemia Start:12-Apr-2017 Instruction Type:Patient Education How to access health informa tion online Indication:Nonsmoker Start:12-Apr-2017 Instruction Type:Patient Education How to access health informa tion online - Detail Indication:Nonsmoker Start:12-Apr-2017 Instruction Type:Patient Education Patient Instructions Indication:Nonsmoker Start:12-Apr-2017 Instruction Type:Provider Instructions for Treatment How to access health informa tion online Indication:Depression, controlled Start:01-Apr-2017 Instruction Type:Patient Education How to access health informa tion online - Detail Indication:Depression, controlled Start:01-Apr-2017 Instruction Type:Patient Education Patient Instructions Indication:Depression, controlled Start:01-Apr-2017 Instruction Type:Provider Instructions for Treatment Patient Instructions Indication:Hypercholesteremia Start:13-Sep-2016 Instruction Type:Provider Instructions for Treatment How to access health informa tion online Indication:Hypercholesteremia Start:13-Sep-2016 Instruction Type:Patient Education How to access health informa tion online - Detail Indication:Hypercholesteremia Start:13-Sep-2016 Instruction Type:Patient Education Patient Instructions Indication:Hypercholesteremia Start:13-Sep-2016 Instruction Type:Provider Instructions for Treatment How to access health informa tion online Indication:Elevated blood pressure (not hypertension) Start:23-Aug-2016 Instruction Type:Patient Education How to access health informa tion online - Detail Indication:Elevated blood pressure (not hypertension) Start:23-Aug-2016 Instruction Type:Patient Education Patient Instructions Indication:Elevated blood pressure (not hypertension) Start:23-Aug-2016 Instruction Type:Provider Instructions for Treatment How to access health informa tion online Indication:Depression Start:23-Feb-2016 Instruction Type:Patient Education How to access health informa tion online - Detail Indication:Depression Start:23-Feb-2016 Instruction Type:Patient Education Patient Instructions Indication:Depression Start:23-Feb-2016 Instruction Type:Provider Instructions for Treatment How to access health informa tion online Indication:Lump in neck Start:07-Nov-2015 Instruction Type:Patient Education How to access health informa tion online - Detail Indication:Lump in neck Start:07-Nov-2015 Instruction Type:Patient Education Patient Instructions Indication:Lump in neck Start:07-Nov-2015 Instruction Type:Provider Instructions for Treatment How to access health informa tion online Indication:Hyperglyceridemia Start:25-Aug-2015 Instruction Type:Patient Education How to access health informa tion online - Detail Indication:Hyperglyceridemia Start:25-Aug-2015 Instruction Type:Patient Education Patient Instructions Indication:Hyperglyceridemia Start:25-Aug-2015 Instruction Type:Provider Instructions for Treatment How to access health informa tion online Indication:UTI (urinary tract infection) Start:02-Jul-2015 Instruction Type:Patient Education How to access health informa tion online - Detail Indication:UTI (urinary tract infection) Start:02-Jul-2015 Instruction Type:Patient Education Patient Instructions Indication:UTI (urinary tract infection) Start:02-Jul-2015 Instruction Type:Provider Instructions for Treatment How to access health informa tion online Indication:Paresthesia Start:25-Mar-2015 Instruction Type:Patient Education How to access health informa tion online - Detail Indication:Paresthesia Start:25-Mar-2015 Instruction Type:Patient Education Patient Instructions Indication:Paresthesia Start:25-Mar-2015 Instruction Type:Provider Instructions for Treatment Patient Instructions Indication:Depression Start:23-Sep-2014 Instruction Type:Provider Instructions for Treatment Patient Instructions Indication:Depression Start:25-Mar-2014 Instruction Type:Provider Instructions for Treatment Patient Instructions Indication:Hyperglyceridemia Start:03-Oct-2013 Instruction Type:Provider Instructions for Treatment Patient Instructions Indication:Depression Start:12-Mar-2013 Instruction Type:Provider Instructions for Treatment [facility] Work Phone: Instructions* Name Dates Details Patient Instructions Indication:Nonsmoker Start:08-Dec-2020 Instruction Type:Provider Instructions for Treatment How to Access Health Informa tion Online using Patient Portal and [employer] Indication:Nonsmoker Start:08-Dec-2020 Instruction Type:Patient Education Patient Instructions Indication:BMI 36.0-36.9,adult Start:15-Sep-2020 Instruction Type:Provider Instructions for Treatment How to Access Health Informa tion Online using Patient Portal and [employer] Indication:Nonsmoker Start:15-Sep-2020 Instruction Type:Patient Education Patient Instructions Indication:Nonsmoker Start:02-Jun-2020 Instruction Type:Provider Instructions for Treatment How to Access Health Informa tion Online using Patient Portal and [employer] Indication:Nonsmoker Start:02-Jun-2020 Instruction Type:Patient Education How to access health informa tion online Indication:Nonsmoker Start:26-Nov-2019 Instruction Type:Patient Education How to access health informa tion online - Detail Indication:Nonsmoker Start:26-Nov-2019 Instruction Type:Patient Education Patient Instructions Indication:Nonsmoker Start:26-Nov-2019 Instruction Type:Provider Instructions for Treatment How to access health informa tion online Indication:Nonsmoker Start:29-Aug-2019 Instruction Type:Patient Education How to access health informa tion online - Detail Indication:Nonsmoker Start:29-Aug-2019 Instruction Type:Patient Education Patient Instructions Indication:Nonsmoker Start:29-Aug-2019 Instruction Type:Provider Instructions for Treatment How to access health informa tion online Indication:Nonsmoker Start:06-Jun-2019 Instruction Type:Patient Education How to access health informa tion online - Detail Indication:Nonsmoker Start:06-Jun-2019 Instruction Type:Patient Education Patient Instructions Indication:Nonsmoker Start:06-Jun-2019 Instruction Type:Provider Instructions for Treatment How to access health informa tion online Indication:Nonsmoker Start:04-Dec-2018 Instruction Type:Patient Education How to access health informa tion online - Detail Indication:Nonsmoker Start:04-Dec-2018 Instruction Type:Patient Education Patient Instructions Indication:Nonsmoker Start:04-Dec-2018 Instruction Type:Provider Instructions for Treatment How to access health informa tion online Indication:Nonsmoker Start:26-May-2018 Instruction Type:Patient Education How to access health informa tion online - Detail Indication:Nonsmoker Start:26-May-2018 Instruction Type:Patient Education Patient Instructions Indication:Nonsmoker Start:26-May-2018 Instruction Type:Provider Instructions for Treatment How to access health informa tion online Indication:BMI 34.0-34.9,adult Start:10-Oct-2017 Instruction Type:Patient Education How to access health informa tion online - Detail Indication:BMI 34.0-34.9,adult Start:10-Oct-2017 Instruction Type:Patient Education Patient Instructions Indication:BMI 34.0-34.9,adult Start:10-Oct-2017 Instruction Type:Provider Instructions for Treatment DISCONTINUED - LIPID PANEL ( [id number]) Indication:Hyperglyceridemia Start:12-Apr-2017 Instruction Type:Patient Education How to access health informa tion online Indication:Nonsmoker Start:12-Apr-2017 Instruction Type:Patient Education How to access health informa tion online - Detail Indication:Nonsmoker Start:12-Apr-2017 Instruction Type:Patient Education Patient Instructions Indication:Nonsmoker Start:12-Apr-2017 Instruction Type:Provider Instructions for Treatment How to access health informa tion online Indication:Depression, controlled Start:01-Apr-2017 Instruction Type:Patient Education How to access health informa tion online - Detail Indication:Depression, controlled Start:01-Apr-2017 Instruction Type:Patient Education Patient Instructions Indication:Depression, controlled Start:01-Apr-2017 Instruction Type:Provider Instructions for Treatment Patient Instructions Indication:Hypercholesteremia Start:13-Sep-2016 Instruction Type:Provider Instructions for Treatment How to access health informa tion online Indication:Hypercholesteremia Start:13-Sep-2016 Instruction Type:Patient Education How to access health informa tion online - Detail Indication:Hypercholesteremia Start:13-Sep-2016 Instruction Type:Patient Education Patient Instructions Indication:Hypercholesteremia Start:13-Sep-2016 Instruction Type:Provider Instructions for Treatment How to access health informa tion online Indication:Elevated blood pressure (not hypertension) Start:23-Aug-2016 Instruction Type:Patient Education How to access health informa tion online - Detail Indication:Elevated blood pressure (not hypertension) Start:23-Aug-2016 Instruction Type:Patient Education Patient Instructions Indication:Elevated blood pressure (not hypertension) Start:23-Aug-2016 Instruction Type:Provider Instructions for Treatment How to access health informa tion online Indication:Depression Start:23-Feb-2016 Instruction Type:Patient Education How to access health informa tion online - Detail Indication:Depression Start:23-Feb-2016 Instruction Type:Patient Education Patient Instructions Indication:Depression Start:23-Feb-2016 Instruction Type:Provider Instructions for Treatment How to access health informa tion online Indication:Lump in neck Start:07-Nov-2015 Instruction Type:Patient Education How to access health informa tion online - Detail Indication:Lump in neck Start:07-Nov-2015 Instruction Type:Patient Education Patient Instructions Indication:Lump in neck Start:07-Nov-2015 Instruction Type:Provider Instructions for Treatment How to access health informa tion online Indication:Hyperglyceridemia Start:25-Aug-2015 Instruction Type:Patient Education How to access health informa tion online - Detail Indication:Hyperglyceridemia Start:25-Aug-2015 Instruction Type:Patient Education Patient Instructions Indication:Hyperglyceridemia Start:25-Aug-2015 Instruction Type:Provider Instructions for Treatment How to access health informa tion online Indication:UTI (urinary tract infection) Start:02-Jul-2015 Instruction Type:Patient Education How to access health informa tion online - Detail Indication:UTI (urinary tract infection) Start:02-Jul-2015 Instruction Type:Patient Education Patient Instructions Indication:UTI (urinary tract infection) Start:02-Jul-2015 Instruction Type:Provider Instructions for Treatment How to access health informa tion online Indication:Paresthesia Start:25-Mar-2015 Instruction Type:Patient Education How to access health informa tion online - Detail Indication:Paresthesia Start:25-Mar-2015 Instruction Type:Patient Education Patient Instructions Indication:Paresthesia Start:25-Mar-2015 Instruction Type:Provider Instructions for Treatment Patient Instructions Indication:Depression Start:23-Sep-2014 Instruction Type:Provider Instructions for Treatment Patient Instructions Indication:Depression Start:25-Mar-2014 Instruction Type:Provider Instructions for Treatment Patient Instructions Indication:Hyperglyceridemia Start:03-Oct-2013 Instruction Type:Provider Instructions for Treatment Patient Instructions Indication:Depression Start:12-Mar-2013 Instruction Type:Provider Instructions for Treatment [facility] Work Phone: Instructions* Name Dates Details Patient Instructions Indication:BMI 36.0-36.9,adult Start:28-Oct-2021 Instruction Type:Provider Instructions for Treatment How to Access Health Informa tion Online using Patient Portal and [employer] Indication:BMI 36.0-36.9,adult Start:28-Oct-2021 Instruction Type:Patient Education Patient Instructions Indication:Nonsmoker Start:08-Dec-2020 Instruction Type:Provider Instructions for Treatment How to Access Health Informa tion Online using Patient Portal and [employer] Indication:Nonsmoker Start:08-Dec-2020 Instruction Type:Patient Education Patient Instructions Indication:BMI 36.0-36.9,adult Start:15-Sep-2020 Instruction Type:Provider Instructions for Treatment How to Access Health Informa tion Online using Patient Portal and [employer] Indication:Nonsmoker Start:15-Sep-2020 Instruction Type:Patient Education Patient Instructions Indication:Nonsmoker Start:02-Jun-2020 Instruction Type:Provider Instructions for Treatment How to Access Health Informa tion Online using Patient Portal and [employer] Indication:Nonsmoker Start:02-Jun-2020 Instruction Type:Patient Education How to access health informa tion online Indication:Nonsmoker Start:26-Nov-2019 Instruction Type:Patient Education How to access health informa tion online - Detail Indication:Nonsmoker Start:26-Nov-2019 Instruction Type:Patient Education Patient Instructions Indication:Nonsmoker Start:26-Nov-2019 Instruction Type:Provider Instructions for Treatment How to access health informa tion online Indication:Nonsmoker Start:29-Aug-2019 Instruction Type:Patient Education How to access health informa tion online - Detail Indication:Nonsmoker Start:29-Aug-2019 Instruction Type:Patient Education Patient Instructions Indication:Nonsmoker Start:29-Aug-2019 Instruction Type:Provider Instructions for Treatment How to access health informa tion online Indication:Nonsmoker Start:06-Jun-2019 Instruction Type:Patient Education How to access health informa tion online - Detail Indication:Nonsmoker Start:06-Jun-2019 Instruction Type:Patient Education Patient Instructions Indication:Nonsmoker Start:06-Jun-2019 Instruction Type:Provider Instructions for Treatment How to access health informa tion online Indication:Nonsmoker Start:04-Dec-2018 Instruction Type:Patient Education How to access health informa tion online - Detail Indication:Nonsmoker Start:04-Dec-2018 Instruction Type:Patient Education Patient Instructions Indication:Nonsmoker Start:04-Dec-2018 Instruction Type:Provider Instructions for Treatment How to access health informa tion online Indication:Nonsmoker Start:26-May-2018 Instruction Type:Patient Education How to access health informa tion online - Detail Indication:Nonsmoker Start:26-May-2018 Instruction Type:Patient Education Patient Instructions Indication:Nonsmoker Start:26-May-2018 Instruction Type:Provider Instructions for Treatment How to access health informa tion online Indication:BMI 34.0-34.9,adult Start:10-Oct-2017 Instruction Type:Patient Education How to access health informa tion online - Detail Indication:BMI 34.0-34.9,adult Start:10-Oct-2017 Instruction Type:Patient Education Patient Instructions Indication:BMI 34.0-34.9,adult Start:10-Oct-2017 Instruction Type:Provider Instructions for Treatment DISCONTINUED - LIPID PANEL ( [id number]) Indication:Hyperglyceridemia Start:12-Apr-2017 Instruction Type:Patient Education How to access health informa tion online Indication:Nonsmoker Start:12-Apr-2017 Instruction Type:Patient Education How to access health informa tion online - Detail Indication:Nonsmoker Start:12-Apr-2017 Instruction Type:Patient Education Patient Instructions Indication:Nonsmoker Start:12-Apr-2017 Instruction Type:Provider Instructions for Treatment How to access health informa tion online Indication:Depression, controlled Start:01-Apr-2017 Instruction Type:Patient Education How to access health informa tion online - Detail Indication:Depression, controlled Start:01-Apr-2017 Instruction Type:Patient Education Patient Instructions Indication:Depression, controlled Start:01-Apr-2017 Instruction Type:Provider Instructions for Treatment Patient Instructions Indication:Hypercholesteremia Start:13-Sep-2016 Instruction Type:Provider Instructions for Treatment How to access health informa tion online Indication:Hypercholesteremia Start:13-Sep-2016 Instruction Type:Patient Education How to access health informa tion online - Detail Indication:Hypercholesteremia Start:13-Sep-2016 Instruction Type:Patient Education Patient Instructions Indication:Hypercholesteremia Start:13-Sep-2016 Instruction Type:Provider Instructions for Treatment How to access health informa tion online Indication:Elevated blood pressure (not hypertension) Start:23-Aug-2016 Instruction Type:Patient Education How to access health informa tion online - Detail Indication:Elevated blood pressure (not hypertension) Start:23-Aug-2016 Instruction Type:Patient Education Patient Instructions Indication:Elevated blood pressure (not hypertension) Start:23-Aug-2016 Instruction Type:Provider Instructions for Treatment How to access health informa tion online Indication:Depression Start:23-Feb-2016 Instruction Type:Patient Education How to access health informa tion online - Detail Indication:Depression Start:23-Feb-2016 Instruction Type:Patient Education Patient Instructions Indication:Depression Start:23-Feb-2016 Instruction Type:Provider Instructions for Treatment How to access health informa tion online Indication:Lump in neck Start:07-Nov-2015 Instruction Type:Patient Education How to access health informa tion online - Detail Indication:Lump in neck Start:07-Nov-2015 Instruction Type:Patient Education Patient Instructions Indication:Lump in neck Start:07-Nov-2015 Instruction Type:Provider Instructions for Treatment How to access health informa tion online Indication:Hyperglyceridemia Start:25-Aug-2015 Instruction Type:Patient Education How to access health informa tion online - Detail Indication:Hyperglyceridemia Start:25-Aug-2015 Instruction Type:Patient Education Patient Instructions Indication:Hyperglyceridemia Start:25-Aug-2015 Instruction Type:Provider Instructions for Treatment How to access health informa tion online Indication:UTI (urinary tract infection) Start:02-Jul-2015 Instruction Type:Patient Education How to access health informa tion online - Detail Indication:UTI (urinary tract infection) Start:02-Jul-2015 Instruction Type:Patient Education Patient Instructions Indication:UTI (urinary tract infection) Start:02-Jul-2015 Instruction Type:Provider Instructions for Treatment How to access health informa tion online Indication:Paresthesia Start:25-Mar-2015 Instruction Type:Patient Education How to access health informa tion online - Detail Indication:Paresthesia Start:25-Mar-2015 Instruction Type:Patient Education Patient Instructions Indication:Paresthesia Start:25-Mar-2015 Instruction Type:Provider Instructions for Treatment Patient Instructions Indication:Depression Start:23-Sep-2014 Instruction Type:Provider Instructions for Treatment Patient Instructions Indication:Depression Start:25-Mar-2014 Instruction Type:Provider Instructions for Treatment Patient Instructions Indication:Hyperglyceridemia Start:03-Oct-2013 Instruction Type:Provider Instructions for Treatment Patient Instructions Indication:Depression Start:12-Mar-2013 Instruction Type:Provider Instructions for Treatment [facility] Work Phone: Instructions* Name Dates Details Patient Instructions Indication:BMI 36.0-36.9,adult Start:28-Oct-2021 Instruction Type:Provider Instructions for Treatment How to Access Health Informa tion Online using Patient Portal and [employer] Indication:BMI 36.0-36.9,adult Start:28-Oct-2021 Instruction Type:Patient Education Patient Instructions Indication:Nonsmoker Start:08-Dec-2020 Instruction Type:Provider Instructions for Treatment How to Access Health Informa tion Online using Patient Portal and [employer] Indication:Nonsmoker Start:08-Dec-2020 Instruction Type:Patient Education Patient Instructions Indication:BMI 36.0-36.9,adult Start:15-Sep-2020 Instruction Type:Provider Instructions for Treatment How to Access Health Informa tion Online using Patient Portal and [employer] Indication:Nonsmoker Start:15-Sep-2020 Instruction Type:Patient Education Patient Instructions Indication:Nonsmoker Start:02-Jun-2020 Instruction Type:Provider Instructions for Treatment How to Access Health Informa tion Online using Patient Portal and [employer] Indication:Nonsmoker Start:02-Jun-2020 Instruction Type:Patient Education How to access health informa tion online Indication:Nonsmoker Start:26-Nov-2019 Instruction Type:Patient Education How to access health informa tion online - Detail Indication:Nonsmoker Start:26-Nov-2019 Instruction Type:Patient Education Patient Instructions Indication:Nonsmoker Start:26-Nov-2019 Instruction Type:Provider Instructions for Treatment How to access health informa tion online Indication:Nonsmoker Start:29-Aug-2019 Instruction Type:Patient Education How to access health informa tion online - Detail Indication:Nonsmoker Start:29-Aug-2019 Instruction Type:Patient Education Patient Instructions Indication:Nonsmoker Start:29-Aug-2019 Instruction Type:Provider Instructions for Treatment How to access health informa tion online Indication:Nonsmoker Start:06-Jun-2019 Instruction Type:Patient Education How to access health informa tion online - Detail Indication:Nonsmoker Start:06-Jun-2019 Instruction Type:Patient Education Patient Instructions Indication:Nonsmoker Start:06-Jun-2019 Instruction Type:Provider Instructions for Treatment How to access health informa tion online Indication:Nonsmoker Start:04-Dec-2018 Instruction Type:Patient Education How to access health informa tion online - Detail Indication:Nonsmoker Start:04-Dec-2018 Instruction Type:Patient Education Patient Instructions Indication:Nonsmoker Start:04-Dec-2018 Instruction Type:Provider Instructions for Treatment How to access health informa tion online Indication:Nonsmoker Start:26-May-2018 Instruction Type:Patient Education How to access health informa tion online - Detail Indication:Nonsmoker Start:26-May-2018 Instruction Type:Patient Education Patient Instructions Indication:Nonsmoker Start:26-May-2018 Instruction Type:Provider Instructions for Treatment How to access health informa tion online Indication:BMI 34.0-34.9,adult Start:10-Oct-2017 Instruction Type:Patient Education How to access health informa tion online - Detail Indication:BMI 34.0-34.9,adult Start:10-Oct-2017 Instruction Type:Patient Education Patient Instructions Indication:BMI 34.0-34.9,adult Start:10-Oct-2017 Instruction Type:Provider Instructions for Treatment DISCONTINUED - LIPID PANEL ( [id number]) Indication:Hyperglyceridemia Start:12-Apr-2017 Instruction Type:Patient Education How to access health informa tion online Indication:Nonsmoker Start:12-Apr-2017 Instruction Type:Patient Education How to access health informa tion online - Detail Indication:Nonsmoker Start:12-Apr-2017 Instruction Type:Patient Education Patient Instructions Indication:Nonsmoker Start:12-Apr-2017 Instruction Type:Provider Instructions for Treatment How to access health informa tion online Indication:Depression, controlled Start:01-Apr-2017 Instruction Type:Patient Education How to access health informa tion online - Detail Indication:Depression, controlled Start:01-Apr-2017 Instruction Type:Patient Education Patient Instructions Indication:Depression, controlled Start:01-Apr-2017 Instruction Type:Provider Instructions for Treatment Patient Instructions Indication:Hypercholesteremia Start:13-Sep-2016 Instruction Type:Provider Instructions for Treatment How to access health informa tion online Indication:Hypercholesteremia Start:13-Sep-2016 Instruction Type:Patient Education How to access health informa tion online - Detail Indication:Hypercholesteremia Start:13-Sep-2016 Instruction Type:Patient Education Patient Instructions Indication:Hypercholesteremia Start:13-Sep-2016 Instruction Type:Provider Instructions for Treatment How to access health informa tion online Indication:Elevated blood pressure (not hypertension) Start:23-Aug-2016 Instruction Type:Patient Education How to access health informa tion online - Detail Indication:Elevated blood pressure (not hypertension) Start:23-Aug-2016 Instruction Type:Patient Education Patient Instructions Indication:Elevated blood pressure (not hypertension) Start:23-Aug-2016 Instruction Type:Provider Instructions for Treatment How to access health informa tion online Indication:Depression Start:23-Feb-2016 Instruction Type:Patient Education How to access health informa tion online - Detail Indication:Depression Start:23-Feb-2016 Instruction Type:Patient Education Patient Instructions Indication:Depression Start:23-Feb-2016 Instruction Type:Provider Instructions for Treatment How to access health informa tion online Indication:Lump in neck Start:07-Nov-2015 Instruction Type:Patient Education How to access health informa tion online - Detail Indication:Lump in neck Start:07-Nov-2015 Instruction Type:Patient Education Patient Instructions Indication:Lump in neck Start:07-Nov-2015 Instruction Type:Provider Instructions for Treatment How to access health informa tion online Indication:Hyperglyceridemia Start:25-Aug-2015 Instruction Type:Patient Education How to access health informa tion online - Detail Indication:Hyperglyceridemia Start:25-Aug-2015 Instruction Type:Patient Education Patient Instructions Indication:Hyperglyceridemia Start:25-Aug-2015 Instruction Type:Provider Instructions for Treatment How to access health informa tion online Indication:UTI (urinary tract infection) Start:02-Jul-2015 Instruction Type:Patient Education How to access health informa tion online - Detail Indication:UTI (urinary tract infection) Start:02-Jul-2015 Instruction Type:Patient Education Patient Instructions Indication:UTI (urinary tract infection) Start:02-Jul-2015 Instruction Type:Provider Instructions for Treatment How to access health informa tion online Indication:Paresthesia Start:25-Mar-2015 Instruction Type:Patient Education How to access health informa tion online - Detail Indication:Paresthesia Start:25-Mar-2015 Instruction Type:Patient Education Patient Instructions Indication:Paresthesia Start:25-Mar-2015 Instruction Type:Provider Instructions for Treatment Patient Instructions Indication:Depression Start:23-Sep-2014 Instruction Type:Provider Instructions for Treatment Patient Instructions Indication:Depression Start:25-Mar-2014 Instruction Type:Provider Instructions for Treatment Patient Instructions Indication:Hyperglyceridemia Start:03-Oct-2013 Instruction Type:Provider Instructions for Treatment Patient Instructions Indication:Depression Start:12-Mar-2013 Instruction Type:Provider Instructions for Treatment [facility] Work Phone: Instructions* Name Dates Details Patient Instructions Indication:BMI 36.0-36.9,adult Start:25-Nov-2021 Instruction Type:Provider Instructions for Treatment How to Access Health Informa tion Online using Patient Portal and [employer] Indication:BMI 36.0-36.9,adult Start:25-Nov-2021 Instruction Type:Patient Education Patient Instructions Indication:BMI 36.0-36.9,adult Start:28-Oct-2021 Instruction Type:Provider Instructions for Treatment How to Access Health Informa tion Online using Patient Portal and [employer] Indication:BMI 36.0-36.9,adult Start:28-Oct-2021 Instruction Type:Patient Education Patient Instructions Indication:Nonsmoker Start:08-Dec-2020 Instruction Type:Provider Instructions for Treatment How to Access Health Informa tion Online using Patient Portal and [employer] Indication:Nonsmoker Start:08-Dec-2020 Instruction Type:Patient Education Patient Instructions Indication:BMI 36.0-36.9,adult Start:15-Sep-2020 Instruction Type:Provider Instructions for Treatment How to Access Health Informa tion Online using Patient Portal and [employer] Indication:Nonsmoker Start:15-Sep-2020 Instruction Type:Patient Education Patient Instructions Indication:Nonsmoker Start:02-Jun-2020 Instruction Type:Provider Instructions for Treatment How to Access Health Informa tion Online using Patient Portal and [employer] Indication:Nonsmoker Start:02-Jun-2020 Instruction Type:Patient Education How to access health informa tion online Indication:Nonsmoker Start:26-Nov-2019 Instruction Type:Patient Education How to access health informa tion online - Detail Indication:Nonsmoker Start:26-Nov-2019 Instruction Type:Patient Education Patient Instructions Indication:Nonsmoker Start:26-Nov-2019 Instruction Type:Provider Instructions for Treatment How to access health informa tion online Indication:Nonsmoker Start:29-Aug-2019 Instruction Type:Patient Education How to access health informa tion online - Detail Indication:Nonsmoker Start:29-Aug-2019 Instruction Type:Patient Education Patient Instructions Indication:Nonsmoker Start:29-Aug-2019 Instruction Type:Provider Instructions for Treatment How to access health informa tion online Indication:Nonsmoker Start:06-Jun-2019 Instruction Type:Patient Education How to access health informa tion online - Detail Indication:Nonsmoker Start:06-Jun-2019 Instruction Type:Patient Education Patient Instructions Indication:Nonsmoker Start:06-Jun-2019 Instruction Type:Provider Instructions for Treatment How to access health informa tion online Indication:Nonsmoker Start:04-Dec-2018 Instruction Type:Patient Education How to access health informa tion online - Detail Indication:Nonsmoker Start:04-Dec-2018 Instruction Type:Patient Education Patient Instructions Indication:Nonsmoker Start:04-Dec-2018 Instruction Type:Provider Instructions for Treatment How to access health informa tion online Indication:Nonsmoker Start:26-May-2018 Instruction Type:Patient Education How to access health informa tion online - Detail Indication:Nonsmoker Start:26-May-2018 Instruction Type:Patient Education Patient Instructions Indication:Nonsmoker Start:26-May-2018 Instruction Type:Provider Instructions for Treatment How to access health informa tion online Indication:BMI 34.0-34.9,adult Start:10-Oct-2017 Instruction Type:Patient Education How to access health informa tion online - Detail Indication:BMI 34.0-34.9,adult Start:10-Oct-2017 Instruction Type:Patient Education Patient Instructions Indication:BMI 34.0-34.9,adult Start:10-Oct-2017 Instruction Type:Provider Instructions for Treatment DISCONTINUED - LIPID PANEL ( [id number]) Indication:Hyperglyceridemia Start:12-Apr-2017 Instruction Type:Patient Education How to access health informa tion online Indication:Nonsmoker Start:12-Apr-2017 Instruction Type:Patient Education How to access health informa tion online - Detail Indication:Nonsmoker Start:12-Apr-2017 Instruction Type:Patient Education Patient Instructions Indication:Nonsmoker Start:12-Apr-2017 Instruction Type:Provider Instructions for Treatment How to access health informa tion online Indication:Depression, controlled Start:01-Apr-2017 Instruction Type:Patient Education How to access health informa tion online - Detail Indication:Depression, controlled Start:01-Apr-2017 Instruction Type:Patient Education Patient Instructions Indication:Depression, controlled Start:01-Apr-2017 Instruction Type:Provider Instructions for Treatment Patient Instructions Indication:Hypercholesteremia Start:13-Sep-2016 Instruction Type:Provider Instructions for Treatment How to access health informa tion online Indication:Hypercholesteremia Start:13-Sep-2016 Instruction Type:Patient Education How to access health informa tion online - Detail Indication:Hypercholesteremia Start:13-Sep-2016 Instruction Type:Patient Education Patient Instructions Indication:Hypercholesteremia Start:13-Sep-2016 Instruction Type:Provider Instructions for Treatment How to access health informa tion online Indication:Elevated blood pressure (not hypertension) Start:23-Aug-2016 Instruction Type:Patient Education How to access health informa tion online - Detail Indication:Elevated blood pressure (not hypertension) Start:23-Aug-2016 Instruction Type:Patient Education Patient Instructions Indication:Elevated blood pressure (not hypertension) Start:23-Aug-2016 Instruction Type:Provider Instructions for Treatment How to access health informa tion online Indication:Depression Start:23-Feb-2016 Instruction Type:Patient Education How to access health informa tion online - Detail Indication:Depression Start:23-Feb-2016 Instruction Type:Patient Education Patient Instructions Indication:Depression Start:23-Feb-2016 Instruction Type:Provider Instructions for Treatment How to access health informa tion online Indication:Lump in neck Start:07-Nov-2015 Instruction Type:Patient Education How to access health informa tion online - Detail Indication:Lump in neck Start:07-Nov-2015 Instruction Type:Patient Education Patient Instructions Indication:Lump in neck Start:07-Nov-2015 Instruction Type:Provider Instructions for Treatment How to access health informa tion online Indication:Hyperglyceridemia Start:25-Aug-2015 Instruction Type:Patient Education How to access health informa tion online - Detail Indication:Hyperglyceridemia Start:25-Aug-2015 Instruction Type:Patient Education Patient Instructions Indication:Hyperglyceridemia Start:25-Aug-2015 Instruction Type:Provider Instructions for Treatment How to access health informa tion online Indication:UTI (urinary tract infection) Start:02-Jul-2015 Instruction Type:Patient Education How to access health informa tion online - Detail Indication:UTI (urinary tract infection) Start:02-Jul-2015 Instruction Type:Patient Education Patient Instructions Indication:UTI (urinary tract infection) Start:02-Jul-2015 Instruction Type:Provider Instructions for Treatment How to access health informa tion online Indication:Paresthesia Start:25-Mar-2015 Instruction Type:Patient Education How to access health informa tion online - Detail Indication:Paresthesia Start:25-Mar-2015 Instruction Type:Patient Education Patient Instructions Indication:Paresthesia Start:25-Mar-2015 Instruction Type:Provider Instructions for Treatment Patient Instructions Indication:Depression Start:23-Sep-2014 Instruction Type:Provider Instructions for Treatment Patient Instructions Indication:Depression Start:25-Mar-2014 Instruction Type:Provider Instructions for Treatment Patient Instructions Indication:Hyperglyceridemia Start:03-Oct-2013 Instruction Type:Provider Instructions for Treatment Patient Instructions Indication:Depression Start:12-Mar-2013 Instruction Type:Provider Instructions for Treatment [facility]; [facility] Work Phone: Instructions* Name Dates Details Patient Instructions Indication:BMI 36.0-36.9,adult Start:25-Nov-2021 Instruction Type:Provider Instructions for Treatment How to Access Health Informa tion Online using Patient Portal and [employer]rd [employer] Apps Indication:BMI 36.0-36.9,adult Start:25-Nov-2021 Instruction Type:Patient Education Patient Instructions Indication:BMI 36.0-36.9,adult Start:28-Oct-2021 Instruction Type:Provider Instructions for Treatment How to Access Health Informa tion Online using Patient Portal and [employer]rd [employer] Apps Indication:BMI 36.0-36.9,adult Start:28-Oct-2021 Instruction Type:Patient Education Patient Instructions Indication:Nonsmoker Start:08-Dec-2020 Instruction Type:Provider Instructions for Treatment How to Access Health Informa tion Online using Patient Portal and [employer]rd [employer] Apps Indication:Nonsmoker Start:08-Dec-2020 Instruction Type:Patient Education Patient Instructions Indication:BMI 36.0-36.9,adult Start:15-Sep-2020 Instruction Type:Provider Instructions for Treatment How to Access Health Informa tion Online using Patient Portal and [employer]rd [employer] Apps Indication:Nonsmoker Start:15-Sep-2020 Instruction Type:Patient Education Patient Instructions Indication:Nonsmoker Start:02-Jun-2020 Instruction Type:Provider Instructions for Treatment How to Access Health Informa tion Online using Patient Portal and [employer]rd [employer] Apps Indication:Nonsmoker Start:02-Jun-2020 Instruction Type:Patient Education How to access health informa tion online Indication:Nonsmoker Start:26-Nov-2019 Instruction Type:Patient Education How to access health informa tion online - Detail Indication:Nonsmoker Start:26-Nov-2019 Instruction Type:Patient Education Patient Instructions Indication:Nonsmoker Start:26-Nov-2019 Instruction Type:Provider Instructions for Treatment How to access health informa tion online Indication:Nonsmoker Start:29-Aug-2019 Instruction Type:Patient Education How to access health informa tion online - Detail Indication:Nonsmoker Start:29-Aug-2019 Instruction Type:Patient Education Patient Instructions Indication:Nonsmoker Start:29-Aug-2019 Instruction Type:Provider Instructions for Treatment How to access health informa tion online Indication:Nonsmoker Start:06-Jun-2019 Instruction Type:Patient Education How to access health informa tion online - Detail Indication:Nonsmoker Start:06-Jun-2019 Instruction Type:Patient Education Patient Instructions Indication:Nonsmoker Start:06-Jun-2019 Instruction Type:Provider Instructions for Treatment How to access health informa tion online Indication:Nonsmoker Start:04-Dec-2018 Instruction Type:Patient Education How to access health informa tion online - Detail Indication:Nonsmoker Start:04-Dec-2018 Instruction Type:Patient Education Patient Instructions Indication:Nonsmoker Start:04-Dec-2018 Instruction Type:Provider Instructions for Treatment How to access health informa tion online Indication:Nonsmoker Start:26-May-2018 Instruction Type:Patient Education How to access health informa tion online - Detail Indication:Nonsmoker Start:26-May-2018 Instruction Type:Patient Education Patient Instructions Indication:Nonsmoker Start:26-May-2018 Instruction Type:Provider Instructions for Treatment How to access health informa tion online Indication:BMI 34.0-34.9,adult Start:10-Oct-2017 Instruction Type:Patient Education How to access health informa tion online - Detail Indication:BMI 34.0-34.9,adult Start:10-Oct-2017 Instruction Type:Patient Education Patient Instructions Indication:BMI 34.0-34.9,adult Start:10-Oct-2017 Instruction Type:Provider Instructions for Treatment DISCONTINUED - LIPID PANEL ( [id number]) Indication:Hyperglyceridemia Start:12-Apr-2017 Instruction Type:Patient Education How to access health informa tion online Indication:Nonsmoker Start:12-Apr-2017 Instruction Type:Patient Education How to access health informa tion online - Detail Indication:Nonsmoker Start:12-Apr-2017 Instruction Type:Patient Education Patient Instructions Indication:Nonsmoker Start:12-Apr-2017 Instruction Type:Provider Instructions for Treatment How to access health informa tion online Indication:Depression, controlled Start:01-Apr-2017 Instruction Type:Patient Education How to access health informa tion online - Detail Indication:Depression, controlled Start:01-Apr-2017 Instruction Type:Patient Education Patient Instructions Indication:Depression, controlled Start:01-Apr-2017 Instruction Type:Provider Instructions for Treatment Patient Instructions Indication:Hypercholesteremia Start:13-Sep-2016 Instruction Type:Provider Instructions for Treatment How to access health informa tion online Indication:Hypercholesteremia Start:13-Sep-2016 Instruction Type:Patient Education How to access health informa tion online - Detail Indication:Hypercholesteremia Start:13-Sep-2016 Instruction Type:Patient Education Patient Instructions Indication:Hypercholesteremia Start:13-Sep-2016 Instruction Type:Provider Instructions for Treatment How to access health informa tion online Indication:Elevated blood pressure (not hypertension) Start:23-Aug-2016 Instruction Type:Patient Education How to access health informa tion online - Detail Indication:Elevated blood pressure (not hypertension) Start:23-Aug-2016 Instruction Type:Patient Education Patient Instructions Indication:Elevated blood pressure (not hypertension) Start:23-Aug-2016 Instruction Type:Provider Instructions for Treatment How to access health informa tion online Indication:Depression Start:23-Feb-2016 Instruction Type:Patient Education How to access health informa tion online - Detail Indication:Depression Start:23-Feb-2016 Instruction Type:Patient Education Patient Instructions Indication:Depression Start:23-Feb-2016 Instruction Type:Provider Instructions for Treatment How to access health informa tion online Indication:Lump in neck Start:07-Nov-2015 Instruction Type:Patient Education How to access health informa tion online - Detail Indication:Lump in neck Start:07-Nov-2015 Instruction Type:Patient Education Patient Instructions Indication:Lump in neck Start:07-Nov-2015 Instruction Type:Provider Instructions for Treatment How to access health informa tion online Indication:Hyperglyceridemia Start:25-Aug-2015 Instruction Type:Patient Education How to access health informa tion online - Detail Indication:Hyperglyceridemia Start:25-Aug-2015 Instruction Type:Patient Education Patient Instructions Indication:Hyperglyceridemia Start:25-Aug-2015 Instruction Type:Provider Instructions for Treatment How to access health informa tion online Indication:UTI (urinary tract infection) Start:02-Jul-2015 Instruction Type:Patient Education How to access health informa tion online - Detail Indication:UTI (urinary tract infection) Start:02-Jul-2015 Instruction Type:Patient Education Patient Instructions Indication:UTI (urinary tract infection) Start:02-Jul-2015 Instruction Type:Provider Instructions for Treatment How to access health informa tion online Indication:Paresthesia Start:25-Mar-2015 Instruction Type:Patient Education How to access health informa tion online - Detail Indication:Paresthesia Start:25-Mar-2015 Instruction Type:Patient Education Patient Instructions Indication:Paresthesia Start:25-Mar-2015 Instruction Type:Provider Instructions for Treatment Patient Instructions Indication:Depression Start:23-Sep-2014 Instruction Type:Provider Instructions for Treatment Patient Instructions Indication:Depression Start:25-Mar-2014 Instruction Type:Provider Instructions for Treatment Patient Instructions Indication:Hyperglyceridemia Start:03-Oct-2013 Instruction Type:Provider Instructions for Treatment Patient Instructions Indication:Depression Start:12-Mar-2013 Instruction Type:Provider Instructions for Treatment [facility]; [facility] Work Phone: Instructions* Name Dates Details Patient Instructions Indication:BMI 36.0-36.9,adult Start:25-Nov-2021 Instruction Type:Provider Instructions for Treatment How to Access Health Informa tion Online using Patient Portal and [employer]rd [employer] Apps Indication:BMI 36.0-36.9,adult Start:25-Nov-2021 Instruction Type:Patient Education Patient Instructions Indication:BMI 36.0-36.9,adult Start:28-Oct-2021 Instruction Type:Provider Instructions for Treatment How to Access Health Informa tion Online using Patient Portal and [employer]rd [employer] Apps Indication:BMI 36.0-36.9,adult Start:28-Oct-2021 Instruction Type:Patient Education Patient Instructions Indication:Nonsmoker Start:08-Dec-2020 Instruction Type:Provider Instructions for Treatment How to Access Health Informa tion Online using Patient Portal and [employer]rd [employer] Apps Indication:Nonsmoker Start:08-Dec-2020 Instruction Type:Patient Education Patient Instructions Indication:BMI 36.0-36.9,adult Start:15-Sep-2020 Instruction Type:Provider Instructions for Treatment How to Access Health Informa tion Online using Patient Portal and [employer]rd [employer] Apps Indication:Nonsmoker Start:15-Sep-2020 Instruction Type:Patient Education Patient Instructions Indication:Nonsmoker Start:02-Jun-2020 Instruction Type:Provider Instructions for Treatment How to Access Health Informa tion Online using Patient Portal and [employer]rd [employer] Apps Indication:Nonsmoker Start:02-Jun-2020 Instruction Type:Patient Education How to access health informa tion online Indication:Nonsmoker Start:26-Nov-2019 Instruction Type:Patient Education How to access health informa tion online - Detail Indication:Nonsmoker Start:26-Nov-2019 Instruction Type:Patient Education Patient Instructions Indication:Nonsmoker Start:26-Nov-2019 Instruction Type:Provider Instructions for Treatment How to access health informa tion online Indication:Nonsmoker Start:29-Aug-2019 Instruction Type:Patient Education How to access health informa tion online - Detail Indication:Nonsmoker Start:29-Aug-2019 Instruction Type:Patient Education Patient Instructions Indication:Nonsmoker Start:29-Aug-2019 Instruction Type:Provider Instructions for Treatment How to access health informa tion online Indication:Nonsmoker Start:06-Jun-2019 Instruction Type:Patient Education How to access health informa tion online - Detail Indication:Nonsmoker Start:06-Jun-2019 Instruction Type:Patient Education Patient Instructions Indication:Nonsmoker Start:06-Jun-2019 Instruction Type:Provider Instructions for Treatment How to access health informa tion online Indication:Nonsmoker Start:04-Dec-2018 Instruction Type:Patient Education How to access health informa tion online - Detail Indication:Nonsmoker Start:04-Dec-2018 Instruction Type:Patient Education Patient Instructions Indication:Nonsmoker Start:04-Dec-2018 Instruction Type:Provider Instructions for Treatment How to access health informa tion online Indication:Nonsmoker Start:26-May-2018 Instruction Type:Patient Education How to access health informa tion online - Detail Indication:Nonsmoker Start:26-May-2018 Instruction Type:Patient Education Patient Instructions Indication:Nonsmoker Start:26-May-2018 Instruction Type:Provider Instructions for Treatment How to access health informa tion online Indication:BMI 34.0-34.9,adult Start:10-Oct-2017 Instruction Type:Patient Education How to access health informa tion online - Detail Indication:BMI 34.0-34.9,adult Start:10-Oct-2017 Instruction Type:Patient Education Patient Instructions Indication:BMI 34.0-34.9,adult Start:10-Oct-2017 Instruction Type:Provider Instructions for Treatment DISCONTINUED - LIPID PANEL ( [id number]) Indication:Hyperglyceridemia Start:12-Apr-2017 Instruction Type:Patient Education How to access health informa tion online Indication:Nonsmoker Start:12-Apr-2017 Instruction Type:Patient Education How to access health informa tion online - Detail Indication:Nonsmoker Start:12-Apr-2017 Instruction Type:Patient Education Patient Instructions Indication:Nonsmoker Start:12-Apr-2017 Instruction Type:Provider Instructions for Treatment How to access health informa tion online Indication:Depression, controlled Start:01-Apr-2017 Instruction Type:Patient Education How to access health informa tion online - Detail Indication:Depression, controlled Start:01-Apr-2017 Instruction Type:Patient Education Patient Instructions Indication:Depression, controlled Start:01-Apr-2017 Instruction Type:Provider Instructions for Treatment Patient Instructions Indication:Hypercholesteremia Start:13-Sep-2016 Instruction Type:Provider Instructions for Treatment How to access health informa tion online Indication:Hypercholesteremia Start:13-Sep-2016 Instruction Type:Patient Education How to access health informa tion online - Detail Indication:Hypercholesteremia Start:13-Sep-2016 Instruction Type:Patient Education Patient Instructions Indication:Hypercholesteremia Start:13-Sep-2016 Instruction Type:Provider Instructions for Treatment How to access health informa tion online Indication:Elevated blood pressure (not hypertension) Start:23-Aug-2016 Instruction Type:Patient Education How to access health informa tion online - Detail Indication:Elevated blood pressure (not hypertension) Start:23-Aug-2016 Instruction Type:Patient Education Patient Instructions Indication:Elevated blood pressure (not hypertension) Start:23-Aug-2016 Instruction Type:Provider Instructions for Treatment How to access health informa tion online Indication:Depression Start:23-Feb-2016 Instruction Type:Patient Education How to access health informa tion online - Detail Indication:Depression Start:23-Feb-2016 Instruction Type:Patient Education Patient Instructions Indication:Depression Start:23-Feb-2016 Instruction Type:Provider Instructions for Treatment How to access health informa tion online Indication:Lump in neck Start:07-Nov-2015 Instruction Type:Patient Education How to access health informa tion online - Detail Indication:Lump in neck Start:07-Nov-2015 Instruction Type:Patient Education Patient Instructions Indication:Lump in neck Start:07-Nov-2015 Instruction Type:Provider Instructions for Treatment How to access health informa tion online Indication:Hyperglyceridemia Start:25-Aug-2015 Instruction Type:Patient Education How to access health informa tion online - Detail Indication:Hyperglyceridemia Start:25-Aug-2015 Instruction Type:Patient Education Patient Instructions Indication:Hyperglyceridemia Start:25-Aug-2015 Instruction Type:Provider Instructions for Treatment How to access health informa tion online Indication:UTI (urinary tract infection) Start:02-Jul-2015 Instruction Type:Patient Education How to access health informa tion online - Detail Indication:UTI (urinary tract infection) Start:02-Jul-2015 Instruction Type:Patient Education Patient Instructions Indication:UTI (urinary tract infection) Start:02-Jul-2015 Instruction Type:Provider Instructions for Treatment How to access health informa tion online Indication:Paresthesia Start:25-Mar-2015 Instruction Type:Patient Education How to access health informa tion online - Detail Indication:Paresthesia Start:25-Mar-2015 Instruction Type:Patient Education Patient Instructions Indication:Paresthesia Start:25-Mar-2015 Instruction Type:Provider Instructions for Treatment Patient Instructions Indication:Depression Start:23-Sep-2014 Instruction Type:Provider Instructions for Treatment Patient Instructions Indication:Depression Start:25-Mar-2014 Instruction Type:Provider Instructions for Treatment Patient Instructions Indication:Hyperglyceridemia Start:03-Oct-2013 Instruction Type:Provider Instructions for Treatment Patient Instructions Indication:Depression Start:12-Mar-2013 Instruction Type:Provider Instructions for Treatment [facility]; [facility] Work Phone: Instructions* Name Dates Details Patient Instructions Indication:BMI 36.0-36.9,adult Start:25-Nov-2021 Instruction Type:Provider Instructions for Treatment How to Access Health Informa tion Online using Patient Portal and [employer]rd [employer] Apps Indication:BMI 36.0-36.9,adult Start:25-Nov-2021 Instruction Type:Patient Education Patient Instructions Indication:BMI 36.0-36.9,adult Start:28-Oct-2021 Instruction Type:Provider Instructions for Treatment How to Access Health Informa tion Online using Patient Portal and [employer]rd [employer] Apps Indication:BMI 36.0-36.9,adult Start:28-Oct-2021 Instruction Type:Patient Education Patient Instructions Indication:Nonsmoker Start:08-Dec-2020 Instruction Type:Provider Instructions for Treatment How to Access Health Informa tion Online using Patient Portal and [employer]rd [employer] Indication:Nonsmoker Start:08-Dec-2020 Instruction Type:Patient Education Patient Instructions Indication:BMI 36.0-36.9,adult Start:15-Sep-2020 Instruction Type:Provider Instructions for Treatment How to Access Health Informa tion Online using Patient Portal and [employer]rd [employer] Apps Indication:Nonsmoker Start:15-Sep-2020 Instruction Type:Patient Education Patient Instructions Indication:Nonsmoker Start:02-Jun-2020 Instruction Type:Provider Instructions for Treatment How to Access Health Informa tion Online using Patient Portal and [employer]rd [employer] Apps Indication:Nonsmoker Start:02-Jun-2020 Instruction Type:Patient Education How to access health informa tion online Indication:Nonsmoker Start:26-Nov-2019 Instruction Type:Patient Education How to access health informa tion online - Detail Indication:Nonsmoker Start:26-Nov-2019 Instruction Type:Patient Education Patient Instructions Indication:Nonsmoker Start:26-Nov-2019 Instruction Type:Provider Instructions for Treatment How to access health informa tion online Indication:Nonsmoker Start:29-Aug-2019 Instruction Type:Patient Education How to access health informa tion online - Detail Indication:Nonsmoker Start:29-Aug-2019 Instruction Type:Patient Education Patient Instructions Indication:Nonsmoker Start:29-Aug-2019 Instruction Type:Provider Instructions for Treatment How to access health informa tion online Indication:Nonsmoker Start:06-Jun-2019 Instruction Type:Patient Education How to access health informa tion online - Detail Indication:Nonsmoker Start:06-Jun-2019 Instruction Type:Patient Education Patient Instructions Indication:Nonsmoker Start:06-Jun-2019 Instruction Type:Provider Instructions for Treatment How to access health informa tion online Indication:Nonsmoker Start:04-Dec-2018 Instruction Type:Patient Education How to access health informa tion online - Detail Indication:Nonsmoker Start:04-Dec-2018 Instruction Type:Patient Education Patient Instructions Indication:Nonsmoker Start:04-Dec-2018 Instruction Type:Provider Instructions for Treatment How to access health informa tion online Indication:Nonsmoker Start:26-May-2018 Instruction Type:Patient Education How to access health informa tion online - Detail Indication:Nonsmoker Start:26-May-2018 Instruction Type:Patient Education Patient Instructions Indication:Nonsmoker Start:26-May-2018 Instruction Type:Provider Instructions for Treatment How to access health informa tion online Indication:BMI 34.0-34.9,adult Start:10-Oct-2017 Instruction Type:Patient Education How to access health informa tion online - Detail Indication:BMI 34.0-34.9,adult Start:10-Oct-2017 Instruction Type:Patient Education Patient Instructions Indication:BMI 34.0-34.9,adult Start:10-Oct-2017 Instruction Type:Provider Instructions for Treatment DISCONTINUED - LIPID PANEL ( [id number]) Indication:Hyperglyceridemia Start:12-Apr-2017 Instruction Type:Patient Education How to access health informa tion online Indication:Nonsmoker Start:12-Apr-2017 Instruction Type:Patient Education How to access health informa tion online - Detail Indication:Nonsmoker Start:12-Apr-2017 Instruction Type:Patient Education Patient Instructions Indication:Nonsmoker Start:12-Apr-2017 Instruction Type:Provider Instructions for Treatment How to access health informa tion online Indication:Depression, controlled Start:01-Apr-2017 Instruction Type:Patient Education How to access health informa tion online - Detail Indication:Depression, controlled Start:01-Apr-2017 Instruction Type:Patient Education Patient Instructions Indication:Depression, controlled Start:01-Apr-2017 Instruction Type:Provider Instructions for Treatment Patient Instructions Indication:Hypercholesteremia Start:13-Sep-2016 Instruction Type:Provider Instructions for Treatment How to access health informa tion online Indication:Hypercholesteremia Start:13-Sep-2016 Instruction Type:Patient Education How to access health informa tion online - Detail Indication:Hypercholesteremia Start:13-Sep-2016 Instruction Type:Patient Education Patient Instructions Indication:Hypercholesteremia Start:13-Sep-2016 Instruction Type:Provider Instructions for Treatment How to access health informa tion online Indication:Elevated blood pressure (not hypertension) Start:23-Aug-2016 Instruction Type:Patient Education How to access health informa tion online - Detail Indication:Elevated blood pressure (not hypertension) Start:23-Aug-2016 Instruction Type:Patient Education Patient Instructions Indication:Elevated blood pressure (not hypertension) Start:23-Aug-2016 Instruction Type:Provider Instructions for Treatment How to access health informa tion online Indication:Depression Start:23-Feb-2016 Instruction Type:Patient Education How to access health informa tion online - Detail Indication:Depression Start:23-Feb-2016 Instruction Type:Patient Education Patient Instructions Indication:Depression Start:23-Feb-2016 Instruction Type:Provider Instructions for Treatment How to access health informa tion online Indication:Lump in neck Start:07-Nov-2015 Instruction Type:Patient Education How to access health informa tion online - Detail Indication:Lump in neck Start:07-Nov-2015 Instruction Type:Patient Education Patient Instructions Indication:Lump in neck Start:07-Nov-2015 Instruction Type:Provider Instructions for Treatment How to access health informa tion online Indication:Hyperglyceridemia Start:25-Aug-2015 Instruction Type:Patient Education How to access health informa tion online - Detail Indication:Hyperglyceridemia Start:25-Aug-2015 Instruction Type:Patient Education Patient Instructions Indication:Hyperglyceridemia Start:25-Aug-2015 Instruction Type:Provider Instructions for Treatment How to access health informa tion online Indication:UTI (urinary tract infection) Start:02-Jul-2015 Instruction Type:Patient Education How to access health informa tion online - Detail Indication:UTI (urinary tract infection) Start:02-Jul-2015 Instruction Type:Patient Education Patient Instructions Indication:UTI (urinary tract infection) Start:02-Jul-2015 Instruction Type:Provider Instructions for Treatment How to access health informa tion online Indication:Paresthesia Start:25-Mar-2015 Instruction Type:Patient Education How to access health informa tion online - Detail Indication:Paresthesia Start:25-Mar-2015 Instruction Type:Patient Education Patient Instructions Indication:Paresthesia Start:25-Mar-2015 Instruction Type:Provider Instructions for Treatment Patient Instructions Indication:Depression Start:23-Sep-2014 Instruction Type:Provider Instructions for Treatment Patient Instructions Indication:Depression Start:25-Mar-2014 Instruction Type:Provider Instructions for Treatment Patient Instructions Indication:Hyperglyceridemia Start:03-Oct-2013 Instruction Type:Provider Instructions for Treatment Patient Instructions Indication:Depression Start:12-Mar-2013 Instruction Type:Provider Instructions for Treatment [facility]; [facility] Work Phone: Instructions* Name Dates Details Patient Instructions Indication:BMI 36.0-36.9,adult Start:25-Nov-2021 Instruction Type:Provider Instructions for Treatment How to Access Health Informa tion Online using Patient Portal and [employer]rd [employer] Indication:BMI 36.0-36.9,adult Start:25-Nov-2021 Instruction Type:Patient Education Patient Instructions Indication:BMI 36.0-36.9,adult Start:28-Oct-2021 Instruction Type:Provider Instructions for Treatment How to Access Health Informa tion Online using Patient Portal and [employer]rd [employer] Indication:BMI 36.0-36.9,adult Start:28-Oct-2021 Instruction Type:Patient Education Patient Instructions Indication:Nonsmoker Start:08-Dec-2020 Instruction Type:Provider Instructions for Treatment How to Access Health Informa tion Online using Patient Portal and [employer]rd [employer] Indication:Nonsmoker Start:08-Dec-2020 Instruction Type:Patient Education Patient Instructions Indication:BMI 36.0-36.9,adult Start:15-Sep-2020 Instruction Type:Provider Instructions for Treatment How to Access Health Informa tion Online using Patient Portal and [employer] Indication:Nonsmoker Start:15-Sep-2020 Instruction Type:Patient Education Patient Instructions Indication:Nonsmoker Start:02-Jun-2020 Instruction Type:Provider Instructions for Treatment How to Access Health Informa tion Online using Patient Portal and [employer] Apps Indication:Nonsmoker Start:02-Jun-2020 Instruction Type:Patient Education How to access health informa tion online Indication:Nonsmoker Start:26-Nov-2019 Instruction Type:Patient Education How to access health informa tion online - Detail Indication:Nonsmoker Start:26-Nov-2019 Instruction Type:Patient Education Patient Instructions Indication:Nonsmoker Start:26-Nov-2019 Instruction Type:Provider Instructions for Treatment How to access health informa tion online Indication:Nonsmoker Start:29-Aug-2019 Instruction Type:Patient Education How to access health informa tion online - Detail Indication:Nonsmoker Start:29-Aug-2019 Instruction Type:Patient Education Patient Instructions Indication:Nonsmoker Start:29-Aug-2019 Instruction Type:Provider Instructions for Treatment How to access health informa tion online Indication:Nonsmoker Start:06-Jun-2019 Instruction Type:Patient Education How to access health informa tion online - Detail Indication:Nonsmoker Start:06-Jun-2019 Instruction Type:Patient Education Patient Instructions Indication:Nonsmoker Start:06-Jun-2019 Instruction Type:Provider Instructions for Treatment How to access health informa tion online Indication:Nonsmoker Start:04-Dec-2018 Instruction Type:Patient Education How to access health informa tion online - Detail Indication:Nonsmoker Start:04-Dec-2018 Instruction Type:Patient Education Patient Instructions Indication:Nonsmoker Start:04-Dec-2018 Instruction Type:Provider Instructions for Treatment How to access health informa tion online Indication:Nonsmoker Start:26-May-2018 Instruction Type:Patient Education How to access health informa tion online - Detail Indication:Nonsmoker Start:26-May-2018 Instruction Type:Patient Education Patient Instructions Indication:Nonsmoker Start:26-May-2018 Instruction Type:Provider Instructions for Treatment How to access health informa tion online Indication:BMI 34.0-34.9,adult Start:10-Oct-2017 Instruction Type:Patient Education How to access health informa tion online - Detail Indication:BMI 34.0-34.9,adult Start:10-Oct-2017 Instruction Type:Patient Education Patient Instructions Indication:BMI 34.0-34.9,adult Start:10-Oct-2017 Instruction Type:Provider Instructions for Treatment DISCONTINUED - LIPID PANEL ( [id number]) Indication:Hyperglyceridemia Start:12-Apr-2017 Instruction Type:Patient Education How to access health informa tion online Indication:Nonsmoker Start:12-Apr-2017 Instruction Type:Patient Education How to access health informa tion online - Detail Indication:Nonsmoker Start:12-Apr-2017 Instruction Type:Patient Education Patient Instructions Indication:Nonsmoker Start:12-Apr-2017 Instruction Type:Provider Instructions for Treatment How to access health informa tion online Indication:Depression, controlled Start:01-Apr-2017 Instruction Type:Patient Education How to access health informa tion online - Detail Indication:Depression, controlled Start:01-Apr-2017 Instruction Type:Patient Education Patient Instructions Indication:Depression, controlled Start:01-Apr-2017 Instruction Type:Provider Instructions for Treatment Patient Instructions Indication:Hypercholesteremia Start:13-Sep-2016 Instruction Type:Provider Instructions for Treatment How to access health informa tion online Indication:Hypercholesteremia Start:13-Sep-2016 Instruction Type:Patient Education How to access health informa tion online - Detail Indication:Hypercholesteremia Start:13-Sep-2016 Instruction Type:Patient Education Patient Instructions Indication:Hypercholesteremia Start:13-Sep-2016 Instruction Type:Provider Instructions for Treatment How to access health informa tion online Indication:Elevated blood pressure (not hypertension) Start:23-Aug-2016 Instruction Type:Patient Education How to access health informa tion online - Detail Indication:Elevated blood pressure (not hypertension) Start:23-Aug-2016 Instruction Type:Patient Education Patient Instructions Indication:Elevated blood pressure (not hypertension) Start:23-Aug-2016 Instruction Type:Provider Instructions for Treatment How to access health informa tion online Indication:Depression Start:23-Feb-2016 Instruction Type:Patient Education How to access health informa tion online - Detail Indication:Depression Start:23-Feb-2016 Instruction Type:Patient Education Patient Instructions Indication:Depression Start:23-Feb-2016 Instruction Type:Provider Instructions for Treatment How to access health informa tion online Indication:Lump in neck Start:07-Nov-2015 Instruction Type:Patient Education How to access health informa tion online - Detail Indication:Lump in neck Start:07-Nov-2015 Instruction Type:Patient Education Patient Instructions Indication:Lump in neck Start:07-Nov-2015 Instruction Type:Provider Instructions for Treatment How to access health informa tion online Indication:Hyperglyceridemia Start:25-Aug-2015 Instruction Type:Patient Education How to access health informa tion online - Detail Indication:Hyperglyceridemia Start:25-Aug-2015 Instruction Type:Patient Education Patient Instructions Indication:Hyperglyceridemia Start:25-Aug-2015 Instruction Type:Provider Instructions for Treatment How to access health informa tion online Indication:UTI (urinary tract infection) Start:02-Jul-2015 Instruction Type:Patient Education How to access health informa tion online - Detail Indication:UTI (urinary tract infection) Start:02-Jul-2015 Instruction Type:Patient Education Patient Instructions Indication:UTI (urinary tract infection) Start:02-Jul-2015 Instruction Type:Provider Instructions for Treatment How to access health informa tion online Indication:Paresthesia Start:25-Mar-2015 Instruction Type:Patient Education How to access health informa tion online - Detail Indication:Paresthesia Start:25-Mar-2015 Instruction Type:Patient Education Patient Instructions Indication:Paresthesia Start:25-Mar-2015 Instruction Type:Provider Instructions for Treatment Patient Instructions Indication:Depression Start:23-Sep-2014 Instruction Type:Provider Instructions for Treatment Patient Instructions Indication:Depression Start:25-Mar-2014 Instruction Type:Provider Instructions for Treatment Patient Instructions Indication:Hyperglyceridemia Start:03-Oct-2013 Instruction Type:Provider Instructions for Treatment Patient Instructions Indication:Depression Start:12-Mar-2013 Instruction Type:Provider Instructions for Treatment [facility]; [facility] Work Phone: Instructions* Name Dates Details Patient Instructions Indication:BMI 36.0-36.9,adult Start:25-Nov-2021 Instruction Type:Provider Instructions for Treatment How to Access Health Informa tion Online using Patient Portal and [employer] Indication:BMI 36.0-36.9,adult Start:25-Nov-2021 Instruction Type:Patient Education Patient Instructions Indication:BMI 36.0-36.9,adult Start:28-Oct-2021 Instruction Type:Provider Instructions for Treatment How to Access Health Informa tion Online using Patient Portal and [employer] Indication:BMI 36.0-36.9,adult Start:28-Oct-2021 Instruction Type:Patient Education Patient Instructions Indication:Nonsmoker Start:08-Dec-2020 Instruction Type:Provider Instructions for Treatment How to Access Health Informa tion Online using Patient Portal and [employer] Indication:Nonsmoker Start:08-Dec-2020 Instruction Type:Patient Education Patient Instructions Indication:BMI 36.0-36.9,adult Start:15-Sep-2020 Instruction Type:Provider Instructions for Treatment How to Access Health Informa tion Online using Patient Portal and [employer] Indication:Nonsmoker Start:15-Sep-2020 Instruction Type:Patient Education Patient Instructions Indication:Nonsmoker Start:02-Jun-2020 Instruction Type:Provider Instructions for Treatment How to Access Health Informa tion Online using Patient Portal and [employer] Indication:Nonsmoker Start:02-Jun-2020 Instruction Type:Patient Education How to access health informa tion online Indication:Nonsmoker Start:26-Nov-2019 Instruction Type:Patient Education How to access health informa tion online - Detail Indication:Nonsmoker Start:26-Nov-2019 Instruction Type:Patient Education Patient Instructions Indication:Nonsmoker Start:26-Nov-2019 Instruction Type:Provider Instructions for Treatment How to access health informa tion online Indication:Nonsmoker Start:29-Aug-2019 Instruction Type:Patient Education How to access health informa tion online - Detail Indication:Nonsmoker Start:29-Aug-2019 Instruction Type:Patient Education Patient Instructions Indication:Nonsmoker Start:29-Aug-2019 Instruction Type:Provider Instructions for Treatment How to access health informa tion online Indication:Nonsmoker Start:06-Jun-2019 Instruction Type:Patient Education How to access health informa tion online - Detail Indication:Nonsmoker Start:06-Jun-2019 Instruction Type:Patient Education Patient Instructions Indication:Nonsmoker Start:06-Jun-2019 Instruction Type:Provider Instructions for Treatment How to access health informa tion online Indication:Nonsmoker Start:04-Dec-2018 Instruction Type:Patient Education How to access health informa tion online - Detail Indication:Nonsmoker Start:04-Dec-2018 Instruction Type:Patient Education Patient Instructions Indication:Nonsmoker Start:04-Dec-2018 Instruction Type:Provider Instructions for Treatment How to access health informa tion online Indication:Nonsmoker Start:26-May-2018 Instruction Type:Patient Education How to access health informa tion online - Detail Indication:Nonsmoker Start:26-May-2018 Instruction Type:Patient Education Patient Instructions Indication:Nonsmoker Start:26-May-2018 Instruction Type:Provider Instructions for Treatment How to access health informa tion online Indication:BMI 34.0-34.9,adult Start:10-Oct-2017 Instruction Type:Patient Education How to access health informa tion online - Detail Indication:BMI 34.0-34.9,adult Start:10-Oct-2017 Instruction Type:Patient Education Patient Instructions Indication:BMI 34.0-34.9,adult Start:10-Oct-2017 Instruction Type:Provider Instructions for Treatment DISCONTINUED - LIPID PANEL ( [id number]) Indication:Hyperglyceridemia Start:12-Apr-2017 Instruction Type:Patient Education How to access health informa tion online Indication:Nonsmoker Start:12-Apr-2017 Instruction Type:Patient Education How to access health informa tion online - Detail Indication:Nonsmoker Start:12-Apr-2017 Instruction Type:Patient Education Patient Instructions Indication:Nonsmoker Start:12-Apr-2017 Instruction Type:Provider Instructions for Treatment How to access health informa tion online Indication:Depression, controlled Start:01-Apr-2017 Instruction Type:Patient Education How to access health informa tion online - Detail Indication:Depression, controlled Start:01-Apr-2017 Instruction Type:Patient Education Patient Instructions Indication:Depression, controlled Start:01-Apr-2017 Instruction Type:Provider Instructions for Treatment Patient Instructions Indication:Hypercholesteremia Start:13-Sep-2016 Instruction Type:Provider Instructions for Treatment How to access health informa tion online Indication:Hypercholesteremia Start:13-Sep-2016 Instruction Type:Patient Education How to access health informa tion online - Detail Indication:Hypercholesteremia Start:13-Sep-2016 Instruction Type:Patient Education Patient Instructions Indication:Hypercholesteremia Start:13-Sep-2016 Instruction Type:Provider Instructions for Treatment How to access health informa tion online Indication:Elevated blood pressure (not hypertension) Start:23-Aug-2016 Instruction Type:Patient Education How to access health informa tion online - Detail Indication:Elevated blood pressure (not hypertension) Start:23-Aug-2016 Instruction Type:Patient Education Patient Instructions Indication:Elevated blood pressure (not hypertension) Start:23-Aug-2016 Instruction Type:Provider Instructions for Treatment How to access health informa tion online Indication:Depression Start:23-Feb-2016 Instruction Type:Patient Education How to access health informa tion online - Detail Indication:Depression Start:23-Feb-2016 Instruction Type:Patient Education Patient Instructions Indication:Depression Start:23-Feb-2016 Instruction Type:Provider Instructions for Treatment How to access health informa tion online Indication:Lump in neck Start:07-Nov-2015 Instruction Type:Patient Education How to access health informa tion online - Detail Indication:Lump in neck Start:07-Nov-2015 Instruction Type:Patient Education Patient Instructions Indication:Lump in neck Start:07-Nov-2015 Instruction Type:Provider Instructions for Treatment How to access health informa tion online Indication:Hyperglyceridemia Start:25-Aug-2015 Instruction Type:Patient Education How to access health informa tion online - Detail Indication:Hyperglyceridemia Start:25-Aug-2015 Instruction Type:Patient Education Patient Instructions Indication:Hyperglyceridemia Start:25-Aug-2015 Instruction Type:Provider Instructions for Treatment How to access health informa tion online Indication:UTI (urinary tract infection) Start:02-Jul-2015 Instruction Type:Patient Education How to access health informa tion online - Detail Indication:UTI (urinary tract infection) Start:02-Jul-2015 Instruction Type:Patient Education Patient Instructions Indication:UTI (urinary tract infection) Start:02-Jul-2015 Instruction Type:Provider Instructions for Treatment How to access health informa tion online Indication:Paresthesia Start:25-Mar-2015 Instruction Type:Patient Education How to access health informa tion online - Detail Indication:Paresthesia Start:25-Mar-2015 Instruction Type:Patient Education Patient Instructions Indication:Paresthesia Start:25-Mar-2015 Instruction Type:Provider Instructions for Treatment Patient Instructions Indication:Depression Start:23-Sep-2014 Instruction Type:Provider Instructions for Treatment Patient Instructions Indication:Depression Start:25-Mar-2014 Instruction Type:Provider Instructions for Treatment Patient Instructions Indication:Hyperglyceridemia Start:03-Oct-2013 Instruction Type:Provider Instructions for Treatment Patient Instructions Indication:Depression Start:12-Mar-2013 Instruction Type:Provider Instructions for Treatment [facility]; [facility] Work Phone: Instructions* Name Dates Details Patient Instructions Indication:BMI 36.0-36.9,adult Start:25-Nov-2021 Instruction Type:Provider Instructions for Treatment How to Access Health Informa tion Online using Patient Portal and [employer] Indication:BMI 36.0-36.9,adult Start:25-Nov-2021 Instruction Type:Patient Education Patient Instructions Indication:BMI 36.0-36.9,adult Start:28-Oct-2021 Instruction Type:Provider Instructions for Treatment How to Access Health Informa tion Online using Patient Portal and [employer] Indication:BMI 36.0-36.9,adult Start:28-Oct-2021 Instruction Type:Patient Education Patient Instructions Indication:Nonsmoker Start:08-Dec-2020 Instruction Type:Provider Instructions for Treatment How to Access Health Informa tion Online using Patient Portal and [employer] Indication:Nonsmoker Start:08-Dec-2020 Instruction Type:Patient Education Patient Instructions Indication:BMI 36.0-36.9,adult Start:15-Sep-2020 Instruction Type:Provider Instructions for Treatment How to Access Health Informa tion Online using Patient Portal and [employer] Indication:Nonsmoker Start:15-Sep-2020 Instruction Type:Patient Education Patient Instructions Indication:Nonsmoker Start:02-Jun-2020 Instruction Type:Provider Instructions for Treatment How to Access Health Informa tion Online using Patient Portal and [employer] Indication:Nonsmoker Start:02-Jun-2020 Instruction Type:Patient Education How to access health informa tion online Indication:Nonsmoker Start:26-Nov-2019 Instruction Type:Patient Education How to access health informa tion online - Detail Indication:Nonsmoker Start:26-Nov-2019 Instruction Type:Patient Education Patient Instructions Indication:Nonsmoker Start:26-Nov-2019 Instruction Type:Provider Instructions for Treatment How to access health informa tion online Indication:Nonsmoker Start:29-Aug-2019 Instruction Type:Patient Education How to access health informa tion online - Detail Indication:Nonsmoker Start:29-Aug-2019 Instruction Type:Patient Education Patient Instructions Indication:Nonsmoker Start:29-Aug-2019 Instruction Type:Provider Instructions for Treatment How to access health informa tion online Indication:Nonsmoker Start:06-Jun-2019 Instruction Type:Patient Education How to access health informa tion online - Detail Indication:Nonsmoker Start:06-Jun-2019 Instruction Type:Patient Education Patient Instructions Indication:Nonsmoker Start:06-Jun-2019 Instruction Type:Provider Instructions for Treatment How to access health informa tion online Indication:Nonsmoker Start:04-Dec-2018 Instruction Type:Patient Education How to access health informa tion online - Detail Indication:Nonsmoker Start:04-Dec-2018 Instruction Type:Patient Education Patient Instructions Indication:Nonsmoker Start:04-Dec-2018 Instruction Type:Provider Instructions for Treatment How to access health informa tion online Indication:Nonsmoker Start:26-May-2018 Instruction Type:Patient Education How to access health informa tion online - Detail Indication:Nonsmoker Start:26-May-2018 Instruction Type:Patient Education Patient Instructions Indication:Nonsmoker Start:26-May-2018 Instruction Type:Provider Instructions for Treatment How to access health informa tion online Indication:BMI 34.0-34.9,adult Start:10-Oct-2017 Instruction Type:Patient Education How to access health informa tion online - Detail Indication:BMI 34.0-34.9,adult Start:10-Oct-2017 Instruction Type:Patient Education Patient Instructions Indication:BMI 34.0-34.9,adult Start:10-Oct-2017 Instruction Type:Provider Instructions for Treatment DISCONTINUED - LIPID PANEL ( [id number]) Indication:Hyperglyceridemia Start:12-Apr-2017 Instruction Type:Patient Education How to access health informa tion online Indication:Nonsmoker Start:12-Apr-2017 Instruction Type:Patient Education How to access health informa tion online - Detail Indication:Nonsmoker Start:12-Apr-2017 Instruction Type:Patient Education Patient Instructions Indication:Nonsmoker Start:12-Apr-2017 Instruction Type:Provider Instructions for Treatment How to access health informa tion online Indication:Depression, controlled Start:01-Apr-2017 Instruction Type:Patient Education How to access health informa tion online - Detail Indication:Depression, controlled Start:01-Apr-2017 Instruction Type:Patient Education Patient Instructions Indication:Depression, controlled Start:01-Apr-2017 Instruction Type:Provider Instructions for Treatment Patient Instructions Indication:Hypercholesteremia Start:13-Sep-2016 Instruction Type:Provider Instructions for Treatment How to access health informa tion online Indication:Hypercholesteremia Start:13-Sep-2016 Instruction Type:Patient Education How to access health informa tion online - Detail Indication:Hypercholesteremia Start:13-Sep-2016 Instruction Type:Patient Education Patient Instructions Indication:Hypercholesteremia Start:13-Sep-2016 Instruction Type:Provider Instructions for Treatment How to access health informa tion online Indication:Elevated blood pressure (not hypertension) Start:23-Aug-2016 Instruction Type:Patient Education How to access health informa tion online - Detail Indication:Elevated blood pressure (not hypertension) Start:23-Aug-2016 Instruction Type:Patient Education Patient Instructions Indication:Elevated blood pressure (not hypertension) Start:23-Aug-2016 Instruction Type:Provider Instructions for Treatment How to access health informa tion online Indication:Depression Start:23-Feb-2016 Instruction Type:Patient Education How to access health informa tion online - Detail Indication:Depression Start:23-Feb-2016 Instruction Type:Patient Education Patient Instructions Indication:Depression Start:23-Feb-2016 Instruction Type:Provider Instructions for Treatment How to access health informa tion online Indication:Lump in neck Start:07-Nov-2015 Instruction Type:Patient Education How to access health informa tion online - Detail Indication:Lump in neck Start:07-Nov-2015 Instruction Type:Patient Education Patient Instructions Indication:Lump in neck Start:07-Nov-2015 Instruction Type:Provider Instructions for Treatment How to access health informa tion online Indication:Hyperglyceridemia Start:25-Aug-2015 Instruction Type:Patient Education How to access health informa tion online - Detail Indication:Hyperglyceridemia Start:25-Aug-2015 Instruction Type:Patient Education Patient Instructions Indication:Hyperglyceridemia Start:25-Aug-2015 Instruction Type:Provider Instructions for Treatment How to access health informa tion online Indication:UTI (urinary tract infection) Start:02-Jul-2015 Instruction Type:Patient Education How to access health informa tion online - Detail Indication:UTI (urinary tract infection) Start:02-Jul-2015 Instruction Type:Patient Education Patient Instructions Indication:UTI (urinary tract infection) Start:02-Jul-2015 Instruction Type:Provider Instructions for Treatment How to access health informa tion online Indication:Paresthesia Start:25-Mar-2015 Instruction Type:Patient Education How to access health informa tion online - Detail Indication:Paresthesia Start:25-Mar-2015 Instruction Type:Patient Education Patient Instructions Indication:Paresthesia Start:25-Mar-2015 Instruction Type:Provider Instructions for Treatment Patient Instructions Indication:Depression Start:23-Sep-2014 Instruction Type:Provider Instructions for Treatment Patient Instructions Indication:Depression Start:25-Mar-2014 Instruction Type:Provider Instructions for Treatment Patient Instructions Indication:Hyperglyceridemia Start:03-Oct-2013 Instruction Type:Provider Instructions for Treatment Patient Instructions Indication:Depression Start:12-Mar-2013 Instruction Type:Provider Instructions for Treatment [facility] Work Phone: Summary Purpose Family History No Family History Records Found Relationship Condition Age at Onset Recorded Date/T [place] grandmother Malignant neoplasm 80 mother Malignant neoplasm 50 sister Malignant neoplasm 60 sister Malignant neoplasm of colon 20 grandfather Malignant neoplasm Unknown father Malignant neoplasm Unknown aunt Malignant neoplasm Unknown Advance Directives No Advanced Directives Records FoundNo Advanced Directives Records Found Instructions Name Dates Details Nonsmoker : How to access he alth information online Indication:Nonsmoker Nonsmoker : How to access he alth information online - Detail Indication:Nonsmoker Nonsmoker : Patient Instruct ions Indication:Nonsmoker BMI 34.0-34.9,adult : How to access health information online Indication:BMI 34.0-34.9,adult BMI 34.0-34.9,adult : How to access health information online - Detail Indication:BMI 34.0-34.9,adult BMI 34.0-34.9,adult : Patien t Instructions Indication:BMI 34.0-34.9,adult Hyperglyceridemia : DISCONTI NUED - LIPID PANEL ([id number]) Indication:Hyperglyceridemia Depression, controlled : How to access health information online Indication:Depression, controlled Depression, controlled : How to access health information online - Detail Indication:Depression, controlled Depression, controlled : Pat ient Instructions Indication:Depression, controlled Hypercholesteremia : Patient Instructions Indication:Hypercholesteremia Hypercholesteremia : How to access health information online Indication:Hypercholesteremia Hypercholesteremia : How to access health information online - Detail Indication:Hypercholesteremia Elevated blood pressure (not hypertension) : How to access health information online Indication:Elevated blood pressure (not hypertension) Elevated blood pressure (not hypertension) : How to access health information online - Detail Indication:Elevated blood pressure (not hypertension) Elevated blood pressure (not hypertension) : Patient Instructions Indication:Elevated blood pressure (not hypertension) Depression : How to access h ealth information online Indication:Depression Depression : How to access h ealth information online - Detail Indication:Depression Depression : Patient Instruc tions Indication:Depression Lump in neck : How to access health information online Indication:Lump in neck Lump in neck : How to access health information online - Detail Indication:Lump in neck Lump in neck : Patient Instr uctions Indication:Lump in neck Hyperglyceridemia : How to a ccess health information online Indication:Hyperglyceridemia Hyperglyceridemia : How to a ccess health information online - Detail Indication:Hyperglyceridemia Hyperglyceridemia : Patient Instructions Indication:Hyperglyceridemia UTI (urinary tract infection ) : How to access health information online Indication:UTI (urinary tract infection) UTI (urinary tract infection ) : How to access health information online - Detail Indication:UTI (urinary tract infection) UTI (urinary tract infection ) : Patient Instructions Indication:UTI (urinary tract infection) Paresthesia : How to access health information online Indication:Paresthesia Paresthesia : How to access health information online - Detail Indication:Paresthesia Paresthesia : Patient Instru ctions Indication:Paresthesia Name Dates Details How to access health informa tion online Indication:Nonsmoker Start:04-Dec-2018 Instruction Type:Patient Education How to access health informa tion online - Detail Indication:Nonsmoker Start:04-Dec-2018 Instruction Type:Patient Education Patient Instructions Indication:Nonsmoker Start:04-Dec-2018 Instruction Type:Provider Instructions for Treatment How to access health informa tion online Indication:Nonsmoker Start:26-May-2018 Instruction Type:Patient Education How to access health informa tion online - Detail Indication:Nonsmoker Start:26-May-2018 Instruction Type:Patient Education Patient Instructions Indication:Nonsmoker Start:26-May-2018 Instruction Type:Provider Instructions for Treatment How to access health informa tion online Indication:BMI 34.0-34.9,adult Start:10-Oct-2017 Instruction Type:Patient Education How to access health informa tion online - Detail Indication:BMI 34.0-34.9,adult Start:10-Oct-2017 Instruction Type:Patient Education Patient Instructions Indication:BMI 34.0-34.9,adult Start:10-Oct-2017 Instruction Type:Provider Instructions for Treatment DISCONTINUED - LIPID PANEL ( [id number]) Indication:Hyperglyceridemia Start:12-Apr-2017 Instruction Type:Patient Education How to access health informa tion online Indication:Nonsmoker Start:12-Apr-2017 Instruction Type:Patient Education How to access health informa tion online - Detail Indication:Nonsmoker Start:12-Apr-2017 Instruction Type:Patient Education Patient Instructions Indication:Nonsmoker Start:12-Apr-2017 Instruction Type:Provider Instructions for Treatment How to access health informa tion online Indication:Depression, controlled Start:01-Apr-2017 Instruction Type:Patient Education How to access health informa tion online - Detail Indication:Depression, controlled Start:01-Apr-2017 Instruction Type:Patient Education Patient Instructions Indication:Depression, controlled Start:01-Apr-2017 Instruction Type:Provider Instructions for Treatment Patient Instructions Indication:Hypercholesteremia Start:13-Sep-2016 Instruction Type:Provider Instructions for Treatment How to access health informa tion online Indication:Hypercholesteremia Start:13-Sep-2016 Instruction Type:Patient Education How to access health informa tion online - Detail Indication:Hypercholesteremia Start:13-Sep-2016 Instruction Type:Patient Education How to access health informa tion online Indication:Elevated blood pressure (not hypertension) Start:23-Aug-2016 Instruction Type:Patient Education How to access health informa tion online - Detail Indication:Elevated blood pressure (not hypertension) Start:23-Aug-2016 Instruction Type:Patient Education Patient Instructions Indication:Elevated blood pressure (not hypertension) Start:23-Aug-2016 Instruction Type:Provider Instructions for Treatment How to access health informa tion online Indication:Depression Start:23-Feb-2016 Instruction Type:Patient Education How to access health informa tion online - Detail Indication:Depression Start:23-Feb-2016 Instruction Type:Patient Education Patient Instructions Indication:Depression Start:23-Feb-2016 Instruction Type:Provider Instructions for Treatment How to access health informa tion online Indication:Lump in neck Start:07-Nov-2015 Instruction Type:Patient Education How to access health informa tion online - Detail Indication:Lump in neck Start:07-Nov-2015 Instruction Type:Patient Education Patient Instructions Indication:Lump in neck Start:07-Nov-2015 Instruction Type:Provider Instructions for Treatment How to access health informa tion online Indication:Hyperglyceridemia Start:25-Aug-2015 Instruction Type:Patient Education How to access health informa tion online - Detail Indication:Hyperglyceridemia Start:25-Aug-2015 Instruction Type:Patient Education Patient Instructions Indication:Hyperglyceridemia Start:25-Aug-2015 Instruction Type:Provider Instructions for Treatment How to access health informa tion online Indication:UTI (urinary tract infection) Start:02-Jul-2015 Instruction Type:Patient Education How to access health informa tion online - Detail Indication:UTI (urinary tract infection) Start:02-Jul-2015 Instruction Type:Patient Education Patient Instructions Indication:UTI (urinary tract infection) Start:02-Jul-2015 Instruction Type:Provider Instructions for Treatment How to access health informa tion online Indication:Paresthesia Start:25-Mar-2015 Instruction Type:Patient Education How to access health informa tion online - Detail Indication:Paresthesia Start:25-Mar-2015 Instruction Type:Patient Education Patient Instructions Indication:Paresthesia Start:25-Mar-2015 Instruction Type:Provider Instructions for Treatment Patient Instructions Indication:Depression Start:23-Sep-2014 Instruction Type:Provider Instructions for Treatment Patient Instructions Indication:Depression Start:25-Mar-2014 Instruction Type:Provider Instructions for Treatment Patient Instructions Indication:Hyperglyceridemia Start:03-Oct-2013 Instruction Type:Provider Instructions for Treatment Patient Instructions Indication:Depression Start:12-Mar-2013 Instruction Type:Provider Instructions for Treatment Name Dates Details How to access health informa tion online Indication:Nonsmoker Start:04-Dec-2018 Instruction Type:Patient Education How to access health informa tion online - Detail Indication:Nonsmoker Start:04-Dec-2018 Instruction Type:Patient Education Patient Instructions Indication:Nonsmoker Start:04-Dec-2018 Instruction Type:Provider Instructions for Treatment How to access health informa tion online Indication:Nonsmoker Start:26-May-2018 Instruction Type:Patient Education How to access health informa tion online - Detail Indication:Nonsmoker Start:26-May-2018 Instruction Type:Patient Education Patient Instructions Indication:Nonsmoker Start:26-May-2018 Instruction Type:Provider Instructions for Treatment How to access health informa tion online Indication:BMI 34.0-34.9,adult Start:10-Oct-2017 Instruction Type:Patient Education How to access health informa tion online - Detail Indication:BMI 34.0-34.9,adult Start:10-Oct-2017 Instruction Type:Patient Education Patient Instructions Indication:BMI 34.0-34.9,adult Start:10-Oct-2017 Instruction Type:Provider Instructions for Treatment DISCONTINUED - LIPID PANEL ( [id number]) Indication:Hyperglyceridemia Start:12-Apr-2017 Instruction Type:Patient Education How to access health informa tion online Indication:Nonsmoker Start:12-Apr-2017 Instruction Type:Patient Education How to access health informa tion online - Detail Indication:Nonsmoker Start:12-Apr-2017 Instruction Type:Patient Education Patient Instructions Indication:Nonsmoker Start:12-Apr-2017 Instruction Type:Provider Instructions for Treatment How to access health informa tion online Indication:Depression, controlled Start:01-Apr-2017 Instruction Type:Patient Education How to access health informa tion online - Detail Indication:Depression, controlled Start:01-Apr-2017 Instruction Type:Patient Education Patient Instructions Indication:Depression, controlled Start:01-Apr-2017 Instruction Type:Provider Instructions for Treatment Patient Instructions Indication:Hypercholesteremia Start:13-Sep-2016 Instruction Type:Provider Instructions for Treatment How to access health informa tion online Indication:Hypercholesteremia Start:13-Sep-2016 Instruction Type:Patient Education How to access health informa tion online - Detail Indication:Hypercholesteremia Start:13-Sep-2016 Instruction Type:Patient Education How to access health informa tion online Indication:Elevated blood pressure (not hypertension) Start:23-Aug-2016 Instruction Type:Patient Education How to access health informa tion online - Detail Indication:Elevated blood pressure (not hypertension) Start:23-Aug-2016 Instruction Type:Patient Education Patient Instructions Indication:Elevated blood pressure (not hypertension) Start:23-Aug-2016 Instruction Type:Provider Instructions for Treatment How to access health informa tion online Indication:Depression Start:23-Feb-2016 Instruction Type:Patient Education How to access health informa tion online - Detail Indication:Depression Start:23-Feb-2016 Instruction Type:Patient Education Patient Instructions Indication:Depression Start:23-Feb-2016 Instruction Type:Provider Instructions for Treatment How to access health informa tion online Indication:Lump in neck Start:07-Nov-2015 Instruction Type:Patient Education How to access health informa tion online - Detail Indication:Lump in neck Start:07-Nov-2015 Instruction Type:Patient Education Patient Instructions Indication:Lump in neck Start:07-Nov-2015 Instruction Type:Provider Instructions for Treatment How to access health informa tion online Indication:Hyperglyceridemia Start:25-Aug-2015 Instruction Type:Patient Education How to access health informa tion online - Detail Indication:Hyperglyceridemia Start:25-Aug-2015 Instruction Type:Patient Education Patient Instructions Indication:Hyperglyceridemia Start:25-Aug-2015 Instruction Type:Provider Instructions for Treatment How to access health informa tion online Indication:UTI (urinary tract infection) Start:02-Jul-2015 Instruction Type:Patient Education How to access health informa tion online - Detail Indication:UTI (urinary tract infection) Start:02-Jul-2015 Instruction Type:Patient Education Patient Instructions Indication:UTI (urinary tract infection) Start:02-Jul-2015 Instruction Type:Provider Instructions for Treatment How to access health informa tion online Indication:Paresthesia Start:25-Mar-2015 Instruction Type:Patient Education How to access health informa tion online - Detail Indication:Paresthesia Start:25-Mar-2015 Instruction Type:Patient Education Patient Instructions Indication:Paresthesia Start:25-Mar-2015 Instruction Type:Provider Instructions for Treatment Patient Instructions Indication:Depression Start:23-Sep-2014 Instruction Type:Provider Instructions for Treatment Patient Instructions Indication:Depression Start:25-Mar-2014 Instruction Type:Provider Instructions for Treatment Patient Instructions Indication:Hyperglyceridemia Start:03-Oct-2013 Instruction Type:Provider Instructions for Treatment Patient Instructions Indication:Depression Start:12-Mar-2013 Instruction Type:Provider Instructions for Treatment Name Dates Details How to access health informa tion online Indication:Nonsmoker Start:04-Dec-2018 Instruction Type:Patient Education How to access health informa tion online - Detail Indication:Nonsmoker Start:04-Dec-2018 Instruction Type:Patient Education Patient Instructions Indication:Nonsmoker Start:04-Dec-2018 Instruction Type:Provider Instructions for Treatment How to access health informa tion online Indication:Nonsmoker Start:26-May-2018 Instruction Type:Patient Education How to access health informa tion online - Detail Indication:Nonsmoker Start:26-May-2018 Instruction Type:Patient Education Patient Instructions Indication:Nonsmoker Start:26-May-2018 Instruction Type:Provider Instructions for Treatment How to access health informa tion online Indication:BMI 34.0-34.9,adult Start:10-Oct-2017 Instruction Type:Patient Education How to access health informa tion online - Detail Indication:BMI 34.0-34.9,adult Start:10-Oct-2017 Instruction Type:Patient Education Patient Instructions Indication:BMI 34.0-34.9,adult Start:10-Oct-2017 Instruction Type:Provider Instructions for Treatment DISCONTINUED - LIPID PANEL ( [id number]) Indication:Hyperglyceridemia Start:12-Apr-2017 Instruction Type:Patient Education How to access health informa tion online Indication:Nonsmoker Start:12-Apr-2017 Instruction Type:Patient Education How to access health informa tion online - Detail Indication:Nonsmoker Start:12-Apr-2017 Instruction Type:Patient Education Patient Instructions Indication:Nonsmoker Start:12-Apr-2017 Instruction Type:Provider Instructions for Treatment How to access health informa tion online Indication:Depression, controlled Start:01-Apr-2017 Instruction Type:Patient Education How to access health informa tion online - Detail Indication:Depression, controlled Start:01-Apr-2017 Instruction Type:Patient Education Patient Instructions Indication:Depression, controlled Start:01-Apr-2017 Instruction Type:Provider Instructions for Treatment Patient Instructions Indication:Hypercholesteremia Start:13-Sep-2016 Instruction Type:Provider Instructions for Treatment How to access health informa tion online Indication:Hypercholesteremia Start:13-Sep-2016 Instruction Type:Patient Education How to access health informa tion online - Detail Indication:Hypercholesteremia Start:13-Sep-2016 Instruction Type:Patient Education How to access health informa tion online Indication:Elevated blood pressure (not hypertension) Start:23-Aug-2016 Instruction Type:Patient Education How to access health informa tion online - Detail Indication:Elevated blood pressure (not hypertension) Start:23-Aug-2016 Instruction Type:Patient Education Patient Instructions Indication:Elevated blood pressure (not hypertension) Start:23-Aug-2016 Instruction Type:Provider Instructions for Treatment How to access health informa tion online Indication:Depression Start:23-Feb-2016 Instruction Type:Patient Education How to access health informa tion online - Detail Indication:Depression Start:23-Feb-2016 Instruction Type:Patient Education Patient Instructions Indication:Depression Start:23-Feb-2016 Instruction Type:Provider Instructions for Treatment How to access health informa tion online Indication:Lump in neck Start:07-Nov-2015 Instruction Type:Patient Education How to access health informa tion online - Detail Indication:Lump in neck Start:07-Nov-2015 Instruction Type:Patient Education Patient Instructions Indication:Lump in neck Start:07-Nov-2015 Instruction Type:Provider Instructions for Treatment How to access health informa tion online Indication:Hyperglyceridemia Start:25-Aug-2015 Instruction Type:Patient Education How to access health informa tion online - Detail Indication:Hyperglyceridemia Start:25-Aug-2015 Instruction Type:Patient Education Patient Instructions Indication:Hyperglyceridemia Start:25-Aug-2015 Instruction Type:Provider Instructions for Treatment How to access health informa tion online Indication:UTI (urinary tract infection) Start:02-Jul-2015 Instruction Type:Patient Education How to access health informa tion online - Detail Indication:UTI (urinary tract infection) Start:02-Jul-2015 Instruction Type:Patient Education Patient Instructions Indication:UTI (urinary tract infection) Start:02-Jul-2015 Instruction Type:Provider Instructions for Treatment How to access health informa tion online Indication:Paresthesia Start:25-Mar-2015 Instruction Type:Patient Education How to access health informa tion online - Detail Indication:Paresthesia Start:25-Mar-2015 Instruction Type:Patient Education Patient Instructions Indication:Paresthesia Start:25-Mar-2015 Instruction Type:Provider Instructions for Treatment Patient Instructions Indication:Depression Start:23-Sep-2014 Instruction Type:Provider Instructions for Treatment Patient Instructions Indication:Depression Start:25-Mar-2014 Instruction Type:Provider Instructions for Treatment Patient Instructions Indication:Hyperglyceridemia Start:03-Oct-2013 Instruction Type:Provider Instructions for Treatment Patient Instructions Indication:Depression Start:12-Mar-2013 Instruction Type:Provider Instructions for Treatment Name Dates Details How to access health informa tion online Indication:Nonsmoker Start:04-Dec-2018 Instruction Type:Patient Education How to access health informa tion online - Detail Indication:Nonsmoker Start:04-Dec-2018 Instruction Type:Patient Education Patient Instructions Indication:Nonsmoker Start:04-Dec-2018 Instruction Type:Provider Instructions for Treatment How to access health informa tion online Indication:Nonsmoker Start:26-May-2018 Instruction Type:Patient Education How to access health informa tion online - Detail Indication:Nonsmoker Start:26-May-2018 Instruction Type:Patient Education Patient Instructions Indication:Nonsmoker Start:26-May-2018 Instruction Type:Provider Instructions for Treatment How to access health informa tion online Indication:BMI 34.0-34.9,adult Start:10-Oct-2017 Instruction Type:Patient Education How to access health informa tion online - Detail Indication:BMI 34.0-34.9,adult Start:10-Oct-2017 Instruction Type:Patient Education Patient Instructions Indication:BMI 34.0-34.9,adult Start:10-Oct-2017 Instruction Type:Provider Instructions for Treatment DISCONTINUED - LIPID PANEL ( [id number]) Indication:Hyperglyceridemia Start:12-Apr-2017 Instruction Type:Patient Education How to access health informa tion online Indication:Nonsmoker Start:12-Apr-2017 Instruction Type:Patient Education How to access health informa tion online - Detail Indication:Nonsmoker Start:12-Apr-2017 Instruction Type:Patient Education Patient Instructions Indication:Nonsmoker Start:12-Apr-2017 Instruction Type:Provider Instructions for Treatment How to access health informa tion online Indication:Depression, controlled Start:01-Apr-2017 Instruction Type:Patient Education How to access health informa tion online - Detail Indication:Depression, controlled Start:01-Apr-2017 Instruction Type:Patient Education Patient Instructions Indication:Depression, controlled Start:01-Apr-2017 Instruction Type:Provider Instructions for Treatment Patient Instructions Indication:Hypercholesteremia Start:13-Sep-2016 Instruction Type:Provider Instructions for Treatment How to access health informa tion online Indication:Hypercholesteremia Start:13-Sep-2016 Instruction Type:Patient Education How to access health informa tion online - Detail Indication:Hypercholesteremia Start:13-Sep-2016 Instruction Type:Patient Education How to access health informa tion online Indication:Elevated blood pressure (not hypertension) Start:23-Aug-2016 Instruction Type:Patient Education How to access health informa tion online - Detail Indication:Elevated blood pressure (not hypertension) Start:23-Aug-2016 Instruction Type:Patient Education Patient Instructions Indication:Elevated blood pressure (not hypertension) Start:23-Aug-2016 Instruction Type:Provider Instructions for Treatment How to access health informa tion online Indication:Depression Start:23-Feb-2016 Instruction Type:Patient Education How to access health informa tion online - Detail Indication:Depression Start:23-Feb-2016 Instruction Type:Patient Education Patient Instructions Indication:Depression Start:23-Feb-2016 Instruction Type:Provider Instructions for Treatment How to access health informa tion online Indication:Lump in neck Start:07-Nov-2015 Instruction Type:Patient Education How to access health informa tion online - Detail Indication:Lump in neck Start:07-Nov-2015 Instruction Type:Patient Education Patient Instructions Indication:Lump in neck Start:07-Nov-2015 Instruction Type:Provider Instructions for Treatment How to access health informa tion online Indication:Hyperglyceridemia Start:25-Aug-2015 Instruction Type:Patient Education How to access health informa tion online - Detail Indication:Hyperglyceridemia Start:25-Aug-2015 Instruction Type:Patient Education Patient Instructions Indication:Hyperglyceridemia Start:25-Aug-2015 Instruction Type:Provider Instructions for Treatment How to access health informa tion online Indication:UTI (urinary tract infection) Start:02-Jul-2015 Instruction Type:Patient Education How to access health informa tion online - Detail Indication:UTI (urinary tract infection) Start:02-Jul-2015 Instruction Type:Patient Education Patient Instructions Indication:UTI (urinary tract infection) Start:02-Jul-2015 Instruction Type:Provider Instructions for Treatment How to access health informa tion online Indication:Paresthesia Start:25-Mar-2015 Instruction Type:Patient Education How to access health informa tion online - Detail Indication:Paresthesia Start:25-Mar-2015 Instruction Type:Patient Education Patient Instructions Indication:Paresthesia Start:25-Mar-2015 Instruction Type:Provider Instructions for Treatment Patient Instructions Indication:Depression Start:23-Sep-2014 Instruction Type:Provider Instructions for Treatment Patient Instructions Indication:Depression Start:25-Mar-2014 Instruction Type:Provider Instructions for Treatment Patient Instructions Indication:Hyperglyceridemia Start:03-Oct-2013 Instruction Type:Provider Instructions for Treatment Patient Instructions Indication:Depression Start:12-Mar-2013 Instruction Type:Provider Instructions for Treatment Name Dates Details How to access health informa tion online Indication:Nonsmoker Start:29-Aug-2019 Instruction Type:Patient Education How to access health informa tion online - Detail Indication:Nonsmoker Start:29-Aug-2019 Instruction Type:Patient Education Patient Instructions Indication:Nonsmoker Start:29-Aug-2019 Instruction Type:Provider Instructions for Treatment How to access health informa tion online Indication:Nonsmoker Start:06-Jun-2019 Instruction Type:Patient Education How to access health informa tion online - Detail Indication:Nonsmoker Start:06-Jun-2019 Instruction Type:Patient Education Patient Instructions Indication:Nonsmoker Start:06-Jun-2019 Instruction Type:Provider Instructions for Treatment How to access health informa tion online Indication:Nonsmoker Start:04-Dec-2018 Instruction Type:Patient Education How to access health informa tion online - Detail Indication:Nonsmoker Start:04-Dec-2018 Instruction Type:Patient Education Patient Instructions Indication:Nonsmoker Start:04-Dec-2018 Instruction Type:Provider Instructions for Treatment How to access health informa tion online Indication:Nonsmoker Start:26-May-2018 Instruction Type:Patient Education How to access health informa tion online - Detail Indication:Nonsmoker Start:26-May-2018 Instruction Type:Patient Education Patient Instructions Indication:Nonsmoker Start:26-May-2018 Instruction Type:Provider Instructions for Treatment How to access health informa tion online Indication:BMI 34.0-34.9,adult Start:10-Oct-2017 Instruction Type:Patient Education How to access health informa tion online - Detail Indication:BMI 34.0-34.9,adult Start:10-Oct-2017 Instruction Type:Patient Education Patient Instructions Indication:BMI 34.0-34.9,adult Start:10-Oct-2017 Instruction Type:Provider Instructions for Treatment DISCONTINUED - LIPID PANEL ( [id number]) Indication:Hyperglyceridemia Start:12-Apr-2017 Instruction Type:Patient Education How to access health informa tion online Indication:Nonsmoker Start:12-Apr-2017 Instruction Type:Patient Education How to access health informa tion online - Detail Indication:Nonsmoker Start:12-Apr-2017 Instruction Type:Patient Education Patient Instructions Indication:Nonsmoker Start:12-Apr-2017 Instruction Type:Provider Instructions for Treatment How to access health informa tion online Indication:Depression, controlled Start:01-Apr-2017 Instruction Type:Patient Education How to access health informa tion online - Detail Indication:Depression, controlled Start:01-Apr-2017 Instruction Type:Patient Education Patient Instructions Indication:Depression, controlled Start:01-Apr-2017 Instruction Type:Provider Instructions for Treatment Patient Instructions Indication:Hypercholesteremia Start:13-Sep-2016 Instruction Type:Provider Instructions for Treatment How to access health informa tion online Indication:Hypercholesteremia Start:13-Sep-2016 Instruction Type:Patient Education How to access health informa tion online - Detail Indication:Hypercholesteremia Start:13-Sep-2016 Instruction Type:Patient Education How to access health informa tion online Indication:Elevated blood pressure (not hypertension) Start:23-Aug-2016 Instruction Type:Patient Education How to access health informa tion online - Detail Indication:Elevated blood pressure (not hypertension) Start:23-Aug-2016 Instruction Type:Patient Education Patient Instructions Indication:Elevated blood pressure (not hypertension) Start:23-Aug-2016 Instruction Type:Provider Instructions for Treatment How to access health informa tion online Indication:Depression Start:23-Feb-2016 Instruction Type:Patient Education How to access health informa tion online - Detail Indication:Depression Start:23-Feb-2016 Instruction Type:Patient Education Patient Instructions Indication:Depression Start:23-Feb-2016 Instruction Type:Provider Instructions for Treatment How to access health informa tion online Indication:Lump in neck Start:07-Nov-2015 Instruction Type:Patient Education How to access health informa tion online - Detail Indication:Lump in neck Start:07-Nov-2015 Instruction Type:Patient Education Patient Instructions Indication:Lump in neck Start:07-Nov-2015 Instruction Type:Provider Instructions for Treatment How to access health informa tion online Indication:Hyperglyceridemia Start:25-Aug-2015 Instruction Type:Patient Education How to access health informa tion online - Detail Indication:Hyperglyceridemia Start:25-Aug-2015 Instruction Type:Patient Education Patient Instructions Indication:Hyperglyceridemia Start:25-Aug-2015 Instruction Type:Provider Instructions for Treatment How to access health informa tion online Indication:UTI (urinary tract infection) Start:02-Jul-2015 Instruction Type:Patient Education How to access health informa tion online - Detail Indication:UTI (urinary tract infection) Start:02-Jul-2015 Instruction Type:Patient Education Patient Instructions Indication:UTI (urinary tract infection) Start:02-Jul-2015 Instruction Type:Provider Instructions for Treatment How to access health informa tion online Indication:Paresthesia Start:25-Mar-2015 Instruction Type:Patient Education How to access health informa tion online - Detail Indication:Paresthesia Start:25-Mar-2015 Instruction Type:Patient Education Patient Instructions Indication:Paresthesia Start:25-Mar-2015 Instruction Type:Provider Instructions for Treatment Patient Instructions Indication:Depression Start:23-Sep-2014 Instruction Type:Provider Instructions for Treatment Patient Instructions Indication:Depression Start:25-Mar-2014 Instruction Type:Provider Instructions for Treatment Patient Instructions Indication:Hyperglyceridemia Start:03-Oct-2013 Instruction Type:Provider Instructions for Treatment Patient Instructions Indication:Depression Start:12-Mar-2013 Instruction Type:Provider Instructions for Treatment Name Dates Details How to access health informa tion online Indication:Nonsmoker Start:26-Nov-2019 Instruction Type:Patient Education How to access health informa tion online - Detail Indication:Nonsmoker Start:26-Nov-2019 Instruction Type:Patient Education Patient Instructions Indication:Nonsmoker Start:26-Nov-2019 Instruction Type:Provider Instructions for Treatment How to access health informa tion online Indication:Nonsmoker Start:29-Aug-2019 Instruction Type:Patient Education How to access health informa tion online - Detail Indication:Nonsmoker Start:29-Aug-2019 Instruction Type:Patient Education Patient Instructions Indication:Nonsmoker Start:29-Aug-2019 Instruction Type:Provider Instructions for Treatment How to access health informa tion online Indication:Nonsmoker Start:06-Jun-2019 Instruction Type:Patient Education How to access health informa tion online - Detail Indication:Nonsmoker Start:06-Jun-2019 Instruction Type:Patient Education Patient Instructions Indication:Nonsmoker Start:06-Jun-2019 Instruction Type:Provider Instructions for Treatment How to access health informa tion online Indication:Nonsmoker Start:04-Dec-2018 Instruction Type:Patient Education How to access health informa tion online - Detail Indication:Nonsmoker Start:04-Dec-2018 Instruction Type:Patient Education Patient Instructions Indication:Nonsmoker Start:04-Dec-2018 Instruction Type:Provider Instructions for Treatment How to access health informa tion online Indication:Nonsmoker Start:26-May-2018 Instruction Type:Patient Education How to access health informa tion online - Detail Indication:Nonsmoker Start:26-May-2018 Instruction Type:Patient Education Patient Instructions Indication:Nonsmoker Start:26-May-2018 Instruction Type:Provider Instructions for Treatment How to access health informa tion online Indication:BMI 34.0-34.9,adult Start:10-Oct-2017 Instruction Type:Patient Education How to access health informa tion online - Detail Indication:BMI 34.0-34.9,adult Start:10-Oct-2017 Instruction Type:Patient Education Patient Instructions Indication:BMI 34.0-34.9,adult Start:10-Oct-2017 Instruction Type:Provider Instructions for Treatment DISCONTINUED - LIPID PANEL ( [id number]) Indication:Hyperglyceridemia Start:12-Apr-2017 Instruction Type:Patient Education How to access health informa tion online Indication:Nonsmoker Start:12-Apr-2017 Instruction Type:Patient Education How to access health informa tion online - Detail Indication:Nonsmoker Start:12-Apr-2017 Instruction Type:Patient Education Patient Instructions Indication:Nonsmoker Start:12-Apr-2017 Instruction Type:Provider Instructions for Treatment How to access health informa tion online Indication:Depression, controlled Start:01-Apr-2017 Instruction Type:Patient Education How to access health informa tion online - Detail Indication:Depression, controlled Start:01-Apr-2017 Instruction Type:Patient Education Patient Instructions Indication:Depression, controlled Start:01-Apr-2017 Instruction Type:Provider Instructions for Treatment Patient Instructions Indication:Hypercholesteremia Start:13-Sep-2016 Instruction Type:Provider Instructions for Treatment How to access health informa tion online Indication:Hypercholesteremia Start:13-Sep-2016 Instruction Type:Patient Education How to access health informa tion online - Detail Indication:Hypercholesteremia Start:13-Sep-2016 Instruction Type:Patient Education How to access health informa tion online Indication:Elevated blood pressure (not hypertension) Start:23-Aug-2016 Instruction Type:Patient Education How to access health informa tion online - Detail Indication:Elevated blood pressure (not hypertension) Start:23-Aug-2016 Instruction Type:Patient Education Patient Instructions Indication:Elevated blood pressure (not hypertension) Start:23-Aug-2016 Instruction Type:Provider Instructions for Treatment How to access health informa tion online Indication:Depression Start:23-Feb-2016 Instruction Type:Patient Education How to access health informa tion online - Detail Indication:Depression Start:23-Feb-2016 Instruction Type:Patient Education Patient Instructions Indication:Depression Start:23-Feb-2016 Instruction Type:Provider Instructions for Treatment How to access health informa tion online Indication:Lump in neck Start:07-Nov-2015 Instruction Type:Patient Education How to access health informa tion online - Detail Indication:Lump in neck Start:07-Nov-2015 Instruction Type:Patient Education Patient Instructions Indication:Lump in neck Start:07-Nov-2015 Instruction Type:Provider Instructions for Treatment How to access health informa tion online Indication:Hyperglyceridemia Start:25-Aug-2015 Instruction Type:Patient Education How to access health informa tion online - Detail Indication:Hyperglyceridemia Start:25-Aug-2015 Instruction Type:Patient Education Patient Instructions Indication:Hyperglyceridemia Start:25-Aug-2015 Instruction Type:Provider Instructions for Treatment How to access health informa tion online Indication:UTI (urinary tract infection) Start:02-Jul-2015 Instruction Type:Patient Education How to access health informa tion online - Detail Indication:UTI (urinary tract infection) Start:02-Jul-2015 Instruction Type:Patient Education Patient Instructions Indication:UTI (urinary tract infection) Start:02-Jul-2015 Instruction Type:Provider Instructions for Treatment How to access health informa tion online Indication:Paresthesia Start:25-Mar-2015 Instruction Type:Patient Education How to access health informa tion online - Detail Indication:Paresthesia Start:25-Mar-2015 Instruction Type:Patient Education Patient Instructions Indication:Paresthesia Start:25-Mar-2015 Instruction Type:Provider Instructions for Treatment Patient Instructions Indication:Depression Start:23-Sep-2014 Instruction Type:Provider Instructions for Treatment Patient Instructions Indication:Depression Start:25-Mar-2014 Instruction Type:Provider Instructions for Treatment Patient Instructions Indication:Hyperglyceridemia Start:03-Oct-2013 Instruction Type:Provider Instructions for Treatment Patient Instructions Indication:Depression Start:12-Mar-2013 Instruction Type:Provider Instructions for Treatment Name Dates Details How to access health informa tion online Indication:Nonsmoker Start:26-Nov-2019 Instruction Type:Patient Education How to access health informa tion online - Detail Indication:Nonsmoker Start:26-Nov-2019 Instruction Type:Patient Education Patient Instructions Indication:Nonsmoker Start:26-Nov-2019 Instruction Type:Provider Instructions for Treatment How to access health informa tion online Indication:Nonsmoker Start:29-Aug-2019 Instruction Type:Patient Education How to access health informa tion online - Detail Indication:Nonsmoker Start:29-Aug-2019 Instruction Type:Patient Education Patient Instructions Indication:Nonsmoker Start:29-Aug-2019 Instruction Type:Provider Instructions for Treatment How to access health informa tion online Indication:Nonsmoker Start:06-Jun-2019 Instruction Type:Patient Education How to access health informa tion online - Detail Indication:Nonsmoker Start:06-Jun-2019 Instruction Type:Patient Education Patient Instructions Indication:Nonsmoker Start:06-Jun-2019 Instruction Type:Provider Instructions for Treatment How to access health informa tion online Indication:Nonsmoker Start:04-Dec-2018 Instruction Type:Patient Education How to access health informa tion online - Detail Indication:Nonsmoker Start:04-Dec-2018 Instruction Type:Patient Education Patient Instructions Indication:Nonsmoker Start:04-Dec-2018 Instruction Type:Provider Instructions for Treatment How to access health informa tion online Indication:Nonsmoker Start:26-May-2018 Instruction Type:Patient Education How to access health informa tion online - Detail Indication:Nonsmoker Start:26-May-2018 Instruction Type:Patient Education Patient Instructions Indication:Nonsmoker Start:26-May-2018 Instruction Type:Provider Instructions for Treatment How to access health informa tion online Indication:BMI 34.0-34.9,adult Start:10-Oct-2017 Instruction Type:Patient Education How to access health informa tion online - Detail Indication:BMI 34.0-34.9,adult Start:10-Oct-2017 Instruction Type:Patient Education Patient Instructions Indication:BMI 34.0-34.9,adult Start:10-Oct-2017 Instruction Type:Provider Instructions for Treatment DISCONTINUED - LIPID PANEL ( [id number]) Indication:Hyperglyceridemia Start:12-Apr-2017 Instruction Type:Patient Education How to access health informa tion online Indication:Nonsmoker Start:12-Apr-2017 Instruction Type:Patient Education How to access health informa tion online - Detail Indication:Nonsmoker Start:12-Apr-2017 Instruction Type:Patient Education Patient Instructions Indication:Nonsmoker Start:12-Apr-2017 Instruction Type:Provider Instructions for Treatment How to access health informa tion online Indication:Depression, controlled Start:01-Apr-2017 Instruction Type:Patient Education How to access health informa tion online - Detail Indication:Depression, controlled Start:01-Apr-2017 Instruction Type:Patient Education Patient Instructions Indication:Depression, controlled Start:01-Apr-2017 Instruction Type:Provider Instructions for Treatment Patient Instructions Indication:Hypercholesteremia Start:13-Sep-2016 Instruction Type:Provider Instructions for Treatment How to access health informa tion online Indication:Hypercholesteremia Start:13-Sep-2016 Instruction Type:Patient Education How to access health informa tion online - Detail Indication:Hypercholesteremia Start:13-Sep-2016 Instruction Type:Patient Education How to access health informa tion online Indication:Elevated blood pressure (not hypertension) Start:23-Aug-2016 Instruction Type:Patient Education How to access health informa tion online - Detail Indication:Elevated blood pressure (not hypertension) Start:23-Aug-2016 Instruction Type:Patient Education Patient Instructions Indication:Elevated blood pressure (not hypertension) Start:23-Aug-2016 Instruction Type:Provider Instructions for Treatment How to access health informa tion online Indication:Depression Start:23-Feb-2016 Instruction Type:Patient Education How to access health informa tion online - Detail Indication:Depression Start:23-Feb-2016 Instruction Type:Patient Education Patient Instructions Indication:Depression Start:23-Feb-2016 Instruction Type:Provider Instructions for Treatment How to access health informa tion online Indication:Lump in neck Start:07-Nov-2015 Instruction Type:Patient Education How to access health informa tion online - Detail Indication:Lump in neck Start:07-Nov-2015 Instruction Type:Patient Education Patient Instructions Indication:Lump in neck Start:07-Nov-2015 Instruction Type:Provider Instructions for Treatment How to access health informa tion online Indication:Hyperglyceridemia Start:25-Aug-2015 Instruction Type:Patient Education How to access health informa tion online - Detail Indication:Hyperglyceridemia Start:25-Aug-2015 Instruction Type:Patient Education Patient Instructions Indication:Hyperglyceridemia Start:25-Aug-2015 Instruction Type:Provider Instructions for Treatment How to access health informa tion online Indication:UTI (urinary tract infection) Start:02-Jul-2015 Instruction Type:Patient Education How to access health informa tion online - Detail Indication:UTI (urinary tract infection) Start:02-Jul-2015 Instruction Type:Patient Education Patient Instructions Indication:UTI (urinary tract infection) Start:02-Jul-2015 Instruction Type:Provider Instructions for Treatment How to access health informa tion online Indication:Paresthesia Start:25-Mar-2015 Instruction Type:Patient Education How to access health informa tion online - Detail Indication:Paresthesia Start:25-Mar-2015 Instruction Type:Patient Education Patient Instructions Indication:Paresthesia Start:25-Mar-2015 Instruction Type:Provider Instructions for Treatment Patient Instructions Indication:Depression Start:23-Sep-2014 Instruction Type:Provider Instructions for Treatment Patient Instructions Indication:Depression Start:25-Mar-2014 Instruction Type:Provider Instructions for Treatment Patient Instructions Indication:Hyperglyceridemia Start:03-Oct-2013 Instruction Type:Provider Instructions for Treatment Patient Instructions Indication:Depression Start:12-Mar-2013 Instruction Type:Provider Instructions for Treatment Name Dates Details How to access health informa tion online Indication:Nonsmoker Start:26-Nov-2019 Instruction Type:Patient Education How to access health informa tion online - Detail Indication:Nonsmoker Start:26-Nov-2019 Instruction Type:Patient Education Patient Instructions Indication:Nonsmoker Start:26-Nov-2019 Instruction Type:Provider Instructions for Treatment How to access health informa tion online Indication:Nonsmoker Start:29-Aug-2019 Instruction Type:Patient Education How to access health informa tion online - Detail Indication:Nonsmoker Start:29-Aug-2019 Instruction Type:Patient Education Patient Instructions Indication:Nonsmoker Start:29-Aug-2019 Instruction Type:Provider Instructions for Treatment How to access health informa tion online Indication:Nonsmoker Start:06-Jun-2019 Instruction Type:Patient Education How to access health informa tion online - Detail Indication:Nonsmoker Start:06-Jun-2019 Instruction Type:Patient Education Patient Instructions Indication:Nonsmoker Start:06-Jun-2019 Instruction Type:Provider Instructions for Treatment How to access health informa tion online Indication:Nonsmoker Start:04-Dec-2018 Instruction Type:Patient Education How to access health informa tion online - Detail Indication:Nonsmoker Start:04-Dec-2018 Instruction Type:Patient Education Patient Instructions Indication:Nonsmoker Start:04-Dec-2018 Instruction Type:Provider Instructions for Treatment How to access health informa tion online Indication:Nonsmoker Start:26-May-2018 Instruction Type:Patient Education How to access health informa tion online - Detail Indication:Nonsmoker Start:26-May-2018 Instruction Type:Patient Education Patient Instructions Indication:Nonsmoker Start:26-May-2018 Instruction Type:Provider Instructions for Treatment How to access health informa tion online Indication:BMI 34.0-34.9,adult Start:10-Oct-2017 Instruction Type:Patient Education How to access health informa tion online - Detail Indication:BMI 34.0-34.9,adult Start:10-Oct-2017 Instruction Type:Patient Education Patient Instructions Indication:BMI 34.0-34.9,adult Start:10-Oct-2017 Instruction Type:Provider Instructions for Treatment DISCONTINUED - LIPID PANEL ( [id number]) Indication:Hyperglyceridemia Start:12-Apr-2017 Instruction Type:Patient Education How to access health informa tion online Indication:Nonsmoker Start:12-Apr-2017 Instruction Type:Patient Education How to access health informa tion online - Detail Indication:Nonsmoker Start:12-Apr-2017 Instruction Type:Patient Education Patient Instructions Indication:Nonsmoker Start:12-Apr-2017 Instruction Type:Provider Instructions for Treatment How to access health informa tion online Indication:Depression, controlled Start:01-Apr-2017 Instruction Type:Patient Education How to access health informa tion online - Detail Indication:Depression, controlled Start:01-Apr-2017 Instruction Type:Patient Education Patient Instructions Indication:Depression, controlled Start:01-Apr-2017 Instruction Type:Provider Instructions for Treatment Patient Instructions Indication:Hypercholesteremia Start:13-Sep-2016 Instruction Type:Provider Instructions for Treatment How to access health informa tion online Indication:Hypercholesteremia Start:13-Sep-2016 Instruction Type:Patient Education How to access health informa tion online - Detail Indication:Hypercholesteremia Start:13-Sep-2016 Instruction Type:Patient Education How to access health informa tion online Indication:Elevated blood pressure (not hypertension) Start:23-Aug-2016 Instruction Type:Patient Education How to access health informa tion online - Detail Indication:Elevated blood pressure (not hypertension) Start:23-Aug-2016 Instruction Type:Patient Education Patient Instructions Indication:Elevated blood pressure (not hypertension) Start:23-Aug-2016 Instruction Type:Provider Instructions for Treatment How to access health informa tion online Indication:Depression Start:23-Feb-2016 Instruction Type:Patient Education How to access health informa tion online - Detail Indication:Depression Start:23-Feb-2016 Instruction Type:Patient Education Patient Instructions Indication:Depression Start:23-Feb-2016 Instruction Type:Provider Instructions for Treatment How to access health informa tion online Indication:Lump in neck Start:07-Nov-2015 Instruction Type:Patient Education How to access health informa tion online - Detail Indication:Lump in neck Start:07-Nov-2015 Instruction Type:Patient Education Patient Instructions Indication:Lump in neck Start:07-Nov-2015 Instruction Type:Provider Instructions for Treatment How to access health informa tion online Indication:Hyperglyceridemia Start:25-Aug-2015 Instruction Type:Patient Education How to access health informa tion online - Detail Indication:Hyperglyceridemia Start:25-Aug-2015 Instruction Type:Patient Education Patient Instructions Indication:Hyperglyceridemia Start:25-Aug-2015 Instruction Type:Provider Instructions for Treatment How to access health informa tion online Indication:UTI (urinary tract infection) Start:02-Jul-2015 Instruction Type:Patient Education How to access health informa tion online - Detail Indication:UTI (urinary tract infection) Start:02-Jul-2015 Instruction Type:Patient Education Patient Instructions Indication:UTI (urinary tract infection) Start:02-Jul-2015 Instruction Type:Provider Instructions for Treatment How to access health informa tion online Indication:Paresthesia Start:25-Mar-2015 Instruction Type:Patient Education How to access health informa tion online - Detail Indication:Paresthesia Start:25-Mar-2015 Instruction Type:Patient Education Patient Instructions Indication:Paresthesia Start:25-Mar-2015 Instruction Type:Provider Instructions for Treatment Patient Instructions Indication:Depression Start:23-Sep-2014 Instruction Type:Provider Instructions for Treatment Patient Instructions Indication:Depression Start:25-Mar-2014 Instruction Type:Provider Instructions for Treatment Patient Instructions Indication:Hyperglyceridemia Start:03-Oct-2013 Instruction Type:Provider Instructions for Treatment Patient Instructions Indication:Depression Start:12-Mar-2013 Instruction Type:Provider Instructions for Treatment Name Dates Details Patient Instructions Indication:Nonsmoker Start:02-Jun-2020 Instruction Type:Provider Instructions for Treatment How to Access Health Informa tion Online using Patient Portal and [employer]rd [employer] Apps Indication:Nonsmoker Start:02-Jun-2020 Instruction Type:Patient Education How to access health informa tion online Indication:Nonsmoker Start:26-Nov-2019 Instruction Type:Patient Education How to access health informa tion online - Detail Indication:Nonsmoker Start:26-Nov-2019 Instruction Type:Patient Education Patient Instructions Indication:Nonsmoker Start:26-Nov-2019 Instruction Type:Provider Instructions for Treatment How to access health informa tion online Indication:Nonsmoker Start:29-Aug-2019 Instruction Type:Patient Education How to access health informa tion online - Detail Indication:Nonsmoker Start:29-Aug-2019 Instruction Type:Patient Education Patient Instructions Indication:Nonsmoker Start:29-Aug-2019 Instruction Type:Provider Instructions for Treatment How to access health informa tion online Indication:Nonsmoker Start:06-Jun-2019 Instruction Type:Patient Education How to access health informa tion online - Detail Indication:Nonsmoker Start:06-Jun-2019 Instruction Type:Patient Education Patient Instructions Indication:Nonsmoker Start:06-Jun-2019 Instruction Type:Provider Instructions for Treatment How to access health informa tion online Indication:Nonsmoker Start:04-Dec-2018 Instruction Type:Patient Education How to access health informa tion online - Detail Indication:Nonsmoker Start:04-Dec-2018 Instruction Type:Patient Education Patient Instructions Indication:Nonsmoker Start:04-Dec-2018 Instruction Type:Provider Instructions for Treatment How to access health informa tion online Indication:Nonsmoker Start:26-May-2018 Instruction Type:Patient Education How to access health informa tion online - Detail Indication:Nonsmoker Start:26-May-2018 Instruction Type:Patient Education Patient Instructions Indication:Nonsmoker Start:26-May-2018 Instruction Type:Provider Instructions for Treatment How to access health informa tion online Indication:BMI 34.0-34.9,adult Start:10-Oct-2017 Instruction Type:Patient Education How to access health informa tion online - Detail Indication:BMI 34.0-34.9,adult Start:10-Oct-2017 Instruction Type:Patient Education Patient Instructions Indication:BMI 34.0-34.9,adult Start:10-Oct-2017 Instruction Type:Provider Instructions for Treatment DISCONTINUED - LIPID PANEL ( [id number]) Indication:Hyperglyceridemia Start:12-Apr-2017 Instruction Type:Patient Education How to access health informa tion online Indication:Nonsmoker Start:12-Apr-2017 Instruction Type:Patient Education How to access health informa tion online - Detail Indication:Nonsmoker Start:12-Apr-2017 Instruction Type:Patient Education Patient Instructions Indication:Nonsmoker Start:12-Apr-2017 Instruction Type:Provider Instructions for Treatment How to access health informa tion online Indication:Depression, controlled Start:01-Apr-2017 Instruction Type:Patient Education How to access health informa tion online - Detail Indication:Depression, controlled Start:01-Apr-2017 Instruction Type:Patient Education Patient Instructions Indication:Depression, controlled Start:01-Apr-2017 Instruction Type:Provider Instructions for Treatment Patient Instructions Indication:Hypercholesteremia Start:13-Sep-2016 Instruction Type:Provider Instructions for Treatment How to access health informa tion online Indication:Hypercholesteremia Start:13-Sep-2016 Instruction Type:Patient Education How to access health informa tion online - Detail Indication:Hypercholesteremia Start:13-Sep-2016 Instruction Type:Patient Education How to access health informa tion online Indication:Elevated blood pressure (not hypertension) Start:23-Aug-2016 Instruction Type:Patient Education How to access health informa tion online - Detail Indication:Elevated blood pressure (not hypertension) Start:23-Aug-2016 Instruction Type:Patient Education Patient Instructions Indication:Elevated blood pressure (not hypertension) Start:23-Aug-2016 Instruction Type:Provider Instructions for Treatment How to access health informa tion online Indication:Depression Start:23-Feb-2016 Instruction Type:Patient Education How to access health informa tion online - Detail Indication:Depression Start:23-Feb-2016 Instruction Type:Patient Education Patient Instructions Indication:Depression Start:23-Feb-2016 Instruction Type:Provider Instructions for Treatment How to access health informa tion online Indication:Lump in neck Start:07-Nov-2015 Instruction Type:Patient Education How to access health informa tion online - Detail Indication:Lump in neck Start:07-Nov-2015 Instruction Type:Patient Education Patient Instructions Indication:Lump in neck Start:07-Nov-2015 Instruction Type:Provider Instructions for Treatment How to access health informa tion online Indication:Hyperglyceridemia Start:25-Aug-2015 Instruction Type:Patient Education How to access health informa tion online - Detail Indication:Hyperglyceridemia Start:25-Aug-2015 Instruction Type:Patient Education Patient Instructions Indication:Hyperglyceridemia Start:25-Aug-2015 Instruction Type:Provider Instructions for Treatment How to access health informa tion online Indication:UTI (urinary tract infection) Start:02-Jul-2015 Instruction Type:Patient Education How to access health informa tion online - Detail Indication:UTI (urinary tract infection) Start:02-Jul-2015 Instruction Type:Patient Education Patient Instructions Indication:UTI (urinary tract infection) Start:02-Jul-2015 Instruction Type:Provider Instructions for Treatment How to access health informa tion online Indication:Paresthesia Start:25-Mar-2015 Instruction Type:Patient Education How to access health informa tion online - Detail Indication:Paresthesia Start:25-Mar-2015 Instruction Type:Patient Education Patient Instructions Indication:Paresthesia Start:25-Mar-2015 Instruction Type:Provider Instructions for Treatment Patient Instructions Indication:Depression Start:23-Sep-2014 Instruction Type:Provider Instructions for Treatment Patient Instructions Indication:Depression Start:25-Mar-2014 Instruction Type:Provider Instructions for Treatment Patient Instructions Indication:Hyperglyceridemia Start:03-Oct-2013 Instruction Type:Provider Instructions for Treatment Patient Instructions Indication:Depression Start:12-Mar-2013 Instruction Type:Provider Instructions for Treatment Name Dates Details How to access health informa tion online Indication:Nonsmoker Start:26-May-2018 Instruction Type:Patient Education How to access health informa tion online - Detail Indication:Nonsmoker Start:26-May-2018 Instruction Type:Patient Education Patient Instructions Indication:Nonsmoker Start:26-May-2018 Instruction Type:Provider Instructions for Treatment How to access health informa tion online Indication:BMI 34.0-34.9,adult Start:10-Oct-2017 Instruction Type:Patient Education How to access health informa tion online - Detail Indication:BMI 34.0-34.9,adult Start:10-Oct-2017 Instruction Type:Patient Education Patient Instructions Indication:BMI 34.0-34.9,adult Start:10-Oct-2017 Instruction Type:Provider Instructions for Treatment DISCONTINUED - LIPID PANEL ( [id number]) Indication:Hyperglyceridemia Start:12-Apr-2017 Instruction Type:Patient Education How to access health informa tion online Indication:Nonsmoker Start:12-Apr-2017 Instruction Type:Patient Education How to access health informa tion online - Detail Indication:Nonsmoker Start:12-Apr-2017 Instruction Type:Patient Education Patient Instructions Indication:Nonsmoker Start:12-Apr-2017 Instruction Type:Provider Instructions for Treatment How to access health informa tion online Indication:Depression, controlled Start:01-Apr-2017 Instruction Type:Patient Education How to access health informa tion online - Detail Indication:Depression, controlled Start:01-Apr-2017 Instruction Type:Patient Education Patient Instructions Indication:Depression, controlled Start:01-Apr-2017 Instruction Type:Provider Instructions for Treatment Patient Instructions Indication:Hypercholesteremia Start:13-Sep-2016 Instruction Type:Provider Instructions for Treatment How to access health informa tion online Indication:Hypercholesteremia Start:13-Sep-2016 Instruction Type:Patient Education How to access health informa tion online - Detail Indication:Hypercholesteremia Start:13-Sep-2016 Instruction Type:Patient Education How to access health informa tion online Indication:Elevated blood pressure (not hypertension) Start:23-Aug-2016 Instruction Type:Patient Education How to access health informa tion online - Detail Indication:Elevated blood pressure (not hypertension) Start:23-Aug-2016 Instruction Type:Patient Education Patient Instructions Indication:Elevated blood pressure (not hypertension) Start:23-Aug-2016 Instruction Type:Provider Instructions for Treatment How to access health informa tion online Indication:Depression Start:23-Feb-2016 Instruction Type:Patient Education How to access health informa tion online - Detail Indication:Depression Start:23-Feb-2016 Instruction Type:Patient Education Patient Instructions Indication:Depression Start:23-Feb-2016 Instruction Type:Provider Instructions for Treatment How to access health informa tion online Indication:Lump in neck Start:07-Nov-2015 Instruction Type:Patient Education How to access health informa tion online - Detail Indication:Lump in neck Start:07-Nov-2015 Instruction Type:Patient Education Patient Instructions Indication:Lump in neck Start:07-Nov-2015 Instruction Type:Provider Instructions for Treatment How to access health informa tion online Indication:Hyperglyceridemia Start:25-Aug-2015 Instruction Type:Patient Education How to access health informa tion online - Detail Indication:Hyperglyceridemia Start:25-Aug-2015 Instruction Type:Patient Education Patient Instructions Indication:Hyperglyceridemia Start:25-Aug-2015 Instruction Type:Provider Instructions for Treatment How to access health informa tion online Indication:UTI (urinary tract infection) Start:02-Jul-2015 Instruction Type:Patient Education How to access health informa tion online - Detail Indication:UTI (urinary tract infection) Start:02-Jul-2015 Instruction Type:Patient Education Patient Instructions Indication:UTI (urinary tract infection) Start:02-Jul-2015 Instruction Type:Provider Instructions for Treatment How to access health informa tion online Indication:Paresthesia Start:25-Mar-2015 Instruction Type:Patient Education How to access health informa tion online - Detail Indication:Paresthesia Start:25-Mar-2015 Instruction Type:Patient Education Patient Instructions Indication:Paresthesia Start:25-Mar-2015 Instruction Type:Provider Instructions for Treatment Patient Instructions Indication:Depression Start:23-Sep-2014 Instruction Type:Provider Instructions for Treatment Patient Instructions Indication:Depression Start:25-Mar-2014 Instruction Type:Provider Instructions for Treatment Patient Instructions Indication:Hyperglyceridemia Start:03-Oct-2013 Instruction Type:Provider Instructions for Treatment Patient Instructions Indication:Depression Start:12-Mar-2013 Instruction Type:Provider Instructions for Treatment Chief Complaint and Reason for Visit Chief Complaint SCREENING Chief Complaint Admit Date EST NEW PT - [facility] SENT March 27 10:42am Reason for Visit Admit Date Asthma March 27, 2024 10:42am Mixed hyperlipidemia March 27, 2024 10:42am Obstructive sleep apnea March 27 024 10:42am Prediabetes March 27, 2024 10:42am RLS (restless legs syndrome) March 272023 10:42am Immunization declined March 27 10:42am Establishing care with new doctorseferino for March 27, 2024 10:42am Migraine March 27, 2024 10:42am Anxiety and depression March 27 10:42am GERD (gastroesophageal reflux disease) D ecember 2023 10:42am Vitamin d deficiency March 27, 2024 10:42am Additional Source Comments INFORMATION SOURCE (unrecogn ized section and content) DATE CREATED AUTHOR 04/29/2018 [facility] DATE CREATED AUTHOR AUTHOR'S MARY GRACE ATION 07/25/2024 [facility] Goals (unrecognized section and content) Goals may be documented in a n alternate sectionGoals may be documented in an alternate sectionGoals may be documented in an alternate sectionGoals may be documented in an alternate sectionGoals may be documented in an alternate section Care Teams (unrecognized sec tion and content) Team Status: Active Member Role Status Dates Taylor Tenorio RN NEUROSURGICAL, RN NEUROSURGICAL-C Family Provider Active Taylor Tenorio RN NEUROSURGICAL, RN NEUROSURGICAL-C Primary Care Provider Active Team Status: Inactive Member Role Status Dates Taylor Tenorio RN NEUROSURGICAL, RN NEUROSURGICAL-C Primary Care Provider Active Anne Marie Nunez NP-C Attending Provider, Referring Pr chidi Active Team Status: Active Member Role Status Dates Taylor Tenorio NP, RN NEUROSURGICAL-C Family Provider Active Dr. Madina Green MD Primary Care Provider Active Team Status: Inactive Member Role Status Dates Dr. Madina Green MD Attending Provider Active Start: March 27, 2024 End: March 27, 2024 Team Status: Inactive Member Role Status Dates Dr. Madina Green MD Primary Care Provider Active Start: June 22, 2024 End: June 22, 2024 Dr. Madina Green MD Attending Provider Active Start: June 22, 2024 End: June 22, 2024 Dr. Madina Green MD Referring Provider Active Start: June 22, 2024 End: June 22, 2024 FOR RECORDS PERTAINING TO PATIENTS WHO ARE OR HAVE BEEN ENROLLED IN A CHEMICAL DEPENDENCY/SUBSTANCEABUSE PROGRAM, SOME INFORMATION MAY BE OMITTED. This clinical summary was aggregated from multiple sources. Caution should be exercised in using it in the provision of clinical care. This summary normalizes information from multiple sources, and as a consequence, information in this document may materially change the coding, format and clinical context of patient data. In addition, data may be omitted in some cases. CLINICAL DECISIONS SHOULD BE BASED ON THE PRIMARY CLINICAL RECORDS. [employer] provides no warranty or guarantee of the accuracy or completeness of information in this document.
[2025-04-10 01:22] VITALS: BP 111/64; PULSE 58; RESP 16; TEMP 36.4; O2SAT 98
== END 2025-04-10 01:28 | disposition home or self-care (01) ==
PROVIDERS: Emergency Provider Student in an Organized Health Care Education/Training Program; PCP Internal Medicine; Visit Provider Student in an Organized Health Care Education/Training Program
DX: S52.126A Nondisplaced fracture of head of unspecified radius, initial encounter for closed fracture (principal); W00.0XXA Fall on same level due to ice and snow, initial encounter; J45.909 Unspecified asthma, uncomplicated
CPT/HCPCS: 73060; 73080; 99283